=== PATIENT | female | born 1955 | race Two or more races ===

== ENCOUNTER 2021-12-28 14:00 | Outpatient (AMB) | payer MEDICARE, MEDICAID, SELFPAY ==
--- NOTE | 2021-12-29 14:13 | PR.CARETRNRP ---
OP Care Transition Does patient have PCP: Yes PCP Follow up: No (Has PCP appointment 01/01/22.) Visit Summary: CC conducted a discharge follow-up call for the PACT-Post Acute Care Transition Program. Pt's daughter, Angeli Faulkner, and medical decision maker/surrogate shared that Pt continues to feel weak. Mrs. Faulkner communicated that Pt's breathing has improved. Mrs. Faulkner indicated that a nurse from [facility] provided Pt with an initial intake assessment and will start physical therapy during the next home visit. CC inquired with Mrs. Faulkner if she was able to schedule a discharge follow-up appointment with PCP. Mrs. Faulkner stated that she has not scheduled a discharge follow-up appointment. CC assisted Pt with a discharge follow-up appointment scheduled for Saturday January 01, 2022 at 4:00PM. CC forwarded an appointment confirmation via text messaging. CC will continue to provide Pt with support and assistance as needed. [facility] Care Personnel Records Clerk Initial Visit Does patient have PCP: Yes Visit Summary: CC conducted a discharge follow-up call for the PACT-Post Acute Care Transition Program. Pt's daughter, Angeli Faulkner, and medical decision maker/surrogate shared that Pt continues to feel weak. Mrs. Faulkner communicated that Pt's breathing has improved. Mrs. Faulkner indicated that a nurse from [facility] provided Pt with an initial intake assessment and will start physical therapy during the next home visit. CC inquired with Mrs. Faulkner if she was able to schedule a discharge follow-up appointment with PCP. Mrs. Faulkner stated that she has not scheduled a discharge follow-up appointment. CC assisted Pt with a discharge follow-up appointment scheduled for Saturday January 01, 2022 at 4:00PM. CC forwarded an appointment confirmation via text messaging. CC will continue to provide Pt with support and assistance as needed. COPD Pulmonary Results: No Data to Display
== END 2021-12-28 14:30 | disposition home or self-care (01) ==
LOC: HODCWC 01-01 12:56
PROVIDERS: PCP Radiology Therapeutic Radiology; Referring Provider Radiology Therapeutic Radiology

== ENCOUNTER 2025-02-14 15:23 | Inpatient (IN) | payer MEDICARE, MEDICAID, SELFPAY ==
[2025-02-14] VITALS (14 sets, daily range): BP systolic 117–151; BP diastolic 62–79; PULSE 64–83; RESP 18–22; TEMP 36.6–37; O2SAT 90–100
--- NOTE | 2025-02-14 15:43 | EKG_ITS ---
[facility] Test Date: 2025-02-14 Pat Name: NARAYAN MAYS Department: Room: - Gender: Female Fairing Man: : 1955 Requested By: Kaykay Braxton Order Number: [id number] Reading MD: Kaykay Braxton Measurements Intervals [place] Rate: 81 P: 48 TX: 96 QRS: -47 QRSD: 118 T: -10 QT: 398 QTc: 462 Interpretive Statements SINUS RHYTHM WITH SHORT TX INTERVAL LEFT AXIS DEVIATION [QRS AXIS < -30] INCOMPLETE RIGHT BUNDLE BRANCH BLOCK [90+ ms QRS DURATION, TERMINAL R IN V1/V2, 40+ ms S IN I/aVL/V4/V5/V6] Compared to ECG 08/29/2024 19:00:10 Short TX interval now present Incomplete right bundle-branch block now present Sinus tachycardia no longer present Right bundle-branch block no longer present Myocardial infarct finding no longer present /[id number]/S0/[id number].pdf
--- NOTE | 2025-02-14 15:43 | XR_ITS ---
Examination: AP chest lateral 2 views Technique: Sitting AP lateral chest 2 views Exam date and time: February 14, 2025 at 1854 hrs. Comparison 08/21/2024 Indications: Onset chest pain today. Findings: Mild heart failure Mild enlargement cardiac contour Prominent vascular congestion with septal pulmonary edema and moderate bilateral pleural effusions Consider superimposed pneumonia left base Impression: Mild heart failure Consider superimposed pneumonia left base
--- NOTE | 2025-02-14 15:43 | XR_ITS ---
Examination: CT brain head without contrast. 2-D sagittal coronal reconstructions Date and time of exam:February 14, 2025, 1549 hrs. Indications: Onset dizziness episodes today CTDI: vol (mGy):45.9 DLP: (mGycm):923 Technique: Multiple CT axial sections of the brain have been obtained, 5 mm slice thickness. Contrast has not been administered. 2-D sagittal, coronal reconstructions have been obtained Low dose protocols were performed. One or more of the following dose reduction techniques were used; automated exposure control, adjustment of the mA and/or KV according to patient size, use of iterative reconstruction technique. Findings: No significant ventricular enlargement. Intra-axial or extra-axial hemorrhage density is not seen. No mass effect or midline shift Basal cisterns are not remarkable. Fourth ventricle is midline. Cranial vault intact. Chronic pansinusitis Impression: Negative for acute hemorrhage, mass effect or midline shift
--- NOTE | 2025-02-14 15:51 | PD.EDRME ---
Rapid Medical Screening Exam E Arrival date/time: 02/14/25 15:23 This is a 70-year-old female that comes in with complaints of anxiety, dizziness, left ear pain, headache, shortness of breath especially when laying down. Patient states symptoms started yesterday. Patient is having some mild chest pain. Patient states that she feels like her heart rate is going slow and sometimes it feels like it is going fast. Patient has a history of diabetes, high blood pressure, and has a left BKA. Patient denies fever, chills. I have greeted and performed a focused initial assessment of this patient. Initial appropriate labs ordered at this time. A comprehensive ED assessment and evaluation of the patient and analysis of all test and completion of medical decision making process will be conducted by additional ED provider. Chief Complaint: Headache Time Seen by Provider: 02/14/25 15:28 Vital signs: Vital Signs Temperature 98.6 F 02/14/25 15:40 Pulse Rate 83 02/14/25 15:40 Respiratory Rate 18 02/14/25 15:40 Blood Pressure 117/66 02/14/25 15:40 Pulse Oximetry (%) 94 L 02/14/25 15:40 Oxygen Delivery Method Room Air 02/14/25 15:40
--- NOTE | 2025-02-14 16:29 | PRELIM_ITS ---
CT scan of the head without intravenous contrast (axial sections with sagittal and coronal reformats) February 14, 2025 1549 hours Clinical history: Dizziness. Radiation Dose: Total exam DLP 926 mGy/cm Comparison: No prior study is available for comparison. Findings: There is no evidence of intracranial hemorrhage, mass effect or midline shift. There are periventricular white matter hypodensities, compatible with chronic small vessel ischemia. There is mild volume loss. There is atheromatous calcification of the intracranial arteries. The calvarium is unremarkable. There is moderate mucosal thickening with calcifications in bilateral maxillary sinuses. There is partial sclerosis of the bilateral mastoid air cells. The other visualized paranasal sinuses are clear. Impression: No evidence of intracranial hemorrhage, mass effect or midline shift. Periventricular chronic small vessel ischemia and volume loss. Other findings as described above. Report Electronically Signed By: Shay Salomon 02/14/2025 4:29:21 PM [EST]
--- NOTE | 2025-02-14 16:29 | PD.EDHA ---
ED Headache RME/HPI General Chief Complaint: Headache Stated Complaint: HEADACHE Time Seen by Provider: 02/14/25 15:28 Arrival date/time: 02/14/25 15:23 This is a 70-year-old female that comes in with complaints of anxiety, dizziness, left ear pain, headache, shortness of breath especially when laying down. Patient states symptoms started yesterday. Patient is having some mild chest pain. Patient states that she feels like her heart rate is going slow and sometimes it feels like it is going fast. Patient has a history of diabetes, high blood pressure, and has a left BKA. Patient denies fever, chills. RME / HPI RME / HPI Narrative: 02/14/25 15:23 This is a 70-year-old female that comes in with complaints of anxiety, dizziness, left ear pain, headache, shortness of breath especially when laying down. Patient states symptoms started yesterday. Patient is having some mild chest pain. Patient states that she feels like her heart rate is going slow and sometimes it feels like it is going fast. Patient has a history of diabetes, high blood pressure, and has a left BKA. Patient denies fever, chills. I have greeted and performed a focused initial assessment of this patient. Initial appropriate labs ordered at this time. A comprehensive ED assessment and evaluation of the patient and analysis of all test and completion of medical decision making process will be conducted by additional ED provider. Related Data Home Medications ?Medication ?Instructions ?Recorded ?Confirmed albuterol sulfate 90 mcg/actuation 1 - 2 puff inhalation Q4H PRN 07/18/23 02/14/25 aerosol inhaler (Ventolin HFA) Shortness Of Breath Or Wheezing blood sugar diagnostic (True 07/18/23 02/18/25 Metrix Glucose Test Strip) insulin human U-100 NPH-regulr 15 unit subcut QAM 07/18/23 02/14/25 70-30 mix 100 unit/mL subcutaneous susp (Novolin 70/30 U-100 Insulin) metformin 500 mg tablet 500 mg PO BIDWM 07/18/23 02/14/25 Previous Rx's ?Medication ?Instructions ?Recorded ascorbic acid (vitamin C) 250 mg 500 mg (2 x 250 mg) PO BID #60 tabs 07/25/23 tablet (Vitamin C) albuterol sulfate 2.5 mg/3 mL 2.5 mg (3 mL) inhalation Q4H PRN 03/20/24 (0.083 %) solution for nebulization shortness of breath or wheezing #90 mL atorvastatin 80 mg tablet 80 mg PO HS #90 tabs 02/19/25 ferrous sulfate 325 mg (65 mg 325 mg PO Q OTHER DAY #90 tabs 02/19/25 iron) tablet metoprolol succinate 100 mg 100 mg PO QDAY #90 tabs 02/19/25 tablet,extended release 24 hr pantoprazole 40 mg tablet,delayed 40 mg PO QDAY #90 tabs 02/19/25 release Allergies Allergy/AdvReac Type Severity Reaction Status Date / Time aspirin Allergy Severe Difficulty Verified 02/18/25 19:51 Breathing hydrocodone Allergy Severe DIFF Verified 02/18/25 19:51 BREATHING morphine Allergy Severe DIFF Verified 02/18/25 19:51 BREATHING shellfish derived Allergy Severe Hives Verified 02/18/25 19:51 tramadol Allergy Severe Anxiety Verified 02/18/25 19:51 codeine Allergy Difficulty Verified 02/18/25 19:51 Breathing Influenza Virus Vaccines AdvReac Severe Difficulty Verified 02/18/25 19:51 Breathing pneumococcal vaccine AdvReac Severe Difficulty Verified 02/18/25 19:51 Breathing Review of Systems Review of Systems Systems Reviewed: All systems reviewed, normal except as documented Past Medical History Past Medical History NEUROLOGIC: Positive Neurological Disorders and Migraine; Negative Cerebrovascular Accident, Transient Ischemic Attacks (TIA), Dementia, Alzheimer's Disease, Parkinson's Disease, Brain Tumor, Meningitis, Seizures, Epilepsy, Multiple Sclerosis, Cerebral Palsy, Amyotrophic Lateral Sclerosis (ALS/Richelle Gehrig's), Guillain-Chamois Syndrome, Spina Bifida, Paralysis, Peripheral Neuropathy, Plaza's Palsy, Subdural Hematoma, Head Trauma, Spinal Cord Injury or Traumatic Brain Injury CARDIAC: Positive Peripheral Vascular Disease, Cellulitis and Hypertension; Negative Cardiac Disorders, Myocardial Infarction, Cardiac Arrhythmia, Atrial Fibrillation, Angina, Heart Murmur, Coronary Artery Disease, Atherosclerotic Heart Disease, Hypercholesterolemia, Aneurysm, Congestive Heart Failure, Congenital Heart Disease, Valvular Heart Disease, Rheumatic Fever, Cardiomyopathy, Edema, Pericarditis, Deep Vein Thrombosis, Hypotension or Varicose Veins RESPIRATORY: Positive Chronic Obstructive Pulmonary Disease (COPD), Asthma, Bronchitis, Pneumonia, Cough, Sputum Production and Wheezing; Negative Emphysema, Pulmonary Fibrosis, Cystic Fibrosis, Tuberculosis, Pulmonary Embolism, Pulmonary Edema or Sleep Apnea GASTROINTESTINAL: Positive Gastrointestinal Disorders and Obesity; Negative Hepatitis, Cirrhosis, Pancreatitis, Celiac Disease, Gall Bladder Disease, Gastrointestinal Bleed, Esophageal Varices, Ac's Esophagus, Colitis, Ulcerative Colitis, Diverticulitis, Diverticulosis, Ulcer, Colorectal Cancer, Irritable Bowel, Crohn's Disease, Obstructive Bowel, Hiatal Hernia, Hemorrhoids or Gastroesophageal Reflux Disease GENITOURINARY: Negative Genitourinary Disorders, Renal Disease, Kidney Stones, Polycystic Kidney Disease, Neurogenic Bladder, Inguinal Hernia, Dialysis, Prostate Cancer or Benign Prostatic Hyperplasia REPRODUCTIVE: Positive Previous Pregnancies; Negative Breast Cancer, Endometriosis, Genital Herpes, Gonorrhea, Pelvic Inflammatory Disease, Syphilis, Testicular Cancer or Uterine Prolapse MUSCULOSKELETAL: Positive Musculoskeletal Disorders and Arthritis; Negative Muscular Dystrophy, Myasthenia Gravis, Marfan's Syndrome, Bone Cancer, Rheumatoid Arthritis, Osteoporosis, Degenerative Disk Disease, Gout, Scoliosis, Carpal Tunnel Syndrome, Fibromyalgia, Fractures, Degenerative Joint Disease, Osteomyelitis or Poliovirus ENT: Positive Glaucoma and Ear Infection; Negative Cataracts, Blind, Retinal Detachment, Macular Degeneration, Deafness, Head Trauma or Eye Prosthesis ENDOCRINE: Positive Endocrine Disorders, 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; Negative Diabetes Mellitus Type 1, Hypoglycemia, [place]'s Disease, Hyperthyroidism, Hypothyroidism, Parathyroid Disease, Pituitary Disease, Systemic Lupus Erythematosus, Syndrome of Inappropriate Antidiuretic Hormone (SIADH), Adrenal Disease or Graves' Disease HEMATOLOGIC: Negative Blood Disorders, Anemia, Leukemia, Hemophilia, Thalassemia, Sickle Cell Disease or Clotting Problems PSYCHO/SOCIAL: Positive Depression and Anxiety; Negative Psychiatric Problems, Schizophrenia, Recreational Drug Use, Bipolar Disorder, Behavior Problems, Self-Mutilation, Attention Deficit Disorder, Attention Deficit Hyperactivity Disorder, Depression, Post Traumatic Stress Disorder or Eating Disorder OTHER HISTORY: Positive Hospitalization, Falls, Chicken Pox, Measles, Mumps and Rubella (Greek Measles); Negative Autoimmune Disease, Down Syndrome, Autism, Developmental Delay, Shingles, Blood Transfusions, Blood Transfusion Reaction, Anesthesia Reactions, Organ Transplant, Chemotherapy, Radiation Therapy, Hyperbaric Therapy, MRSA, VRSA, Vancomycin-Resistant Enterococci, Human Immunodeficiency Virus (HIV), Pertussis, Clostridium Difficile, Cancer, Breast Cancer, Cervical Cancer, Colorectal Cancer, Lung Cancer, Ovarian Cancer, Prostate Cancer or Testicular Cancer Family History FAMILY HISTORY: Positive Family Respiratory Disorders, Family Cancer and Family Surgery; Negative Family Psychiatric Problems, Family Cardiac Disorders, Family Gastrointestinal Problems or Family Anesthesia Reaction Surgical History SURGICAL: Positive Vascular Surgery, Angiogram, Hysterectomy and Section; Negative Cardiac Surgery, Open Heart Surgery, Coronary Artery Bypass Graft, Valve Replacement, Coronary Stent, Cardiac Catheterization, Pacemaker, Auto Implanted Cardiovert Defib, Carotid Endarterectomy, Endocrine Surgery, Thyroidectomy, Ear Surgery, Tympanostomy Tube, Eye Surgery, Nose Surgery, Oral Surgery, Tonsillectomy, Adenoidectomy, Cochlear Implant, Corneal Transplant, Throat Surgery, Abdominal Surgery, Tracheostomy, Gastric Bypass Surgery, Gastrostomy, Bowel Surgery, Nephrectomy, Transurethral Resection, Joint Replacement, Amputation, Open Reduction Internal Fixation, Arthroscopy, Neurologic Surgery, Brain Shunt, Mastectomy, Lumpectomy, Tubal Ligation, Vasectomy or Organ Transplant Social History SMOKING STATUS: Never smoker SECOND HAND EXPOSURE: No SUBSTANCE USE: does not use ED Exam General General appearance: Present alert, in no apparent distress and other (Skin pale) Head Head exam: Present atraumatic Eye Eye exam: Present normal appearance, PERRL and EOMI ENT ENT exam: Present mucous membranes moist and other ( small hole to right TM. No erythema) Neck Neck exam: Present normal inspection, full ROM and trachea midline Chest Chest inspection: Present normal inspection and symmetric chest wall rise Respiratory Respiratory exam: Present other (Wheezing posteriorly) Cardiovascular Cardiovascular exam: Present regular rate, normal rhythm and normal heart sounds Abdominal Exam Abdominal exam: Present soft Extremities Exam Extremities exam: Present normal inspection and full ROM Back Exam Back exam: Present normal inspection and full ROM Neurological Exam Neurological exam: Present alert, oriented X3 and CN II-XII intact Psychiatric Psychiatric exam: Present normal affect and normal mood Skin Skin exam: Present warm and dry Course Quality Measures none Orders Category Date Time Status Bedside COVID-19 Antigen Test NOW Care 02/14/25 20:07 Completed EKG (ED ONLY) *Do not use* NOW Care 02/14/25 15:43 Completed Occult Blood,Stool (Nursing) ONCE Care 02/14/25 16:45 Completed Transfuse,blood/blood products NOW Care 02/14/25 19:[address] head/brain wo con Stat Exams 02/14/25 15:43 Completed EKG (ED Only) Stat Exams 02/14/25 15:43 Draft XR chest 2V Stat Exams 02/14/25 15:43 Completed BNP [B-Type Natriuretic Peptide] Stat Lab 02/14/25 16:15 Completed CBC Stat Lab 02/14/25 16:15 Completed Comprehensive Metabolic Panel Stat Lab 02/14/25 16:15 Completed PT [Prothrombin Time with INR] Stat Lab 02/14/25 16:15 Completed Path Review Blood Smear Stat Lab 02/14/25 16:15 Completed Troponin I Stat Lab 02/14/25 16:15 Completed Type and Screen Stat Lab 02/14/25 16:50 Completed Urinalysis, C/S if Indicated Stat Lab 02/14/25 16:50 Completed rbc [Red Blood Cells] Stat Lab 02/14/25 16:50 Completed Albuterol/Ipratr Rt Willow [Duoneb Rt Willow] Med 02/14/25 16:56 Discontinued 3 ml INH X1 ONE Furosemide [Lasix Inj] Med 02/14/25 19:31 Discontinued 20 mg IVP X1 ONE cefTRIAXone [Rocephin] 1,000 mg Med 02/14/25 18:37 Discontinued SODIUM CHLORIDE 0.9% (Popper) [Ns 0.9% (P)] 50 ml IV X1 Vital Signs Vital signs: Vital Signs Temperature 98.6 F 02/14/25 15:40 Pulse Rate 83 02/14/25 15:40 Respiratory Rate 18 02/14/25 15:40 Blood Pressure 117/66 02/14/25 15:40 Pulse Oximetry (%) 94 L 02/14/25 15:40 Oxygen Delivery Method Room Air 02/14/25 15:40 Procedures -ED EKG Interpretation #1: Date of EK02/14/25 Time of EK:10 Rate: 81 Interpretation: Interpreted by me (sinus rhythm with left axis deviation ) EKG Impression: No ectopy and Normal intervals Additional EKG comment: No change from previous EKG Headache MDM Narrative MDM Narrative:: Patient's daughter at bedside. She reports that patient uses oxygen at home when she sleeps. Patient on chronic anticoagulation she is on Eliquis and she thinks it was because she had blood clots or it might be because of irregular heart rhythm. She is not sure patient labs reviewed. Hemoglobin is 5.1 hematocrit 20.4, white count is 12.1 platelet 352. BMP unremarkable for the most part but does have a low calcium of 7.8 alk phos slightly elevated at 119 BNP is 105 troponin less than 0.002. Type and screen ordered patient agrees states get blood today. Patient had some posterior wheezing albuterol Atrovent ordered. Hospitalist team called and they agree to admit patient to hospital. Patient data External records reviewed:: [facility] previous records Clinical information provided by:: patient and family Social determinants that could affect healthcare access:: none Patient has the following chronic illnesses:: see note How is presenting disease/condition affected by chronic disease/condition?: exacerbated by Evaluation data The following diagnostics were reviewed and interpreted by me:: lab results, radiology exam(s) and EKG tracing(s) Lab and/or radiology exams considered but not ordered:: none Interpretation Summary: see note Medications / Prescriptions Medications or Prescriptions considered but not ordered:: none Medication administrations:: Medication Administration History Discontinued Medications Acetaminophen (Acetaminophen 325 Mg Tablet) 650 mg PO Q6H PRN PRN Reason: Fever >100 or pain 1-3 Stop: 03/16/25 21:22 Last Admin: 02/19/25 09:29 Dose: 650 mg Documented By: SHAZIA Albuterol/Ipratropium (Albuterol/Ipratropium (Duoneb) Rt Willow 3 Ml Nebu) 3 ml INH X1 ONE Stop: 02/14/25 16:57 Last Admin: 02/14/25 17:21 Dose: 3 ml Documented By: JUNITO Albuterol/Ipratropium (Albuterol/Ipratropium (Duoneb) Rt Willow 3 Ml Nebu) 3 ml INH Q8HRRT EMRE Stop: 03/16/25 07:59 Last Admin: 02/19/25 07:08 Dose: 3 ml Documented By: Admin: 02/18/25 22:20 Dose: 3 ml Documented By: SC Admin: 02/18/25 16:16 Dose: 3 ml Documented By: Admin: 02/18/25 06:58 Dose: 3 ml Documented By: Admin: 02/17/25 22:20 Dose: 3 ml Documented By: Admin: 02/17/25 15:56 Dose: 3 ml Documented By: Admin: 02/17/25 07:23 Dose: 3 ml Documented By: Admin: 02/16/25 22:57 Dose: 3 ml Documented By: Admin: 02/16/25 14:50 Dose: 3 ml Documented By: Admin: 02/16/25 09:14 Dose: Not Given Documented By: SG Non-Admin Reason: notdocumentedbyRT Admin: 02/16/25 09:13 Dose: Not Given Documented By: SG Non-Admin Reason: notdocumentedbyRT Admin: 02/16/25 07:09 Dose: 3 ml Documented By: Admin: 02/15/25 22:53 Dose: 3 ml Documented By: Admin: 02/15/25 14:38 Dose: 3 ml Documented By: Admin: 02/15/25 07:07 Dose: 3 ml Documented By: Admin: 02/14/25 23:05 Dose: 3 ml Documented By: ADA Albuterol/Ipratropium (Albuterol/Ipratropium (Duoneb) Rt Willow 3 Ml Nebu) 3 ml INH X1 ONE Stop: 02/17/25 04:47 Last Admin: 02/17/25 04:55 Dose: 3 ml Documented By: MARINO Albuterol/Ipratropium (Albuterol/Ipratropium (Duoneb) Rt Willow 3 Ml Nebu) 3 ml INH Q4HRRT PRN PRN Reason: sob wheezing Stop: 03/20/25 06:59 Last Admin: 02/19/25 13:38 Dose: 3 ml Documented By: Admin: 02/19/25 02:07 Dose: 3 ml Documented By: SC Admin: 02/18/25 13:30 Dose: 3 ml Documented By: Admin: 02/18/25 05:35 Dose: 3 ml Documented By: MARINO Albuterol/Ipratropium (Albuterol/Ipratropium (Duoneb) Rt Willow 3 Ml Nebu) Confirm Administered Dose 3 ml .ROUTE .STK-MED ONE Stop: 02/18/25 05:25 Last Admin: 02/18/25 05:35 Dose: Not Given Documented By: MARINO Non-Admin Reason: Override Medication Atorvastatin Calcium (Atorvastatin Calcium 20 Mg Tablet) 80 mg PO HS EMRE Stop: 03/16/25 21:24 Last Admin: 02/18/25 20:53 Dose: 80 mg Documented By: Admin: 02/17/25 20:20 Dose: 80 mg Documented By: Admin: 02/16/25 20:54 Dose: 80 mg Documented By: Admin: 02/15/25 23:19 Dose: 80 mg Documented By: [facility] Admin: 02/15/25 22:16 Dose: Not Given Documented By: [facility] Non-Admin Reason: NPO Admin: 02/14/25 22:03 Dose: 80 mg Documented By: Bisacodyl (Bisacodyl 10 Mg Supp) 10 mg OH X1 PRN PRN Reason: Gas pain Stop: 02/18/25 20:48 Dextrose (Dextrose 50%-Water Inj 50 Ml Syringe) 25 ml IV Q15MIN PRN PRN Reason: BG 50-70 responsive npo pt Stop: 03/16/25 21:32 Dextrose (Dextrose 50%-Water Inj 50 Ml Syringe) 50 ml IV Q15MIN PRN PRN Reason: BG <50 OR BG <70 & pt unresponsive Stop: 03/16/25 21:32 Dextrose (Dextrose 50%-Water Inj 50 Ml Syringe) 25 ml IV X1 ONE Stop: 02/15/25 14:05 Last Admin: 02/15/25 14:17 Dose: 25 ml Documented By: Diphenhydramine HCl (Diphenhydramine Inj 50 Mg/Ml Vial) 25 mg IV PRNMRX1 PRN PRN Reason: MODERATE SEDATION Stop: 02/18/25 20:47 Diphenhydramine HCl (Diphenhydramine Inj 50 Mg/Ml Vial) Confirm Administered Dose 50 mg .ROUTE .STK-MED ONE Stop: 02/18/25 18:51 Fentanyl Citrate (Fentanyl Cit Inj 50 Mcg/Ml Amp 2ml) Confirm Administered Dose 100 mcg .ROUTE .STK-MED ONE Stop: 02/16/25 16:09 Fentanyl Citrate (Fentanyl Cit Inj 50 Mcg/Ml Amp 2ml) 50 mcg IV Q2M PRN PRN Reason: MODERATE SEDATION Stop: 02/16/25 18:14 Fentanyl Citrate (Fentanyl Cit Inj 50 Mcg/Ml Amp 2ml) 50 mcg IV Q2M PRN PRN Reason: MODERATE SEDATION Stop: 02/18/25 20:47 Fentanyl Citrate (Fentanyl Cit Inj 50 Mcg/Ml Amp 2ml) Confirm Administered Dose 100 mcg .ROUTE .STK-MED ONE Stop: 02/18/25 18:51 Furosemide (Furosemide Inj 10 Mg/Ml Vial 2 Ml) 20 mg IVP X1 ONE Stop: 02/14/25 19:32 Glucagon (Glucagon Inj 1 Mg Vial) 1 mg IM Q15MIN PRN PRN Reason: BG <70, and no IV access Ceftriaxone Sodium 1,000 mg/ (Sodium Chloride) 50 mls @ 100 mls/hr IV X1 ONE Stop: 02/14/25 19:06 Last Infusion: 02/14/25 19:44 Dose: Infused Documented By: Admin: 02/14/25 19:12 Dose: 100 mls/hr Documented By: LANEY Dextrose/Lactated Ringer's (D5-Lr) 1,000 mls @ 100 mls/hr IV .Q10H EMRE Stop: 02/16/25 17:00 Last Infusion: 02/16/25 18:41 Dose: Infused Documented By: Admin: 02/16/25 13:49 Dose: Not Given Documented By: SHAMAR Non-Admin Reason: Wrong Time Admin: 02/16/25 05:49 Dose: 100 mls/hr Documented By: Infusion: 02/16/25 03:36 Dose: Infused Documented By: Admin: 02/15/25 17:36 Dose: 100 mls/hr Documented By: PATTY Insulin Human Lispro (Insulin Lispro (Admelog) 1 Unit/0.01 Ml Unit) 0 unit SC AC EMRE; Protocol Stop: 03/17/25 07:29 Last Admin: 02/15/25 11:45 Dose: Not Given Documented By: PATTY Non-Admin Reason: blood sugar 77 Admin: 02/15/25 07:40 Dose: Not Given Documented By: PATTY Non-Admin Reason: blood sugar 81 Insulin Human Lispro (Insulin Lispro (Admelog) 1 Unit/0.01 Ml Unit) 0 unit SC Q6HR EMRE; Protocol Stop: 03/17/25 17:59 Last Admin: 02/19/25 05:25 Dose: Not Given Documented By: FLORINDA Non-Admin Reason: Per Protocol Admin: 02/18/25 23:23 Dose: Not Given Documented By: FLORINDA Non-Admin Reason: Per Protocol Admin: 02/18/25 20:53 Dose: Not Given Documented By: FLORINDA Non-Admin Reason: Other, see note Admin: 02/18/25 12:43 Dose: Not Given Documented By: FLORENTIN Non-Admin Reason: Per Protocol Admin: 02/18/25 05:55 Dose: Not Given Documented By: FLORINDA Non-Admin Reason: Per Protocol Admin: 02/17/25 23:57 Dose: Not Given Documented By: FLORINDA Non-Admin Reason: Per Protocol Admin: 02/17/25 18:00 Dose: Not Given Documented By: GC Non-Admin Reason: Per Protocol Admin: 02/17/25 12:00 Dose: Not Given Documented By: GC Non-Admin Reason: Per Protocol Admin: 02/17/25 07:29 Dose: Not Given Documented By: GC Non-Admin Reason: Per Protocol Admin: 02/17/25 00:00 Dose: Not Given Documented By: MRG Non-Admin Reason: Per Protocol Admin: 02/16/25 17:34 Dose: Not Given Documented By: DM Non-Admin Reason: Per Protocol Admin: 02/16/25 12:00 Dose: Not Given Documented By: SG Non-Admin Reason: Per Protocol Admin: 02/16/25 07:16 Dose: Not Given Documented By: CTF Non-Admin Reason: Per Protocol Admin: 02/15/25 23:16 Dose: Not Given Documented By: CTF Non-Admin Reason: Per Protocol Admin: 02/15/25 17:12 Dose: Not Given Documented By: PATTY Non-Admin Reason: blood sugar 77 Insulin Human Lispro (Insulin Lispro (Admelog) 1 Unit/0.01 Ml Unit) 0 unit SC AC [facility]; Protocol Stop: 03/21/25 11:29 Last Admin: 02/19/25 11:32 Dose: Not Given Documented By: SHAZIA Non-Admin Reason: Per Protocol Metoprolol Succinate (Metoprolol Succinate Xl 25 Mg Tabcr) 100 mg PO QDAY [facility] Stop: 03/17/25 08:59 Last Admin: 02/19/25 08:04 Dose: 100 mg Documented By: Admin: 02/18/25 08:08 Dose: 100 mg Documented By: Admin: 02/17/25 10:35 Dose: 100 mg Documented By: Admin: 02/16/25 09:11 Dose: 100 mg Documented By: Admin: 02/15/25 08:19 Dose: 100 mg Documented By: PATTY Midazolam HCl (Midazolam Inj 1 Mg/Ml Vial 2 Ml) Confirm Administered Dose 2 mg .ROUTE .STK-MED ONE Stop: 02/16/25 16:09 Midazolam HCl (Midazolam Inj 1 Mg/Ml Vial 2 Ml) 2 mg IV Q2M PRN PRN Reason: Moderate Sedation Stop: 02/16/25 18:14 Midazolam HCl (Midazolam Inj 1 Mg/Ml Vial 2 Ml) 2 mg IV Q2M PRN PRN Reason: Moderate Sedation Stop: 02/18/25 20:47 Midazolam HCl (Midazolam Inj 1 Mg/Ml Vial 2 Ml) Confirm Administered Dose 4 mg .ROUTE .STK-MED ONE Stop: 02/18/25 18:51 Ondansetron HCl (Ondansetron Inj 2 Mg/Ml Inj 2 Ml) 4 mg IV Q6H PRN; Protocol PRN Reason: NAUSEA OR VOMITING Stop: 03/16/25 21:22 Pantoprazole Sodium (Pantoprazole Inj 40 Mg Vial) 40 mg IVP QDAY [facility] Stop: 03/17/25 08:59 Last Admin: 02/15/25 08:20 Dose: 40 mg Documented By: PATTY Pantoprazole Sodium (Pantoprazole Inj 40 Mg Vial) 40 mg IVP BID EMRE Stop: 03/17/25 08:59 Last Admin: 02/19/25 08:04 Dose: 40 mg Documented By: Admin: 02/18/25 20:53 Dose: 40 mg Documented By: Admin: 02/18/25 08:08 Dose: 40 mg Documented By: Admin: 02/17/25 20:20 Dose: 40 mg Documented By: Admin: 02/17/25 10:35 Dose: 40 mg Documented By: Admin: 02/16/25 20:55 Dose: 40 mg Documented By: Admin: 02/16/25 09:12 Dose: 40 mg Documented By: Admin: 02/15/25 22:33 Dose: 40 mg Documented By: Admin: 02/15/25 09:00 Dose: 40 mg Documented By: PATTY Polyethylene Glycol/Electrolytes (Na Mathews/Nahco3/Massimo/Peg (Golytely) 4,000 Ml Btl) 4,000 ml PO X1 ONE Stop: 02/16/25 16:37 Last Admin: 02/16/25 18:40 Dose: 4 l Documented By: SHAMAR Polyethylene Glycol/Electrolytes (Na Mathews/Nahco3/Massimo/Peg (Golytely) 4,000 Ml Btl) 4,000 ml PO X1 PRN PRN Reason: SEE COMMENTS Polyethylene Glycol/Electrolytes (Na Mathews/Nahco3/Massimo/Peg (Golytely) 4,000 Ml Btl) 4,000 ml PO X1 ONE Stop: 02/17/25 18:10 Last Admin: 02/17/25 19:49 Dose: 1 bottle Documented By: FLORINDA see mar Consultations Consultation(s) initiated? (list below): No Diagnosis Differential diagnosis headache: headache and other (pneumonia, gi bleed) Most likely diagnosis given after review of the tests above:: pneumonia, anemia Admission Indicated Admission indicated?: not indicated Admission Request Was there a request for admission?: Yes Admission Attestation Admission request attestation: Discussed case with Hospitalist service regarding admission. Discussed patients ED course, exam findings, labs, and radiology results. The Hospitalist agrees to accept the patient for admission. Disposition Plan Disposition Plan: Admit Discharge Plan Plan Patient Disposition: Admit Acute Care w/in Hospital Patient condition on transfer: Stable Problem List Clinical Impression: Anemia, Pneumonia PA/TRAINING PROGRAM MANAGER Supervising Physician CANDIDO/TRAINING PROGRAM MANAGER Supervising Physician: doug
[2025-02-14 16:32] LABS: Basophils # (Auto) 0.1 Thou/mm3 (0.0-0.2); Basophils % (Auto) 1 % (0-2.5); Eosinophils # (Auto) 0.2 Thou/mm3 (0.0-0.5); Eosinophils % (Auto) 1 % (0-10); Hematocrit 20.4 % (36.0-46.0); Immature Granulocytes % (Auto) 0 % (0-0); Immature Granulocytes Auto 0.04 Thou/mm3 (0.00-0.00); Lymphocytes # (Auto) 0.4 Thou/mm3 (1.0-4.8); Lymphocytes % (Auto) 3 % (10-50); Mean Corpuscular Hemoglobin 16.9 pg (25.0-35.0); Mean Corpuscular Volume 68 fL (80-100); Monocytes # (Auto) 0.3 Thou/mm3 (0.0-0.8); Monocytes % (Auto) 3 % (0-12); Neutrophils # (Auto) 11.1 Thou/mm3 (1.8-7.7); Neutrophils % (Auto) 92 % (37-80); Nucleated Red Blood Cell # 0.03 Thou/mm3 (0.00-0.00); Nucleated Red Blood Cell % 0 /100 WBC (0); Platelet Count 352 Thou/mm3 (140-440); RDW Standard Deviation 46.1 fL (36.4-46.3); Red Blood Count 3.01 Miln/mm3 (4.00-5.20); White Blood Count 12.1 Thou/mm3 (3.6-11.0)
[2025-02-14 16:37] LABS: Prothrombin Time 10.9 Seconds (9.0-12.2)
[2025-02-14 16:39] LABS: Hemoglobin 5.1 g/dL (12.0-16.0)
[2025-02-14 16:48] LABS: Alanine Aminotransferase 13 U/L (10-49); Albumin, Serum 3.9 gm/dL (3.4-4.8); Albumin/Globulin Ratio 1.8 (1.2-2.2); Alkaline Phosphatase 118 U/L (46-116); Anion Gap 6 (7-16); Aspartate Amino Transferase 24 U/L (0-34); B-Type Natriuretic Peptide 105 pg/mL (0-100); BUN/Creatinine Ratio 17 Ratio (12-20); Bilirubin,Total 0.3 mg/dL (0.3-1.2); Blood Urea Nitrogen 12 mg/dL (9-23); Calcium 7.7 mg/dL (8.3-10.6); Calcium (Corrected) 7.8 mg/dL (8.5-10.1); Carbon Dioxide 27.9 mMol/L (20.0-31.0); Chloride 107 mMol/L (98-107); Creatinine (Component) 0.7 mg/dL (0.6-1.3); Estimated Creatinine Clearance 57.1 mL/min (>60); Globulin 2.2 gm/dL (2.3-3.5); Glucose 176 mg/dL (74-106); Osmolality,Calculated 284 (275-295); Potassium 4.7 mMol/L (3.4-5.1); Sodium 141 mMol/L (136-145); Total Protein 6.1 gm/dL (5.7-8.2); Troponin I < 0.002 ng/mL (0.0-0.045); eGFR > 60 See Note
[2025-02-14 16:57] LABS: Path Review Blood Smear Sent to Pathologist
[2025-02-14 17:05] LABS: Collection Type, Urine Voided
[2025-02-14 17:16] LABS: Bilirubin,Urine Negative (Negative); Blood,Urine Negative (Negative); Clarity,Urine Clear (Clear/Hazy); Color,Urine Lt-Yellow (Lt Yel-Yel); Culture Indicated,Urine Not Indicated; Glucose, Urine Negative (Negative); Ketones,Urine Negative (Negative); Leukocyte Esterase,Urine Negative (Negative); Nitrite,Urine Negative (Negative); PH,Urine 6.5 (5.0-7.0); Protein,Urine Negative (Neg - Trace); RBC,Urine 6 /hpf (0-3); Specific Gravity,Urine 1.015 (1.001-1.035); Squamous Epithelial Cell,Urine 1 /hpf (0-5); Urobilinogen,Urine Negative mg/dL (0.0-1.0); WBC,Urine 1 /hpf (0-5)
[2025-02-14] MEDS: ALBUTEROL/IPRATROPIUM (Duoneb) RT SOL 3 ML NEBU INH ×2 (17:21→23:05)
[2025-02-14] MEDS: cefTRIAXone 1,000 MG in SODIUM CHLORIDE 0.9% (Popper) 50 ML 100 MG IV (19:12)
--- NOTE | 2025-02-14 20:04 | PC.NURSE ---
BLOOD TRANSFUSION CONSENT OBTAINED, PATIENT VERBALIZED UNDERSTANDING OF RISK AND BENEFITS OF RECEIVING BLOOD.
--- NOTE | 2025-02-14 20:14 | ESHP_ITS ---
<Statement entered by Vandana Strong MD - 02/16/25 23:06> 70-year-old female with multiple comorbidities including hypertension, hyperlipidemia, type 2 diabetes mellitus, asthma on intermittent home oxygen and severe peripheral arterial disease status post left BKA who presented with generalized weakness fatigue and headaches. Furthermore, patient denies any hematemesis, hemoptysis or hematochezia. Patient denies taking aspirin or steroids. In the ER, patient was noted to have acute symptomatic anemia with hemoglobin of 5.1 subsequently received 2 units of PRBC and plan to admit the patient to telemetry.I reviewed above note and agree with findings and plans. I have also personally examined the patient with medicine team and went over assessment and plan with medical team including record label intern and resident physician. Documentation for date of: 02/14/25 HPI History of Present Illness History of present illness: Jazmin is a 70 y/o female with PMHx of chronic asthma (on oxygen intermittently at home) severe peripheral artery disease (status post left BKA), hypertension, hyperlipidemia, ktd-gyzfgfw-qlaqiutbt type 2 diabetes who comes in for an evaluation of generalized weakness, fatigue and headache. Patient reports that she has a headache that occurs here and there can last up to 2 days and is relieved with Tylenol in which she takes 2 tabs for. She also says that she has been feeling generalized weakness and fatigue and some anxiety as well. She denies seeing any blood in her stool, coughing up blood or vomiting blood. She denies any recent travel. She denies any changes to her dietary habits. She denies any use of NSAIDs. She also says that she takes Eliquis and she was put on this last year after her BKA. She says she has gotten blood transfusions in the past however she has chronic anemia. She says she has not been bleeding anywhere to her knowledge. She denies any recent weight loss. No other complaint at this time. She says that her diabetes has been controlled well and does not take any medicine for it. She also says that she has taken prednisone for years and is aware that it can increase her blood sugar, however she recently ran out of it. She also says she ran out of cilostazol as well. Denies chest pain and also shortness of breath ED course: She came in with a temperature of 98.6, heart rate 83, respiratory rate 18, blood pressure 117/66, saturating 94% room air. She was found to have a sodium 144, potassium 4.7, BUN/creatinine 12 and 0.7 respectively, sugar of 176, white count 12, hemoglobin 5, platelets 352, BNP 105, calcium 7.8, urinalysis showed +6 RBC. Chest x-ray shows possible pneumonia and mild heart failure. EKG shows normal sinus rhythm, possible right bundle branch block and left axis deviation. Past medical history: As above Surgical history: One , hysterectomy, left BKA, Allergies: Aspirin, hydrocodone, morphine, shellfish, tramadol, codeine, influenza and pneumococcal vaccine Meds: Eliquis 2.5 mg twice daily, loratadine 10 mg, Lipitor 80 mg at bedtime, vitamin C, metoprolol 100 XL daily, recently ran out of prednisone 10 mg, cilostazol in which she ran out of as well. Family history: Family history positive for first-degree relatives having prostate cancer, liver cancer, lung cancer and colon cancer Social history: Born in [place] raised in [place]. She has 3 daughters. Likes to m[employer] at the [employer]. Has never been a smoker or used or chewed tobacco products. Has never been a heavy drinker. No history of oral or IV drug use. Review of Systems Review of Systems Narrative Review of Systems: Constitutional: No fever, chills, no weight loss positive fatigue, positive weakness HEENT: No eye pain, vision loss, ear pain, hearing loss, dysphagia, Cardiovascular: No chest pain, palpitations, edema, pain with walking Respiratory: No cough, shortness of breath, wheezing GI: No NVD, abdominal pain, constipation, blood in stool, loss of appetite, heartburn Extremities: No presence of pitting edema MSK: No back pain, joint pain, joint swelling Neuro: No dizziness, numbness, weakness, headaches, seizures, tremors, positive headache Psych: No anxiety, depression Exam Vital Signs Temp Pulse Resp BP Pulse Ox O2 Del Method O2 Flow Rate 98.2 F 77 18 150/72 H 100 Nasal Cannula 2 02/14/25 18:17 02/14/25 18:17 02/14/25 18:17 02/14/25 18:17 02/14/25 18:17 02/14/25 18:17 02/14/25 18:17 Narrative Exam General: AAOx3, NAD, pleasant elderly female HEENT: Dry mucous membranes, conjunctiva pale bilaterally, EOMI, PERRLA, poor dentition Cardiovascular: Pansystolic murmur heard over left lower sternal border radiates to left upper sternal border, radial pulses +2 bilat, RRR Pulmonary: Possible crackles heard, no wheezing GI: No tenderness to light or deep palpitation, no guarding, rigidity, rebound tenderness or distension Extremities: Left BKA, unable to appreciate dorsalis pedis pulse on right lower extremity Neuro: AAOx3, no focal motor or sensory deficits in the UE or LE bilat Psych: Good judgement, thought and behavior. Cooperative Results: Labs 02/14/25 16:15 02/14/25 16:15 Labs: Short CBC 02/14/25 Range/Units 16:15 WBC 12.1 H (3.6-11.0) Thou/mm3 Hgb 5.1 L* (12.0-16.0) g/dL Hct 20.4 L* (36.0-46.0) % Plt Count 352 (140-440) Thou/mm3 BMP 02/14/25 16:15 Sodium 141 Potassium 4.7 Chloride 107 Carbon Dioxide 27.9 BUN 12 Creatinine 0.7 Glucose 176 H Calcium 7.7 L Cardiac Enzymes 02/14/25 Range/Units 16:15 Troponin I < 0.002 (0.0-0.045) ng/mL Liver Function 02/14/25 Range/Units 16:15 Total Bilirubin 0.3 (0.3-1.2) mg/dL AST 24 (0-34) U/L ALT 13 (10-49) U/L Alkaline Phosphatase 118 H (46-116) U/L Albumin 3.9 (3.4-4.8) gm/dL Urine 02/14/25 Range/Units 16:50 Urine Color Lt-Yellow (Lt Yel-Yel) Urine Clarity Clear (Clear/Hazy) Urine pH 6.5 (5.0-7.0) Ur Specific [place] 1.015 (1.001-1.035) Urine Protein Negative (Neg - Trace) Urine Glucose (UA) Negative (Negative) Quality Measures Quality Measures VTE prophylaxis (SCDs) Advance care planning discussed with:: patient Medications Home Medications and Allergies Home Medications ?Medication ?Instructions ?Recorded ?Confirmed ?Type gabapentin 100 mg capsule 100 mg PO HS 07/13/23 History albuterol sulfate 90 mcg/actuation 1 - 2 puff inhalati on Q4H PRN 07/18/23 02/14/25 History aerosol inhaler (Ventolin HFA) Shortness Of Breath Or Wheezing blood sugar diagnostic (True 07/18/23 07/18/23 Histor y Metrix Glucose Test Strip) fluticasone propionate 50 1 spray intranasal QDAY 07/0207/18/23 History mcg/actuation nasal spray,suspension insulin human U-100 NPH-regulr 15 unit subcut QAM 07/0202/14/25 History 70-30 mix 100 unit/mL subcutaneous susp (Novolin 70/30 U-100 Insulin) metformin 500 mg tablet 500 mg PO BIDWM 07/18/23 History Allergies Allergy/AdvReac Type Severity Reaction Status Date / Time aspirin Allergy Severe Difficulty Verified 02/14/25 15:26 Breathing hydrocodone Allergy Severe DIFF Verified 02/14/25 15:26 BREATHING morphine Allergy Severe DIFF Verified 02/14/25 15:26 BREATHING shellfish derived Allergy Severe Hives Verified 02/14/25 15:26 tramadol Allergy Severe Anxiety Verified 02/14/25 15:26 codeine Allergy Difficulty Verified 02/14/25 15:26 Breathing Influenza Virus Vaccines AdvReac Severe Difficulty Verified 02/14/25 15:26 Breathing pneumococcal vaccine AdvReac Severe Difficulty Verified 02/14/25 15:26 Breathing Visit Medications Discontinued Medications Albuterol/Ipratropium (Albuterol/Ipratropium (Duoneb) Rt Willow 3 Ml Nebu) 3 ml INH X1 ONE Stop: 02/14/25 16:57 Last Admin: 02/14/25 17:21 Dose: 3 ml Furosemide (Furosemide Inj 10 Mg/Ml Vial 2 Ml) 20 mg IVP X1 ONE Stop: 02/14/25 19:32 Ceftriaxone Sodium 1,000 mg/ (Sodium Chloride) 50 mls @ 100 mls/hr IV X1 ONE Stop: 02/14/25 19:06 Last Infusion: 02/14/25 19:44 Dose: Infused Assessment & Plan Plan Assessment Jazmin is a 70 y/o female with PMHx of chronic asthma (on oxygen intermittently at home) severe peripheral artery disease (status post left BKA), hypertension, hyperlipidemia, xgw-zzjario-acxqybnjf type 2 diabetes who is currently evaluated for acute blood loss anemia. #Acute blood loss anemia #Symptomatic anemia #Chronic microcytic anemia DDx: GI Bleed, Cancer, chronic anemia, medication induced FOBT was positive, colonoscopy about 7 years ago per patient was normal, and EGD showed possible gastritis Patient does not take any NSAIDs Patient does have significant cancer history, however no weight loss recently Patient does have chronic anemia Patient is also on Eliquis could be contributing to patient's low hemoglobin Patient will require further workup and malignancy needs to be ruled out MCV ~60s Plan: ? Trend CBC ? Iron studies panel ? Peripheral blood smear ? Transfusion protocol hemoglobin below 7 ? Holding Eliquis ? Avoiding any NSAIDs ? SCDs ? Protonix 40 mg daily #History of severe peripheral artery disease, status post left BKA #History of hypertension #History of hyperlipidemia Used to use cilostazol Plan: ? Resumed home Lipitor 80 mg at bedtime ? Avoiding any blood thinners due to above ? Follow-up lipid panel #History of severe asthma Pt says she uses nebulizer 3 times a day (albuterol) Says she uses oxygen at home Does not use maintenance inhaler Not sure if she has gotten PFTs Plan: ? DuoNebs every 8 hours ? Oxygen as needed #Leukocytosis In setting of chronic prednisone use No fevers, or other SIRS criteria #Dmr-gjfqzwy-clzgoxytx type II diabetes mellitus A1c in 2022 was 6.2 Plan: ? Sliding scale insulin ? Hypoglycemic protocol in place ? Blood sugar checks with meals #Health Maintenance Disposition: Telemetry DVT prophylaxis: SCDs GI prophylaxis: Protonix Diet: Pending swallow eval, then carb low CODE STATUS: DNR Patient seen and care discussed with my attending physician, Dr. Tae Nguyen, PGY-1
[2025-02-14] MEDS: ATORVASTATIN CALCIUM 20 MG TABLET 80 MG PO (22:03)
[2025-02-15] VITALS (14 sets, daily range): BP systolic 135–179; BP diastolic 68–89; PULSE 64–84; RESP 16–20; TEMP 36–36.9; O2SAT 97–100; BMI 26.4
[2025-02-15 06:28] LABS: Basophils # (Auto) 0.1 Thou/mm3 (0.0-0.2); Basophils % (Auto) 1 % (0-2.5); Eosinophils # (Auto) 0.1 Thou/mm3 (0.0-0.5); Eosinophils % (Auto) 1 % (0-10); Hematocrit 29.4 % (36.0-46.0); Hemoglobin 8.3 g/dL (12.0-16.0); Immature Granulocytes % (Auto) 0 % (0-0); Immature Granulocytes Auto 0.04 Thou/mm3 (0.00-0.00); Immature Reticulocyte Fraction 3.7 % (3.0-15.9); Lymphocytes # (Auto) 1.1 Thou/mm3 (1.0-4.8); Lymphocytes % (Auto) 11 % (10-50); Mean Corpuscular HGB Conc 28.2 g/dl (31.0-37.0); Mean Corpuscular Hemoglobin 21.2 pg (25.0-35.0); Mean Corpuscular Volume 75 fL (80-100); Monocytes # (Auto) 0.9 Thou/mm3 (0.0-0.8); Monocytes % (Auto) 9 % (0-12); Neutrophils # (Auto) 7.5 Thou/mm3 (1.8-7.7); Neutrophils % (Auto) 78 % (37-80); Nucleated Red Blood Cell # 0.02 Thou/mm3 (0.00-0.00); Nucleated Red Blood Cell % 0 /100 WBC (0); Platelet Count 240 Thou/mm3 (140-440); RDW Standard Deviation 56.4 fL (36.4-46.3); Red Blood Count 3.91 Miln/mm3 (4.00-5.20); Reticulocyte % (Auto) 1.4 % (0.5-1.5); Reticulocyte Absolute Auto 55.1 Biln/L (25.0-75.0); Reticulocyte Hgb Content 16.8 pg (28.0-35.0); White Blood Count 9.7 Thou/mm3 (3.6-11.0)
[2025-02-15 06:39] LABS: Prothrombin Time 11.3 Seconds (9.0-12.2)
[2025-02-15 06:49] LABS: Iron 9 mcg/dL (50-170); Percent Iron Saturation 2 % (20-55); Total Iron Binding Capacity 406 mcg/dL (250-425); Unsaturated Iron Binding 397 (225-295)
[2025-02-15 07:03] LABS: Alanine Aminotransferase 10 U/L (10-49); Albumin, Serum 3.7 gm/dL (3.4-4.8); Albumin/Globulin Ratio 1.7 (1.2-2.2); Alkaline Phosphatase 99 U/L (46-116); Anion Gap 5 (7-16); Aspartate Amino Transferase 13 U/L (0-34); BUN/Creatinine Ratio 18 Ratio (12-20); Bilirubin,Total 0.5 mg/dL (0.3-1.2); Blood Urea Nitrogen 9 mg/dL (9-23); Calcium 7.7 mg/dL (8.3-10.6); Calcium (Corrected) 7.9 mg/dL (8.5-10.1); Cardiac Risk Estimate 1.4 RATIO (3.7-5.6); Chloride 107 mMol/L (98-107); Cholesterol 124 mg/dL (132-200); Creatinine (Component) 0.5 mg/dL (0.6-1.3); Estimated Creatinine Clearance 85.7 mL/min (>60); Globulin 2.2 gm/dL (2.3-3.5); Glucose 71 mg/dL (74-106); HDL Cholesterol 88 mg/dL (40-60); LDH (Lactate Dehydrogenase) 182 U/L (120-246); LDL Cholesterol,Calculated 21 mg/dL (0-130); Magnesium 2.5 mg/dL (1.6-2.6); Osmolality,Calculated 277 (275-295); Phosphorous 2.5 mg/dL (2.4-5.1); Potassium 4.3 mMol/L (3.4-5.1); Sodium 141 mMol/L (136-145); Thyroid Stimulating Hormone 0.42 uIU/mL (0.55-4.78); Total Protein 5.9 gm/dL (5.7-8.2); Triglycerides 74 mg/dL (30-150); eGFR > 60 See Note
[2025-02-15] MEDS: ALBUTEROL/IPRATROPIUM (Duoneb) RT SOL 3 ML NEBU INH ×3 (07:07→22:53)
[2025-02-15 08:11] LABS: Misc Send Out* See Sep Rpt
[2025-02-15] MEDS: METOPROLOL SUCCINATE XL 25 MG TABCR 100 MG PO (08:19)
[2025-02-15] MEDS: PANTOPRAZOLE INJ 40 MG VIAL IVP ×3 (08:20→22:33)
[2025-02-15 09:18] LABS: Free T4 (Free Thyroxine) 1.11 ng/dL (0.89-1.76)
[2025-02-15 09:19] LABS: Ferritin 4 ng/mL (7.3-270.7)
--- NOTE | 2025-02-15 11:49 | PC.SS ---
SS contacted daughter and obtained information from Angeli Colon, Daughter, who has been named the primary medical decision maker. Pt Jazmin Colon is a 70yr old female admitted for Symptomatic Anemia. Daughter was able to confirm PCP as Chandrakant Cardenas. Per daughter, pt is able to complete her ADL's w/the assistance of a wheel chair. Pt also receives O2 through [employer] at 2L as needed. Pt plans to D/C home w/Son who will be providing transportation. No other needs have been identified at this time. Discharge plan: Home Next of Kin: daughter, Angeli Faulkner [phone]
--- NOTE | 2025-02-15 13:43 | ESPR_ITS ---
<Statement entered by Opal Dolan MD - 02/15/25 19:21> Patient was seen and examined by me personally. I agree with most of the assessment and plan as discussed with the food and beverage intern physician, and my attending, Dr. Garay. 70-year-old female on chronic home O2 and chronic prednisone use was admitted for symptomatic microcytic anemia. Found to have a hemoglobin of 5.1, transfused 2 units of PRBCs with improvement to 8.3. Pending EGD with GI. Continue Protonix twice daily. Due to n.p.o. status and hypoglycemia, patient was started on D5 LR. Monitor Accu-Cheks. Opal Dolan MD, PGY-3 Documentation for date of: 02/15/25 Subjective Subjective Interval history: Jazmin Faulkner 70-y/o female with PMHx of chronic asthma (home O2 intermittently), severe PAD (s/p left BKA), HTN, HLD, T2DM who is admitted for symptomatic anemia. 02/15: No acute overnight events. Seen and examined at bedside. She does not have any complaints at this time, denying abdominal pain, hematochezia, melena, hemoptysis, hematemesis, or hematuria. States that last colonoscopy was within the last year and was not told about any sources of bleeding at that time. States that bowel movements are not dark that chronic steroids or for management of asthma. Exam Vital Signs Temp Pulse Resp BP Pulse Ox O2 Del Method O2 Flow Rate 98.5 F 64 17 164/79 H 98 Nasal Cannula 1 02/15/25 12:02/15/25 12:02/15/25 12:02/15/25 12:02/15/25 12:02/15/25 12:02/15/25 07:08 Narrative Exam General: AOx3, pleasant, laying comofrtably in bed, able to speak full sentences HEENT: NC/AT, mucous membranes moist, bilateral sclera anicteric Cardiovascular: regular rate and rhythm, S1/S2 present, no murmurs appreciated Pulmonary: clear to auscultation bilaterally, no rales/rhonchi/wheezes Abdominal: obese, soft, non-tender, no rebound/guarding Musculoskeletal: left BKA, no peripheral edema Skin: warm and dry, intact, no rashes Neuro: CN II-XII intact, no focal deficits Objective Labs 02/15/25 05:09 02/15/25 05:09 Labs: Laboratory Results - last 24 hr 02/14/25 02/14/25 02/15/25 16:15 16:50 05:09 WBC 12.1 H 9.7 RBC 3.01 L 3.91 L Hgb 5.1 L* 8.3 L D Hct 20.4 L* 29.4 L MCV 68 L 75 L MCH 16.9 L 21.2 L MCHC 25.0 L 28.2 L RDW Std Deviation 46.1 56.4 H Plt Count 352 240 D Neut % (Auto) 92 H 78 Lymph % (Auto) 3 L 11 [place] % (Auto) 3 9 Eos % (Auto) 1 1 Baso % (Auto) 1 1 Neut # (Auto) 11.1 H 7.5 Lymph # (Auto) 0.4 L 1.1 [place] # (Auto) 0.3 0.9 H Eos # (Auto) 0.2 0.1 Baso # (Auto) 0.1 0.1 Immature Gran # (Auto) 0.04 H 0.04 H Absolute Nucleated RBC 0.03 H 0.02 H Immature Gran % 0 0 Nucleated RBC % 0 0 Smear Path Review Sent to Pathologist Retic Count (auto) 1.4 Absolute Retic 55.1 Immature Retic Fraction 3.7 Retic Hgb Content CHr 16.8 L PT 10.9 11.3 INR 1.0 1.0 APTT 26.0 Sodium 141 141 Potassium 4.7 4.3 Chloride 107 107 Carbon Dioxide 27.9 29.0 Anion Gap 6 L 5 L BUN 12 9 Creatinine 0.7 0.5 L Estim Creat Clear Calc 57.1 L 85.7 eGFR > 60 > 60 BUN/Creatinine Ratio 17 18 Glucose [address] H [address] Glu mg/dL Cancelled Hemoglobin A1c Cancelled Calculated Osmolality 284 277 Calcium 7.7 L 7.7 L Corrected Calcium 7.8 L 7.9 L Phosphorus 2.5 Magnesium 2.5 Iron 9 L TIBC 406 Iron Saturation 2 L Unsat Iron Binding 397 H Ferritin 4 L Total Bilirubin 0.3 0.5 AST 24 13 ALT 13 10 Alkaline Phosphatase 118 H 99 Lactate Dehydrogenase 182 Troponin I < 0.002 B-Natriuretic Peptide 105 H Total Protein 6.1 5.9 Albumin 3.9 3.7 Globulin 2.2 L 2.2 L Albumin/Globulin Ratio 1.8 1.7 Triglycerides 74 Cholesterol 124 L LDL Cholesterol, Calc 21 HDL Cholesterol 88 H Cholesterol/HDL Ratio 1.4 L TSH 0.42 L Free T4 1.11 Ur Collection Type Voided Urine Color Lt-Yellow Urine Clarity Clear Urine pH 6.5 Ur Specific [place] 1.015 Urine Protein Negative Urine Glucose (UA) Negative Urine Ketones Negative Urine Blood Negative Urine Nitrite Negative Urine Bilirubin Negative Urine Urobilinogen (Auto) Negative Ur Leukocyte Esterase Negative Urine RBC 6 H Urine WBC 1 Ur Squamous Epith Cells 1 Urine Bacteria None Ur Culture Indicated? Not Indicated Blood Type O Positive Antibody Screen NEGATIVE Crossmatch See Detail Blood Bank Wristband ID Yes Quality Measures Quality Measures VTE prophylaxis (SCDs) Advance care planning discussed with:: patient Assessment & Plan Assessment Current Active Medications: Generic Name Dose Route Start Last Admin Trade Name Freq PRN Reason Stop Dose Admin Acetaminophen 650 mg 02/14/25 21:23 Acetaminophen 325 Mg Tablet PO 03/16/25 21:22 Q6H PRN Fever >100 or pain 1-3 Albuterol/Ipratropium 3 ml 02/14/25 08:00 02/15/25 07:07 Albuterol/Ipratropium (Duoneb) Rt [place]ow 3 Ml Nebu INH 03/16/25 07:59 3 ml Q8HRRT EMRE Administration Atorvastatin Calcium 80 mg 02/14/25 21:25 02/14/25 22:03 Atorvastatin Calcium 20 Mg Tablet PO 03/16/25 21:24 80 mg HS EMRE Administration Dextrose 25 ml 02/14/25 21:33 Dextrose 50%-Water Inj 50 Ml Syringe IV 03/16/25 21:32 Q15MIN PRN BG 50-70 responsive npo pt Dextrose 50 ml 02/14/25 21:33 Dextrose 50%-Water Inj 50 Ml Syringe IV 03/16/25 21:32 Q15MIN PRN BG <50 OR BG <70 & pt unresponsive Glucagon 1 mg 02/14/25 21:33 Glucagon Inj 1 Mg Vial IM Q15MIN PRN BG <70, and no IV access Insulin Human Lispro 0 unit 02/15/25 07:30 02/15/25 11:45 Insulin Lispro (Admelog) 1 Unit/0.01 Ml Unit SC 03/17/25 07:29 Not Given AC [facility] Protocol Metoprolol Succinate 100 mg 02/15/25 09:00 02/15/25 08:19 Metoprolol Succinate Xl 25 Mg Tabcr PO 03/17/25 08:59 100 mg QDAY EMRE Administration Ondansetron HCl 4 mg 02/14/25 21:23 Ondansetron Inj 2 Mg/Ml Inj 2 Ml IV 03/16/25 21:22 Q6H PRN NAUSEA OR VOMITING Protocol Pantoprazole Sodium 40 mg 02/15/25 09:00 02/15/25 09:00 Pantoprazole Inj 40 Mg Vial IVP 03/17/25 08:59 40 mg BID EMRE Administration Plan Jazmin Faulkner 70-y/o female with PMHx of chronic asthma (home O2 intermittently), severe PAD (s/p left BKA), HTN, HLD, T2DM who is admitted for symptomatic anemia. Generalized weakness and headaches. No melena/hematochezia, hematemesis, hemoptysis, use of NSAIDs. On eliquis after BKA. Has had transfusions in past. Taking prednisone for years but recently ran out and ran out of cilostazol. #Symptomatic anemia #Chronic microcytic anemia secondary to iron deficiency #? GI bleed FOBT positive, states colonoscopy was about one year ago without any significant findings. S/p transfusion 2 units pRBC. Reticulocyte count WNL, iron and ferritin low. ? GI consulted, appreciate recommendations ? Pending EGD vs colonoscopy, NPO ? Started on D5/LR maintenance IVF at 100 cc/hr ? Trend CBC ? Follow-up peripheral blood smear ? Restart home ferrous sulfate after EGD and GI recommendations ? Transfusion protocol hemoglobin below 7 ? Holding Eliquis, avoid NSAIDs, and SCDs for DVT prophylaxis ? Protonix 40 mg daily #History of severe peripheral artery disease, status post left BKA Used to use cilostazol ? Avoiding any blood thinners due to above #History of hypertension ? Metoprolol succinate 100 mg daily #History of hyperlipidemia Cholesterol 124, LDL 21, HDL 88. ? Resumed home Lipitor 80 mg at bedtime #History of severe asthma Uses nebulizer 3 times a day (albuterol) and on home O2. Does not use maintenance inhaler. ? DuoNebs every 8 hours ? Oxygen as needed #Ral-ijibmpr-totjmztwg type II diabetes mellitus A1c in 2022 6.2%. ? Sliding scale insulin ? Hypoglycemic protocol in place ? Blood sugar checks with meals ? Follow-up A1c #Subclinical hyperthyroidism TSH 0.42 and free T4. No indication for treatment. Hospital management: Disposition: pending EGD to evaluate for source of bleed Fluids: maintenance D5/LR Diet: NPO Lines: PIV DVT prophylaxis: held in setting of anemia and positive FOBT GI prophylaxis: pantoprazole 40 mg IV BID [place]annon: not indicated CODE STATUS: DNR ----- Plan discussed with attending physician Dr. Garay and senior resident physician Dr. Kelsi Quiroz MD PGY-1 Internal Medicine Attending Provider Attestation/Addendum I have discussed and was present for the essential components of the history, physical examination, diagnosis, and treatment plan with the resident. I agree with the patient's care as documented by the resident and amended herein by me. Ramakrishna Garay DO. Although this document has been carefully reviewed, there may still be some phonetic and other typographical errors. These errors are purely grammatical due to imperfections in the software program and should not be construed in any way to compromise the substance of the patient's medical care during this visit.
[2025-02-15] MEDS: DEXTROSE 50%-WATER INJ 50 ML SYRINGE 25 ML IV (14:17)
[2025-02-15] MEDS: DEXTROSE 5%-LACTATED RINGERS 1,000 ML 100 ML IV (17:36)
--- NOTE | 2025-02-15 22:48 | PD.IMCONS ---
HPI Data of Consult Requesting Physician: John Garay DO Primary Care Provider: Physician No Primary/Family Consult Narrative Reason for consult: H&H 5.1/20.4 FOBT positive History of present illness: 70 years of female presented to the emergency room with shortness of breath and dizziness was found to have a hemoglobin hematocrit of 5.1 and 20.4 with a BUN/creatinine of 12 and 0.7 WBC count of 12.1 Since this patient has been transfused and hemoglobin hematocrit is 8.3 and 29.4 with a platelet count of 240,000 Patient denies any history of nimesh hematemesis melena or hematochezia patient does have a history of Peripheral vascular disease leading to left BKA diabetes mellitus essential hypertension and hysterectomy She has a history of bronchial asthma using off and on oxygen at home cc:: cc: John Garay DO Review of Systems Review of Systems Systems Reviewed: All systems reviewed, normal except as documented Past Medical History Surgical History OTHER SURGICAL HX: As in the history of present illness Meds Home Medications and Allergies Home Medications ?Medication ?Instructions ?Recorded ?Confirmed ?Type albuterol sulfate 90 mcg/actuation 1 - 2 puff inhalation Q4H PRN 07/18/23 02/14/25 History aerosol inhaler (Ventolin HFA) Shortness Of Breath Or Wheezing blood sugar diagnostic (True 07/18/23 07/18/23 History Metrix Glucose Test Strip) insulin human U-100 NPH-regulr 15 unit subcut QAM 07/18/23 02/14/25 History 70-30 mix 100 unit/mL subcutaneous susp (Novolin 70/30 U-100 Insulin) metformin 500 mg tablet 500 mg PO BIDWM 07/18/23 02/14/25 History prednisone 20 mg tablet 10 mg PO BID 02/15/25 02/15/25 History Allergies Allergy/AdvReac Type Severity Reaction Status Date / Time aspirin Allergy Severe Difficulty Verified 02/14/25 15:26 Breathing hydrocodone Allergy Severe DIFF Verified 02/14/25 15:26 BREATHING morphine Allergy Severe DIFF Verified 02/14/25 15:26 BREATHING shellfish derived Allergy Severe Hives Verified 02/14/25 15:26 tramadol Allergy Severe Anxiety Verified 02/14/25 15:26 codeine Allergy Difficulty Verified 02/14/25 15:26 Breathing Influenza Virus Vaccines AdvReac Severe Difficulty Verified 02/14/25 15:26 Breathing pneumococcal vaccine AdvReac Severe Difficulty Verified 02/14/25 15:26 Breathing Exam Vital Signs Temp Pulse Resp BP Pulse Ox O2 Del Method O2 Flow Rate 98.4 F 64 19 158/68 H 100 Nasal Cannula 2 02/15/25 20:00 02/15/25 20:00 02/15/25 20:00 02/15/25 20:00 02/15/25 20:00 02/15/25 20:00 02/15/25 20:00 Constitutional Comments: Chronically ill-appearing Routine Respiratory Exam Comments: Normal to auscultation Routine Abdominal Exam Comments: Soft nontender Results Labs 02/15/25 05:09 02/15/25 05:09 Labs: Short CBC 02/15/25 Range/Units 05:09 WBC 9.7 (3.6-11.0) Thou/mm3 Hgb 8.3 L D (12.0-16.0) g/dL Hct 29.4 L (36.0-46.0) % Plt Count 240 D (140-440) Thou/mm3 BMP 02/15/25 05:09 Sodium 141 Potassium 4.3 Chloride 107 Carbon Dioxide 29.0 BUN 9 Creatinine 0.5 L Glucose 71 L D Calcium 7.7 L Liver Function 02/15/25 Range/Units 05:09 Total Bilirubin 0.5 (0.3-1.2) mg/dL AST 13 (0-34) U/L ALT 10 (10-49) U/L Alkaline Phosphatase 99 (46-116) U/L Albumin 3.7 (3.4-4.8) gm/dL Assessment and Plan Additional Assessment & Plan Additional Plan: # Occult GI bleeding # Acute posthemorrhagic anemia requiring blood transfusion # FOBT positive Plan clear liquid diet till 9 AM tomorrow then n.p.o. Consent obtained for fiberoptic esophagogastroduodenoscopy with possible biopsy possible therapeutic intervention If endoscopy is negative we will consider doing a fiberoptic endoscopy prior to discharge as there is a considerable drop in hemoglobin hematocrit. other medical problems include # Peripheral vascular disease leading to left BKA # Diabetes mellitus # Essential hypertension # Bronchial asthma Thank you very much for the opportunity to participate in the care of this patient
[2025-02-15] MEDS: ATORVASTATIN CALCIUM 20 MG TABLET 80 MG PO (23:19)
[2025-02-16] VITALS (16 sets, daily range): BP systolic 135–181; BP diastolic 63–89; PULSE 5–88; RESP 15–22; TEMP 36.7–37.4; O2SAT 95–100; BMI 27.0
[2025-02-16 05:23] LABS: Basophils # (Auto) 0.1 Thou/mm3 (0.0-0.2); Basophils % (Auto) 1 % (0-2.5); Eosinophils # (Auto) 0.6 Thou/mm3 (0.0-0.5); Eosinophils % (Auto) 6 % (0-10); Hemoglobin 9.1 g/dL (12.0-16.0); Immature Granulocytes % (Auto) 0 % (0-0); Immature Granulocytes Auto 0.02 Thou/mm3 (0.00-0.00); Lymphocytes # (Auto) 1.3 Thou/mm3 (1.0-4.8); Lymphocytes % (Auto) 14 % (10-50); Mean Corpuscular HGB Conc 28.4 g/dl (31.0-37.0); Mean Corpuscular Hemoglobin 21.1 pg (25.0-35.0); Mean Corpuscular Volume 74 fL (80-100); Monocytes # (Auto) 1.1 Thou/mm3 (0.0-0.8); Monocytes % (Auto) 12 % (0-12); Neutrophils # (Auto) 6.2 Thou/mm3 (1.8-7.7); Neutrophils % (Auto) 67 % (37-80); Nucleated Red Blood Cell # 0.02 Thou/mm3 (0.00-0.00); Nucleated Red Blood Cell % 0 /100 WBC (0); Platelet Count 243 Thou/mm3 (140-440); RDW Standard Deviation 55.8 fL (36.4-46.3); Red Blood Count 4.32 Miln/mm3 (4.00-5.20); White Blood Count 9.3 Thou/mm3 (3.6-11.0)
[2025-02-16] MEDS: DEXTROSE 5%-LACTATED RINGERS 1,000 ML 100 ML IV (05:49)
[2025-02-16 06:14] LABS: Alanine Aminotransferase 11 U/L (10-49); Albumin, Serum 3.8 gm/dL (3.4-4.8); Albumin/Globulin Ratio 1.7 (1.2-2.2); Alkaline Phosphatase 99 U/L (46-116); Anion Gap 7 (7-16); Aspartate Amino Transferase 15 U/L (0-34); BUN/Creatinine Ratio 13 Ratio (12-20); Bilirubin,Total 0.6 mg/dL (0.3-1.2); Blood Urea Nitrogen 8 mg/dL (9-23); Calcium 8.3 mg/dL (8.3-10.6); Calcium (Corrected) 8.5 mg/dL (8.5-10.1); Chloride 106 mMol/L (98-107); Creatinine (Component) 0.6 mg/dL (0.6-1.3); Estimated Creatinine Clearance 72.2 mL/min (>60); Globulin 2.3 gm/dL (2.3-3.5); Glucose 79 mg/dL (74-106); Magnesium 2.4 mg/dL (1.6-2.6); Osmolality,Calculated 284 (275-295); Phosphorous 2.8 mg/dL (2.4-5.1); Potassium 4.2 mMol/L (3.4-5.1); Sodium 144 mMol/L (136-145); Total Protein 6.1 gm/dL (5.7-8.2); eGFR > 60 See Note
[2025-02-16] MEDS: ALBUTEROL/IPRATROPIUM (Duoneb) RT SOL 3 ML NEBU INH ×3 (07:09→22:57)
[2025-02-16] MEDS: METOPROLOL SUCCINATE XL 25 MG TABCR 100 MG PO (09:11)
[2025-02-16] MEDS: PANTOPRAZOLE INJ 40 MG VIAL IVP ×2 (09:12→20:55)
--- NOTE | 2025-02-16 10:15 | ESPR_ITS ---
<Statement entered by Eduard Duncan MD - 02/16/25 20:50> Patient was seen and examined at the bedside. No acute overnight events were reported. Patient did not had a complaint at this time. She had a nonbloody bowel movement. She was taking prednisone orally daily prescribed for asthma control. Will follow-up with the EGD results. Currently holding Eliquis. Hemoglobin remained stable at 9.1. Following GI recommendations. All labs and orders were reviewed. I saw and examined the patient, and I agree with current management stated by Dr Richie MD,PGY1. Plan of care was discussed with the attending physician and resident physician. Disclaimer: Despite multiple revisions, due to the dictation software being used, the document bellow may not be free of grammatical errors including phonetic/typographic errors. However, this does not deter from our commitment to providing health care in the patient's best interest in mind. Dr. Dakota MD, PGY 2 Documentation for date of: 02/16/25 Subjective Subjective Interval history: Jazmin Faulkner 70-y/o female with PMHx of chronic asthma (home O2 intermittently), severe PAD (s/p left BKA), HTN, HLD, T2DM who is admitted for symptomatic anemia. 02/15: No acute overnight events. Seen and examined at bedside. She does not have any complaints at this time, denying abdominal pain, hematochezia, melena, hemoptysis, hematemesis, or hematuria. States that last colonoscopy was within the last year and was not told about any sources of bleeding at that time. States that bowel movements are not dark that chronic steroids or for management of asthma. 02/16: No acute overnight events. Seen and examined at bedside and she does not have any complaints at tis time. Had a nonbloody bowel movement and denies any abdominal pain, hematochezia, melena, N/V. States that she was taking prednisone orally daily as prescribed by her PCP for her asthma. Exam Vital Signs Temp Pulse Resp BP Pulse Ox O2 Del Method O2 Flow Rate 98.6 F 72 20 158/75 H 99 Nasal Cannula 2 02/16/25 04:00 02/16/25 09:11 02/16/25 07:11 02/16/25 09:11 02/16/25 07:11 02/16/25 04:00 02/16/25 07:11 Narrative Exam General: AOx3, pleasant, laying comofrtably in bed, able to speak full sentences HEENT: NC/AT, mucous membranes moist, bilateral sclera anicteric Cardiovascular: regular rate and rhythm, S1/S2 present, no murmurs appreciated Pulmonary: clear to auscultation bilaterally, no rales/rhonchi/wheezes Abdominal: obese, soft, non-tender, no rebound/guarding Musculoskeletal: left BKA, no peripheral edema Skin: warm and dry, intact, no rashes Neuro: CN II-XII intact, no focal deficits Objective Labs 02/16/25 04:10 02/16/25 04:10 Labs: Laboratory Results - last 24 hr 02/16/25 04:10 WBC 9.3 RBC 4.32 Hgb 9.1 L Hct 32.0 L MCV 74 L MCH 21.1 L MCHC 28.4 L RDW Std Deviation 55.8 H Plt Count 243 Neut % (Auto) 67 Lymph % (Auto) 14 [place] % (Auto) 12 Eos % (Auto) 6 Baso % (Auto) 1 Neut # (Auto) 6.2 Lymph # (Auto) 1.3 [place] # (Auto) 1.1 H Eos # (Auto) 0.6 H Baso # (Auto) 0.1 Immature Gran # (Auto) 0.02 H Absolute Nucleated RBC 0.02 H Immature Gran % 0 Nucleated RBC % 0 Sodium 144 Potassium 4.2 Chloride 106 Carbon Dioxide 31.0 Anion Gap 7 BUN 8 L Creatinine 0.6 Estim Creat Clear Calc 72.2 eGFR > 60 BUN/Creatinine Ratio 13 Glucose 79 Calculated Osmolality 284 Calcium 8.3 Corrected Calcium 8.5 Phosphorus 2.8 Magnesium 2.4 Total Bilirubin 0.6 AST 15 ALT 11 Alkaline Phosphatase 99 Total Protein 6.1 Albumin 3.8 Globulin 2.3 Albumin/Globulin Ratio 1.7 Quality Measures Quality Measures VTE prophylaxis (SCDs) Advance care planning discussed with:: patient Assessment & Plan Assessment Current Active Medications: Generic Name Dose Route Start Last Admin Trade Name Freq PRN Reason Stop Dose Admin Acetaminophen 650 mg 02/14/25 21:23 Acetaminophen 325 Mg Tablet PO 03/16/25 21:22 Q6H PRN Fever >100 or pain 1-3 Albuterol/Ipratropium 3 ml 02/14/25 08:00 02/16/25 09:14 Albuterol/Ipratropium (Duoneb) Rt [place]ow 3 Ml Nebu INH 03/16/25 07:59 Not Given Q8HRRT EMRE Atorvastatin Calcium 80 mg 02/14/25 21:25 02/15/25 23:19 Atorvastatin Calcium 20 Mg Tablet PO 03/16/25 21:24 80 mg HS EMRE Administration Dextrose 25 ml 02/14/25 21:33 Dextrose 50%-Water Inj 50 Ml Syringe IV 03/16/25 21:32 Q15MIN PRN BG 50-70 responsive npo pt Dextrose 50 ml 02/14/25 21:33 Dextrose 50%-Water Inj 50 Ml Syringe IV 03/16/25 21:32 Q15MIN PRN BG <50 OR BG <70 & pt unresponsive Glucagon 1 mg 02/14/25 21:33 Glucagon Inj 1 Mg Vial IM Q15MIN PRN BG <70, and no IV access Dextrose/Lactated Ringer's 1,000 mls @ 100 mls/hr 02/15/25 17:30 02/16/25 05:49 D5-Lr IV 02/16/25 17:00 100 mls/hr .Q10H EMRE Administration Insulin Human Lispro 0 unit 02/15/25 18:00 02/16/25 07:16 Insulin Lispro (Admelog) 1 Unit/0.01 Ml Unit SC 03/17/25 17:59 Not Given Q6HR EMRE Protocol Metoprolol Succinate 100 mg 02/15/25 09:00 02/16/25 09:11 Metoprolol Succinate Xl 25 Mg Tabcr PO 03/17/25 08:59 100 mg QDAY EMRE Administration Ondansetron HCl 4 mg 02/14/25 21:23 Ondansetron Inj 2 Mg/Ml Inj 2 Ml IV 03/16/25 21:22 Q6H PRN NAUSEA OR VOMITING Protocol Pantoprazole Sodium 40 mg 02/15/25 09:00 02/16/25 09:12 Pantoprazole Inj 40 Mg Vial IVP 03/17/25 08:59 40 mg BID EMRE Administration Plan Jazmin Faulkner 70-y/o female with PMHx of chronic asthma (home O2 intermittently), severe PAD (s/p left BKA), a-fib (on Eliquis?), HTN, HLD, T2DM who is admitted for symptomatic anemia. Generalized weakness and headaches. No melena/hematochezia, hematemesis, hemoptysis, use of NSAIDs. On eliquis after BKA. Has had transfusions in past. Taking prednisone for years but recently ran out and ran out of cilostazol. #Symptomatic anemia #Chronic microcytic anemia secondary to iron deficiency #? GI bleed FOBT positive, states colonoscopy was about one year ago without any significant findings. S/p transfusion 2 units pRBC. Reticulocyte count WNL, iron and ferritin low. ? GI consulted, appreciate recommendations ? Pending EGD vs colonoscopy, NPO ? Started on D5/LR maintenance IVF at 100 cc/hr ? Trend CBC ? Follow-up peripheral blood smear ? Restart home ferrous sulfate after EGD and GI recommendations ? Transfusion protocol hemoglobin below 7 ? Holding Eliquis, avoid NSAIDs, and SCDs for DVT prophylaxis ? Protonix 40 mg daily #History of severe peripheral artery disease, status post left BKA Used to use cilostazol ? Avoiding any blood thinners due to above #History of hypertension ? Metoprolol succinate 100 mg daily #History of hyperlipidemia Cholesterol 124, LDL 21, HDL 88. ? Resumed home Lipitor 80 mg at bedtime #History of severe asthma Uses nebulizer 3 times a day (albuterol) and on home O2. Does not use maintenance inhaler. ? DuoNebs every 8 hours ? Oxygen as needed #History of a-fib Home eliquis held in setting of anemia and possible GI bleed. #[id number] type II diabetes mellitus A1c 5.0% on 02/16. ? Sliding scale insulin ? Hypoglycemic protocol in place ? Blood sugar checks with meals #Subclinical hyperthyroidism TSH 0.42 and free T4. No indication for treatment. Hospital management: Disposition: pending EGD to evaluate for source of bleed Fluids: maintenance D5/LR Diet: NPO Lines: PIV DVT prophylaxis: held in setting of anemia and positive FOBT GI prophylaxis: pantoprazole 40 mg IV BID Brannon: not indicated CODE STATUS: DNR ----- Plan discussed with attending physician Dr. Garay and senior resident physician Dr. Kelsi Quiroz MD PGY-1 Internal Medicine Attending Provider Attestation/Addendum I have discussed and was present for the essential components of the history, physical examination, diagnosis, and treatment plan with the resident. I agree with the patient's care as documented by the resident and amended herein by me. Ramakrishna Garay DO. Patient seen and evaluated this AM. No acute events overnight, vital signs stable, patient afebrile. Hemoglobin stable at 9.1, BMP largely unremarkable. EGD pending later today, appreciate gastroenterology recommendations. Although this document has been carefully reviewed, there may still be some phonetic and other typographical errors. These errors are purely grammatical due to imperfections in the software program and should not be construed in any way to compromise the substance of the patient's medical care during this visit.
[2025-02-16 11:01] LABS: Glucose Estimated Average 97 mg/dL (80-131)
--- NOTE | 2025-02-16 15:51 | PC.SS ---
Rounding note: EGD pending, possible colonscopy today.
[2025-02-16] MEDS: NA SU/NAHCO3/KC/PEG (Golytely) 4,000 ML BTL 4000 ML PO (18:40)
[2025-02-16] MEDS: ATORVASTATIN CALCIUM 20 MG TABLET 80 MG PO (20:54)
[2025-02-17] VITALS (11 sets, daily range): BP systolic 138–158; BP diastolic 72–82; PULSE 74–98; RESP 17–24; TEMP 35.9–37.7; O2SAT 97–100; BMI 27.1
[2025-02-17] MEDS: ALBUTEROL/IPRATROPIUM (Duoneb) RT SOL 3 ML NEBU INH ×4 (04:55→22:20)
[2025-02-17 06:13] LABS: Basophils # (Auto) 0.1 Thou/mm3 (0.0-0.2); Basophils % (Auto) 1 % (0-2.5); Eosinophils # (Auto) 0.8 Thou/mm3 (0.0-0.5); Eosinophils % (Auto) 7 % (0-10); Hematocrit 34.9 % (36.0-46.0); Hemoglobin 9.9 g/dL (12.0-16.0); Immature Granulocytes % (Auto) 0 % (0-0); Immature Granulocytes Auto 0.03 Thou/mm3 (0.00-0.00); Lymphocytes # (Auto) 1.2 Thou/mm3 (1.0-4.8); Lymphocytes % (Auto) 11 % (10-50); Mean Corpuscular HGB Conc 28.4 g/dl (31.0-37.0); Mean Corpuscular Hemoglobin 21.2 pg (25.0-35.0); Mean Corpuscular Volume 75 fL (80-100); Monocytes # (Auto) 1.1 Thou/mm3 (0.0-0.8); Monocytes % (Auto) 10 % (0-12); Neutrophils # (Auto) 7.9 Thou/mm3 (1.8-7.7); Neutrophils % (Auto) 72 % (37-80); Nucleated Red Blood Cell % 0 /100 WBC (0); Platelet Count 245 Thou/mm3 (140-440); RDW Standard Deviation 58.1 fL (36.4-46.3); Red Blood Count 4.67 Miln/mm3 (4.00-5.20)
[2025-02-17 07:00] LABS: Alanine Aminotransferase 11 U/L (10-49); Albumin/Globulin Ratio 1.7 (1.2-2.2); Alkaline Phosphatase 117 U/L (46-116); Anion Gap 9 (7-16); Aspartate Amino Transferase 22 U/L (0-34); BUN/Creatinine Ratio 8 Ratio (12-20); Bilirubin,Total 0.7 mg/dL (0.3-1.2); Blood Urea Nitrogen 5 mg/dL (9-23); Calcium 8.5 mg/dL (8.3-10.6); Calcium (Corrected) 8.5 mg/dL (8.5-10.1); Carbon Dioxide 33.4 mMol/L (20.0-31.0); Chloride 103 mMol/L (98-107); Creatinine (Component) 0.6 mg/dL (0.6-1.3); Estimated Creatinine Clearance 72.3 mL/min (>60); Globulin 2.3 gm/dL (2.3-3.5); Glucose 76 mg/dL (74-106); Magnesium 2.3 mg/dL (1.6-2.6); Osmolality,Calculated 284 (275-295); Phosphorous 3.2 mg/dL (2.4-5.1); Potassium 4.2 mMol/L (3.4-5.1); Sodium 145 mMol/L (136-145); Total Protein 6.3 gm/dL (5.7-8.2); eGFR > 60 See Note
[2025-02-17] MEDS: METOPROLOL SUCCINATE XL 25 MG TABCR 100 MG PO (10:35)
[2025-02-17] MEDS: PANTOPRAZOLE INJ 40 MG VIAL IVP ×2 (10:35→20:20)
--- NOTE | 2025-02-17 11:41 | ESPR_ITS ---
<Statement entered by Eduard Duncan MD - 02/17/25 13:38> Patient was seen and examined at the bedside. No acute overnight events were reported. Blood pressure was stable. Hemoglobin is stable at 9.9. EGD showed Ac's esophagus around 22 cm segment. Patient is currently on GoLytely prep and will follow-up on colonoscopy results. Denied any nausea or vomiting or abdominal discomfort. All labs and orders were reviewed. I saw and examined the patient, and I agree with current management stated by Dr Richie MD,PGY1. Plan of care was discussed with the attending physician and resident physician. Disclaimer: Despite multiple revisions, due to the dictation software being used, the document bellow may not be free of grammatical errors including phonetic/typographic errors. However, this does not deter from our commitment to providing health care in the patient's best interest in mind. Dr. Dakota MD, PGY 2 Documentation for date of: 02/17/25 Subjective Subjective Interval history: Jazmin Faulkner 70-y/o female with PMHx of chronic asthma (home O2 intermittently), severe PAD (s/p left BKA), HTN, HLD, T2DM who is admitted for symptomatic anemia. 02/15: No acute overnight events. Seen and examined at bedside. She does not have any complaints at this time, denying abdominal pain, hematochezia, melena, hemoptysis, hematemesis, or hematuria. States that last colonoscopy was within the last year and was not told about any sources of bleeding at that time. States that bowel movements are not dark that chronic steroids or for management of asthma. 02/16: No acute overnight events. Seen and examined at bedside and she does not have any complaints at tis time. Had a nonbloody bowel movement and denies any abdominal pain, hematochezia, melena, N/V. States that she was taking prednisone orally daily as prescribed by her PCP for her asthma. 02/17: No acute overnight events. Though, endorsed SOB and was given x1 breathing treatment. Seen and examined at bedside and did not have any complaints at that time. Fults that her SOB had improved, denied abdominal pain, N/V, or bloody bowel movements. Currently prepping for colonoscopy and almost done with golytely. Exam Vital Signs Temp Pulse Resp BP Pulse Ox O2 Del Method O2 Flow Rate 99.8 F 88 21 H 138/79 H 99 Nasal Cannula 3 02/17/25 08:00 02/17/25 10:35 02/17/25 08:00 02/17/25 10:35 02/17/25 08:00 02/17/25 08:00 02/17/25 08:00 Narrative Exam General: AOx3, pleasant, laying comofrtably in bed, able to speak full sentences HEENT: NC/AT, mucous membranes moist, bilateral sclera anicteric Cardiovascular: regular rate and rhythm, S1/S2 present, no murmurs appreciated Pulmonary: clear to auscultation bilaterally, no rales/rhonchi/wheezes Abdominal: obese, soft, non-tender, no rebound/guarding Musculoskeletal: left BKA, no peripheral edema Skin: warm and dry, intact, no rashes Neuro: CN II-XII intact, no focal deficits Objective Labs 02/17/25 05:27 02/17/25 05:27 Labs: Laboratory Results - last 24 hr 02/17/25 05:27 WBC 11.0 RBC 4.67 Hgb 9.9 L Hct 34.9 L MCV 75 L MCH 21.2 L MCHC 28.4 L RDW Std Deviation 58.1 H Plt Count 245 Neut % (Auto) 72 Lymph % (Auto) 11 [place] % (Auto) 10 Eos % (Auto) 7 Baso % (Auto) 1 Neut # (Auto) 7.9 H Lymph # (Auto) 1.2 [place] # (Auto) 1.1 H Eos # (Auto) 0.8 H Baso # (Auto) 0.1 Immature Gran # (Auto) 0.03 H Absolute Nucleated RBC 0.00 Immature Gran % 0 Nucleated RBC % 0 Sodium 145 Potassium 4.2 Chloride 103 Carbon Dioxide 33.4 H Anion Gap 9 BUN 5 L Creatinine 0.6 Estim Creat Clear Calc 72.3 eGFR > 60 BUN/Creatinine Ratio 8 L Glucose 76 Calculated Osmolality 284 Calcium 8.5 Corrected Calcium 8.5 Phosphorus 3.2 Magnesium 2.3 Total Bilirubin 0.7 AST 22 ALT 11 Alkaline Phosphatase 117 H Total Protein 6.3 Albumin 4.0 Globulin 2.3 Albumin/Globulin Ratio 1.7 Quality Measures Quality Measures VTE prophylaxis (SCDs) Advance care planning discussed with:: other Assessment & Plan Assessment Current Active Medications: Generic Name Dose Route Start Last Admin Trade Name Freq PRN Reason Stop Dose Admin Acetaminophen 650 mg 02/14/25 21:23 Acetaminophen 325 Mg Tablet PO 03/16/25 21:22 Q6H PRN Fever >100 or pain 1-3 Albuterol/Ipratropium 3 ml 02/14/25 08:00 02/17/25 07:23 Albuterol/Ipratropium (Duoneb) Rt [place] 3 Ml Nebu INH 03/16/25 07:59 3 ml Q8HRRT EMRE Administration Atorvastatin Calcium 80 mg 02/14/25 21:25 02/16/25 20:54 Atorvastatin Calcium 20 Mg Tablet PO 03/16/25 21:24 80 mg HS EMRE Administration Dextrose 25 ml 02/14/25 21:33 Dextrose 50%-Water Inj 50 Ml Syringe IV 03/16/25 21:32 Q15MIN PRN BG 50-70 responsive npo pt Dextrose 50 ml 02/14/25 21:33 Dextrose 50%-Water Inj 50 Ml Syringe IV 03/16/25 21:32 Q15MIN PRN BG <50 OR BG <70 & pt unresponsive Glucagon 1 mg 02/14/25 21:33 Glucagon Inj 1 Mg Vial IM Q15MIN PRN BG <70, and no IV access Insulin Human Lispro 0 unit 02/15/25 18:00 02/17/25 07:29 Insulin Lispro (Admelog) 1 Unit/0.01 Ml Unit SC 03/17/25 17:59 Not Given Q6HR EMRE Protocol Metoprolol Succinate 100 mg 02/15/25 09:00 02/17/25 10:35 Metoprolol Succinate Xl 25 Mg Tabcr PO 03/17/25 08:59 100 mg QDAY EMRE Administration Ondansetron HCl 4 mg 02/14/25 21:23 Ondansetron Inj 2 Mg/Ml Inj 2 Ml IV 03/16/25 21:22 Q6H PRN NAUSEA OR VOMITING Protocol Pantoprazole Sodium 40 mg 02/15/25 09:00 02/17/25 10:35 Pantoprazole Inj 40 Mg Vial IVP 03/17/25 08:59 40 mg BID EMRE Administration Polyethylene Glycol/Electrolytes 4,000 ml 02/16/25 19:00 Na Mathews/Nahco3/Massimo/Peg (Golytely) 4,000 Ml Btl PO X1 PRN SEE COMMENTS Plan Jazmin Faulkner 70-y/o female with PMHx of chronic asthma (home O2 intermittently), severe PAD (s/p left BKA), a-fib (on Eliquis?), HTN, HLD, T2DM who is admitted for symptomatic anemia. Generalized weakness and headaches. No melena/hematochezia, hematemesis, hemoptysis, use of NSAIDs. On eliquis after BKA. Has had transfusions in past. Taking prednisone for years but recently ran out and ran out of cilostazol. #Chronic microcytic anemia secondary to iron deficiency #? GI bleed FOBT negative. Colonoscopy about one year ago w/o significant findings. S/p transfusion 2 units pRBC. Reticulocyte count WNL, iron and ferritin low. ? GI consulted, appreciate recommendations ? EGD 02/16: Ac's esophagus s/p biopsy, 4 cm hiatal hernia, gastritis ? Golytely prep, clear liquid diet, colonoscopy today ? Trend CBC ? Follow-up peripheral blood smear ? Restart home ferrous sulfate after colonoscopy and GI recommendations ? Holding Eliquis, avoid NSAIDs, and SCDs for DVT prophylaxis ? Protonix 40 mg BID #History of severe peripheral artery disease, status post left BKA Used to use cilostazol ? Avoiding any blood thinners due to above #History of hypertension ? Metoprolol succinate 100 mg daily #History of hyperlipidemia: Cholesterol 124, LDL 21, HDL 88. ? Resumed home Lipitor 80 mg at bedtime #History of severe asthma Uses nebulizer 3 times a day (albuterol) and on home O2. Does not use maintenance inhaler. ? DuoNebs every 8 hours, O2 PRN #History of a-fib ? Home eliquis held in setting of anemia and possible GI bleed #Jlh-[id number]-[id number] type II diabetes mellitus A1c 5.0% on 02/16. ? Sliding scale insulin ? Hypoglycemic protocol in place ? Blood sugar checks with meals #Subclinical hyperthyroidism TSH 0.42 and free T4. No indication for treatment. Hospital management: Disposition: pending colonoscopy to evaluate for source of bleed Fluids: none Diet: clear liquid Lines: PIV DVT prophylaxis: held in setting of anemia GI prophylaxis: pantoprazole 40 mg IV BID Brannon: not indicated CODE STATUS: DNR ----- Plan discussed with attending physician Dr. Garay and senior resident physician Dr. Dakota Quiroz MD PGY-1 Internal Medicine Attending Provider Attestation/Addendum I have discussed and was present for the essential components of the history, physical examination, diagnosis, and treatment plan with the resident. I agree with the patient's care as documented by the resident and amended herein by me. Ramakrishna Garay, DO. Patient seen and evaluated this AM. No acute events overnight, EGD performed yesterday demonstrating extensive Ac's esophagus and gastritis, patient is currently consuming GoLytely for colonoscopy prep. Gastroenterology consulted, appreciate recommendations. Likely DC tomorrow pending colonoscopy results and specialist recommendations. Although this document has been carefully reviewed, there may still be some phonetic and other typographical errors. These errors are purely grammatical due to imperfections in the software program and should not be construed in any way to compromise the substance of the patient's medical care during this visit.
--- NOTE | 2025-02-17 16:13 | PC.SS ---
Rounding note: pending colonoscopy.
[2025-02-17] MEDS: NA SU/NAHCO3/KC/PEG (Golytely) 4,000 ML BTL 4000 ML PO (19:49)
[2025-02-17] MEDS: ATORVASTATIN CALCIUM 20 MG TABLET 80 MG PO (20:20)
--- NOTE | 2025-02-17 20:53 | ESPR_ITS ---
Documentation for date of: 02/17/25 Subjective Subjective Interval history: Patient evaluated Patient was scheduled for colonoscopy patient is not clear postponed to tomorrow Upper endoscopy showed extensive Ac's esophagus Exam Vital Signs Temp Pulse Resp BP Pulse Ox O2 Del Method O2 Flow Rate 97.2 F 79 21 H 144/76 H 100 Nasal Cannula 3 02/17/25 16:00 02/17/25 16:00 02/17/25 16:00 02/17/25 16:00 02/17/25 16:00 02/17/25 16:00 02/17/25 16:00 Objective Labs 02/17/25 05:27 02/17/25 05:27 Labs: Laboratory Results - last 24 hr 02/17/25 05:27 WBC 11.0 RBC 4.67 Hgb 9.9 L Hct 34.9 L MCV 75 L MCH 21.2 L MCHC 28.4 L RDW Std Deviation 58.1 H Plt Count 245 Neut % (Auto) 72 Lymph % (Auto) 11 [place] % (Auto) 10 Eos % (Auto) 7 Baso % (Auto) 1 Neut # (Auto) 7.9 H Lymph # (Auto) 1.2 [place] # (Auto) 1.1 H Eos # (Auto) 0.8 H Baso # (Auto) 0.1 Immature Gran # (Auto) 0.03 H Absolute Nucleated RBC 0.00 Immature Gran % 0 Nucleated RBC % 0 Sodium 145 Potassium 4.2 Chloride 103 Carbon Dioxide 33.4 H Anion Gap 9 BUN 5 L Creatinine 0.6 Estim Creat Clear Calc 72.3 eGFR > 60 BUN/Creatinine Ratio 8 L Glucose 76 Calculated Osmolality 284 Calcium 8.5 Corrected Calcium 8.5 Phosphorus 3.2 Magnesium 2.3 Total Bilirubin 0.7 AST 22 ALT 11 Alkaline Phosphatase 117 H Total Protein 6.3 Albumin 4.0 Globulin 2.3 Albumin/Globulin Ratio 1.7 Impressions Impression: Ac's esophagus Anemia blood loss Additional GoLytely Colonoscopy tomorrow Assessment & Plan A&P Narrative # Occult GI bleeding # Acute posthemorrhagic anemia requiring blood transfusion # FOBT positive Plan clear liquid diet till 9 AM tomorrow then n.p.o. Consent obtained for fiberoptic esophagogastroduodenoscopy with possible biopsy possible therapeutic intervention If endoscopy is negative we will consider doing a fiberoptic endoscopy prior to discharge as there is a considerable drop in hemoglobin hematocrit. other medical problems include # Peripheral vascular disease leading to left BKA # Diabetes mellitus # Essential hypertension # Bronchial asthma Thank you very much for the opportunity to participate in the care of this patient Time Spent With Patient Time: Total time spent is greater than 50% in coordination of care (as documented) at patient's floor/unit and/or counseling patient:
[2025-02-18] VITALS (24 sets, daily range): BP systolic 110–172; BP diastolic 55–82; PULSE 66–98; RESP 16–24; TEMP 36.3–37.2; O2SAT 95–100; BMI 27.2
[2025-02-18] MEDS: ALBUTEROL/IPRATROPIUM (Duoneb) RT SOL 3 ML NEBU INH ×5 (05:35→22:20)
[2025-02-18 06:13] LABS: Basophils # (Auto) 0.1 Thou/mm3 (0.0-0.2); Basophils % (Auto) 1 % (0-2.5); Eosinophils # (Auto) 1.1 Thou/mm3 (0.0-0.5); Eosinophils % (Auto) 11 % (0-10); Hematocrit 32.2 % (36.0-46.0); Hemoglobin 8.9 g/dL (12.0-16.0); Immature Granulocytes % (Auto) 0 % (0-0); Immature Granulocytes Auto 0.02 Thou/mm3 (0.00-0.00); Lymphocytes # (Auto) 0.9 Thou/mm3 (1.0-4.8); Lymphocytes % (Auto) 10 % (10-50); Mean Corpuscular HGB Conc 27.6 g/dl (31.0-37.0); Mean Corpuscular Hemoglobin 20.9 pg (25.0-35.0); Mean Corpuscular Volume 76 fL (80-100); Monocytes # (Auto) 1.1 Thou/mm3 (0.0-0.8); Monocytes % (Auto) 11 % (0-12); Neutrophils # (Auto) 6.7 Thou/mm3 (1.8-7.7); Neutrophils % (Auto) 68 % (37-80); Nucleated Red Blood Cell % 0 /100 WBC (0); Platelet Count 216 Thou/mm3 (140-440); RDW Standard Deviation 58.8 fL (36.4-46.3); Red Blood Count 4.26 Miln/mm3 (4.00-5.20); White Blood Count 9.8 Thou/mm3 (3.6-11.0)
[2025-02-18 06:50] LABS: Alanine Aminotransferase < 7 U/L (10-49); Albumin, Serum 3.6 gm/dL (3.4-4.8); Albumin/Globulin Ratio 1.6 (1.2-2.2); Alkaline Phosphatase 111 U/L (46-116); Anion Gap 5 (7-16); Aspartate Amino Transferase 21 U/L (0-34); BUN/Creatinine Ratio 8 Ratio (12-20); Bilirubin,Total 0.9 mg/dL (0.3-1.2); Blood Urea Nitrogen < 5 mg/dL (9-23); Calcium 8.3 mg/dL (8.3-10.6); Calcium (Corrected) 8.6 mg/dL (8.5-10.1); Carbon Dioxide 34.7 mMol/L (20.0-31.0); Chloride 103 mMol/L (98-107); Creatinine (Component) 0.6 mg/dL (0.6-1.3); Estimated Creatinine Clearance 72.3 mL/min (>60); Globulin 2.2 gm/dL (2.3-3.5); Glucose 77 mg/dL (74-106); Magnesium 2.1 mg/dL (1.6-2.6); Osmolality,Calculated 281 (275-295); Potassium 4.2 mMol/L (3.4-5.1); Sodium 143 mMol/L (136-145); Total Protein 5.8 gm/dL (5.7-8.2); eGFR > 60 See Note
[2025-02-18] MEDS: METOPROLOL SUCCINATE XL 25 MG TABCR 100 MG PO (08:08)
[2025-02-18] MEDS: PANTOPRAZOLE INJ 40 MG VIAL IVP ×2 (08:08→20:53)
--- NOTE | 2025-02-18 12:31 | ESPR_ITS ---
<Statement entered by Eduard Duncan MD - 02/18/25 18:23> Patient was seen and examined at the bedside. No acute overnight events were reported. Patient still not clear for colonoscopy therefore anticipating colonoscopy performed today. Blood sugars were low therefore amp of D50 was given. Blood pressure remained stable. Hemoglobin stable at 8.9. Will follow- up with colonoscopy results and GI recommendations. All labs and orders were reviewed. I saw and examined the patient, and I agree with current management stated by Dr Richie MD,PGY1. Plan of care was discussed with the attending physician and resident physician. Disclaimer: Despite multiple revisions, due to the dictation software being used, the document bellow may not be free of grammatical errors including phonetic/typographic errors. However, this does not deter from our commitment to providing health care in the patient's best interest in mind. Dr. Dakota MD, PGY 2 Documentation for date of: 02/18/25 Subjective Subjective Interval history: Jazmin Faulkner 70-y/o female with PMHx of chronic asthma (home O2 intermittently), severe PAD (s/p left BKA), HTN, HLD, T2DM who is admitted for symptomatic anemia. 02/15: No acute overnight events. Seen and examined at bedside. She does not have any complaints at this time, denying abdominal pain, hematochezia, melena, hemoptysis, hematemesis, or hematuria. States that last colonoscopy was within the last year and was not told about any sources of bleeding at that time. States that bowel movements are not dark that chronic steroids or for management of asthma. 02/16: No acute overnight events. Seen and examined at bedside and she does not have any complaints at tis time. Had a nonbloody bowel movement and denies any abdominal pain, hematochezia, melena, N/V. States that she was taking prednisone orally daily as prescribed by her PCP for her asthma. 02/17: No acute overnight events. Though, endorsed SOB and was given x1 breathing treatment. Seen and examined at bedside and did not have any complaints at that time. [place] that her SOB had improved, denied abdominal pain, N/V, or bloody bowel movements. Currently prepping for colonoscopy and almost done with golytely. 02/18: No acute overnight events. She did require another breathing treatment overnight and upon evaluation she stated that she was no longer short of breath. She was not able to undergo colonoscopy and she is not clear and continues to prep. Encouraged her to drink as much as he can prior to evaluation by GI today so that she can proceed wt procedure. Exam Vital Signs Temp Pulse Resp BP Pulse Ox O2 Del Method O2 Flow Rate 97.4 F 81 16 144/66 H 95 Nasal Cannula 2 02/18/25 08:00 02/18/25 12:00 02/18/25 08:00 02/18/25 08:08 02/18/25 08:00 02/18/25 08:00 02/18/25 08:00 Narrative Exam General: AOx3, pleasant, laying comofrtably in bed, able to speak full sentences HEENT: NC/AT, mucous membranes moist, bilateral sclera anicteric Cardiovascular: regular rate and rhythm, S1/S2 present, no murmurs appreciated Pulmonary: bibasilar crackles appreciated on auscultation, no wheezing or bronchial breath sounds Abdominal: obese, soft, non-tender, no rebound/guarding Musculoskeletal: left BKA, no peripheral edema Skin: warm and dry, intact, no rashes Neuro: CN II-XII intact, no focal deficits Objective Labs 02/19/25 04:48 02/19/25 04:48 Labs: Laboratory Results - last 24 hr 02/18/25 04:55 WBC 9.8 RBC 4.26 Hgb 8.9 L Hct 32.2 L MCV 76 L MCH 20.9 L MCHC 27.6 L RDW Std Deviation 58.8 H Plt Count 216 Neut % (Auto) 68 Lymph % (Auto) 10 [place] % (Auto) 11 Eos % (Auto) 11 H Baso % (Auto) 1 Neut # (Auto) 6.7 Lymph # (Auto) 0.9 L [place] # (Auto) 1.1 H Eos # (Auto) 1.1 H Baso # (Auto) 0.1 Immature Gran # (Auto) 0.02 H Absolute Nucleated RBC 0.00 Immature Gran % 0 Nucleated RBC % 0 Sodium 143 Potassium 4.2 Chloride 103 Carbon Dioxide 34.7 H Anion Gap 5 L BUN < 5 L Creatinine 0.6 Estim Creat Clear Calc 72.3 eGFR > 60 BUN/Creatinine Ratio 8 L Glucose 77 Calculated Osmolality 281 Calcium 8.3 Corrected Calcium 8.6 Phosphorus 3.0 Magnesium 2.1 Total Bilirubin 0.9 AST 21 ALT < 7 L Alkaline Phosphatase 111 Total Protein 5.8 Albumin 3.6 Globulin 2.2 L Albumin/Globulin Ratio 1.6 Quality Measures Quality Measures VTE prophylaxis (SCDs) Advance care planning discussed with:: other Assessment & Plan Assessment Current Active Medications: Generic Name Dose Route Start Last Admin Trade Name Freq PRN Reason Stop Dose Admin Acetaminophen 650 mg 02/14/25 21:23 Acetaminophen 325 Mg Tablet PO 03/16/25 21:22 Q6H PRN Fever >100 or pain 1-3 Albuterol/Ipratropium 3 ml 02/14/25 08:00 02/18/25 06:58 Albuterol/Ipratropium (Duoneb) Rt [place] 3 Ml Nebu INH 03/16/25 07:59 3 ml Q8HRRT EMRE Administration Albuterol/Ipratropium 3 ml 02/18/25 05:27 02/18/25 05:35 Albuterol/Ipratropium (Duoneb) Rt [place] 3 Ml Nebu INH 03/20/25 06:59 3 ml Q4HRRT PRN Administration sob wheezing Atorvastatin Calcium 80 mg 02/14/25 21:25 02/17/25 20:20 Atorvastatin Calcium 20 Mg Tablet PO 03/16/25 21:24 80 mg HS EMRE Administration Dextrose 25 ml 02/14/25 21:33 Dextrose 50%-Water Inj 50 Ml Syringe IV 03/16/25 21:32 Q15MIN PRN BG 50-70 responsive npo pt Dextrose 50 ml 02/14/25 21:33 Dextrose 50%-Water Inj 50 Ml Syringe IV 03/16/25 21:32 Q15MIN PRN BG <50 OR BG <70 & pt unresponsive Glucagon 1 mg 02/14/25 21:33 Glucagon Inj 1 Mg Vial IM Q15MIN PRN BG <70, and no IV access Insulin Human Lispro 0 unit 02/15/25 18:00 02/18/25 05:55 Insulin Lispro (Admelog) 1 Unit/0.01 Ml Unit SC 03/17/25 17:59 Not Given Q6HR EMRE Protocol Metoprolol Succinate 100 mg 02/15/25 09:00 02/18/25 08:08 Metoprolol Succinate Xl 25 Mg Tabcr PO 04/16/25 08:59 100 mg QDAY EMRE Administration Ondansetron HCl 4 mg 02/14/25 21:23 Ondansetron Inj 2 Mg/Ml Inj 2 Ml IV 03/16/25 21:22 Q6H PRN NAUSEA OR VOMITING Protocol Pantoprazole Sodium 40 mg 02/15/25 09:00 02/18/25 08:08 Pantoprazole Inj 40 Mg Vial IVP 03/17/25 08:59 40 mg BID EMRE Administration Polyethylene Glycol/Electrolytes 4,000 ml 02/16/25 19:00 Na Mathews/Nahco3/Massimo/Peg (Golytely) 4,000 Ml Btl PO X1 PRN SEE COMMENTS Plan Jazmin Faulkner 70-y/o female with PMHx of chronic asthma (home O2 intermittently), severe PAD (s/p left BKA), a-fib (on Eliquis?), HTN, HLD, T2DM who is admitted for symptomatic anemia. Generalized weakness and headaches. No melena/hematochezia, hematemesis, hemoptysis, use of NSAIDs. On eliquis after BKA. Has had transfusions in past. Taking prednisone for years but recently ran out and ran out of cilostazol. #Chronic microcytic anemia secondary to iron deficiency #? GI bleed FOBT negative. Colonoscopy about one year ago w/o significant findings. S/p transfusion 2 units pRBC. Reticulocyte count WNL, iron and ferritin low. ? GI consulted, appreciate recommendations ? EGD 02/16: Ac's esophagus s/p biopsy, 4 cm hiatal hernia, gastritis ? Golytely prep, clear liquid diet, colonoscopy today ? Follow-up peripheral blood smear ? Restart home ferrous sulfate after colonoscopy and GI recommendations ? Holding Eliquis, avoid NSAIDs, and SCDs for DVT prophylaxis ? Protonix 40 mg BID #History of severe peripheral artery disease, status post left BKA Used to use cilostazol ? Avoiding any blood thinners due to above #History of hypertension ? Metoprolol succinate 100 mg daily #History of hyperlipidemia: Cholesterol 124, LDL 21, HDL 88. ? Resumed home Lipitor 80 mg at bedtime #History of severe asthma Uses nebulizer 3 times a day (albuterol) and on home O2. Does not use maintenance inhaler. ? DuoNebs every 8 hours, O2 PRN #History of a-fib ? Home eliquis held in setting of anemia and possible GI bleed #Nqh-jzevkzj-cfoyecjqb type II diabetes mellitus A1c 5.0% on 02/16. ? Sliding scale insulin ? Hypoglycemic protocol in place ? Blood sugar checks with meals #Subclinical hyperthyroidism TSH 0.42 and free T4. No indication for treatment. Hospital management: Disposition: pending colonoscopy to evaluate for source of bleed Fluids: none Diet: clear liquid Lines: PIV DVT prophylaxis: held in setting of anemia GI prophylaxis: pantoprazole 40 mg IV BID Brannon: not indicated CODE STATUS: DNR ----- Plan discussed with attending physician Dr. Garay and senior resident physician Dr. Dakota Quiroz MD PGY-1 Internal Medicine Attending Provider Attestation/Addendum I have discussed and was present for the essential components of the history, physical examination, diagnosis, and treatment plan with the resident. I agree with the patient's care as documented by the resident and amended herein by me. Ramakrishna Garay DO. Although this document has been carefully reviewed, there may still be some phonetic and other typographical errors. These errors are purely grammatical due to imperfections in the software program and should not be construed in any way to compromise the substance of the patient's medical care during this visit.
--- NOTE | 2025-02-18 19:50 | SUR.PHASEI ---
Pt. arrived to recovery via gurney, eyes open, AAOx3, no c/o pain or nausea at this time, pt. receiving 4 liters 02 via NC, wheezing noted upon auscultation of lung sounds, pt. has history of asthma and uses supplemental 02 at home. Report received from Marta ELMORE.
--- NOTE | 2025-02-18 20:05 | SUR.PHASEI ---
Called and gave report on pt. s/p procedure to Kinga ELMORE on M/S unit. Pt. is AAOx3, no c/o pain or nausea at this time.
--- NOTE | 2025-02-18 20:14 | SUR.PHASEI ---
Pt. transferred to room 350 via [facility] [place] by staff, VSS, IV flushed and patent, pt. receiving 2 liters 02 via RI, at [facility], Kinga ELMORE assumed care of pt.
[2025-02-18] MEDS: ATORVASTATIN CALCIUM 20 MG TABLET 80 MG PO (20:53)
[2025-02-19] VITALS (9 sets, daily range): BP systolic 124–149; BP diastolic 66–82; PULSE 68–98; RESP 18–24; TEMP 36.1–36.4; O2SAT 95–100; BMI 27.1
[2025-02-19] MEDS: ALBUTEROL/IPRATROPIUM (Duoneb) RT SOL 3 ML NEBU INH ×3 (02:07→13:38)
--- NOTE | 2025-02-19 05:23 | PC.NURSE ---
Blood sugar check 69, pt alert/oriented provided pt with apple juice and orange juice.
--- NOTE | 2025-02-19 05:30 | PC.NURSE ---
Recheck glucose reading at 80, pt request crackers provided with .
[2025-02-19 06:06] LABS: Basophils # (Auto) 0.1 Thou/mm3 (0.0-0.2); Basophils % (Auto) 1 % (0-2.5); Eosinophils % (Auto) 11 % (0-10); Immature Granulocytes % (Auto) 0 % (0-0); Immature Granulocytes Auto 0.03 Thou/mm3 (0.00-0.00); Lymphocytes # (Auto) 0.9 Thou/mm3 (1.0-4.8); Lymphocytes % (Auto) 10 % (10-50); Mean Corpuscular HGB Conc 28.3 g/dl (31.0-37.0); Mean Corpuscular Hemoglobin 21.2 pg (25.0-35.0); Mean Corpuscular Volume 75 fL (80-100); Monocytes # (Auto) 1.1 Thou/mm3 (0.0-0.8); Monocytes % (Auto) 12 % (0-12); Neutrophils % (Auto) 66 % (37-80); Nucleated Red Blood Cell % 0 /100 WBC (0); Platelet Count 154 Thou/mm3 (140-440); RDW Standard Deviation 57.7 fL (36.4-46.3); Red Blood Count 4.01 Miln/mm3 (4.00-5.20); White Blood Count 9.1 Thou/mm3 (3.6-11.0)
[2025-02-19 06:08] LABS: Hemoglobin 8.5 g/dL (12.0-16.0)
[2025-02-19 06:37] LABS: Alanine Aminotransferase 16 U/L (10-49); Albumin, Serum 3.5 gm/dL (3.4-4.8); Albumin/Globulin Ratio 1.7 (1.2-2.2); Alkaline Phosphatase 130 U/L (46-116); Anion Gap 6 (7-16); Aspartate Amino Transferase 32 U/L (0-34); BUN/Creatinine Ratio 10 Ratio (12-20); Blood Urea Nitrogen 6 mg/dL (9-23); Calcium 8.1 mg/dL (8.3-10.6); Calcium (Corrected) 8.5 mg/dL (8.5-10.1); Carbon Dioxide 32.2 mMol/L (20.0-31.0); Chloride 103 mMol/L (98-107); Creatinine (Component) 0.6 mg/dL (0.6-1.3); Estimated Creatinine Clearance 72.3 mL/min (>60); Globulin 2.1 gm/dL (2.3-3.5); Glucose 71 mg/dL (74-106); Magnesium 2.1 mg/dL (1.6-2.6); Osmolality,Calculated 276 (275-295); Phosphorous 2.7 mg/dL (2.4-5.1); Potassium 3.9 mMol/L (3.4-5.1); Sodium 141 mMol/L (136-145); Total Protein 5.6 gm/dL (5.7-8.2); eGFR > 60 See Note
[2025-02-19] MEDS: PANTOPRAZOLE INJ 40 MG VIAL IVP (08:04)
[2025-02-19] MEDS: METOPROLOL SUCCINATE XL 25 MG TABCR 100 MG PO (08:04)
[2025-02-19] MEDS: ACETAMINOPHEN 325 MG TABLET 650 MG PO (09:29)
--- NOTE | 2025-02-19 11:56 | PD.RESDS ---
Planned Discharge Date 02/19/25 DS: Providers Provider Date of admission: 02/14/25 20:13 Primary care physician: Physician No Primary/Family Admitting Provider: Paulino Nguyen MD Attending Provider on Admission: John Garay DO Consults: 02/15/25 12:00 Consult to Gastroenterology Routine Comment: Initial hemoglobin 5.1, FOBT + Consulting Provider: Alisson Moore Attending Provider on DC: John Garay DO Discharging Provider: John Garay DO DS: Diagnosis Problem List Completed Was Problem List Reviewed/Reconciled?: Yes Hospital Course Hospital Course Hospital course: DC summary: This patient is a 70-year-old female with past medical history of chronic asthma on home oxygen, severe PAD s/p left BKA, hypertension, hyperlipidemia, T2DM was admitted for symptomatic anemia. Patient presented with generalized weakness, fatigue and headaches. She denied any use of NSAIDs. She was taking Eliquis last year after her BKA. She has received blood transfusion in the past for chronic anemia. Denied any weight loss. Did not report any melena/hematochezia, hematemesis, hemoptysis. FOBT was negative. EGD showed Ac's esophagus s/p biopsy, 4 cm hiatal hernia and gastritis. Reticulocyte count within normal limits. Iron and ferritin were low. Patient was managed with ferrous sulfate, Protonix twice daily and home medications were reconciled. Colonoscopy was significant for hemorrhoids, moderate diverticulosis in the sigmoid colon and descending colon. No diverticular bleeding. Partially obstructing tumor was seen at ileocecal valve causing stenosis appears to be villotubular adenoma underlying liver disease cannot be ruled out. No attempts were made for biopsy as GI specialist wanted the patient to follow-up with him as outpatient within a week. He wanted to refer the patient to Dr. Cunningham Director of endoscopy at [facility] for EMR resection or may be surgical intervention. Patient was explained and she was agreeable to the plan. Patient is medically stable at the discharge. Hemoglobin was 8.5. Patient will discharge to home. #Discharge diagnosis: #Chronic microcytic anemia secondary to iron deficiency #GI bleed, likely related to Ac's esophagus versus hemorrhoids and partially obstructing tumor at ileocecal valve possible? Villous tubular adenoma #History of severe peripheral artery disease, status post left BKA #History of hypertension #History of hyperlipidemia #History of severe asthma #History of A-fib #Fla-pbcdfnf-vpbtcnojp type 2 diabetes #Subclinical hyperthyroidism DC instructions: Continue taking atorvastatin 80 mg at night, ferrous sulfate 325 mg every other day, metoprolol succinate 100 mg once daily, Protonix 40 mg once daily Take all home medication as prescribed Check your blood sugars at least before breakfast, before meals 3 times a day goal of blood sugar is 180-200 mg 2 hours postprandial and fasting below 125 mg/dL You need to follow-up with [employer], Dr. Moore as outpatient for referral for Dr. Cunningham at [facility] for EMR resection of partially obstructing tumor at ileocecal valve seen on the colonoscopy within a week Follow-up with PCP as outpatient within a week to get referral for [employer] In case of emergency, call 911 or come back to the ED Patient was seen and discussed with attending physician, Dr. Tanisha Duncan MD, PGY 2 Time Spent with Patient Time attestation: Total time spent providing and/or coordinating discharge services: Exam Vital Signs Temp Pulse Resp BP Pulse Ox O2 Del Method O2 Flow Rate 97 F 78 18 124/66 99 Nasal Cannula 3 02/19/25 08:00 02/19/25 08:04 02/19/25 08:00 02/19/25 08:04 02/19/25 08:00 02/19/25 08:00 02/19/25 08:00 Narrative Exam General: AOx3, pleasant, laying comofrtably in bed, able to speak full sentences HEENT: NC/AT, mucous membranes moist, bilateral sclera anicteric Cardiovascular: regular rate and rhythm, S1/S2 present, no murmurs appreciated Pulmonary: bibasilar crackles appreciated on auscultation, no wheezing or bronchial breath sounds Abdominal: obese, soft, non-tender, no rebound/guarding Musculoskeletal: left BKA, no peripheral edema Skin: warm and dry, intact, no rashes Neuro: CN II-XII intact, no focal deficits Discharge Plan Plan Patient Disposition: HOME (Self Care) Patient condition on transfer: Stable Care Plan Goals: Continue taking atorvastatin 80 mg at night, ferrous sulfate 325 mg every other day, metoprolol succinate 100 mg once daily, Protonix 40 mg once daily Take all home medication as prescribed Check your blood sugars at least before breakfast, before meals 3 times a day goal of blood sugar is 180-200 mg 2 hours postprandial and fasting below 125 mg/dL You need to follow-up with [employer] [facility] [employer], Dr. Moore as outpatient for referral for Dr. Cunningham at [facility] for EMR resection of partially obstructing tumor at ileocecal valve seen on the colonoscopy within a week Follow-up with PCP as outpatient within a week to get referral for [employer] In case of emergency, call 911 or come back to the ED Prescriptions/Referrals Prescriptions/Med Rec: New metoprolol succinate 100 mg tablet extended release 24 hr 100 mg PO QDAY Qty: 90 0RF atorvastatin 80 mg tablet 80 mg PO HS Qty: 90 0RF pantoprazole 40 mg tablet,delayed release (DR/EC) 40 mg PO QDAY Qty: 90 0RF ferrous sulfate 325 mg (65 mg iron) tablet 325 mg PO Q OTHER DAY Qty: 90 0RF Continued albuterol sulfate 2.5 mg /3 mL (0.083 %) solution for nebulization 2.5 mg inhalation Q4H PRN (Reason: shortness of breath or wheezing) Qty: 90 0RF metformin 500 mg tablet 500 mg PO BIDWM Patient Comments: TAKE ONE TABLET BY MOUTH TWICE DAILY WITH FOOD daib Novolin 70/30 U-100 Insulin 100 unit/mL (70-30) suspension 15 unit SUBCUT QAM Patient Comments: INJECT 15 UNITS SUBCUTANEOUSLY EVERY MORNING FOR DIABETES (DME) True Metrix Glucose Test Strip Strip Patient Comments: CHECK BLOOD SUGAR THREE TIMES DAILY FOR DIABETES albuterol sulfate [Ventolin HFA] 90 mcg/actuation HFA aerosol inhaler 1 - 2 puff INHALATION Q4H PRN (Reason: Shortness Of Breath Or Wheezing) Patient Comments: INHALE 1-2 PUFFS BY MOUTH EVERY 4 HOURS NEEDED ascorbic acid (vitamin C) [Vitamin C] 250 mg Tablet 500 mg PO BID Qty: 60 0RF Discontinued ferrous sulfate 325 mg (65 mg iron) tablet,delayed release (DR/EC) 325 mg PO BID Qty: 60 0RF prednisone 20 mg tablet 10 mg PO BID Taper: Prednisone Taper 20 mg DAILY for 2 Days and 0 Hour 10 mg DAILY for 2 Days and 0 Hour 5 mg DAILY for 7 Days and 0 Hour Referrals: No Primary/Family,Physician [Primary Care Provider] - Patient/Caregiver Discharge Instructions Print Language: American Stand Alone Forms: [employer] Award Info., Patient Portal Info Letter Discharge Order Discharge Orders: Discharge (Routine); Ordered 02/19/25 Ordered By: Sp Peace Quality Discharge Quality Measures VTE prophylaxis (SCDs) Attestestation MD Attestation I have discussed and was present for the essential components of the discharge history, physical examination, diagnosis, and discharge treatment plan with the resident. I agree with the patient's discharge care as documented by the resident and amended herein by me. Ramakrishna Garay, . The patient understood all discharge instructions, all questions were answered satisfactorily. The patient was instructed to return to the Emergency Department is symptoms worsened or persisted. Patient was stable, afebrile, tolerating p.o. intake and ambulatory at time of discharge. See resident note above for additional details, patient will need further evaluation for possible colonic mass found, will follow-up with Dr. Moore within 1 week of discharge for further evaluation workup. Although this document has been carefully reviewed, there may still be some phonetic and other typographical errors. These errors are purely grammatical due to imperfections in the software program and should not be construed in any way to compromise the substance of the patient's medical care during this visit.
--- NOTE | 2025-02-19 12:07 | CHAP ---
Patient was visited by the Spiritual Care Volunteer from whom he received communion. (Volunteer was in the hospital from 11:00-12:07).
--- NOTE | 2025-02-19 15:05 | ESPR_ITS ---
Documentation for date of: 02/19/25 Exam Vital Signs Temp Pulse Resp BP Pulse Ox O2 Del Method O2 Flow Rate 97.4 F 87 20 140/82 H 100 Nasal Cannula 3 02/19/25 11:35 02/19/25 13:39 02/19/25 13:39 02/19/25 11:35 02/19/25 13:39 02/19/25 11:35 02/19/25 13:39 Objective Labs 02/19/25 04:48 02/19/25 04:48 Labs: Laboratory Results - last 24 hr 02/19/25 04:48 WBC 9.1 RBC 4.01 Hgb 8.5 L Hct 30.0 L MCV 75 L MCH 21.2 L MCHC 28.3 L RDW Std Deviation 57.7 H Plt Count 154 D Neut % (Auto) 66 Lymph % (Auto) 10 [place] % (Auto) 12 Eos % (Auto) 11 H Baso % (Auto) 1 Neut # (Auto) 6.0 Lymph # (Auto) 0.9 L [place] # (Auto) 1.1 H Eos # (Auto) 1.0 H Baso # (Auto) 0.1 Immature Gran # (Auto) 0.03 H Absolute Nucleated RBC 0.00 Immature Gran % 0 Nucleated RBC % 0 Sodium 141 Potassium 3.9 Chloride 103 Carbon Dioxide 32.2 H Anion Gap 6 L BUN 6 L Creatinine 0.6 Estim Creat Clear Calc 72.3 eGFR > 60 BUN/Creatinine Ratio 10 L Glucose 71 L Calculated Osmolality 276 Calcium 8.1 L Corrected Calcium 8.5 Phosphorus 2.7 Magnesium 2.1 Total Bilirubin 1.0 AST 32 ALT 16 Alkaline Phosphatase 130 H Total Protein 5.6 L Albumin 3.5 Globulin 2.1 L Albumin/Globulin Ratio 1.7 Assessment & Plan A&P Narrative # Occult GI bleeding # Acute posthemorrhagic anemia requiring blood transfusion # FOBT positive Plan clear liquid diet till 9 AM tomorrow then n.p.o. Consent obtained for fiberoptic esophagogastroduodenoscopy with possible biopsy possible therapeutic intervention If endoscopy is negative we will consider doing a fiberoptic endoscopy prior to discharge as there is a considerable drop in hemoglobin hematocrit. other medical problems include # Peripheral vascular disease leading to left BKA # Diabetes mellitus # Essential hypertension # Bronchial asthma Thank you very much for the opportunity to participate in the care of this patient Time Spent With Patient Time: Total time spent is greater than 50% in coordination of care (as documented) at patient's floor/unit and/or counseling patient:
[2025-02-23 07:44] LABS: Haptoglobin* 173 mg/dL (43-212)
== END 2025-02-19 15:11 | disposition home or self-care (01) | DRG 381 ==
LOC: SERX 19:49 → SERHOLD 20:32 → S3NX 23:41
PROVIDERS: Nurse Practitioner Family; Specialist; Student in an Organized Health Care Education/Training Program; Emergency Provider Emergency Medicine; Visit Provider Student in an Organized Health Care Education/Training Program
PROC: 0DB58ZX Excision of Esophagus, Via Natural or Artificial Opening Endoscopic, Diagnostic (ICD-10-PCS; CPT 43239; principal; 2025-02-16 14:30)
PROC: 0DJD8ZZ Inspection of Lower Intestinal Tract, Via Natural or Artificial Opening Endoscopic (ICD-10-PCS; CPT 45378; principal; 2025-02-18 20:45)
DX: K22.70 Barrett's esophagus without dysplasia (principal); D62 Acute posthemorrhagic anemia; K29.71 Gastritis, unspecified, with bleeding; R51.9 Headache, unspecified; K44.9 Diaphragmatic hernia without obstruction or gangrene; J45.909 Unspecified asthma, uncomplicated; I48.91 Unspecified atrial fibrillation; E78.5 Hyperlipidemia, unspecified; K57.31 Diverticulosis of large intestine without perforation or abscess with bleeding; K64.8 Other hemorrhoids; I11.0 Hypertensive heart disease with heart failure; E05.90 Thyrotoxicosis, unspecified without thyrotoxic crisis or storm; E11.51 Type 2 diabetes mellitus with diabetic peripheral angiopathy without gangrene; I50.9 Heart failure, unspecified; D50.9 Iron deficiency anemia, unspecified; D72.829 Elevated white blood cell count, unspecified; Z79.52 Long term (current) use of systemic steroids; Z79.01 Long term (current) use of anticoagulants; Z89.512 Acquired absence of left leg below knee; Z99.81 Dependence on supplemental oxygen; Z79.84 Long term (current) use of oral hypoglycemic drugs; Z88.5 Allergy status to narcotic agent; Z88.6 Allergy status to analgesic agent; Z79.899 Other long term (current) drug therapy; Z66 Do not resuscitate
CPT/HCPCS: 36415; 36430; 70450; 71046; 80053; 80061; 81001; 82728; 83010; 83036; 83540; 83550; 83615; 83735; 83880; 84100; 84439; 84443; 84484; 85025; 85046; 85610; 85730; 86850; 86900; 86901; 86923; 87811; 93005; 93225; 94640; 94664; 96365; 99285; A4217; A9270; J0696; J1200; J2250; J2470; J3010; J7050; J7121; P9016

== ENCOUNTER 2025-03-12 18:17 | Emergency (ER) | payer MEDICARE, MEDICAID, SELFPAY ==
--- NOTE | 2025-03-12 18:27 | EKG_ITS ---
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: : 1955 Requested By: Jake Mathews Order Number: [id number] Reading MD: Jake Mathews Measurements Intervals [place] Rate: 90 P: -34 MN: 135 QRS: -61 QRSD: 116 T: -11 QT: 352 QTc: 432 Interpretive Statements SINUS RHYTHM LEFT AXIS DEVIATION [QRS AXIS < -30] PATTERN CONSISTENT WITH PULMONARY DISEASE RIGHT BUNDLE BRANCH BLOCK [120+ ms QRS DURATION, UPRIGHT V1, 40+ ms S IN I/aVL/V4/V5/V6] Compared to ECG 02/14/2025 16:10:59 Right bundle-branch block now present Short MN interval no longer present Incomplete right bundle-branch block no longer present /store/S0/[id number]
[2025-03-12 18:48] VITALS: BP 120/73; PULSE 90; RESP 23; TEMP 36.7; O2SAT 94
--- NOTE | 2025-03-12 18:56 | XR_ITS ---
Examination: AP chest single view Technique one AP portable upright chest single view Exam date and time: March 12, 2025 1912 hrs. Comparison February 14, 2025 Indications: Coughing shortness of breath today. Findings: Mild heart failure Mild enlargement cardiac contour Prominent vascular congestion with septal edema in the perihilar basilar regions Prominent osteopenia Impression: Mild heart failure
--- NOTE | 2025-03-12 18:57 | EDRME_ITS ---
Rapid Medical Screening Exam [facility] Arrival date/time: 03/12/25 18:17 70F with history of asthma (on home O2), PAD s/p left BKA, HTN, LD, and DM presents ot ED with 1 week of cough and worsening SOB. Chief Complaint: Shortness of Breath/Dyspnea Vital signs: Vital Signs Temperature 98.1 F 03/12/25 18:48 Pulse Rate 90 03/12/25 18:48 Respiratory Rate 23 H 03/12/25 18:48 Blood Pressure 120/73 03/12/25 18:48 Pulse Oximetry (%) 94 L 03/12/25 18:48 Oxygen Delivery Method Nasal Cannula 03/12/25 18:48 Oxygen Flow Rate 4 03/12/25 18:48
[2025-03-12] MEDS: predniSONE 20 MG TABLET 40 MG PO (19:28)
[2025-03-12 19:37] VITALS: PULSE 87; RESP 20; O2SAT 99
[2025-03-12] MEDS: ALBUTEROL/IPRATROPIUM (Duoneb) RT SOL 3 ML NEBU INH (19:37)
[2025-03-12 19:43] LABS: Lactate (Lactic Acid) 1.6 mMol/L (0.4-2.0)
--- NOTE | 2025-03-12 19:46 | PD.EDSOB ---
ED SOB =RME/HPI General Chief Complaint: Shortness of Breath/Dyspnea Stated Complaint: Short of breath (asthma attack) Time Seen by Provider: 03/12/25 19:41 Arrival date/time: 03/12/25 18:17 Limitations: no limitations RME / HPI RME / HPI Narrative: 03/12/25 18:17 70F with history of asthma (on home O2), PAD s/p left BKA, HTN, LD, and DM presents ot ED with 1 week of cough and worsening SOB. ------- Dr. Contreras's Main ED Evaluation: 70yo female with a history of DM, HTN, asthma presents to the ED for complaints of cough and worsening shortness of breath. Patient states she normally uses her inhaler 3x/day, reporting she continued to have a worsening cough and shortness of breath, so she came in for evaluation. She denies any fever, chills, N/V, BLE swelling, abdominal pain, dysuria, diarrhea, constipation, back pain, headache or any other associated symptoms. Denies any tobacco use. Denies any recent sick contacts or recent traveling. Related Data Home Medications ?Medication ?Instructions ?Recorded ?Confirmed albuterol sulfate 90 mcg/actuation 1 - 2 puff inhalation Q4H PRN 07/18/23 02/14/25 aerosol inhaler (Ventolin HFA) Shortness Of Breath Or Wheezing blood sugar diagnostic (True 07/18/23 02/18/25 Metrix Glucose Test Strip) insulin human U-100 NPH-regulr 15 unit subcut QAM 07/18/23 02/14/25 70-30 mix 100 unit/mL subcutaneous susp (Novolin 70/30 U-100 Insulin) metformin 500 mg tablet 500 mg PO BIDWM 07/18/23 02/14/25 Previous Rx's ?Medication ?Instructions ?Recorded ascorbic acid (vitamin C) 250 mg 500 mg (2 x 250 mg) PO BID #60 tabs 07/25/23 tablet (Vitamin C) albuterol sulfate 2.5 mg/3 mL 2.5 mg (3 mL) inhalation Q4H PRN 03/20/24 (0.083 %) solution for nebulization shortness of breath or wheezing #90 mL atorvastatin 80 mg tablet 80 mg PO HS #90 tabs 02/19/25 ferrous sulfate 325 mg (65 mg 325 mg PO Q OTHER DAY #90 tabs 02/19/25 iron) tablet metoprolol succinate 100 mg 100 mg PO QDAY #90 tabs 02/19/25 tablet,extended release 24 hr pantoprazole 40 mg tablet,delayed 40 mg PO QDAY #90 tabs 02/19/25 release azithromycin 250 mg tablet 250 mg PO QDAY 4 days #4 tabs 03/12/25 prednisone 50 mg tablet 50 mg PO QDAY #7 tabs 03/12/25 Allergies Allergy/AdvReac Type Severity Reaction Status Date / Time aspirin Allergy Severe Difficulty Verified 03/12/25 18:20 Breathing hydrocodone Allergy Severe DIFF Verified 03/12/25 18:20 BREATHING morphine Allergy Severe DIFF Verified 03/12/25 18:20 BREATHING shellfish derived Allergy Severe Hives Verified 03/12/25 18:20 tramadol Allergy Severe Anxiety Verified 03/12/25 18:20 codeine Allergy Difficulty Verified 03/12/25 18:20 Breathing Influenza Virus Vaccines AdvReac Severe Difficulty Verified 03/12/25 18:20 Breathing pneumococcal vaccine AdvReac Severe Difficulty Verified 03/12/25 18:20 Breathing Review of Systems Review of Systems Systems Reviewed: All systems reviewed, normal except as documented Past Medical History Past Medical History NEUROLOGIC: Positive Neurological Disorders and Migraine; Negative Cerebrovascular Accident, Transient Ischemic Attacks (TIA), Dementia, Alzheimer's Disease, Parkinson's Disease, Brain Tumor, Meningitis, Seizures, Epilepsy, Multiple Sclerosis, Cerebral Palsy, Amyotrophic Lateral Sclerosis (ALS/Richelle Gehrig's), Guillain-Gunnison Syndrome, Spina Bifida, Paralysis, Peripheral Neuropathy, Plzaa's Palsy, Subdural Hematoma, Head Trauma, Spinal Cord Injury or Traumatic Brain Injury CARDIAC: Positive Peripheral Vascular Disease (severe PAD), Cellulitis and Hypertension; Negative Cardiac Disorders, Myocardial Infarction, Cardiac Arrhythmia, Atrial Fibrillation, Angina, Heart Murmur, Coronary Artery Disease, Atherosclerotic Heart Disease, Hypercholesterolemia, Aneurysm, Congestive Heart Failure, Congenital Heart Disease, Valvular Heart Disease, Rheumatic Fever, Cardiomyopathy, Edema, Pericarditis, Deep Vein Thrombosis, Hypotension or Varicose Veins RESPIRATORY: Positive Chronic Obstructive Pulmonary Disease (COPD), Asthma, Bronchitis, Pneumonia, Cough, Sputum Production and Wheezing; Negative Emphysema, Pulmonary Fibrosis, Cystic Fibrosis, Tuberculosis, Pulmonary Embolism, Pulmonary Edema or Sleep Apnea GASTROINTESTINAL: Positive Gastrointestinal Disorders and Obesity; Negative Hepatitis, Cirrhosis, Pancreatitis, Celiac Disease, Gall Bladder Disease, Gastrointestinal Bleed, Esophageal Varices, Ac's Esophagus, Colitis, Ulcerative Colitis, Diverticulitis, Diverticulosis, Ulcer, Colorectal Cancer, Irritable Bowel, Crohn's Disease, Obstructive Bowel, Hiatal Hernia, Hemorrhoids or Gastroesophageal Reflux Disease GENITOURINARY: Negative Genitourinary Disorders, Renal Disease, Kidney Stones, Polycystic Kidney Disease, Neurogenic Bladder, Inguinal Hernia, Dialysis, Prostate Cancer or Benign Prostatic Hyperplasia REPRODUCTIVE: Positive Previous Pregnancies; Negative Breast Cancer, Endometriosis, Genital Herpes, Gonorrhea, Pelvic Inflammatory Disease, Syphilis, Testicular Cancer or Uterine Prolapse MUSCULOSKELETAL: Positive Musculoskeletal Disorders and Arthritis; Negative Muscular Dystrophy, Myasthenia Gravis, Marfan's Syndrome, Bone Cancer, Rheumatoid Arthritis, Osteoporosis, Degenerative Disk Disease, Gout, Scoliosis, Carpal Tunnel Syndrome, Fibromyalgia, Fractures, Degenerative Joint Disease, Osteomyelitis or Poliovirus ENT: Positive Glaucoma and Ear Infection; Negative Cataracts, Blind, Retinal Detachment, Macular Degeneration, Deafness, Head Trauma or Eye Prosthesis ENDOCRINE: Positive Endocrine Disorders, 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; Negative Diabetes Mellitus Type 1, Hypoglycemia, Burgin's Disease, Hyperthyroidism, Hypothyroidism, Parathyroid Disease, Pituitary Disease, Systemic Lupus Erythematosus, Syndrome of Inappropriate Antidiuretic Hormone (SIADH), Adrenal Disease or Graves' Disease HEMATOLOGIC: Positive Anemia (chronic anemia); Negative Blood Disorders, Leukemia, Hemophilia, Thalassemia, Sickle Cell Disease or Clotting Problems PSYCHO/SOCIAL: Positive Depression and Anxiety; Negative Psychiatric Problems, Schizophrenia, Recreational Drug Use, Bipolar Disorder, Behavior Problems, Self-Mutilation, Attention Deficit Disorder, Attention Deficit Hyperactivity Disorder, Depression, Post Traumatic Stress Disorder or Eating Disorder OTHER HISTORY: Positive Hospitalization, Falls, Blood Transfusions (02/14/2025), Chicken Pox, Measles, Mumps and Rubella ([place] Measles); Negative Autoimmune Disease, Down Syndrome, Autism, Developmental Delay, Shingles, Blood Transfusion Reaction, Anesthesia Reactions, Organ Transplant, Chemotherapy, Radiation Therapy, Hyperbaric Therapy, MRSA, VRSA, Vancomycin-Resistant Enterococci, Human Immunodeficiency Virus (HIV), Pertussis, Clostridium Difficile, Cancer, Breast Cancer, Cervical Cancer, Colorectal Cancer, Lung Cancer, Ovarian Cancer, Prostate Cancer or Testicular Cancer Family History FAMILY HISTORY: Positive Family Respiratory Disorders, Family Cancer and Family Surgery; Negative Family Psychiatric Problems, Family Cardiac Disorders, Family Gastrointestinal Problems or Family Anesthesia Reaction Surgical History SURGICAL: Positive Vascular Surgery, Angiogram, Amputation (left bka), Hysterectomy and Section; Negative Cardiac Surgery, Open Heart Surgery, Coronary Artery Bypass Graft, Valve Replacement, Coronary Stent, Cardiac Catheterization, Pacemaker, Auto Implanted Cardiovert Defib, Carotid Endarterectomy, Endocrine Surgery, Thyroidectomy, Ear Surgery, Tympanostomy Tube, Eye Surgery, Nose Surgery, Oral Surgery, Tonsillectomy, Adenoidectomy, Cochlear Implant, Corneal Transplant, Throat Surgery, Abdominal Surgery, Tracheostomy, Gastric Bypass Surgery, Gastrostomy, Bowel Surgery, Nephrectomy, Transurethral Resection, Joint Replacement, Open Reduction Internal Fixation, Arthroscopy, Neurologic Surgery, Brain Shunt, Mastectomy, Lumpectomy, Tubal Ligation, Vasectomy or Organ Transplant Social History SMOKING STATUS: Never smoker SECOND HAND EXPOSURE: No SUBSTANCE USE: does not use ED Exam General Limitations: Present no limitations General appearance: Present alert and in no apparent distress Head Head exam: Present atraumatic Eye Eye exam: Present normal appearance, PERRL and EOMI ENT ENT exam: Present normal exam, normal oropharynx and mucous membranes moist Neck Neck exam: Present normal inspection, full ROM and trachea midline Chest Chest inspection: Present normal inspection and symmetric chest wall rise Respiratory Respiratory exam: Present wheezes (diffuse) and other (rhonchi R>L) Cardiovascular Cardiovascular exam: Present regular rate, normal rhythm and normal heart sounds; Absent systolic murmur or diastolic murmur Abdominal Exam Abdominal exam: Present soft and normal bowel sounds Extremities Exam Extremities exam: Present normal inspection and full ROM Back Exam Back exam: Present normal inspection and full ROM Neurological Exam Neurological exam: Present alert, oriented X3 and CN II-XII intact Psychiatric Psychiatric exam: Present normal affect and normal mood Skin Skin exam: Present warm, dry, intact and normal color Course Course Course Narrative: CXR is ordered for determining the etiology of shortness of breath. Quality Measures none Orders Category Date Time Status Bedside COVID-19 Antigen Test NOW Care 03/12/25 18:57 Active Bedside Influenza A&B Antigen Test NOW Care 03/12/25 18:57 Completed EKG (ED ONLY) *Do not use* NOW Care 03/12/25 18:27 Completed EKG (ED Only) Stat Exams 03/12/25 18:27 Draft XR chest 1V portable Stat Exams 03/12/25 18:56 Completed B-Type Natriuretic Peptide Stat Lab 03/12/25 19:33 Completed CBC Stat Lab 03/12/25 19:33 Completed Comprehensive Metabolic Panel Stat Lab 03/12/25 19:33 Completed Lactate (Lactic Acid) Stat Lab 03/12/25 19:33 Completed Procalcitonin Stat Lab 03/12/25 19:33 Completed Troponin I Stat Lab 03/12/25 19:33 Completed Albuterol/Ipratr Rt Willow [Duoneb Rt Willow] Med 03/12/25 18:56 Discontinued 3 ml INH X1 ONE Azithromycin Po [Zithromax PO] Med 03/12/25 22:12 Discontinued 500 mg PO X1 ONE predniSONE Med 03/12/25 18:58 Discontinued 40 mg PO X1 ONE Reevaluation(s) Reevaluation #1: On re-evaluation, patient states she feels better after receiving duoneb and prednisone. Patient is stable to be discharged home and is requesting a prescription for antibiotics. Time: 22:00 Vital Signs Vital signs: Vital Signs Temperature 98.1 F 03/12/25 18:48 Pulse Rate 90 03/12/25 18:48 Respiratory Rate 23 H 03/12/25 18:48 Blood Pressure 120/73 03/12/25 18:48 Pulse Oximetry (%) 94 L 03/12/25 18:48 Oxygen Delivery Method Nasal Cannula 03/12/25 18:48 Oxygen Flow Rate 4 03/12/25 18:48 Shortness of Breath / Dyspnea MDM Narrative MDM Narrative:: Scribe Attestation: 03/12/25 - Helen Hilliard, tanvi scribing for and in the presence of Dr. Contreras. EDC: Vitals notable for tachypnea-no significant hypoxia patient on baseline oxygen at home at 3 L. -Overall sick but non-toxic with coarse breath sounds and wheezes bilaterally. Mild respiratory distress. No complaints of chest pain other than ?tightness? with respirations. Clinical picture is consistent with asthma, especially with known history. Other diagnoses such as PE, PNA, ACS, CHF, allergic reaction seem less likely. -Starting on nebs and steroids with basic workup and will re-assess. Re-exam, DC: After nebs and steroids, patient is feeling much better. Breathing is non-labored and wheezes are almost completely absent. CXR and labs unremarkable. Given the patient?s improvement in symptoms, I still think this was likely all due to asthma exacerbation and while more severe malignant processes such as PE, occult PNA, allergic reacion, or ACS are still possibilities it seems highly unlikely. This was discussed with the patient. The patient states they feel much better and would like to go home. Vitals are stable and satting well on RA. The plan is for outpatient therapy with a short course of steroids and scheduled breathing treatments for the next two days. Return precautions were extensively discussed and the patient understands to return for any worsening symptoms or failure to improve. COPA: This patient has high complexity 1+ chronic illnesses with severe exacerbation, progression, or side effects DATA: This patient required minimal data complexity-chest x-ray, labs, swabs. RISK: This patient has high risk due to decision regarding hospitalization: Patient has Influenza, Asthma Exacerbation and discussed with patient benefits and drawbacks of admission and made a shared decision not to admit. CURB-65 Score for Pneumonia Severity from [employer] on 03/12/2025 All calculations should be rechecked by clinician prior to use RESULT SUMMARY: 1 points Low risk group: 2.7% 30-day mortality. Consider outpatient treatment. INPUTS: Confusion ?> 0 = No BUN >19 mg/dL (>7 mmol/L urea) ?> 0 = No Respiratory Rate >=0 ?> 0 = No Systolic BP <90 mmHg or Diastolic BP <=0 mmHg ?> 0 = No Age >=65 ?> 1 = Yes Patient data External records reviewed:: [facility] previous records (Per chart review, patient was admitted here on 02/14/25 for anemia.) Clinical information provided by:: patient Social determinants that could affect healthcare access:: none Patient has the following chronic illnesses:: DM, HTN, asthma How is presenting disease/condition affected by chronic disease/condition?: exacerbated by Evaluation data The following diagnostics were reviewed and interpreted by me:: lab results, radiology exam(s) and EKG tracing(s) Lab and/or radiology exams considered but not ordered:: none Interpretation Summary: Bedside Influenza A is positive, Bedside COVID is negative, WBC count is elevated at 15.1, CMP is normal, Lactic Acid is normal, Troponin is normal, BNP is normal, Procalcitonin is normal, according to my interpretation. EKG done at 1841, NSR, rate of 90, RBBB, no STEMI, same as previous EKG done in 01/2025, according to my interpretation. [facility] Report Signed Patient: NARAYAN MAYS Record#: [id number] Birthdate: 1955 Age/Sex: 70 / F Location: [facility] Attending Dr: Ordering Physician: Jake Mathews PA-C Date of Service: 03/12/25 Procedure(s): XR chest 1V portable Accession Number(s): [id number] cc: Adalid Sapp MD; Jake Mathews PA-C~ Examination: AP chest single view Technique one AP portable upright chest single view Exam date and time: March 12, 2025 1912 hrs. Comparison February 14, 2025 Indications: Coughing shortness of breath today. Findings: Mild heart failure Mild enlargement cardiac contour Prominent vascular congestion with septal edema in the perihilar basilar regions Prominent osteopenia Impression: Mild heart failure Dictated By: Adalid Sapp MD Signed By: <Electronically signed by Adalid Sapp MD in [place]> 03/12/25 1923 Medications / Prescriptions Medications or Prescriptions considered but not ordered:: none Medication administrations:: Medication Administration History Discontinued Medications Albuterol/Ipratropium (Albuterol/Ipratropium (Duoneb) Rt Willow 3 Ml Nebu) 3 ml INH X1 ONE Stop: 03/12/25 18:57 Last Admin: 03/12/25 19:37 Dose: 3 ml Documented By: MARINO Azithromycin (Azithromycin 250 Mg Tablet) 500 mg PO X1 ONE Stop: 03/12/25 22:13 Prednisone (Prednisone 20 Mg Tablet) 40 mg PO X1 ONE Stop: 03/12/25 18:59 Last Admin: 03/12/25 19:28 Dose: 40 mg Documented By: MS see above Consultations Consultation(s) initiated? (list below): No Diagnosis Shortness of Breath Differential Diagnosis: community acquired pneumonia, asthma with exacerbation and other (COVID, Influenza, viral syndrome) Most likely diagnosis given after review of the tests above:: see clinical impression below Admission Indicated Admission indicated?: not indicated Explain why admission is indicated or not indicated:: No criteria for admission. Admission Request Was there a request for admission?: No Disposition Plan Disposition Plan: Discharge Discharge Attestation Discharge Attestation: The patient and all family members were given an opportunity to ask questions and understood the discharge instructions. Discharge instructions specifically effects, indications for sooner follow up or return to the emergency department, and the expected course of current diagnosis. Patient condition: Stable Discharge Plan Plan Patient Disposition: HOME (Self Care) Patient condition on transfer: Stable Prescriptions/Referrals Prescriptions/Med Rec: No Action albuterol sulfate 2.5 mg /3 mL (0.083 %) solution for nebulization 2.5 mg inhalation Q4H PRN (Reason: shortness of breath or wheezing) Qty: 90 0RF metoprolol succinate 100 mg tablet extended release 24 hr 100 mg PO QDAY Qty: 90 0RF atorvastatin 80 mg tablet 80 mg PO HS Qty: 90 0RF pantoprazole 40 mg tablet,delayed release (DR/EC) 40 mg PO QDAY Qty: 90 0RF ferrous sulfate 325 mg (65 mg iron) tablet 325 mg PO Q OTHER DAY Qty: 90 0RF metformin 500 mg tablet 500 mg PO BIDWM Patient Comments: TAKE ONE TABLET BY MOUTH TWICE DAILY WITH FOOD daib Novolin 70/30 U-100 Insulin 100 unit/mL (70-30) suspension 15 unit SUBCUT QAM Patient Comments: INJECT 15 UNITS SUBCUTANEOUSLY EVERY MORNING FOR DIABETES (DME) True Metrix Glucose Test Strip Strip Patient Comments: CHECK BLOOD SUGAR THREE TIMES DAILY FOR DIABETES albuterol sulfate [Ventolin HFA] 90 mcg/actuation HFA aerosol inhaler 1 - 2 puff INHALATION Q4H PRN (Reason: Shortness Of Breath Or Wheezing) Patient Comments: INHALE 1-2 PUFFS BY MOUTH EVERY 4 HOURS NEEDED ascorbic acid (vitamin C) [Vitamin C] 250 mg Tablet 500 mg PO BID Qty: 60 0RF Referrals: Chandrakant Cardenas MD [Primary Care Provider] - In 1 week Problem List Clinical Impression: Asthma exacerbation Patient/Caregiver Discharge Instructions Print Language: Welsh Stand Alone Forms: [employer] Info., Patient Portal Info Letter
[2025-03-12 19:49] LABS: Basophils # (Auto) 0.1 Thou/mm3 (0.0-0.2); Basophils % (Auto) 1 % (0-2.5); Eosinophils # (Auto) 1.2 Thou/mm3 (0.0-0.5); Eosinophils % (Auto) 8 % (0-10); Hematocrit 36.1 % (36.0-46.0); Hemoglobin 10.5 g/dL (12.0-16.0); Immature Granulocytes % (Auto) 0 % (0-0); Immature Granulocytes Auto 0.05 Thou/mm3 (0.00-0.00); Lymphocytes % (Auto) 7 % (10-50); Mean Corpuscular HGB Conc 29.1 g/dl (31.0-37.0); Mean Corpuscular Hemoglobin 22.7 pg (25.0-35.0); Mean Corpuscular Volume 78 fL (80-100); Monocytes # (Auto) 0.8 Thou/mm3 (0.0-0.8); Monocytes % (Auto) 6 % (0-12); Neutrophils # (Auto) 11.8 Thou/mm3 (1.8-7.7); Neutrophils % (Auto) 78 % (37-80); Nucleated Red Blood Cell % 0 /100 WBC (0); Platelet Count 318 Thou/mm3 (140-440); Red Blood Count 4.63 Miln/mm3 (4.00-5.20); White Blood Count 15.1 Thou/mm3 (3.6-11.0)
[2025-03-12 20:06] LABS: B-Type Natriuretic Peptide 53 pg/mL (0-100)
[2025-03-12 20:15] LABS: Alanine Aminotransferase 16 U/L (10-49); Albumin, Serum 4.2 gm/dL (3.4-4.8); Albumin/Globulin Ratio 1.5 (1.2-2.2); Alkaline Phosphatase 141 U/L (46-116); Anion Gap 6 (7-16); Aspartate Amino Transferase 22 U/L (0-34); BUN/Creatinine Ratio 20 Ratio (12-20); Bilirubin,Total 0.5 mg/dL (0.3-1.2); Blood Urea Nitrogen 14 mg/dL (9-23); Carbon Dioxide 32.8 mMol/L (20.0-31.0); Chloride 103 mMol/L (98-107); Creatinine (Component) 0.7 mg/dL (0.6-1.3); Globulin 2.8 gm/dL (2.3-3.5); Glucose 86 mg/dL (74-106); Osmolality,Calculated 282 (275-295); Potassium 4.7 mMol/L (3.4-5.1); Procalcitonin 0.09 ng/ml (0.0-0.49); Sodium 142 mMol/L (136-145); Troponin I < 0.020 ng/mL (0.0-0.045); eGFR > 60 See Note
[2025-03-12] MEDS: AZITHROMYCIN 250 MG TABLET 500 MG PO (22:18)
== END 2025-03-12 22:23 | disposition home or self-care (01) ==
PROVIDERS: Physician Assistant; Emergency Provider Emergency Medicine; PCP Family Medicine
DX: J45.901 Unspecified asthma with (acute) exacerbation (principal); E11.9 Type 2 diabetes mellitus without complications; I10 Essential (primary) hypertension
CPT/HCPCS: 36415; 71045; 80053; 83605; 83880; 84145; 84484; 85025; 87400; 87811; 93005; 94640; 99283; A9270; J7512

== ENCOUNTER 2025-03-16 01:36 | Emergency (ER) | payer MEDICARE, MEDICAID, SELFPAY ==
[2025-03-16 01:37] VITALS: BMI 28.0
[2025-03-16 01:53] VITALS: BP 165/74; PULSE 64; RESP 20; TEMP 36.7; O2SAT 95
--- NOTE | 2025-03-16 01:57 | PD.EDRME ---
Rapid Medical Screening Exam RME Arrival date/time: 03/16/25 01:36 70 yo f present to ED for c/o of abd pain, n.v I have greeted and performed a focused initial assessment of this patient. A comprehensive ED assessment and evaluation of the patient, analysis of all test results, and completion of the medical decision making process will be conducted by additional ED providers. Chief Complaint: Abdominal Pain Time Seen by Provider: 03/16/25 01:46 Vital signs: Vital Signs Temperature 98.1 F 03/16/25 01:53 Pulse Rate 64 03/16/25 01:53 Respiratory Rate 20 03/16/25 01:53 Blood Pressure 165/74 H 03/16/25 01:53 Pulse Oximetry (%) 95 03/16/25 01:53 Oxygen Delivery Method Room Air 03/16/25 01:53
[2025-03-16] MEDS: ONDANSETRON ODT 4 MG TABRAP PO (02:07)
[2025-03-16 02:47] LABS: Lactate (Lactic Acid) 1.5 mMol/L (0.4-2.0)
[2025-03-16 02:50] LABS: Basophils % (Auto) 0 % (0-2.5); Eosinophils % (Auto) 0 % (0-10); Hematocrit 35.3 % (36.0-46.0); Hemoglobin 10.6 g/dL (12.0-16.0); Immature Granulocytes % (Auto) 1 % (0-0); Immature Granulocytes Auto 0.11 Thou/mm3 (0.00-0.00); Lymphocytes % (Auto) 5 % (10-50); Mean Corpuscular Hemoglobin 23.1 pg (25.0-35.0); Mean Corpuscular Volume 77 fL (80-100); Monocytes # (Auto) 1.1 Thou/mm3 (0.0-0.8); Monocytes % (Auto) 5 % (0-12); Neutrophils # (Auto) 19.5 Thou/mm3 (1.8-7.7); Neutrophils % (Auto) 90 % (37-80); Nucleated Red Blood Cell % 0 /100 WBC (0); Platelet Count 300 Thou/mm3 (140-440); RDW Standard Deviation 73.9 fL (36.4-46.3); Red Blood Count 4.58 Miln/mm3 (4.00-5.20); White Blood Count 21.7 Thou/mm3 (3.6-11.0)
[2025-03-16 03:10] LABS: Beta Hydroxybutyrate 0.1 mmol/L (<0.6)
[2025-03-16 03:14] LABS: B-Type Natriuretic Peptide 166 pg/mL (0-100)
[2025-03-16 03:15] LABS: Alanine Aminotransferase 28 U/L (10-49); Albumin, Serum 4.2 gm/dL (3.4-4.8); Albumin/Globulin Ratio 1.8 (1.2-2.2); Alkaline Phosphatase 138 U/L (46-116); Anion Gap 7 (7-16); Aspartate Amino Transferase 24 U/L (0-34); BUN/Creatinine Ratio 33 Ratio (12-20); Bilirubin,Total 0.5 mg/dL (0.3-1.2); Blood Urea Nitrogen 20 mg/dL (9-23); Calcium 8.8 mg/dL (8.3-10.6); Calcium (Corrected) 8.8 mg/dL (8.5-10.1); Carbon Dioxide 32.1 mMol/L (20.0-31.0); Chloride 104 mMol/L (98-107); Creatinine (Component) 0.6 mg/dL (0.6-1.3); Estimated Creatinine Clearance 63.1 mL/min (>60); Globulin 2.3 gm/dL (2.3-3.5); Glucose 122 mg/dL (74-106); Osmolality,Calculated 288 (275-295); Sodium 143 mMol/L (136-145); Total Protein 6.5 gm/dL (5.7-8.2); eGFR > 60 See Note
[2025-03-16 03:24] LABS: Collection Type, Urine Voided
[2025-03-16 03:31] LABS: Bilirubin,Urine Negative (Negative); Blood,Urine 1+ (Negative); Clarity,Urine Clear (Clear/Hazy); Color,Urine Lt-Yellow (Lt Yel-Yel); Glucose, Urine Negative (Negative); Ketones,Urine Negative (Negative); Leukocyte Esterase,Urine Positive (Negative); Nitrite,Urine Negative (Negative); Protein,Urine Negative (Neg - Trace); RBC,Urine 18 /hpf (0-3); Specific Gravity,Urine 1.018 (1.001-1.035); Squamous Epithelial Cell,Urine 3 /hpf (0-5); Urobilinogen,Urine Negative mg/dL (0.0-1.0); WBC,Urine 2 /hpf (0-5)
== END 2025-03-16 03:20 | disposition left against medical advice (07) ==
PROVIDERS: Physician Assistant; Emergency Provider Emergency Medicine; PCP Family Medicine
DX: R10.9 Unspecified abdominal pain (principal); Z53.29 Procedure and treatment not carried out because of patient's decision for other reasons
CPT/HCPCS: 36415; 80053; 81001; 82010; 83605; 83880; 85025; 87040; 87086; 99281; Q0162

== ENCOUNTER 2025-03-16 05:50 | Inpatient (IN) | payer MEDICARE, MEDICAID, SELFPAY ==
[2025-03-16] VITALS (17 sets, daily range): BP systolic 122–198; BP diastolic 58–105; PULSE 60–108; RESP 17–28; TEMP 36.6–37.3; O2SAT 88–100; BMI 27.6; BMI 27.7
--- NOTE | 2025-03-16 06:53 | PD.EDABDPN ---
ED Abdominal Pain RME/HPI General Chief Complaint: Abdominal Pain Stated complaint: ABD PAIN Time seen by provider: 03/16/25 06:48 Arrival date/time: 03/16/25 05:50 RME / HPI RME / HPI narrative: DR. BOONE MAIN ED EVALUATION: 70 year female presents to the Emergency Department [facility] with complaint of abdominal pain since yesterday morning. No similar symptoms in the past. No fevers or chills. No blood in the stools. Denies any bloating or constipation; she reports having bowel movement although small. Associated nausea and vomiting green emesis. PMHx: Hypertension, COPD, diabetes mellitus type 2, left BKA, and a section. PSHx: section 30 years ago. Left BKA. Social Hx: No tobacco, alcohol, or substance use. Related Data Home Medications ?Medication ?Instructions ?Recorded ?Confirmed albuterol sulfate 90 mcg/actuation 1 - 2 puff inhalation Q4H PRN 07/18/23 02/14/25 aerosol inhaler (Ventolin HFA) Shortness Of Breath Or Wheezing blood sugar diagnostic (True 07/18/23 02/18/25 Metrix Glucose Test Strip) insulin human U-100 NPH-regulr 15 unit subcut QAM 07/18/23 02/14/25 70-30 mix 100 unit/mL subcutaneous susp (Novolin 70/30 U-100 Insulin) metformin 500 mg tablet 500 mg PO BIDWM 07/18/23 02/14/25 Previous Rx's ?Medication ?Instructions ?Recorded ascorbic acid (vitamin C) 250 mg 500 mg (2 x 250 mg) PO BID #60 tabs 07/25/23 tablet (Vitamin C) albuterol sulfate 2.5 mg/3 mL 2.5 mg (3 mL) inhalation Q4H PRN 03/20/24 (0.083 %) solution for nebulization shortness of breath or wheezing #90 mL atorvastatin 80 mg tablet 80 mg PO HS #90 tabs 02/19/25 ferrous sulfate 325 mg (65 mg 325 mg PO Q OTHER DAY #90 tabs 02/19/25 iron) tablet metoprolol succinate 100 mg 100 mg PO QDAY #90 tabs 02/19/25 tablet,extended release 24 hr pantoprazole 40 mg tablet,delayed 40 mg PO QDAY #90 tabs 02/19/25 release prednisone 50 mg tablet 50 mg PO QDAY #7 tabs 03/12/25 Allergies Allergy/AdvReac Type Severity Reaction Status Date / Time aspirin Allergy Severe Difficulty Verified 03/12/25 18:20 Breathing hydrocodone Allergy Severe DIFF Verified 03/12/25 18:20 BREATHING morphine Allergy Severe DIFF Verified 03/12/25 18:20 BREATHING shellfish derived Allergy Severe Hives Verified 03/12/25 18:20 tramadol Allergy Severe Anxiety Verified 03/12/25 18:20 codeine Allergy Difficulty Verified 03/12/25 18:20 Breathing Influenza Virus Vaccines AdvReac Severe Difficulty Verified 03/12/25 18:20 Breathing pneumococcal vaccine AdvReac Severe Difficulty Verified 03/12/25 18:20 Breathing Review of Systems Review of Systems Systems Reviewed: All systems reviewed, normal except as documented Narrative Review of Systems: Constitutional: DENIES: fevers; Eyes: DENIES: loss of vision; Head/Ear/Nose: DENIES: loss of hearing. Throat: DENIES: dysphagia. Cardiovascular: DENIES: chest pain, dyspnea, or syncope. Respiratory: DENIES: shortness of breath; Gastrointestinal: POSITIVES: abdominal pain, nausea, vomiting green emesis; DENIES: rectal bleeding or melena. Genitourinary: DENIES: dysuria (painful or difficult urination); Musculoskeletal: DENIES: arthralgia (pain in a joint); Skin: DENIES: rash; Neurological: DENIES: loss of function or movement; Psychiatric: DENIES: recent major life stressor, emotional problem, illicit drug use or abuse; Endocrinology: DENIES: weight change,; Hematologic/Lymphatic: DENIES: abnormal bruising. Allergic/Immunologic: DENIES: urticaria (hives). 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 HEMATOLOGIC: Positive Anemia PSYCHO/SOCIAL: Positive Depression and Anxiety OTHER HISTORY: Positive Hospitalization, Falls, Blood Transfusions, Chicken Pox, Measles, Mumps and Rubella (Syriac Measles) Family History FAMILY HISTORY: Positive Family Respiratory Disorders, Family Cancer and Family Surgery Surgical History SURGICAL: Positive Vascular Surgery, Angiogram, Amputation (LEFT BKA), Hysterectomy and Section Social History SMOKING STATUS: Never smoker SECOND HAND EXPOSURE: No SUBSTANCE USE: does not use ALCOHOL: Never ED Exam Narrative Physical exam: Physical Exam: General: The vital signs were reviewed. The patient is non-toxic, in no apparent distress and appears healthy with a patent airway, no respiratory distress and has no apparent circulatory problems. Head & Scalp: Normocephalic, atraumatic. Face: Appears normal and is without lesions, deformity. Ears: Left external pinna appears normal. Right external pinna appears normal. Eyes: The sclera is anicteric. No obvious photophobia. The Left and Right Orbit/Lid/Conjunctiva appears normal without swelling, discoloration or injection. Nose: The nose is without deformity, discharge or tenderness; Throat: Appears normal. The mucous membranes are pink and moist without exudates, redness or mass seen. The tongue appears normal. Neck: The neck is supple and no apparent mass or adenopathy. Chest: The chest wall is normal in size and symmetry and has no chest wall tenderness or crepitus. The patient displays normal ventilator effort without retractions, accessory muscle use and has adequate air movement bilaterally with no wheezes and no rales. Cardiovascular: Regular rate and rhythm; No murmurs, rubs, or gallops; Gastrointestinal: The abdomen appears normal. No obvious hernias or mass. The abdomen is protuberant midline scar well-healed diffuse tenderness more upper than lower. Minimally-distended, positive guarding and no rebound tenderness. Bowel sounds are present and normal sounding. No CVA tenderness. Genitourinary: Back/Spine: Normal inspection Extremities/Musculoskeletal/lymphatic: Left BKA. Otherwise: The bilateral upper and right lower extremities are warm. There is no evidence of arterial insufficiency. There is no evidence of venous insufficiency/edema. The patient spontaneously moves bilateral upper and right lower extremities with no pain and no limitation of movement. There is no apparent, injury or trauma. Skin: The skin is warm, dry and intact. No rashes. No petechia. No purpura. No abnormal bruising. The color is appropriate with no cyanosis. Mental status/Psychiatric: Mental status is appropriate for age. The patient has no apparent delusions, visual hallucinations, no apparent audible hallucinations. The patient has no apparent suicidal thoughts/ideation and no apparent homicidal thoughts/ideation. Neurological: The patient is awake, alert, interactive, cordial, cooperative and is oriented to name and situation. The patient follows commands and answers historical question with no impairment. There is no visual disturbance apparent. The pupils are equal and reactive bilaterally with normal eye movements and no diplopia The bilateral upper and lower extremities have normal strength, normal range of motion and normal functioning. The gait, station and balance were not tested due to acuity Course Quality Measures none Orders Category Date Time Status Admit to Inpatient Status Routine Admission 03/16/25 17:28 Active Patient Condition Routine Admission 03/16/25 17:28 Ordered Activity as Tolerated Routine Care 03/16/25 17:29 Ordered Bedside COVID-19 Antigen Test NOW Care 03/16/25 15:57 Active Bedside COVID-19 Antigen Test NOW Care 03/16/25 15:58 Completed COVID-19 Screening Questionnaire NOW Care 03/16/25 15:[address] Screening NOW Care 03/16/25 12:[address] Screening NOW Care 03/16/25 14:14 Active Continuous Pulse Oximetry NOW Care 03/16/25 17:28 Active EKG (ED ONLY) *Do not use* NOW Care 03/16/25 06:54 Completed Miscellaneous Nursing Order NOW Care 03/16/25 13:56 Active NG / OG Tube to LIS NOW Care 03/16/25 15:57 Completed NPO NEEDED Care 03/16/25 06:54 Active NPO NOW Care 03/16/25 06:54 Active Notify provider NEEDED Care 03/16/25 17:28 Active Sequential Compression Device QSHIFT Care 03/16/25 17:28 Active Diet NPO (NOW) Diet 03/16/25 06:[address] chest abdomen pelvis w Stat Exams 03/16/25 14:14 Completed EKG (ED Only) Stat Exams 03/16/25 06:54 Draft XR chest 1V portable Stat Exams 03/16/25 12:32 Completed B-Type Natriuretic Peptide Stat Lab 03/16/25 07:30 Completed Blood Culture (Lab) Stat Lab 03/16/25 07:25 Received CBC AM DRAW Lab 03/17/25 05:00 Ordered CBC AM DRAW Lab 03/18/25 05:00 Ordered CBC AM DRAW Lab 03/19/25 05:00 Ordered CBC Stat Lab 03/16/25 07:30 Completed Comprehensive Metabolic Panel AM DRAW Lab 03/17/25 05:00 Ordered Comprehensive Metabolic Panel AM DRAW Lab 03/18/25 05:00 Ordered Comprehensive Metabolic Panel AM DRAW Lab 03/19/25 05:00 Ordered Comprehensive Metabolic Panel Stat Lab 03/16/25 07:30 Completed Lactate (Lactic Acid) Stat Lab 03/16/25 07:30 Completed Lipase Stat Lab 03/16/25 07:30 Completed Magnesium AM DRAW Lab 03/17/25 05:00 Ordered Magnesium AM DRAW Lab 03/18/25 05:00 Ordered Magnesium AM DRAW Lab 03/19/25 05:00 Ordered Phosphorous AM DRAW Lab 03/17/25 05:00 Ordered Phosphorous AM DRAW Lab 03/18/25 05:00 Ordered Phosphorous AM DRAW Lab 03/19/25 05:00 Ordered Troponin I Stat Lab 03/16/25 07:30 Completed Type and Screen Stat Lab 03/16/25 07:30 Completed Urinalysis Stat Lab 03/16/25 11:20 Completed Urinalysis, C/S if Indicated Stat Lab 03/16/25 11:20 Completed Venous Blood Gas Stat Lab 03/16/25 07:30 Completed ALBUTEROL RT 0.5ml [Proventil Rt 0.5ml] Med 03/16/25 13:49 Discontinued 5 mg INH X1 ONE Acetaminophen Ivpb [Ofirmev Inj] Med 03/16/25 07:02 Discontinued 1,000 mg in 100 ml IV X1 MethylPREDNISolone.* [SoluMEDROL Inj] Med 03/16/25 13:49 Discontinued 125 mg IVP X1 ONE Morphine Inj Med 03/16/25 17:28 Discontinued 2 mg IVP Q2H PRN Morphine Inj Med 03/16/25 06:54 Discontinued 5 mg IVP X1 ONE Ondansetron Inj [Zofran Inj] Med 03/16/25 06:54 Discontinued 4 mg IV X1 ONE Pantoprazole Inj [Protonix Inj] Med 03/16/25 06:54 Discontinued 40 mg IVP X1 ONE Ringers Lactated 1000 ml [Lactated Ringers] 1,000 ml Med 03/16/25 17:30 Active IV 75 mls/hr Sodium Chloride 0.9% 1000 ml [Ns] 1,000 ml Med 03/16/25 13:56 Discontinued IV 100 mls/hr Sodium Chloride 0.9% 1000 ml [Ns] 1,000 ml Med 03/16/25 07:00 Discontinued IV 200 mls/hr Sodium Chloride 0.9% 500 ml [Ns] 500 ml Med 03/16/25 12:34 Discontinued IV 999 mls/hr Sodium Chloride Rt Willow 0.9% [NS Rt Willow 0.9%] Med 03/16/25 13:49 Active 3 ml INH PRN PRN cefTRIAXone [Rocephin] 1 gm Med 03/16/25 17:35 Discontinued SODIUM CHLORIDE 0.9% (Popper) [Ns 0.9% (P)] 50 ml IV QDAY cefTRIAXone/D5w 1gm IV premix [Rocephin/D5w 1gm IV Med 03/17/25 14:00 Discontinued premix] 1 gm in 50 ml IV QDAY@1400 hydrALAZINE INJ [Apresoline Inj] Med 03/16/25 13:48 Discontinued 20 mg IV X1 ONE metroNIDAZOLE/NS 500 MG IVPB [Flagyl 500 mg IV] Med 03/16/25 17:38 Discontinued 500 mg in 100 ml IV Q8HR Code Status Routine Oth 03/16/25 17:28 Ordered Reevaluation(s) Reevaluation #1: Reassessment at this time: patient still has abdominal pain and states that she is passing some gas but not like normal. Will order a CT. Time: 12:35 Reevaluation #2: Reassessment at this time: patient now complains of shortness of breath. Earlier she did not mention she was short of breath just complaining of abdominal pain. She states she started geting short of breath just in the last hour. Time: 13:40 Vital Signs Vital signs: Vital Signs Temperature 98.4 F 03/16/25 06:13 Pulse Rate 63 03/16/25 06:13 Respiratory Rate 28 H 03/16/25 06:13 Blood Pressure 173/72 H 03/16/25 06:13 Pulse Oximetry (%) 96 03/16/25 06:13 Oxygen Delivery Method Nasal Cannula 03/16/25 06:13 Oxygen Flow Rate 3 03/16/25 06:13 Abdominal Pain MDM MDM Narrative MDM Narrative:: Patient presents with 1 day history of increasing abdominal pain more upper than lower and both upper quadrants in the midline. She has had a previous surgery with a many years ago. No other surgery. She is diabetic. She is quite tender clinically. Medical workup is ordered and pending at 0630 hrs. Medical workup came back with a white count 22.4 thousand obviously elevated. Hemoglobin 9.1 MCV is 77 platelet count is 274,000 with pH of 7.52 pCO2 of 40 and a blood gas. Sodium 141 potassium 4.1 chloride 103 CO2 32.5 BUN 17 creatinine 0.6 lactic acid 1.0 calcium is 9 AST ALT are normal total bilirubin is normal bilirubin is normal AST ALT within normal is. Troponin is negative BNP slightly elevated. Lipase slightly elevated 72 urinalysis came back with 10 red cells and 1 white cell of uncertain significance. Reevaluation the patient continues to work gas being passed at this time and feels she needs something for clinical constipation. Because of the white count continued abdominal pain and previous surgery bowel obstruction needs to be considered along with other the possible diagnoses. CT of the abdomen is now ordered and pending as of 1240 hrs. Will give her some fluids to further her hydration. At 1340 hrs. patient is now reporting she feels short of breath. Evidently she has a history of COPD or asthma. On reevaluation she is got wheezing mildly in all lung zepeda. Will give her some steroids and breathing treatments while awaiting for the CT of the abdomen to be done. Also her blood pressure is somewhat high. She did get hydrated with a liter of fluid. Okay to cancel any further fluid Review the chest x-ray reveals very subtle increased markings in the right lung versus left uncertain if truly acute or not though the radiologist thinks it could be early pneumonia. Patient has pretty normal O2 sats on room air making me doubt any significant pneumonia. Will get some breathing treatments give some steroids and get the CT to evaluate the abdominal pain and reevaluate after that>>> CT came back with a small bowel obstruction with an incarcerated hernia in the left lateral pelvis. I called Dr Kapadia surgeon on-call and he agreed with the NG tube which was placed by nursing staff. Called the hospitalist and they will be admitting. Patient remain n.p.o. in case Dr. Mcdonald plans to take him to the operating room also reevaluation of the patient's wheezing revealed his lungs to be clear O2 sats were 98% on room air Elsi Hilliard am scribing for and in the presence of Dr. Boone. Patient data External records reviewed:: EMS form Clinical information provided by:: patient and EMS Social determinants that could affect healthcare access:: none Patient has the following chronic illnesses:: Hypertension, COPD, diabetes mellitus type 2, left BKA, and a section How is presenting disease/condition affected by chronic disease/condition?: exacerbated by Evaluation data The following diagnostics were reviewed and interpreted by me:: lab results and EKG tracing(s) (EKG#1: EKG at 63 hours. Interpreted by me: sinus rhythm, rate 63, no STEMI) Lab and/or radiology exams considered but not ordered:: none Interpretation Summary: Procedure(s): CT chest abdomen pelvis w Accession Number(s): [id number] cc: Petey Boone MD; Adalid Sapp MD; Chandrakant Cardenas MD~ Examination: CT chest with intravenous contrast CT abdomen with intravenous contrast CT pelvis with intravenous contrast 2-D coronal and sagittal reconstructions Time of exam: March 16, 2025 1445 hours INDICATIONS: Chest pain abdominal pain and hypoxemia today CTDI: vol (mGy) : 8.07 DLP: (mGycm): 480 Technique: Multiple axial images of the chest, abdomen and pelvis with intravenous contrast, 3.0 mm slice thickness. Images obtained post intravenous injection Isovue 370 60 cc. 2-D sagittal and coronal reconstructions. Low dose protocols were performed. One or more of the following dose reduction techniques were used; automated exposure control, adjustment of the mA and/or KV according to patient size, use of iterative reconstruction technique. Findings: No thoracic aorta aneurysm dilatation No pulmonary artery filling defects on this non-CTA study No paratracheal tracheobronchial or bronchopulmonary adenopathy Pneumonia in the lingular segment Miliary nodular pattern throughout both lungs consistent with pneumonia No pulmonary edema Small pericardial effusion Retrocardiac gastric hernia Stable low-density cyst in the right lobe of the liver compared with 2022 exam Liver irregular in contour Spleen not enlarged Fluid subcapsular to the spleen 4.5 cm cyst posterior margin left kidney No gallstones No bowel obstruction No pancreatic mass Aorta normal size Distended small bowel loops in the lower abdomen and pelvis. Central pelvic hernia defect containing bowel, measuring 10 cm Smaller left lateral pelvic wall hernia defect, axial image 245, measuring 4 cm containing incarcerated appearing small bowel Prominent osteopenia IMPRESSION: Miliary nodular pattern throughout the lungs, consider infectious etiologies including active tuberculosis Small bowel obstruction pattern, which appears to be secondary to incarcerated small bowel in the left lateral pelvic wall hernia defect, recommend Gastrografin small bowel series follow-up Dictated By: Adalid Sapp MD Procedure(s): XR chest 1V portable Accession Number(s): [id number] cc: Petey Boone MD; Adalid Sapp MD; Chandrakant Cardenas MD~ Examination: AP chest single view Technique one AP portable upright chest single view Exam date and time: March 16, 2025 1334 hours Comparison March 12, 2025 INDICATIONS: Coughing shortness of breath 4 days with leukocytosis FINDINGS: Subtle opacity diffusely in the right lung and at the left base Normal heart size Moderate osteopenia IMPRESSION: Suspicious for early diffuse pneumonia right lung and pneumonia left base Dictated By: Adalid Sapp MD Medications / Prescriptions Medications or Prescriptions considered but not ordered:: none Medication administrations:: Medication Administration History Lactated Ringer's (Lactated Ringers) 1,000 mls @ 75 mls/hr IV .[id number] EMRE Stop: 04/15/25 17:29 Piperacillin/Tazobactam/Dextrose (Zosyn) 3.375 gm in 50 mls @ 12.5 mls/hr IV Q8HR EMRE Stop: 03/23/25 21:59 Piperacillin/Tazobactam/Dextrose (Zosyn) 3.375 gm in 50 mls @ 100 mls/hr IV X1 ONE Stop: 03/16/25 18:29 Morphine Sulfate (Morphine Sulf Inj 10 Mg/Ml Vial) 2 mg IVP Q4HR PRN PRN Reason: PAIN SCALE 7-10 (Severe Stop: 03/21/25 17:27 Sodium Chloride (Sodium Chloride Rt Willow 0.9% 3 Ml Nebu) 3 ml INH PRN PRN PRN Reason: SOLN Stop: 04/15/25 13:48 Last Admin: 03/16/25 14:04 Dose: 3 ml Documented By: CURLY Discontinued Medications Albuterol (Albuterol Rt 2.5 Mg/0.5 Ml Nebu) 5 mg INH X1 ONE Stop: 03/16/25 13:50 Last Admin: 03/16/25 14:03 Dose: 5 mg Documented By: CURLY Hydralazine HCl (Hydralazine Inj 20 Mg/Ml Vial) 20 mg IV X1 ONE Stop: 03/16/25 13:49 Last Admin: 03/16/25 14:05 Dose: 20 mg Documented By: DARIN Comments: GIVEN TO IVL RIGHT HAND OVER 2 MINUTES Sodium Chloride (Ns) 1,000 mls @ 200 mls/hr IV .Q5H EMRE Stop: 04/15/25 06:59 Last Infusion: 03/16/25 14:01 Dose: 0 mls/hr Documented By: Infusion: 03/16/25 13:57 Dose: 100 mls/hr Documented By: Admin: 03/16/25 13:41 Dose: 200 mls/hr Documented By: Infusion: 03/16/25 13:33 Dose: Infused Documented By: Admin: 03/16/25 08:33 Dose: 200 mls/hr Documented By: DARIN Acetaminophen (Ofirmev Inj) 1,000 mg in 100 mls @ 250 mls/hr IV X1 ONE Stop: 03/16/25 07:25 Last Infusion: 03/16/25 08:34 Dose: Infused Documented By: Admin: 03/16/25 08:07 Dose: 250 mls/hr Documented By: RIRI Sodium Chloride (Ns) 500 mls @ 999 mls/hr IV .Q31M ONE Stop: 03/16/25 13:04 Last Admin: 03/16/25 13:40 Dose: Not Given Documented By: Non-Admin Reason: Cancelled by Provider Sodium Chloride (Ns) 1,000 mls @ 100 mls/hr IV .Q10H EMRE Stop: 04/15/25 13:55 Last Admin: 03/16/25 14:02 Dose: 100 mls/hr Documented By: DARIN Ceftriaxone Sodium 1 gm/ (Sodium Chloride) 50 mls @ 100 mls/hr IV QDAY EMRE Stop: 03/23/25 17:34 Ceftriaxone Sodium/Dextrose (Rocephin/D5w 1gm Iv Premix) 1 gm in 50 mls @ 100 mls/hr IV QDAY@1400 EMRE Stop: 03/24/25 13:59 Metronidazole (Flagyl 500 Mg Iv) 500 mg in 100 mls @ 200 mls/hr IV Q8HR [facility] Stop: 03/23/25 17:37 Methylprednisolone Sodium Succinate (Methylprednisolone Sod Succ 62.5 Mg/Ml 2ml Vial) 125 mg IVP X1 ONE Stop: 03/16/25 13:50 Last Admin: 03/16/25 14:03 Dose: 125 mg Documented By: DARIN Morphine Sulfate (Morphine Sulf Inj 10 Mg/Ml Vial) 5 mg IVP X1 ONE Stop: 03/16/25 06:55 Last Admin: 03/16/25 08:15 Dose: Not Given Documented By: GERRI Non-Admin Reason: Cancelled by Provider Morphine Sulfate (Morphine Sulf Inj 10 Mg/Ml Vial) 2 mg IVP Q2H PRN PRN Reason: PAIN SCALE 7-10 (Severe Stop: 03/21/25 17:27 Ondansetron HCl (Ondansetron Inj 2 Mg/Ml Inj 2 Ml) 4 mg IV X1 ONE Stop: 03/16/25 06:55 Last Admin: 03/16/25 07:58 Dose: 4 mg Documented By: RIRI Pantoprazole Sodium (Pantoprazole Inj 40 Mg Vial) 40 mg IVP X1 ONE Stop: 03/16/25 06:55 Last Admin: 03/16/25 08:03 Dose: 40 mg Documented By: RIRI see above Consultations Consultation(s) initiated? (list below): Yes Consultation #1 (Physician, Specialty, Details): Discussed test HPI, PMHx, lab, radiology results and/or management with hospitalist. Will admit for further evaluation and management. Accepts patient for admission. Time: 16:28 Diagnosis Differential diagnosis abdominal pain: abdominal pain, constipation, gastroenteritis, pancreatitis and small bowel obstruction Most likely diagnosis given after review of the tests above:: see below Admission Indicated Admission indicated?: indicated Admission Request Was there a request for admission?: Yes Admission Attestation Admission request attestation: Discussed case with [] from Hospitalist service regarding admission. Discussed patients ED course, exam findings, labs, and radiology results. The Hospitalist [agrees,declines] to accept the patient for admission. Disposition Plan Disposition Plan: Admit Critical Care Time Critical Care Time Critical Care Time: Yes Total Critical Care Time (min.): 45 Attestation: The high probability of sudden, clinically significant deterioration in the patient?s condition required the highest level of my preparedness to intervene urgently. The services I provided to this patient were to treat and/or prevent clinically significant deterioration. Services included the following: chart data review, reviewing nursing notes and/or old charts, documentation time, human capital consultant collaboration regarding findings and treatment options, medication orders and management, direct patient care, vital sign assessments and ordering, interpreting and reviewing diagnostic studies and lab tests. Aggregate critical care time includes only time during which I was engaged in work directly related to the patient?s care, as described above, whether at bedside or elsewhere in the Emergency Department. It did not include time spent performing other reported procedures or the services of residents, students, nurses or physician assistants. Discharge Plan Plan Patient Disposition: Admit Acute Care w/in Hospital Disposition Comment: Hospitalist admit Dr Kapadia to consult Problem List Clinical Impression: Abdominal pain, Leukocytosis, SBO (small bowel obstruction), Incarcerated hernia, Vomiting, COPD exacerbation, Lung interstitial disease
--- NOTE | 2025-03-16 06:54 | EKG_ITS ---
[facility] Test Date: 2025-03-16 Pat Name: NARAYAN MAYS Department: Room: - Gender: Female Network Support Manager: : 1955 Requested By: Petey Boone Order Number: [id number] Reading MD: Petey Boone Measurements Intervals [place] Rate: 63 P: 5 VA: 136 QRS: -58 QRSD: 134 T: -8 QT: 427 QTc: 438 Interpretive Statements SINUS RHYTHM POSSIBLE LEFT ATRIAL ENLARGEMENT [-0.1mV P-WAVE IN V1/V2] LEFT AXIS DEVIATION [QRS AXIS < -30] RIGHT BUNDLE BRANCH BLOCK [120+ ms QRS DURATION, UPRIGHT V1, 40+ ms S IN I/aVL/V4/V5/V6] Compared to ECG 03/12/2025 18:41:38 No significant changes /store/S0/[id number].pdf
[2025-03-16 07:40] LABS: Base Excess, Venous 9 (-3-3); O2 Saturation, Venous 81 % (96-97); PCO2, Venous 40 mmHg (36-56); PO2, Venous 39 mmHg (15-58); pH, Venous 7.52 (7.33-7.66)
[2025-03-16 07:41] LABS: Basophils % (Auto) 0 % (0-2.5); Eosinophils % (Auto) 0 % (0-10); Hematocrit 37.4 % (36.0-46.0); Hemoglobin 11.1 g/dL (12.0-16.0); Immature Granulocytes % (Auto) 1 % (0-0); Immature Granulocytes Auto 0.11 Thou/mm3 (0.00-0.00); Lymphocytes # (Auto) 1.1 Thou/mm3 (1.0-4.8); Lymphocytes % (Auto) 5 % (10-50); Mean Corpuscular HGB Conc 29.7 g/dl (31.0-37.0); Mean Corpuscular Volume 77 fL (80-100); Monocytes # (Auto) 1.4 Thou/mm3 (0.0-0.8); Monocytes % (Auto) 6 % (0-12); Neutrophils # (Auto) 19.8 Thou/mm3 (1.8-7.7); Neutrophils % (Auto) 88 % (37-80); Nucleated Red Blood Cell % 0 /100 WBC (0); Platelet Count 274 Thou/mm3 (140-440); RDW Standard Deviation 74.5 fL (36.4-46.3); Red Blood Count 4.83 Miln/mm3 (4.00-5.20); White Blood Count 22.4 Thou/mm3 (3.6-11.0)
[2025-03-16] MEDS: ONDANSETRON INJ 2 MG/ML INJ 2 ML 4 MG IV (07:58)
[2025-03-16] MEDS: PANTOPRAZOLE INJ 40 MG VIAL IVP (08:03)
[2025-03-16 08:04] LABS: Alanine Aminotransferase 26 U/L (10-49); Albumin, Serum 4.1 gm/dL (3.4-4.8); Albumin/Globulin Ratio 1.7 (1.2-2.2); Alkaline Phosphatase 130 U/L (46-116); Anion Gap 6 (7-16); Aspartate Amino Transferase 23 U/L (0-34); B-Type Natriuretic Peptide 157 pg/mL (0-100); BUN/Creatinine Ratio 28 Ratio (12-20); Bilirubin,Total 0.5 mg/dL (0.3-1.2); Blood Urea Nitrogen 17 mg/dL (9-23); Carbon Dioxide 32.5 mMol/L (20.0-31.0); Chloride 103 mMol/L (98-107); Creatinine (Component) 0.6 mg/dL (0.6-1.3); Globulin 2.4 gm/dL (2.3-3.5); Glucose 102 mg/dL (74-106); Lipase 72 U/L (12-53); Osmolality,Calculated 282 (275-295); Potassium 4.1 mMol/L (3.4-5.1); Sodium 141 mMol/L (136-145); Total Protein 6.5 gm/dL (5.7-8.2); Troponin I < 0.020 ng/mL (0.0-0.045); eGFR > 60 See Note
[2025-03-16] MEDS: ACETAMINOPHEN IVPB 1,000 MG/100 ML VIAL 250 MG IV (08:07)
[2025-03-16] MEDS: SODIUM CHLORIDE 0.9% 1000 ML 1,000 ML 200 ML IV ×2 (08:33→13:41)
--- NOTE | 2025-03-16 08:38 | PC.NURSE ---
PT HERE WITH C/O ABD PAIN/ STATES HERE YESTERDAY BUT LEFT BECAUSE IT WAS TOO BUSY
--- NOTE | 2025-03-16 10:20 | PC.NURSE ---
PT AWARE OF NEED FOR URINE AND HAS NOT BEEN ABLE TO VOID
--- NOTE | 2025-03-16 11:14 | PC.NURSE ---
ASSISTED UP TO BEDSIDE COMMODE TO VOID. PT WITH BKA LEFT LEG
[2025-03-16 11:39] LABS: Collection Type, Urine Catheter
[2025-03-16 11:49] LABS: Bilirubin,Urine Negative (Negative); Blood,Urine Trace (Negative); Clarity,Urine Clear (Clear/Hazy); Color,Urine Lt-Yellow (Lt Yel-Yel); Culture Indicated,Urine Not Indicated; Glucose, Urine Negative (Negative); Hyaline Casts,Urine < 1 /hpf (0-1); Ketones,Urine Negative (Negative); Leukocyte Esterase,Urine Negative (Negative); Nitrite,Urine Negative (Negative); PH,Urine 6.5 (5.0-7.0); Protein,Urine Negative (Neg - Trace); RBC,Urine 10 /hpf (0-3); Squamous Epithelial Cell,Urine 1 /hpf (0-5); Urobilinogen,Urine Negative mg/dL (0.0-1.0); WBC,Urine 1 /hpf (0-5)
--- NOTE | 2025-03-16 12:32 | XR_ITS ---
Examination: AP chest single view Technique one AP portable upright chest single view Exam date and time: March 16, 2025 1334 hours Comparison March 12, 2025 INDICATIONS: Coughing shortness of breath 4 days with leukocytosis FINDINGS: Subtle opacity diffusely in the right lung and at the left base Normal heart size Moderate osteopenia IMPRESSION: Suspicious for early diffuse pneumonia right lung and pneumonia left base
[2025-03-16] MEDS: SODIUM CHLORIDE 0.9% 1000 ML 1,000 ML 100 ML IV (14:02)
[2025-03-16] MEDS: ALBUTEROL RT 2.5 MG/0.5 ML NEBU 5 MG INH (14:03)
[2025-03-16] MEDS: MethylPREDNISolone SOD SUCC 62.5 MG/ML 2ML VIAL 125 MG IVP (14:03)
[2025-03-16] MEDS: SODIUM CHLORIDE RT SOL 0.9% 3 ML NEBU INH (14:04)
[2025-03-16] MEDS: hydrALAZINE INJ 20 MG/ML VIAL IV (14:05)
--- NOTE | 2025-03-16 14:14 | XR_ITS ---
Examination: CT chest with intravenous contrast CT abdomen with intravenous contrast CT pelvis with intravenous contrast 2-D coronal and sagittal reconstructions Time of exam: March 16, 2025 1445 hours INDICATIONS: Chest pain abdominal pain and hypoxemia today CTDI: vol (mGy) : 8.07 DLP: (mGycm): 480 Technique: Multiple axial images of the chest, abdomen and pelvis with intravenous contrast, 3.0 mm slice thickness. Images obtained post intravenous injection Isovue 370 60 cc. 2-D sagittal and coronal reconstructions. Low dose protocols were performed. One or more of the following dose reduction techniques were used; automated exposure control, adjustment of the mA and/or KV according to patient size, use of iterative reconstruction technique. Findings: No thoracic aorta aneurysm dilatation No pulmonary artery filling defects on this non-CTA study No paratracheal tracheobronchial or bronchopulmonary adenopathy Pneumonia in the lingular segment Miliary nodular pattern throughout both lungs consistent with pneumonia No pulmonary edema Small pericardial effusion Retrocardiac gastric hernia Stable low-density cyst in the right lobe of the liver compared with 2022 exam Liver irregular in contour Spleen not enlarged Fluid subcapsular to the spleen 4.5 cm cyst posterior margin left kidney No gallstones No bowel obstruction No pancreatic mass Aorta normal size Distended small bowel loops in the lower abdomen and pelvis. Central pelvic hernia defect containing bowel, measuring 10 cm Smaller left lateral pelvic wall hernia defect, axial image 245, measuring 4 cm containing incarcerated appearing small bowel Prominent osteopenia IMPRESSION: Miliary nodular pattern throughout the lungs, consider infectious etiologies including active tuberculosis Small bowel obstruction pattern, which appears to be secondary to incarcerated small bowel in the left lateral pelvic wall hernia defect, recommend Gastrografin small bowel series follow-up
--- NOTE | 2025-03-16 15:02 | PC.NURSE ---
DR. PRESCOTT INFORMED OF ROOM AIR SAT 98% AT THIS TIME
--- NOTE | 2025-03-16 16:41 | PD.SURCONS ---
HPI Consult details Consult date: 03/16/25 Reason for consultation narrative: Small bowel obstruction History of present illness: 70-year-old female with history of diabetes, hypertension, hyperlipidemia, asthma currently on prednisone, history of A-fib was on Eliquis until a month ago presented to the emergency department with abdominal pain with nausea and vomiting. Her symptoms started yesterday with abdominal pain that has been getting progressively worse. She has had multiple episodes of nausea and vomiting. Her last bowel movement was 2 days ago. She denies having similar symptoms in the past with no recent history of trauma or any travel. CT scan of abdomen pelvis was done that revealed small bowel obstruction secondary to an incarcerated incisional hernia. NG tube was placed and patient was admitted for further management. Review of Systems Constitutional Constitutional: Denies chills and Denies fever(s) Cardiovascular Cardiovascular: Denies chest pain Respiratory Respiratory: Denies cough Gastrointestinal Gastrointestinal: Reports abdominal pain, Reports nausea and Reports vomiting Genitourinary Genitourinary: Denies difficulty voiding Hematologic/Lymphatic Hematologic/Lymphatic: Denies easy bleeding and Reports easy bruising Past Medical History Surgical History OTHER SURGICAL HX: , NIKA, Left BKA Social History SMOKING STATUS: Never smoker SUBSTANCE USE: does not use ALCOHOL: Never Meds Home Medications and Allergies Home Medications ?Medication ?Instructions ?Recorded ?Confirmed ?Type albuterol sulfate 90 mcg/actuation 1 - 2 puff inhalation Q4H PRN 07/18/23 02/14/25 History aerosol inhaler (Ventolin HFA) Shortness Of Breath Or Wheezing blood sugar diagnostic (True 07/18/23 02/18/25 History Metrix Glucose Test Strip) insulin human U-100 NPH-regulr 15 unit subcut QAM 07/18/23 02/14/25 History 70-30 mix 100 unit/mL subcutaneous susp (Novolin 70/30 U-100 Insulin) metformin 500 mg tablet 500 mg PO BIDWM 07/18/23 02/14/25 History Allergies Allergy/AdvReac Type Severity Reaction Status Date / Time aspirin Allergy Severe Difficulty Verified 03/12/25 18:20 Breathing hydrocodone Allergy Severe DIFF Verified 03/12/25 18:20 BREATHING morphine Allergy Severe DIFF Verified 03/12/25 18:20 BREATHING shellfish derived Allergy Severe Hives Verified 03/12/25 18:20 tramadol Allergy Severe Anxiety Verified 03/12/25 18:20 codeine Allergy Difficulty Verified 03/12/25 18:20 Breathing Influenza Virus Vaccines AdvReac Severe Difficulty Verified 03/12/25 18:20 Breathing pneumococcal vaccine AdvReac Severe Difficulty Verified 03/12/25 18:20 Breathing Exam Vital Signs Temp Pulse Resp BP Pulse Ox O2 Del Method O2 Flow Rate 97.9 F 108 H 22 H 132/60 H 95 Nasal Cannula 3 03/16/25 16:16 03/16/25 16:16 03/16/25 16:16 03/16/25 16:16 03/16/25 16:16 03/16/25 16:16 03/16/25 16:16 Constitutional Constitutional: no acute distress Routine Abdominal Exam Comments: Abdomen is soft and mildly distended. She has lower abdominal scars from previous operations with incisional hernia that is reducible at this time Results Results: Laboratory Laboratory results: results reviewed Results: Imaging CT scan - abdomen: report reviewed and image reviewed CT scan - pelvis: report reviewed and image reviewed Assessment & Plan Problem List (1) SBO (small bowel obstruction): Status: Acute (2) Incarcerated hernia: Status: Acute Plan Keep NPO with NGT decompression. Obtain small bowel series. Will follow.
--- NOTE | 2025-03-16 17:39 | PD.RESHP ---
Documentation for date of: 03/16/25 HPI History of Present Illness History of present illness: 70-year-old female with past medical history of chronic asthma on home oxygen, severe PAD s/p left BKA, hypertension, hyperlipidemia, T2DM BIBA to ED with chief complaint of abdominal pain that started since yesterday. Patient denied having similar symptoms in the past. Patient also was endorsing nausea and vomiting with green emesis. Patient denied fever, chest pain/chest pressure chills, bloody stools, bloating, constipation or other associated symptoms. Labs were significant for WBC 21.7, glucose 122, ALP 138, BNP 166. Chest x-ray indicated early diffuse pneumonia. Abdomen/pelvis CT indicated miliary nodular pattern throughout the lungs, SBO secondary to incarcerated small bowel. General surgeon Dr. Kapadia was consulted, NG tube for decompression and small bowel series were ordered. Patient was admitted for further management of SBO with incarcerated hernia. Medical Hx: COPD, PAD SP left BKA, HTN, HLD, DM2 Medication (need reconciliation): Eliquis 2.5 mg, loratadine 10 mg, Lipitor 80 mg, metoprolol 100 XL, cilostazol Surgical Hx: , hysterectomy, left BKA, Allergies: Aspirin, hydrocodone, morphine, shellfish, tramadol, codeine, influenza and pneumococcal vaccine Social Hx: Lives in [place], denies smoking cigarettes, drinking alcohol or using other illicit drugs CODE STATUS: DNR Review of Systems Review of Systems Systems Reviewed: All systems reviewed, normal except as documented Exam Vital Signs Temp Pulse Resp BP Pulse Ox O2 Del Method O2 Flow Rate 97.9 F 108 H 22 H 132/60 H 95 Nasal Cannula 3 03/16/25 16:16 03/16/25 16:16 03/16/25 16:16 03/16/25 16:16 03/16/25 16:16 03/16/25 16:16 03/16/25 16:16 Narrative Exam Constitutional: well-developed, well-nourished, in mild distress, HEENT: NCAT, EOMI, reactive round pupils b/l, patent nares b/l, NG tube noted Lung: CTAB, no wheezing, no rhonchi Heart: Regular S1S2, no murmurs, gallops, or rubs Abdomen: Soft, obese, tender on palpation of lower abdomen, distant bowel sound Extremities: No cyanosis, clubbing, or edema, LE pulses present b/l Neurologic: No focal sensory or motor deficits noted, AOx3, appropriate affect Results: Labs 03/17/25 05:30 03/17/25 05:30 Labs: Short CBC 03/16/25 Range/Units 07:30 WBC 22.4 H (3.6-11.0) Thou/mm3 Hgb 11.1 L (12.0-16.0) g/dL Hct 37.4 (36.0-46.0) % Plt Count 274 (140-440) Thou/mm3 BMP 03/16/25 07:30 Sodium 141 Potassium 4.1 Chloride 103 Carbon Dioxide 32.5 H BUN 17 Creatinine 0.6 Glucose 102 Calcium 9.0 Cardiac Enzymes 03/16/25 Range/Units 07:30 Troponin I < 0.020 (0.0-0.045) ng/mL Liver Function 03/16/25 Range/Units 07:30 Total Bilirubin 0.5 (0.3-1.2) mg/dL AST 23 (0-34) U/L ALT 26 (10-49) U/L Alkaline Phosphatase 130 H (46-116) U/L Albumin 4.1 (3.4-4.8) gm/dL Urine 03/16/25 Range/Units 11:20 Urine Color Lt-Yellow (Lt Yel-Yel) Urine Clarity Clear (Clear/Hazy) Urine pH 6.5 (5.0-7.0) Ur Specific Holliday 1.020 (1.001-1.035) Urine Protein Negative (Neg - Trace) Urine Glucose (UA) Negative (Negative) ABG Interpretation ABG results: 03/16/25 07:30 VBG pH 7.52 VBG pCO2 40 VBG pO2 39 VBG Base Excess 9 H Quality Measures Quality Measures none Advance care planning discussed with:: patient Medications Home Medications and Allergies Home Medications ?Medication ?Instructions ?Recorded ?Confirmed ?Type albuterol sulfate 90 mcg/actuation 1 - 2 puff inhalation Q4H PRN 07/18/23 02/14/25 History aerosol inhaler (Ventolin HFA) Shortness Of Breath Or Wheezing blood sugar diagnostic (True 07/18/23 02/18/25 History Metrix Glucose Test Strip) insulin human U-100 NPH-regulr 15 unit subcut QAM 07/18/23 02/14/25 History 70-30 mix 100 unit/mL subcutaneous susp (Novolin 70/30 U-100 Insulin) metformin 500 mg tablet 500 mg PO BIDWM 07/18/23 02/14/25 History Allergies Allergy/AdvReac Type Severity Reaction Status Date / Time aspirin Allergy Severe Difficulty Verified 03/12/25 18:20 Breathing hydrocodone Allergy Severe DIFF Verified 03/12/25 18:20 BREATHING morphine Allergy Severe DIFF Verified 03/12/25 18:20 BREATHING shellfish derived Allergy Severe Hives Verified 03/12/25 18:20 tramadol Allergy Severe Anxiety Verified 03/12/25 18:20 codeine Allergy Difficulty Verified 03/12/25 18:20 Breathing Influenza Virus Vaccines AdvReac Severe Difficulty Verified 03/12/25 18:20 Breathing pneumococcal vaccine AdvReac Severe Difficulty Verified 03/12/25 18:20 Breathing Visit Medications Lactated Ringer's (Lactated Ringers) 1,000 mls @ 75 mls/hr IV .[id number] [facility] Stop: 04/15/25 17:29 Morphine Sulfate (Morphine Sulf Inj 10 Mg/Ml Vial) 2 mg IVP Q2H PRN PRN Reason: PAIN SCALE 7-10 (Severe Stop: 03/21/25 17:27 Sodium Chloride (Sodium Chloride Rt [place]ow 0.9% 3 Ml Nebu) 3 ml INH PRN PRN PRN Reason: SOLN Stop: 04/15/25 13:48 Last Admin: 03/16/25 14:04 Dose: 3 ml Discontinued Medications Albuterol (Albuterol Rt 2.5 Mg/0.5 Ml Nebu) 5 mg INH X1 ONE Stop: 03/16/25 13:50 Last Admin: 03/16/25 14:03 Dose: 5 mg Hydralazine HCl (Hydralazine Inj 20 Mg/Ml Vial) 20 mg IV X1 ONE Stop: 03/16/25 13:49 Last Admin: 03/16/25 14:05 Dose: 20 mg Sodium Chloride (Ns) 1,000 mls @ 200 mls/hr IV .Q5H EMRE Stop: 04/15/25 06:59 Last Infusion: 03/16/25 14:01 Dose: 0 mls/hr Acetaminophen (Ofirmev Inj) 1,000 mg in 100 mls @ 250 mls/hr IV X1 ONE Stop: 03/16/25 07:25 Last Infusion: 03/16/25 08:34 Dose: Infused Sodium Chloride (Ns) 500 mls @ 999 mls/hr IV .Q31M ONE Stop: 03/16/25 13:04 Last Admin: 03/16/25 13:40 Dose: Not Given Sodium Chloride (Ns) 1,000 mls @ 100 mls/hr IV .Q10H EMRE Stop: 04/15/25 13:55 Last Admin: 03/16/25 14:02 Dose: 100 mls/hr Ceftriaxone Sodium 1 gm/ (Sodium Chloride) 50 mls @ 100 mls/hr IV QDAY EMRE Stop: 03/23/25 17:34 Methylprednisolone Sodium Succinate (Methylprednisolone Sod Succ 62.5 Mg/Ml 2ml Vial) 125 mg IVP X1 ONE Stop: 03/16/25 13:50 Last Admin: 03/16/25 14:03 Dose: 125 mg Morphine Sulfate (Morphine Sulf Inj 10 Mg/Ml Vial) 5 mg IVP X1 ONE Stop: 03/16/25 06:55 Last Admin: 03/16/25 08:15 Dose: Not Given Ondansetron HCl (Ondansetron Inj 2 Mg/Ml Inj 2 Ml) 4 mg IV X1 ONE Stop: 03/16/25 06:55 Last Admin: 03/16/25 07:58 Dose: 4 mg Pantoprazole Sodium (Pantoprazole Inj 40 Mg Vial) 40 mg IVP X1 ONE Stop: 03/16/25 06:55 Last Admin: 03/16/25 08:03 Dose: 40 mg Assessment & Plan Plan 70-year-old female with past medical history of chronic asthma on home oxygen, severe PAD s/p left BKA, hypertension, hyperlipidemia, T2DM BIBA to ED with chief complaint of abdominal pain. Imaging indicative of SBO with incarcerated hernia. #Small Bowel Obstruction 2/2 #Incarcerated hernia Patient with x 1 day of abdominal pain associated with nausea and vomiting History of and hysterectomy Abdomen and pelvis CT indicative of SBO with incarcerated hernia Labs significant for leukocytosis Plan: - NPO - Insert NG tube and low intermittent suction for gastric decompression - Serial abdominal exams - Follow-up Gastrografin small bowel series - Surgery Dr. Kapadia onboard, recommendations are greatly appreciated - IV Zosyn started #History of hypertension - Restart home med Metoprolol succinate 100mg after reconciliation - Currently BP stable #History of hyperlipidemia - Restar rossy med lipitor 80mg after reconciliation #History of severe asthma - DuoNebs every 8 hours - Oxygen as needed #History of a-fib - Withhold home med Eliquis in setting of possible surgery re SBO #Xaw-ahvrgme-pkefspnst type II diabetes mellitus Last A1c 5.0% on January 2025 - Consisder SSI - Currently patient NPO #History of severe peripheral artery disease, status post left BKA - Follow up outpatient Health Maintenance Dispo: Patient admitted for SBO with incarcerated hernia, surgery consulted Diet: NPO DVT/PPx: SCD GI ppx: Protonix Lines: NG, PIV Code Status: DNR This patient care was discussed with attending Dr. Tanisha Atkins MD PGY-2 Disclaimer: Minor errors in telegraph service rater may be present since this note was dictated by speech recognition software. Attending Provider Attestation/Addendum I have discussed and was present for the essential components of the history, physical examination, diagnosis, and treatment plan with the resident. I agree with the patient's care as documented by the resident and amended herein by me. Ramakrishna Garay DO. Although this document has been carefully reviewed, there may still be some phonetic and other typographical errors. These errors are purely grammatical due to imperfections in the software program and should not be construed in any way to compromise the substance of the patient's medical care during this visit.
--- NOTE | 2025-03-16 18:08 | PC.NURSE ---
attempted to call levi allison for report, but no answer.
--- NOTE | 2025-03-16 18:13 | PC.NURSE ---
gave report to levi allison
--- NOTE | 2025-03-16 18:17 | PC.NURSE ---
Report given at 1810 from [place]. Patent still not on floor.
--- NOTE | 2025-03-16 18:23 | XR_ITS ---
Examination: Small bowel series Abdomen x4 Exam date and time: March 16 2025 10:11 PM Indications: Abdominal pain and distention this week Technique And Findings: Card Fixer AP portable supine abdomen shows orogastric tube in satisfactory position with air distended small bowel loops Patient received 120 cc Gastrografin through the gastrostomy tube, and immediate 30 minute and 1 hours films obtained Distended small bowel loops Impression: Small bowel obstruction pattern, recommend follow-up abdomen films 1:00 AM, 4:00 a.m., 7:00 AM
--- NOTE | 2025-03-16 18:35 | PC.NURSE ---
Patient arrived on floor at 18:28
--- NOTE | 2025-03-16 18:49 | XR_ITS ---
Examination: AP chest single view Technique one AP portable sitting chest single view Exam date and time: March 16, 2025 1853 hrs. Comparison March 16, 2025 1348 hrs. Indications: Post orogastric tube placement. Findings: Mild pneumonia at the lung bases Orogastric tube is in the stomach, the tip is below the level of the film Endotracheal tube is poorly visualized, the tip is approximately 22 mm above toro Impression: Orogastric tube is in the stomach, the tip is below the level of the film
[2025-03-16] MEDS: RINGERS LACTATED 1000 ML 1,000 ML 75 ML IV (19:27)
[2025-03-16] MEDS: PIPER/TAZO 3.375 GM PREMIX 3.375 GM/50 ML BAG IV (19:31)
[2025-03-17] VITALS (10 sets, daily range): BP systolic 130–158; BP diastolic 62–78; PULSE 67–102; RESP 16–24; TEMP 36–36.7; O2SAT 94–100
[2025-03-17] MEDS: ALBUTEROL/IPRATROPIUM (Duoneb) RT SOL 3 ML NEBU INH (00:27)
[2025-03-17] MEDS: ACETAMINOPHEN IVPB 1,000 MG/100 ML VIAL 250 MG IV ×4 (00:45→18:48)
--- NOTE | 2025-03-17 01:15 | XR_ITS ---
Examination: Abdomen AP single view Technique: AP portable supine abdomen, single view Exam date and time: March 17, 2025 0114 hrs. Indications: Abdominal pain and distention this week, history loculated, post small bowel series Findings: Contrast in distended small bowel loops Impression: Small bowel obstruction pattern, additional delayed films will be obtained
--- NOTE | 2025-03-17 04:15 | XR_ITS ---
Examination: Abdomen AP single view Technique: AP portable supine abdomen, single view Exam date and time: March 17, 2025 0358 hrs. Indications: 6 hour delayed film post small bowel series today, abdominal pain and distention this week. Findings: Contrast in distended small bowel loops but contrast also present in the right colon Impression: Negative for complete small bowel obstruction
[2025-03-17] MEDS: PIPER/TAZO 3.375 GM PREMIX 3.375 GM/50 ML BAG IV ×3 (05:05→21:24)
[2025-03-17 06:30] LABS: Basophils % (Auto) 0 % (0-2.5); Eosinophils % (Auto) 0 % (0-10); Hematocrit 32.8 % (36.0-46.0); Hemoglobin 9.8 g/dL (12.0-16.0); Immature Granulocytes % (Auto) 1 % (0-0); Immature Granulocytes Auto 0.07 Thou/mm3 (0.00-0.00); Lymphocytes # (Auto) 0.4 Thou/mm3 (1.0-4.8); Lymphocytes % (Auto) 3 % (10-50); Mean Corpuscular HGB Conc 29.9 g/dl (31.0-37.0); Mean Corpuscular Hemoglobin 23.1 pg (25.0-35.0); Mean Corpuscular Volume 77 fL (80-100); Monocytes # (Auto) 0.9 Thou/mm3 (0.0-0.8); Monocytes % (Auto) 6 % (0-12); Neutrophils # (Auto) 13.6 Thou/mm3 (1.8-7.7); Neutrophils % (Auto) 91 % (37-80); Nucleated Red Blood Cell % 0 /100 WBC (0); Platelet Count 235 Thou/mm3 (140-440); RDW Standard Deviation 75.9 fL (36.4-46.3); Red Blood Count 4.25 Miln/mm3 (4.00-5.20)
[2025-03-17 06:44] LABS: Alanine Aminotransferase 16 U/L (10-49); Albumin, Serum 3.6 gm/dL (3.4-4.8); Albumin/Globulin Ratio 1.7 (1.2-2.2); Alkaline Phosphatase 108 U/L (46-116); Anion Gap 8 (7-16); Aspartate Amino Transferase 14 U/L (0-34); BUN/Creatinine Ratio 24 Ratio (12-20); Bilirubin,Total 0.4 mg/dL (0.3-1.2); Blood Urea Nitrogen 17 mg/dL (9-23); Calcium 8.4 mg/dL (8.3-10.6); Calcium (Corrected) 8.7 mg/dL (8.5-10.1); Carbon Dioxide 31.5 mMol/L (20.0-31.0); Chloride 103 mMol/L (98-107); Creatinine (Component) 0.7 mg/dL (0.6-1.3); Estimated Creatinine Clearance 54.8 mL/min (>60); Globulin 2.1 gm/dL (2.3-3.5); Glucose 158 mg/dL (74-106); Magnesium 2.2 mg/dL (1.6-2.6); Osmolality,Calculated 287 (275-295); Phosphorous 4.2 mg/dL (2.4-5.1); Sodium 142 mMol/L (136-145); Total Protein 5.7 gm/dL (5.7-8.2); eGFR > 60 See Note
--- NOTE | 2025-03-17 07:15 | XR_ITS ---
Examination: Abdomen AP single view Technique: AP portable supine abdomen, single view Exam date and time: March 17, 2025 0707 hrs. Indications: Abdominal distention this week, nine-hour delayed film post small bowel series yesterday Findings: Contrast present in distended small bowel loops in the pelvis, however contrast present in the colon Impression: Incomplete small bowel obstruction
--- NOTE | 2025-03-17 08:22 | PD.SURPROG ---
Documentation for date of: 03/17/25 Subjective Subjective Narrative: Patient is seen and examined. Her pain is improving. She has not had any episodes of nausea or vomiting Exam Vital Signs Temp Pulse Resp BP Pulse Ox O2 Del Method O2 Flow Rate 97.8 F 90 16 158/67 H 99 Nasal Cannula 3 03/17/25 04:00 03/17/25 04:00 03/17/25 04:00 03/17/25 04:00 03/17/25 04:00 03/17/25 04:00 03/17/25 04:00 Constitutional Constitutional: no acute distress Routine Abdominal Exam Comments: Abdomen is soft and nondistended. She has incisional hernia that is reducible Assessment & Plan Assessment Additional comments: Small bowel series did not show evidence of bowel obstruction Plan Milk of magnesia through the NG tube and keep it clamped for 30 minutes and will remove NG tube and start patient on clear liquids
[2025-03-17] MEDS: PANTOPRAZOLE INJ 40 MG VIAL IV (09:24)
[2025-03-17] MEDS: RINGERS LACTATED 1000 ML 1,000 ML 75 ML IV ×2 (09:24→21:24)
--- NOTE | 2025-03-17 10:42 | PC.SS ---
Jazmin Faulkner is 43-year-old female admitted to Med-Surg for Pain ABD. SS conducted bedside contact with the patient to complete initial assessment and to discuss discharge planning.? Patients dtr Angeli Faulkner [phone] confirmed demographic information. She identifies herself as the pts surrogate decision maker. Patient resides at home with her son Ant Faulkner. Pt is typically able to complete most ADL?s independently, but requires supervision which, son provides. Pts PCP is Dr. Cardenas (last visit was 2 weeks ago) and her pharmacy of choice is [facility] on [address]. DC options discussed, pt wishes to return home. Pts family will provide transportation upon DC. No further intervention required at this time, social services counselor would be available to address any further concerns. DC Plan: Home Contact: dtAngeli rangel Faulkner PCP: Ronald
[2025-03-17] MEDS: Milk Of Magnesia Susp 30 ML UDC NG (12:14)
--- NOTE | 2025-03-17 14:46 | ESPR_ITS ---
<Statement entered by Rajan Atkins MD - 03/17/25 21:56> Small bowel series showed incomplete sbo. Patient improving, NG tube in place until patient has bowel movement. Anticipating to d/c within 24-48 hours. I discussed with and supervised the inclusion intern physician involved in the care of this patient. Patient assessment and plan was discussed with entire medicine team, including my attending. I agree with the assessment and plan as documented by inclusion intern doctor. Patient care was discussed with my attending physician Dr. Tanisha Atkins, PGY-2 Documentation for date of: 03/17/25 Subjective Subjective Interval history: Patient seen and examined at bedside. Patient's morphine was discontinued, was given Zofran as needed and was started on IV Tylenol overnight. Patient has incomplete small bowel obstruction, will be given milk of magnesia and suppository per surgery recommendations today. If patient has bowel movement later today, will discontinue NG tube and start patient on clear liquid diet. Patient is otherwise stable, has lower abdomen and left upper quadrant tenderness, labs and vitals reviewed. Patient has underlying microcytic hypochromic anemia, possible iron deficiency. Exam Vital Signs Temp Pulse Resp BP Pulse Ox O2 Del Method O2 Flow Rate 97.6 F 78 20 157/78 H 100 Nasal Cannula 2 03/17/25 12:00 03/17/25 12:00 03/17/25 12:00 03/17/25 12:00 03/17/25 12:00 03/17/25 12:00 03/17/25 12:00 Narrative Exam Constitutional: well-developed, well-nourished, in mild distress, HEENT: NCAT, EOMI, reactive round pupils b/l, patent nares b/l, NG tube noted Lung: CTAB, no wheezing, no rhonchi Heart: Regular S1S2, no murmurs, gallops, or rubs Abdomen: Soft, obese, tender on palpation of lower abdomen, distant bowel sound Extremities: No cyanosis, clubbing, or edema, LE pulses present b/l Neurologic: No focal sensory or motor deficits noted, AOx3, appropriate affect Objective Labs 03/17/25 05:30 03/17/25 05:30 Labs: Laboratory Results - last 24 hr 03/17/25 05:30 WBC 15.0 H D RBC 4.25 Hgb 9.8 L Hct 32.8 L MCV 77 L MCH 23.1 L MCHC 29.9 L RDW Std Deviation 75.9 H Plt Count 235 D Neut % (Auto) 91 H Lymph % (Auto) 3 L [place] % (Auto) 6 Eos % (Auto) 0 Baso % (Auto) 0 Neut # (Auto) 13.6 H Lymph # (Auto) 0.4 L [place] # (Auto) 0.9 H Eos # (Auto) 0.0 Baso # (Auto) 0.0 Immature Gran # (Auto) 0.07 H Absolute Nucleated RBC 0.00 Immature Gran % 1 H Nucleated RBC % 0 Sodium 142 Potassium 4.0 Chloride 103 Carbon Dioxide 31.5 H Anion Gap 8 BUN 17 Creatinine 0.7 Estim Creat Clear Calc 54.8 L eGFR > 60 BUN/Creatinine Ratio 24 H Glucose 158 H D Calculated Osmolality 287 Calcium 8.4 Corrected Calcium 8.7 Phosphorus 4.2 Magnesium 2.2 Total Bilirubin 0.4 AST 14 ALT 16 Alkaline Phosphatase 108 D Total Protein 5.7 Albumin 3.6 D Globulin 2.1 L Albumin/Globulin Ratio 1.7 ABG Interpretation ABG results: 03/16/25 07:30 VBG pH 7.52 VBG pCO2 40 VBG pO2 39 VBG Base Excess 9 H Quality Measures Quality Measures none Advance care planning discussed with:: patient Assessment & Plan Assessment Current Active Medications: Generic Name Dose Route Start Last Admin Trade Name Freq PRN Reason Stop Dose Admin Albuterol/Ipratropium 3 ml 03/16/25 23:00 03/17/25 00:27 Albuterol/Ipratropium (Duoneb) Rt [place] 3 Ml Nebu INH 04/16/25 00:59 3 ml Q6HRRT PRN Administration wheezing Lactated Ringer's 1,000 mls @ 75 mls/hr 03/16/25 17:30 03/17/25 09:24 Lactated Ringers IV 04/15/25 17:29 75 mls/hr .[id number] EMRE Administration Piperacillin/Tazobactam/Dextrose 3.375 gm in 50 mls @ 12.5 mls/hr 03/16/25 22:00 03/17/25 13:52 Zosyn IV 03/23/25 21:59 12.5 mls/hr Q8HR EMRE Administration Acetaminophen 1,000 mg in 100 mls @ 250 mls/hr 03/17/25 00:40 03/17/25 12:14 Ofirmev Inj IV 03/17/25 18:23 250 mls/hr Q6HR EMRE Administration Pantoprazole Sodium 40 mg 03/17/25 09:00 03/17/25 09:24 Pantoprazole Inj 40 Mg Vial IV 04/16/25 08:59 40 mg QDAY EMRE Administration Sodium Chloride 3 ml 03/16/25 13:49 03/16/25 14:04 Sodium Chloride Rt [place] 0.9% 3 Ml Nebu INH 04/15/25 13:48 3 ml PRN PRN Administration SOLN Plan Assessment and plan: Summary: 70-year-old female with past medical history of chronic asthma on home oxygen, severe PAD s/p left BKA, hypertension, hyperlipidemia, T2DM BIBA to ED with chief complaint of abdominal pain. Imaging indicative of SBO with incarcerated hernia. #Incomplete Small Bowel Obstruction Patient with x 1 day of abdominal pain associated with nausea and vomiting History of and hysterectomy Abdomen and pelvis CT indicative of SBO with incarcerated hernia Labs significant for leukocytosis Small bowel series conclusive for incomplete SBO Plan: - NPO - Keep NG tube on low intermittent suction - Patient will be given milk of magnesia via NG tube, will clamp NG tube after - Patient will be given suppository Dulcolax x 1 - Monitor bowel movements, will discontinue NG tube if patient has a bowel movement - Will start on clear liquid diet after D/C NG tube - Surgery Dr. Kapadia onboard, recommendations are greatly appreciated - IV Zosyn started #History of hypertension - Restart home med Metoprolol succinate 100mg after reconciliation - Currently n.p.o., blood pressure stable, continue to monitor currently patient n.p.o., will consider resuming Lipitor 80 mg #History of hyperlipidemia -Currently n.p.o., will consider resuming atorvastatin 80 at bedtime. #History of severe asthma - DuoNebs every 6 hours as needed - Oxygen as needed #History of a-fib -Hold Eliquis considering patient has incomplete SBO, and is currently n.p.o. #Vlg-nimxtqk-vqjycaqld type II diabetes mellitus Last A1c 5.0% on January 2025 -Monitor blood glucose in daily labs - Currently patient NPO #History of severe peripheral artery disease, status post left BKA - Follow up outpatient #Microcytic hypochromic anemia Iron panel from January shows significant iron deficiency Will consider discharging patient on p.o. iron #Leukocytosis Monitor CBC in a.m. Health Maintenance Dispo: Patient admitted for SBO with incarcerated hernia, surgery consulted Diet: NPO DVT/PPx: SCD GI ppx: Protonix Lines: NG, PIV Code Status: DNR Case discussed with Attending Dr. Garay and Dr. Atkins PGY2. Anamaria Fish PGY1 Disclaimer: This note was dictated by speech recognition. Minor errors in orchestrator may be present due to voice recognition software. Attending Provider Attestation/Addendum I have discussed and was present for the essential components of the history, physical examination, diagnosis, and treatment plan with the resident. I agree with the patient's care as documented by the resident and amended herein by me. Ramakrishna Garay, DO. Patient seen and evaluated this AM. No acute events overnight, vital signs stable, patient afebrile, patient reported to have small BMs overnight, significant labs included WBC stable at 15, hemoglobin 9.8. BMP largely unremarkable, small bowel series demonstrated incomplete SBO, per surgery recommendations, will attempt MiraLAX, clamp the tube and possibly pull out at some point today as well as advance the diet to clear liquids. Appreciate surgery recommendations, will continue monitor closely, likely discharge home tomorrow/17 if continue improvement. Although this document has been carefully reviewed, there may still be some phonetic and other typographical errors. These errors are purely grammatical due to imperfections in the software program and should not be construed in any way to compromise the substance of the patient's medical care during this visit.
--- NOTE | 2025-03-17 15:45 | PC.SS ---
Rounding: Pending SX reccs, DC plan home
[2025-03-18] VITALS (8 sets, daily range): BP systolic 135–156; BP diastolic 63–79; PULSE 65–115; RESP 1–20; TEMP 36.2–36.9; O2SAT 99–100
[2025-03-18] MEDS: ALBUTEROL/IPRATROPIUM (Duoneb) RT SOL 3 ML NEBU INH (00:47)
[2025-03-18] MEDS: PIPER/TAZO 3.375 GM PREMIX 3.375 GM/50 ML BAG IV ×2 (05:47→13:59)
[2025-03-18 06:07] LABS: Basophils % (Auto) 0 % (0-2.5); Eosinophils % (Auto) 0 % (0-10); Hematocrit 30.7 % (36.0-46.0); Immature Granulocytes % (Auto) 0 % (0-0); Immature Granulocytes Auto 0.03 Thou/mm3 (0.00-0.00); Lymphocytes % (Auto) 9 % (10-50); Mean Corpuscular HGB Conc 29.3 g/dl (31.0-37.0); Mean Corpuscular Hemoglobin 23.4 pg (25.0-35.0); Mean Corpuscular Volume 80 fL (80-100); Monocytes # (Auto) 0.9 Thou/mm3 (0.0-0.8); Monocytes % (Auto) 8 % (0-12); Neutrophils # (Auto) 9.4 Thou/mm3 (1.8-7.7); Neutrophils % (Auto) 83 % (37-80); Nucleated Red Blood Cell % 0 /100 WBC (0); Platelet Count 195 Thou/mm3 (140-440); RDW Standard Deviation 76.2 fL (36.4-46.3); Red Blood Count 3.85 Miln/mm3 (4.00-5.20); White Blood Count 11.3 Thou/mm3 (3.6-11.0)
[2025-03-18 06:37] LABS: Alanine Aminotransferase 8 U/L (10-49); Albumin, Serum 3.3 gm/dL (3.4-4.8); Albumin/Globulin Ratio 1.7 (1.2-2.2); Alkaline Phosphatase 84 U/L (46-116); Anion Gap 6 (7-16); Aspartate Amino Transferase 14 U/L (0-34); BUN/Creatinine Ratio 18 Ratio (12-20); Bilirubin,Total 0.5 mg/dL (0.3-1.2); Blood Urea Nitrogen 11 mg/dL (9-23); Calcium 8.1 mg/dL (8.3-10.6); Calcium (Corrected) 8.7 mg/dL (8.5-10.1); Carbon Dioxide 32.2 mMol/L (20.0-31.0); Chloride 106 mMol/L (98-107); Creatinine (Component) 0.6 mg/dL (0.6-1.3); Estimated Creatinine Clearance 63.9 mL/min (>60); Glucose 67 mg/dL (74-106); Magnesium 2.2 mg/dL (1.6-2.6); Osmolality,Calculated 284 (275-295); Phosphorous 3.4 mg/dL (2.4-5.1); Potassium 3.8 mMol/L (3.4-5.1); Sodium 144 mMol/L (136-145); Total Protein 5.3 gm/dL (5.7-8.2); eGFR > 60 See Note
[2025-03-18] MEDS: PANTOPRAZOLE INJ 40 MG VIAL IV (09:30)
[2025-03-18] MEDS: APIXABAN 2.5 MG TABLET PO (09:31)
[2025-03-18] MEDS: METOPROLOL SUCCINATE XL 25 MG TABCR 100 MG PO (09:31)
--- NOTE | 2025-03-18 10:40 | PD.SURPROG ---
Documentation for date of: 03/18/25 Subjective Subjective Narrative: Pt is seen and examined. She is feeling much better. Her pain resolved and she denies nausea or vomiting. She has been tolerating clear liquids and having bowel movements. Exam Vital Signs Temp Pulse Resp BP Pulse Ox O2 Del Method O2 Flow Rate 97.9 F 76 17 136/72 H 100 Nasal Cannula 3 03/18/25 08:00 03/18/25 09:40 03/18/25 09:40 03/18/25 09:31 03/18/25 09:40 03/18/25 08:00 03/18/25 09:40 Constitutional Constitutional: no acute distress Routine Abdominal Exam Abdominal: Present soft, normoactive bowel sounds, tenderness and distended Assessment & Plan Assessment Additional comments: SBO resolving Plan May discharge home after lunch if tolerating regular diet.
--- NOTE | 2025-03-18 10:41 | PC.SS ---
Rounding: NGT removed, plan to increase diet poss late DC home if tolerates diet
--- NOTE | 2025-03-18 15:23 | ESDS_ITS ---
<Statement entered by Rajan Atkins MD - 03/19/25 07:45> I discussed with and supervised the compliance intern physician involved in the care of this patient. Patient assessment and plan was discussed with entire medicine team, including my attending. I agree with the assessment and plan as documented by compliance intern doctor. Patient care was discussed with my attending physician Dr. Tanisha Atkins, PGY-2 Planned Discharge Date 03/18/25 DS: Providers Provider Date of admission: 03/16/25 17:40 Primary care physician: Chandrakant Cardenas MD Admitting Provider: John Garay DO Attending Provider on Admission: John Garay DO Consults: 03/16/25 18:21 Consult to General Surgery Routine Comment: Consulting Provider: Richar Kapadia Attending Provider on DC: John Garay DO Discharging Provider: John Garay DO Anticipated date of discharge: 03/18/25 DS: Diagnosis Problem List Completed Was Problem List Reviewed/Reconciled?: Yes Hospital Course Hospital Course Hospital course: Hospital Course: Ms. Faulkner is a 70-year-old female with past medical history of chronic asthma on home oxygen, severe PAD s/p left BKA, hypertension, hyperlipidemia, T2DM BIBA to ED with chief complaint of abdominal pain. Imaging on presentation, CT abdomen pelvis indicative of SBO with incarcerated hernia, patient's labs were significant of leukocytosis, general surgery was consulted, NG tube placed and patient was kept n.p.o. patient was scheduled for small bowel series which resulted as incomplete small bowel obstruction. General surgery evaluated the patient, gave milk of magnesia via NG tube followed by Dulcolax suppository, patient had several bowel movements, was started on clear liquid diet which was advanced to regular as tolerated. Patient's having regular bowel movements, no concerns of obstruction. Further plan is to discharge patient home and follow-up with primary care physician in 1 week. Patient does have history of atrial fibrillation, was on Eliquis in the past which was never resumed considering she does have significant history of GI bleed. Patient does not follow-up with cardiology outpatient, patient counseled on importance of cardiology follow-up, referral added for chief of safety and protection. Patient to follow-up with primary care physician and chief of safety and protection outpatient. Patient is stable for discharge and patient responded well to hospital treatment. Patient to continue all home medications. Discharge diagnosis: #Incomplete small bowel obstruction, resolved #Hypertension #Hyperlipidemia #Asthma #Atrial fibrillation, not on anticoagulation #Clc-cuypuku-runlxmkig type 2 diabetes mellitus #History of severe peripheral arterial disease, status post left BKA, #Microcytic hypochromic anemia #Leukocytosis Case discussed with Attending Dr. Garay and Dr. Atkins PGY2. Anamaria Fish PGY1 Disclaimer: This note was dictated by speech recognition. Minor errors in account strategist may be present due to voice recognition software. Time Spent with Patient Time attestation: Total time spent providing and/or coordinating discharge services: Greater than 30 minutes Time spent: Greater than 30 minutes Exam Vital Signs Temp Pulse Resp BP Pulse Ox O2 Del Method O2 Flow Rate 97.5 F 65 18 154/63 H 100 Nasal Cannula 3 03/18/25 12:00 03/18/25 12:00 03/18/25 12:03/18/25 12:00 03/18/25 12:03/18/25 12:03/18/25 12:00 Narrative Exam Physical Exam General: Awake and in no acute distress. Conversational and non-toxic appearing. HEENT: Normocephalic, atraumatic, mucous membranes moist. Heart: Regular rate and rhythm, no murmurs. Lungs: Clear to auscultation with no wheezing or crackles. Abdomen: Soft, nondistended, nontender, positive bowel sounds. ?No guarding or rebound tenderness. Neurologic: Alert and oriented x3, no gross neurological deficit, and patient able to move all 4 extremities. Extremities: No edema. Left BKA noted. Skin: No rash or ecchymoses. Discharge Plan Plan Patient Disposition: HOME (Self Care) Patient condition on transfer: Stable Prescriptions/Referrals Prescriptions/Med Rec: Continued albuterol sulfate 2.5 mg /3 mL (0.083 %) solution for nebulization 2.5 mg inhalation Q4H PRN (Reason: shortness of breath or wheezing) Qty: 90 0RF metoprolol succinate 100 mg tablet extended release 24 hr 100 mg PO QDAY Qty: 90 0RF atorvastatin 80 mg tablet 80 mg PO HS Qty: 90 0RF pantoprazole 40 mg tablet,delayed release (DR/EC) 40 mg PO QDAY Qty: 90 0RF ferrous sulfate 325 mg (65 mg iron) tablet 325 mg PO Q OTHER DAY Qty: 90 0RF loratadine 10 mg tablet 10 mg PO QDAY Patient Comments: TAKE ONE TABLET BY MOUTH EVERY DAY FOR ALLERGY metformin 500 mg tablet 500 mg PO BIDWM Patient Comments: TAKE ONE TABLET BY MOUTH TWICE DAILY WITH FOOD daib Novolin 70/30 U-100 Insulin 100 unit/mL (70-30) suspension 15 unit SUBCUT QAM Patient Comments: INJECT 15 UNITS SUBCUTANEOUSLY EVERY MORNING FOR DIABETES albuterol sulfate [Ventolin HFA] 90 mcg/actuation HFA aerosol inhaler 1 - 2 puff INHALATION Q4H PRN (Reason: Shortness Of Breath Or Wheezing) Patient Comments: INHALE 1-2 PUFFS BY MOUTH EVERY 4 HOURS NEEDED ascorbic acid (vitamin C) [Vitamin C] 250 mg Tablet 500 mg PO BID Qty: 60 0RF Discontinued (DME) True Metrix Glucose Test Strip Strip Patient Comments: CHECK BLOOD SUGAR THREE TIMES DAILY FOR DIABETES prednisone 50 mg tablet 50 mg PO QDAY Qty: 7 0RF Referrals: Campos Pavon MD [Physician] - Chandrakant Cardenas MD [Primary Care Provider] - Patient/Caregiver Discharge Instructions Discharge Activity: activity as tolerated Other Discharge Activity Instructions:: Continue regular diet. Recommend high- fiber diet, maintain adequate hydration. Continue all home medications. Follow-up with primary care physician in 1 week. Need to follow-up with cardiology outpatient, considering you have atrial fibrillation, discussed with the chief of safety and protection regarding risks and benefits of being on anticoagulation. Return to emergency department if symptoms reoccur. You can follow-up in [facility] in 1 to 2 weeks. Call [phone] to make an appointment Address: [facility], [address], [address], [place], [address] Return to ED if symptoms return or worsen. Education Materials: Abdominal Pain, Small Bowel Obstruction Print Language: Lithuanian Stand Alone Forms: [employer] Award Info., Patient Portal Info Letter Discharge Order Discharge Orders: Discharge (Routine); Ordered 03/18/25 Ordered By: Anamaria Fish Quality Discharge Quality Measures VTE prophylaxis Attestestation Attestation I have discussed and was present for the essential components of the discharge history, physical examination, diagnosis, and discharge treatment plan with the resident. I agree with the patient's discharge care as documented by the resident and amended herein by me. Ramakrishna Garay, . The patient understood all discharge instructions, all questions were answered satisfactorily. The patient was instructed to return to the Emergency Department is symptoms worsened or persisted. Patient was stable, afebrile, tolerating p.o. intake at time of discharge home. She reported having bowel movements, able to pass gas, tolerating full diet and generally felt significantly improved and stated she was ready to go home. I did state that I could not guarantee this would happen again however recommended staying hydrated and high-fiber diet, the patient and her family understood all discharge instructions. Although this document has been carefully reviewed, there may still be some phonetic and other typographical errors. These errors are purely grammatical due to imperfections in the software program and should not be construed in any way to compromise the substance of the patient's medical care during this visit.
== END 2025-03-18 18:30 | disposition home or self-care (01) | DRG 393 ==
LOC: SERX 15:55 → SERHOLD 17:47 → S3SX 18:29
PROVIDERS: Internal Medicine; Admitting Provider Student in an Organized Health Care Education/Training Program; Emergency Provider Emergency Medicine; PCP Family Medicine; Visit Provider Student in an Organized Health Care Education/Training Program
DX: K43.0 Incisional hernia with obstruction, without gangrene (principal); J18.9 Pneumonia, unspecified organism; J44.0 Chronic obstructive pulmonary disease with (acute) lower respiratory infection; J44.1 Chronic obstructive pulmonary disease with (acute) exacerbation; E11.51 Type 2 diabetes mellitus with diabetic peripheral angiopathy without gangrene; I10 Essential (primary) hypertension; E78.5 Hyperlipidemia, unspecified; I48.91 Unspecified atrial fibrillation; J44.9 Chronic obstructive pulmonary disease, unspecified; D50.9 Iron deficiency anemia, unspecified; Z99.81 Dependence on supplemental oxygen; Z79.01 Long term (current) use of anticoagulants; Z66 Do not resuscitate; Z89.512 Acquired absence of left leg below knee; Z79.84 Long term (current) use of oral hypoglycemic drugs; Z90.710 Acquired absence of both cervix and uterus
CPT/HCPCS: 36415; 71045; 71260; 74018; 74177; 74250; 80053; 81001; 82803; 83605; 83690; 83735; 83880; 84100; 84484; 85025; 86850; 86900; 86901; 87040; 87811; 93005; 93225; 94640; 94762; 96361; 96365; 96375; 99291; A4649; A9270; J0131; J0360; J2405; J2470; J2543; J2919; J7030; J7120; Q9963; Q9967

== ENCOUNTER 2025-06-06 09:16 | Emergency (ER) | payer MEDICARE, MEDICAID, SELFPAY ==
[2025-06-06 09:21] VITALS: BP 122/69; PULSE 95; RESP 19; TEMP 37; O2SAT 94; BMI 28.3
--- NOTE | 2025-06-06 09:45 | XR_ITS ---
Examination: AP lateral chest 2 views. Technique: Sitting AP lateral chest 2 views. Date and time: June 06, 2025, 10 0 8:00 AM. Comparison March 16, 2025. Indications: Shortness of breath today. Findings: Increased AP dimension chest There is mild enlargement of the cardiac contour. There is significant vascular congestion. Suspicious for early septal edema at the lung bases. No lobar pneumonia Impression: Suspicious for early heart failure
--- NOTE | 2025-06-06 09:48 | EDRME_ITS ---
Rapid Medical Screening Exam [facility] Arrival date/time: 06/06/25 09:16 This is a 70-year-old female that comes into the emergency room with complaints of shortness of breath and fever for the past week. Patient has history of COPD, hyperlipidemia, anemia, diabetes, high blood pressure. Patient states she has been taking Tylenol for the fever. Patient uses oxygen at home usually 2 L but has had to go up to 3 or 4. I have greeted and performed a focused initial assessment of this patient. Initial appropriate labs ordered at this time. A comprehensive ED assessment and evaluation of the patient and analysis of all test and completion of medical decision making process will be conducted by additional ED provider. Chief Complaint: Shortness of Breath/Dyspnea Time Seen by Provider: 06/06/25 09:32 Vital signs: Vital Signs Temperature 98.6 F 06/06/25 09:21 Pulse Rate 95 06/06/25 09:21 Respiratory Rate 19 06/06/25 09:21 Blood Pressure 122/69 06/06/25 09:21 Pulse Oximetry (%) 94 L 06/06/25 09:21 Oxygen Delivery Method Nasal Cannula 06/06/25 09:21 Oxygen Flow Rate 3 06/06/25 09:21
--- NOTE | 2025-06-06 09:49 | EKG_ITS ---
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: : [id number] Requested By: Kaykay Braxton Order Number: [id number] Reading MD: Kaykay Braxton Measurements Intervals [place] Rate: 98 P: -44 WV: 124 QRS: -62 QRSD: 124 T: 10 QT: 350 QTc: 448 Interpretive Statements SINUS RHYTHM RIGHT BUNDLE BRANCH BLOCK [120+ ms QRS DURATION, UPRIGHT V1, 40+ ms S IN I/aVL/V4/V5/V6] LEFT ANTERIOR FASCICULAR BLOCK [QRS AXIS <= -45, QR IN I, RS IN II] POSSIBLE SEPTAL MYOCARDIAL INFARCTION , OF INDETERMINATE AGE [30 ms Q WAVE IN V1/V2] Compared to ECG 03/16/2025 09:55:47 Left anterior fascicular block now present Myocardial infarct finding now present Left-axis deviation no longer present /store/S0/[id number]
[2025-06-06 10:15] VITALS: PULSE 92; RESP 18; O2SAT 100
[2025-06-06] MEDS: ALBUTEROL/IPRATROPIUM (Duoneb) RT SOL 3 ML NEBU INH ×2 (10:15→11:12)
[2025-06-06 10:21] LABS: Lactate (Lactic Acid) 1.1 mMol/L (0.4-2.0)
[2025-06-06 10:30] LABS: Basophils # (Auto) 0.1 Thou/mm3 (0.0-0.2); Basophils % (Auto) 1 % (0-2.5); Eosinophils # (Auto) 0.1 Thou/mm3 (0.0-0.5); Eosinophils % (Auto) 1 % (0-10); Hematocrit 32.9 % (36.0-46.0); Hemoglobin 10.2 g/dL (12.0-16.0); Immature Granulocytes Auto 0.07 Thou/mm3 (0.00-0.00); Lymphocytes # (Auto) 0.5 Thou/mm3 (1.0-4.8); Lymphocytes % (Auto) 4 % (10-50); Mean Corpuscular HGB Conc 31.0 g/dl (31.0-37.0); Mean Corpuscular Hemoglobin 27.6 pg (25.0-35.0); Mean Corpuscular Volume 89 fL (80-100); Monocytes # (Auto) 1.4 Thou/mm3 (0.0-0.8); Monocytes % (Auto) 10 % (0-12); Neutrophils # (Auto) 11.7 Thou/mm3 (1.8-7.7); Neutrophils % (Auto) 84 % (37-80); Nucleated Red Blood Cell # 0.00 Thou/mm3 (0.00-0.00); Nucleated Red Blood Cell % 0 /100 WBC (0); Platelet Count 225 Thou/mm3 (140-440); RDW Standard Deviation 48.1 fL (36.4-46.3); Red Blood Count 3.69 Miln/mm3 (4.00-5.20); White Blood Count 13.9 Thou/mm3 (3.6-11.0)
[2025-06-06 10:44] LABS: Albumin, Serum 4.1 gm/dL (3.4-4.8); Albumin/Globulin Ratio 1.6 (1.2-2.2); Alkaline Phosphatase 111 U/L (46-116); Anion Gap 8 (7-16); Aspartate Amino Transferase 17 U/L (0-34); BUN/Creatinine Ratio 13 Ratio (12-20); Bilirubin,Total 0.6 mg/dL (0.3-1.2); Blood Urea Nitrogen 9 mg/dL (9-23); Calcium 9.1 mg/dL (8.3-10.6); Calcium (Corrected) 9.1 mg/dL (8.5-10.1); Carbon Dioxide 36.2 mMol/L (20.0-31.0); Chloride 101 mMol/L (98-107); Creatinine (Component) 0.7 mg/dL (0.6-1.3); Estimated Creatinine Clearance 63.3 mL/min (>60); Globulin 2.6 gm/dL (2.3-3.5); Glucose 94 mg/dL (74-106); Osmolality,Calculated 287 (275-295); Potassium 4.4 mMol/L (3.4-5.1); Sodium 145 mMol/L (136-145); Total Protein 6.7 gm/dL (5.7-8.2); Troponin I < 0.020 ng/mL (0.0-0.045); eGFR > 60 See Note
[2025-06-06 10:54] LABS: Alanine Aminotransferase 10 U/L (10-49); Procalcitonin 0.11 ng/ml (0.0-0.49)
[2025-06-06 10:58] LABS: B-Type Natriuretic Peptide 21 pg/mL (0-100)
[2025-06-06 11:12] VITALS: PULSE 104; RESP 18; O2SAT 97
[2025-06-06 11:16] VITALS: BP 150/88; PULSE 107; RESP 16; TEMP 37.2; O2SAT 100
--- NOTE | 2025-06-06 11:16 | PC.NURSE ---
Patient receiving nebulizer tx by RT.
--- NOTE | 2025-06-06 11:18 | EDNOTE_ITS ---
ED SOB =RME/HPI General Chief Complaint: Shortness of Breath/Dyspnea Stated Complaint: SOB Time Seen by Provider: 06/06/25 09:32 Arrival date/time: 06/06/25 09:16 Limitations: no limitations RME / HPI RME / HPI Narrative: 06/06/25 09:16 This is a 70-year-old female that comes into the emergency room with complaints of shortness of breath and fever for the past week. Patient has history of COPD, hyperlipidemia, anemia, diabetes, high blood pressure. Patient states she has been taking Tylenol for the fever. Patient uses oxygen at home usually 2 L but has had to go up to 3 or 4. I have greeted and performed a focused initial assessment of this patient. Initial appropriate labs ordered at this time. A comprehensive ED assessment and evaluation of the patient and analysis of all test and completion of medical decision making process will be conducted by additional ED provider. DR. TORRES MAIN ED EVALUATION: 70 year old female with history of asthma on 3L home oxygen, COPD, hypertension, diabetes, hyperlipidemia, severe PAD s/p left BKA presents to the ED for evaluation of shortness of breath gradually worsening over the course of 1 month. Described feeling she is not getting enough air that is not relieved with use of inhaler at home. States she has a sales agent protective service which she sees and has been referred to a diabetes nurse. No other associated symptoms. Related Data Home Medications ?Medication ?Instructions ?Recorded ?Confirmed albuterol sulfate 90 mcg/actuation 1 - 2 puff inhalati on Q4H PRN 07/18/23 03/18/25 aerosol inhaler (Ventolin HFA) Shortness Of Breath Or Wheezing insulin human U-100 NPH-regulr 15 unit subcut QAM 07/0203/18/25 70-30 mix 100 unit/mL subcutaneous susp (Novolin 70/30 U-100 Insulin) metformin 500 mg tablet 500 mg PO BIDWM 07/18/23 loratadine 10 mg tablet 10 mg PO QDAY 03/18/2503/18 Previous Rx's ?Medication ?Instructions ?Recorded ascorbic acid (vitamin C) 250 mg 500 mg (2 x 250 mg) P O BID #60 tabs 07/25/23 tablet (Vitamin C) albuterol sulfate 2.5 mg/3 mL 2.5 mg (3 mL) inhalation Q4H PRN 03/20/24 (0.083 %) solution for nebulization shortness of breat h or wheezing #90 mL atorvastatin 80 mg tablet 80 mg PO HS #90 tabs 5 ferrous sulfate 325 mg (65 mg 325 mg PO Q OTHER DAY #9 0 tabs 02/19/25 iron) tablet metoprolol succinate 100 mg 100 mg PO QDAY #90 tabs tablet,extended release 24 hr pantoprazole 40 mg tablet,delayed 40 mg PO QDAY #90 ta bs 02/19/25 release lisinopril 2.5 mg tablet 2.5 mg PO QDAY #30 tabs 05/26 Allergies Allergy/AdvReac Type Severity Reaction Status Date / Time aspirin Allergy Severe Difficulty Verified 06/06/25 09:18 Breathing hydrocodone Allergy Severe DIFF Verified 06/06/25 09:18 BREATHING morphine Allergy Severe DIFF Verified 06/06/25 09:18 BREATHING shellfish derived Allergy Severe Hives Verified 06/06/25 09:18 tramadol Allergy Severe Anxiety Verified 06/06/25 09:18 codeine Allergy Difficulty Verified 06/06/25 09:18 Breathing Influenza Virus Vaccines AdvReac Severe Difficulty Verified 06/06/25 09:18 Breathing pneumococcal vaccine AdvReac Severe Difficulty Verified 06/06/25 09:18 Breathing Review of Systems Review of Systems Systems Reviewed: All systems reviewed, normal except as documented Past Medical History Past Medical History NEUROLOGIC: Positive Neurological Disorders and Migraine CARDIAC: Positive Cardiac Disorders, Peripheral Vascular Disease, Cellulitis and Hypertension RESPIRATORY: Positive Chronic Obstructive Pulmonary Disease (COPD), Asthma, Bronchitis, Pneumonia, Cough, Sputum Production and Wheezing GASTROINTESTINAL: Positive Gastrointestinal Disorders and Obesity REPRODUCTIVE: Positive Previous Pregnancies MUSCULOSKELETAL: Positive Musculoskeletal Disorders and Arthritis ENT: Positive Glaucoma and Ear Infection ENDOCRINE: Positive Endocrine Disorders, 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 HEMATOLOGIC: Positive Anemia PSYCHO/SOCIAL: Positive Depression and Anxiety OTHER HISTORY: Positive Hospitalization, Falls, Blood Transfusions, Chicken Pox, Measles, Mumps and Rubella (Greek Measles) Family History FAMILY HISTORY: Positive Family Respiratory Disorders, Family Cancer and Family Surgery Surgical History SURGICAL: Positive Vascular Surgery, Angiogram, Amputation, Hysterectomy and Section Social History SMOKING STATUS: Never smoker SECOND HAND EXPOSURE: No SUBSTANCE USE: does not use ED Exam General Limitations: Present no limitations General appearance: Present alert and in no apparent distress Head Head exam: Present atraumatic, normocephalic and normal inspection Eye Eye exam: Present normal appearance, PERRL and EOMI ENT ENT exam: Present normal exam, normal oropharynx and mucous membranes moist Neck Neck exam: Present normal inspection, full ROM and trachea midline Chest Chest inspection: Present normal inspection and symmetric chest wall rise Respiratory Respiratory exam: Present other (fine crackles bibasilar lung) Cardiovascular Cardiovascular exam: Present regular rate, normal rhythm and normal heart sounds Abdominal Exam Abdominal exam: Present soft and normal bowel sounds Extremities Exam Extremities exam: Present full ROM and other (Left BKA ) Back Exam Back exam: Present full ROM and other (Kyphoscoliosis) Neurological Exam Neurological exam: Present alert, oriented X3 and CN II-XII intact Psychiatric Psychiatric exam: Present normal affect and normal mood Skin Skin exam: Present warm, dry, intact and normal color Course Course Course Narrative: chest xray ordered to help determine etiology of shortness of breath. Quality Measures none Orders Category Date Time Status EKG (ED ONLY) *Do not use* NOW Care 06/06/25 09:49 Completed EKG (ED Only) Stat Exams 06/06/25 09:49 Draft XR chest 2V Stat Exams 06/06/25 09:45 Completed BNP [B-Type Natriuretic Peptide] Stat Lab 06/06/25 10:04 Completed Blood Culture (Lab) Stat Lab 06/06/25 10:07 Received CBC Stat Lab 06/06/25 10:04 Completed Comprehensive Metabolic Panel Stat Lab 06/06/25 10:04 Completed Lactate (Lactic Acid) Stat Lab 06/06/25 10:04 Completed Procalcitonin Stat Lab 06/06/25 10:04 Completed Troponin I Stat Lab 06/06/25 10:04 Completed Albuterol/Ipratr Rt Willow [Duoneb Rt Willow] Med 06/06/25 09:45 Discontinued 3 ml INH X1 ONE Albuterol/Ipratr Rt Willow [Duoneb Rt Willow] Med 06/06/25 10:20 Discontinued 3 ml INH X1 ONE MethylPREDNISolone.* [SoluMEDROL Inj] Med 06/06/25 10:20 Discontinued 125 mg IVP X1 ONE Vital Signs Vital signs: Vital Signs Temperature 98.6 F 06/06/25 09:21 Pulse Rate 95 06/06/25 09:21 Respiratory Rate 19 06/06/25 09:21 Blood Pressure 122/69 06/06/25 09:21 Pulse Oximetry (%) 94 L 06/06/25 09:21 Oxygen Delivery Method Nasal Cannula 06/06/25 09:21 Oxygen Flow Rate 3 06/06/25 09:21 Pulse ox is 94% on 3L which is adequate for patient. Shortness of Breath / Dyspnea MDM Narrative MDM Narrative:: Deneen Hilliard am scribing for and in the presence of Dr. Torres. Patient data External records reviewed:: [facility] previous records (I reviewed admission from 03/16/2025 through 03/18/2025) Clinical information provided by:: patient Social determinants that could affect healthcare access:: none Patient has the following chronic illnesses:: asthma on 3L home oxygen, COPD, hypertension, diabetes, hyperlipidemia, severe PAD s/p left BKA How is presenting disease/condition affected by chronic disease/condition?: exacerbated by Evaluation data The following diagnostics were reviewed and interpreted by me:: EKG tracing(s) (NSR, rate 98, right bundle branch block, left anterior fascicular block, no STEMI ) Lab and/or radiology exams considered but not ordered:: None Interpretation Summary: Ordering Physician: Kaykay Braxton NP Date of Service: 06/06/25 Procedure(s): XR chest 2V Accession Number(s): [id number] cc: Adalid Sapp MD; Kaykay Braxton NP; Chandrakant Cardenas MD~ Examination: AP lateral chest 2 views. Technique: Sitting AP lateral chest 2 views. Date and time: June 06, 2025, 10 0 8:00 AM. Comparison March 16, 2025. Indications: Shortness of breath today. Findings: Increased AP dimension chest There is mild enlargement of the cardiac contour. There is significant vascular congestion. Suspicious for early septal edema at the lung bases. No lobar pneumonia Impression: Suspicious for early heart failure Dictated By: Adalid Sapp MD Signed By: <Electronically signed by Adalid Sapp MD in [place]> 06/06/25 1050 Medications / Prescriptions Medications or Prescriptions considered but not ordered:: None Medication administrations:: Medication Administration History Discontinued Medications Albuterol/Ipratropium (Albuterol/Ipratropium (Duoneb) Rt Willow 3 Ml Nebu) 3 ml INH X1 ONE Stop: 06/06/25 09:46 Last Admin: 06/06/25 10:15 Dose: 3 ml Documented By: GLENNY Albuterol/Ipratropium (Albuterol/Ipratropium (Duoneb) Rt Willow 3 Ml Nebu) 3 ml INH X1 ONE Stop: 06/06/25 10:21 Last Admin: 06/06/25 11:12 Dose: 3 ml Documented By: GLENNY Methylprednisolone Sodium Succinate (Methylprednisolone Sod Succ 62.5 Mg/Ml 2ml Vial) 125 mg IVP X1 ONE Stop: 06/06/25 10:21 Last Admin: 06/06/25 11:17 Dose: Not Given Documented By: MONIQUE Non-Admin Reason: Cancelled by Provider See above Consultations Consultation(s) initiated? (list below): No Diagnosis Shortness of Breath Differential Diagnosis: acute exacerbation of chronic obstructive airways disease, congestive heart failure, community acquired pneumonia and asthma with exacerbation Most likely diagnosis given after review of the tests above:: Heart failure Admission Indicated Admission indicated?: not indicated Admission Request Was there a request for admission?: No Disposition Plan Disposition Plan: Discharge Discharge Attestation Discharge Attestation: The patient and all family members were given an opportunity to ask questions and understood the discharge instructions. Discharge instructions specifically effects, indications for sooner follow up or return to the emergency department, and the expected course of current diagnosis. Patient condition: Stable Discharge Plan Plan Patient Disposition: HOME (Self Care) Discharge Disposition comment: Need cardiology follow up and out patient consultation Patient condition on transfer: Stable Prescriptions/Referrals Prescriptions/Med Rec: New lisinopril 2.5 mg tablet 2.5 mg PO QDAY Qty: 30 0RF No Action albuterol sulfate 2.5 mg /3 mL (0.083 %) solution for nebulization 2.5 mg inhalation Q4H PRN (Reason: shortness of breath or wheezing) Qty: 90 0RF metoprolol succinate 100 mg tablet extended release 24 hr 100 mg PO QDAY Qty: 90 0RF atorvastatin 80 mg tablet 80 mg PO HS Qty: 90 0RF pantoprazole 40 mg tablet,delayed release (DR/EC) 40 mg PO QDAY Qty: 90 0RF ferrous sulfate 325 mg (65 mg iron) tablet 325 mg PO Q OTHER DAY Qty: 90 0RF loratadine 10 mg tablet 10 mg PO QDAY Patient Comments: TAKE ONE TABLET BY MOUTH EVERY DAY FOR ALLERGY metformin 500 mg tablet 500 mg PO BIDWM Patient Comments: TAKE ONE TABLET BY MOUTH TWICE DAILY WITH FOOD daib Novolin 70/30 U-100 Insulin 100 unit/mL (70-30) suspension 15 unit SUBCUT QAM Patient Comments: INJECT 15 UNITS SUBCUTANEOUSLY EVERY MORNING FOR DIABETES albuterol sulfate [Ventolin HFA] 90 mcg/actuation HFA aerosol inhaler 1 - 2 puff INHALATION Q4H PRN (Reason: Shortness Of Breath Or Wheezing) Patient Comments: INHALE 1-2 PUFFS BY MOUTH EVERY 4 HOURS NEEDED ascorbic acid (vitamin C) [Vitamin C] 250 mg Tablet 500 mg PO BID Qty: 60 0RF Referrals: Chandrakant Cardenas MD [Primary Care Provider] - In 1 week Problem List Clinical Impression: Heart failure Patient/Caregiver Discharge Instructions Discharge Activity: activity as tolerated Education Materials: Coping with Heart Failure, ED Heart Disease Education Additional Instructions: Follow-up with your primary care doctor and sales agent protective service in 3 to 5 days for recheck. You can return to the emergency department sooner if symptoms worsen or if you notice any new, concerning issues. Print Language: Mauritian Stand Alone Forms: [employer] Award Info., Patient Portal Info Letter
== END 2025-06-06 11:51 | disposition home or self-care (01) ==
PROVIDERS: Nurse Practitioner Family; Emergency Provider Emergency Medicine; PCP Family Medicine; Referring Provider Emergency Medicine
DX: I11.0 Hypertensive heart disease with heart failure (principal); I50.9 Heart failure, unspecified; E11.9 Type 2 diabetes mellitus without complications; E78.5 Hyperlipidemia, unspecified; J44.89 Other specified chronic obstructive pulmonary disease; Z99.81 Dependence on supplemental oxygen; Z89.512 Acquired absence of left leg below knee; I44.4 Left anterior fascicular block; I25.2 Old myocardial infarction
CPT/HCPCS: 36415; 71046; 80053; 83605; 83880; 84145; 84484; 85025; 87040; 93005; 94640; 99284; A9270

== ENCOUNTER 2025-06-07 04:57 | Inpatient (IN) | payer MEDICARE, MEDICAID, SELFPAY ==
[2025-06-07] VITALS (15 sets, daily range): BP systolic 127–160; BP diastolic 76–94; PULSE 71–123; RESP 12–23; TEMP 36.2–37.7; O2SAT 93–100; BMI 27.9
--- NOTE | 2025-06-07 04:57 | PD.EDSOB ---
ED SOB =RME/HPI General Stated Complaint: SOB Arrival date/time: 06/07/25 04:57 RME / HPI RME / HPI Narrative: This section includes all my notes and documentations, including HPI, PE, and ED course. Omero Saucedo MD HPI: 70yo female with a history of chronic asthma on 3L home oxygen, severe PAD s/p left BKA, HTN, HLD, T2DM BIBA with several days of worsening cough, productive cough, purulent sputum, and dyspnea. Was seen here yesterday about 24 hours ago. Was diagnosed with CHF. Getting worse. No other complaints. ROS: All negative except as documented in HPI. Physical Exam: General: Alert and oriented. In severe respiratory distress. Eyes: Conjunctivae and lids clear. ENT: No nasal congestion. Neck: Supple. Heart: Tachycardia noted. Lungs: In respiratory distress. Decreased air movement with rales and wheezing. Abdomen: Soft and nontender. Skin: Warm and dry. Neuro: Alert and oriented X 3. I reviewed EMS and snf notes. I ordered Solu-Medrol 125 mg IV, Xopenex neb treatments, MgSO4 2 gram IV, Benadryl 50 mg IV, and diagnostic tests. At 6 AM on 06/07/2025, the care of the patient was transferred to Dr. Gómez. Omero Saucedo MD Related Data Home Medications ?Medication ?Instructions ?Recorded ?Confirmed albuterol sulfate 90 mcg/actuation 1 - 2 puff inhalation Q4H PRN 07/18/23 03/18/25 aerosol inhaler (Ventolin HFA) Shortness Of Breath Or Wheezing insulin human U-100 NPH-regulr 15 unit subcut QAM 07/18/23 03/18/25 70-30 mix 100 unit/mL subcutaneous susp (Novolin 70/30 U-100 Insulin) metformin 500 mg tablet 500 mg PO BIDWM 07/18/23 03/18/25 loratadine 10 mg tablet 10 mg PO QDAY 03/18/25 03/18/25 Previous Rx's ?Medication ?Instructions ?Recorded ascorbic acid (vitamin C) 250 mg 500 mg (2 x 250 mg) PO BID #60 tabs 07/25/23 tablet (Vitamin C) albuterol sulfate 2.5 mg/3 mL 2.5 mg (3 mL) inhalation Q4H PRN 04/19/24 (0.083 %) solution for nebulization shortness of breath or wheezing #90 mL atorvastatin 80 mg tablet 80 mg PO HS #90 tabs 02/19/25 ferrous sulfate 325 mg (65 mg 325 mg PO Q OTHER DAY #90 tabs 02/19/25 iron) tablet metoprolol succinate 100 mg 100 mg PO QDAY #90 tabs 02/19/25 tablet,extended release 24 hr pantoprazole 40 mg tablet,delayed 40 mg PO QDAY #90 tabs 02/19/25 release lisinopril 2.5 mg tablet 2.5 mg PO QDAY #30 tabs 06/06/25 Allergies Allergy/AdvReac Type Severity Reaction Status Date / Time aspirin Allergy Severe Difficulty Verified 06/06/25 09:18 Breathing hydrocodone Allergy Severe DIFF Verified 06/06/25 09:18 BREATHING morphine Allergy Severe DIFF Verified 06/06/25 09:18 BREATHING shellfish derived Allergy Severe Hives Verified 06/06/25 09:18 tramadol Allergy Severe Anxiety Verified 06/06/25 09:18 codeine Allergy Difficulty Verified 06/06/25 09:18 Breathing Influenza Virus Vaccines AdvReac Severe Difficulty Verified 06/06/25 09:18 Breathing pneumococcal vaccine AdvReac Severe Difficulty Verified 06/06/25 09:18 Breathing Review of Systems Review of Systems Systems Reviewed: All systems reviewed, normal except as documented Past Medical History Past Medical History NEUROLOGIC: Positive Neurological Disorders and Migraine; Negative Cerebrovascular Accident, Transient Ischemic Attacks (TIA), Dementia, Alzheimer's Disease, Parkinson's Disease, Brain Tumor, Meningitis, Seizures, Epilepsy, Multiple Sclerosis, Cerebral Palsy, Amyotrophic Lateral Sclerosis (ALS/Richelle Gehrig's), Guillain-Rosalia Syndrome, Spina Bifida, Paralysis, Peripheral Neuropathy, Plaza's Palsy, Subdural Hematoma, Head Trauma, Spinal Cord Injury or Traumatic Brain Injury CARDIAC: Positive Cardiac Disorders, Peripheral Vascular Disease, Cellulitis and Hypertension; Negative Myocardial Infarction, Cardiac Arrhythmia, Atrial Fibrillation, Angina, Heart Murmur, Coronary Artery Disease, Atherosclerotic Heart Disease, Hypercholesterolemia, Aneurysm, Congestive Heart Failure, Congenital Heart Disease, Valvular Heart Disease, Rheumatic Fever, Cardiomyopathy, Edema, Pericarditis, Deep Vein Thrombosis, Hypotension or Varicose Veins RESPIRATORY: Positive Chronic Obstructive Pulmonary Disease (COPD), Asthma, Bronchitis, Pneumonia, Cough, Sputum Production and Wheezing; Negative Emphysema, Pulmonary Fibrosis, Cystic Fibrosis, Tuberculosis, Pulmonary Embolism, Pulmonary Edema or Sleep Apnea GASTROINTESTINAL: Positive Gastrointestinal Disorders and Obesity; Negative Hepatitis, Cirrhosis, Pancreatitis, Celiac Disease, Gall Bladder Disease, Gastrointestinal Bleed, Esophageal Varices, Ac's Esophagus, Colitis, Ulcerative Colitis, Diverticulitis, Diverticulosis, Ulcer, Colorectal Cancer, Irritable Bowel, Crohn's Disease, Obstructive Bowel, Hiatal Hernia, Hemorrhoids or Gastroesophageal Reflux Disease GENITOURINARY: Negative Genitourinary Disorders, Renal Disease, Kidney Stones, Polycystic Kidney Disease, Neurogenic Bladder, Inguinal Hernia, Dialysis, Prostate Cancer or Benign Prostatic Hyperplasia REPRODUCTIVE: Positive Previous Pregnancies; Negative Breast Cancer, Endometriosis, Genital Herpes, Gonorrhea, Pelvic Inflammatory Disease, Syphilis, Testicular Cancer or Uterine Prolapse MUSCULOSKELETAL: Positive Musculoskeletal Disorders and Arthritis; Negative Muscular Dystrophy, Myasthenia Gravis, Marfan's Syndrome, Bone Cancer, Rheumatoid Arthritis, Osteoporosis, Degenerative Disk Disease, Gout, Scoliosis, Carpal Tunnel Syndrome, Fibromyalgia, Fractures, Degenerative Joint Disease, Osteomyelitis or Poliovirus ENT: Positive Glaucoma and Ear Infection; Negative Cataracts, Blind, Retinal Detachment, Macular Degeneration, Deafness, Head Trauma or Eye Prosthesis ENDOCRINE: Positive Endocrine Disorders, 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; Negative Diabetes Mellitus Type 1, Hypoglycemia, Nazareth's Disease, Hyperthyroidism, Hypothyroidism, Parathyroid Disease, Pituitary Disease, Systemic Lupus Erythematosus, Syndrome of Inappropriate Antidiuretic Hormone (SIADH), Adrenal Disease or Graves' Disease HEMATOLOGIC: Positive Anemia; Negative Blood Disorders, Leukemia, Hemophilia, Thalassemia, Sickle Cell Disease or Clotting Problems PSYCHO/SOCIAL: Positive Depression and Anxiety; Negative Psychiatric Problems, Schizophrenia, Recreational Drug Use, Bipolar Disorder, Behavior Problems, Self-Mutilation, Attention Deficit Disorder, Attention Deficit Hyperactivity Disorder, Depression, Post Traumatic Stress Disorder or Eating Disorder OTHER HISTORY: Positive Hospitalization, Falls, Blood Transfusions, Chicken Pox, Measles, Mumps and Rubella (Norwegian Measles); Negative Autoimmune Disease, Down Syndrome, Autism, Developmental Delay, Shingles, Blood Transfusion Reaction, Anesthesia Reactions, Organ Transplant, Chemotherapy, Radiation Therapy, Hyperbaric Therapy, MRSA, VRSA, Vancomycin-Resistant Enterococci, Human Immunodeficiency Virus (HIV), Pertussis, Clostridium Difficile, Cancer, Breast Cancer, Cervical Cancer, Colorectal Cancer, Lung Cancer, Ovarian Cancer, Prostate Cancer or Testicular Cancer Family History FAMILY HISTORY: Positive Family Respiratory Disorders, Family Cancer and Family Surgery; Negative Family Psychiatric Problems, Family Cardiac Disorders, Family Gastrointestinal Problems or Family Anesthesia Reaction Surgical History SURGICAL: Positive Vascular Surgery, Angiogram, Amputation, Hysterectomy and Section; Negative Cardiac Surgery, Open Heart Surgery, Coronary Artery Bypass Graft, Valve Replacement, Coronary Stent, Cardiac Catheterization, Pacemaker, Auto Implanted Cardiovert Defib, Carotid Endarterectomy, Endocrine Surgery, Thyroidectomy, Ear Surgery, Tympanostomy Tube, Eye Surgery, Nose Surgery, Oral Surgery, Tonsillectomy, Adenoidectomy, Cochlear Implant, Corneal Transplant, Throat Surgery, Abdominal Surgery, Tracheostomy, Gastric Bypass Surgery, Gastrostomy, Bowel Surgery, Nephrectomy, Transurethral Resection, Joint Replacement, Open Reduction Internal Fixation, Arthroscopy, Neurologic Surgery, Brain Shunt, Mastectomy, Lumpectomy, Tubal Ligation, Vasectomy or Organ Transplant Social History SMOKING STATUS: Never smoker SECOND HAND EXPOSURE: No SUBSTANCE USE: does not use ED Exam Narrative Physical exam: As noted in HPI. Course Course Course Narrative: CXR is ordered for determining the etiology of shortness of breath. Quality Measures none Orders Category Date Time Status Bedside COVID-19 Antigen Test NOW Care 06/07/25 05:00 Active Bedside Influenza A&B Antigen Test NOW Care 06/07/25 05:01 Active EKG (ED ONLY) *Do not use* NOW Care 06/07/25 05:02 Active Saline [Insert IV] NOW Care 06/07/25 05:01 Active Straight [In and Out Catheter] X1 Care 06/07/25 05:01 Active EKG (ED Only) Stat Exams 06/07/25 05:02 Ordered XR chest 1V portable Stat Exams 06/07/25 05:02 Ordered ABG [Arterial Blood Gas] Stat Lab 06/07/25 05:03 Ordered BNP [B-Type Natriuretic Peptide] Stat Lab 06/07/25 05:03 Ordered Bilirubin,Direct Stat Lab 06/07/25 05:03 Ordered Blood Culture (Lab) Stat Lab 06/07/25 05:03 Ordered CBC Stat Lab 06/07/25 05:03 Ordered CMP [Comprehensive Metabolic Panel] Stat Lab 06/07/25 05:03 Ordered CRP [C-Reactive Protein] Stat Lab 06/07/25 05:03 Ordered D-Dimer Stat Lab 06/07/25 05:03 Ordered ESR [Sed Rate (ESR)] Stat Lab 06/07/25 05:03 Ordered Free T4 (Free Thyroxine) Stat Lab 06/07/25 05:03 Ordered Lactate (Lactic Acid) Stat Lab 06/07/25 05:03 Ordered Magnesium Stat Lab 06/07/25 05:03 Ordered PT [Prothrombin Time with INR] Stat Lab 06/07/25 05:03 Ordered PTT [Partial Thromboplastin Time] Stat Lab 06/07/25 05:03 Ordered Procalcitonin Stat Lab 06/07/25 05:03 Ordered RSV [Respiratory Syncytial Virus Ag] Stat Lab 06/07/25 05:01 Ordered TSH [Thyroid Stimulating Hormone] Stat Lab 06/07/25 05:03 Ordered Troponin I Stat Lab 06/07/25 05:03 Ordered UA, C/S IF [Urinalysis, C/S if Indicated] Stat Lab 06/07/25 05:03 Ordered DiphenhydrAMINE INJ [Benadryl Inj] Med 06/07/25 05:01 Stat 50 mg IVP X1 STA Levalbuterol Rt [Xopenex Rt [place]] Med 06/07/25 05:01 Once 2.5 mg INH X1 ONE Magnesium Sulfate 2 GM Ivpb [Magnesium Sulfate Ivpb] Med 06/07/25 05:01 Ordered 2 gm in 50 ml IV X1 MethylPREDNISolone.* [SoluMEDROL Inj] Med 06/07/25 05:01 Once 125 mg IVP X1 ONE Sodium Chloride Rt [place]ow 0.9% [NS Rt [place] 0.9%] Med 06/07/25 05:01 Ordered 6 ml INH PRN PRN Shortness of Breath / Dyspnea Patient data External records reviewed:: [facility] previous records (Per chart review, patient was seen here yesterday for heart failure.) and EMS form Clinical information provided by:: patient and EMS Social determinants that could affect healthcare access:: none Patient has the following chronic illnesses:: chronic asthma on home oxygen, severe PAD s/p left BKA, HTN, HLD, T2DM How is presenting disease/condition affected by chronic disease/condition?: exacerbated by Evaluation data The following diagnostics were reviewed and interpreted by me:: lab results, radiology exam(s) and EKG tracing(s) Lab and/or radiology exams considered but not ordered:: none Interpretation Summary: Diagnostic test results are pending. Medications / Prescriptions Medications or Prescriptions considered but not ordered:: none Medication administrations:: Medication Administration History Magnesium Sulfate (Magnesium Sulfate Ivpb) 2 gm in 50 mls @ 25 mls/hr IV X1 ONE Stop: 06/07/25 07:00 Sodium Chloride (Sodium Chloride Rt [place] 0.9% 3 Ml Nebu) 6 ml INH PRN PRN PRN Reason: SOLN Stop: 07/07/25 05:00 Discontinued Medications Diphenhydramine HCl (Diphenhydramine Inj 50 Mg/Ml Vial) 50 mg IVP X1 STA Stop: 06/07/25 05:02 Levalbuterol HCl (Levalbuterol Rt 1.25 Mg/0.5 Ml Nebu) 2.5 mg INH X1 ONE Stop: 06/07/25 05:02 Methylprednisolone Sodium Succinate (Methylprednisolone Sod Succ 62.5 Mg/Ml 2ml Vial) 125 mg IVP X1 ONE Stop: 06/07/25 05:02 I ordered Benadryl, Magnesium, Xopenex, Solumedrol. Consultations Consultation(s) initiated? (list below): No Diagnosis Shortness of Breath Differential Diagnosis: acute exacerbation of chronic obstructive airways disease, congestive heart failure, community acquired pneumonia, asthma with exacerbation and pulmonary embolism Most likely diagnosis given after review of the tests above:: Diagnostic test results are pending. Admission Indicated Admission indicated?: not indicated Explain why admission is indicated or not indicated:: Diagnostic test results are pending. Admission Request Was there a request for admission?: No Disposition Plan Disposition Plan: other (specify) (At 6 AM on 06/07/2025, the care of the patient was transferred to Dr. Gómez.) Discharge Plan Prescriptions/Referrals Prescriptions/Med Rec: No Action albuterol sulfate 2.5 mg /3 mL (0.083 %) solution for nebulization 2.5 mg inhalation Q4H PRN (Reason: shortness of breath or wheezing) Qty: 90 0RF metoprolol succinate 100 mg tablet extended release 24 hr 100 mg PO QDAY Qty: 90 0RF atorvastatin 80 mg tablet 80 mg PO HS Qty: 90 0RF pantoprazole 40 mg tablet,delayed release (DR/EC) 40 mg PO QDAY Qty: 90 0RF ferrous sulfate 325 mg (65 mg iron) tablet 325 mg PO Q OTHER DAY Qty: 90 0RF loratadine 10 mg tablet 10 mg PO QDAY Patient Comments: TAKE ONE TABLET BY MOUTH EVERY DAY FOR ALLERGY metformin 500 mg tablet 500 mg PO BIDWM Patient Comments: TAKE ONE TABLET BY MOUTH TWICE DAILY WITH FOOD daib Novolin 70/30 U-100 Insulin 100 unit/mL (70-30) suspension 15 unit SUBCUT QAM Patient Comments: INJECT 15 UNITS SUBCUTANEOUSLY EVERY MORNING FOR DIABETES albuterol sulfate [Ventolin HFA] 90 mcg/actuation HFA aerosol inhaler 1 - 2 puff INHALATION Q4H PRN (Reason: Shortness Of Breath Or Wheezing) Patient Comments: INHALE 1-2 PUFFS BY MOUTH EVERY 4 HOURS NEEDED ascorbic acid (vitamin C) [Vitamin C] 250 mg Tablet 500 mg PO BID Qty: 60 0RF lisinopril 2.5 mg tablet 2.5 mg PO QDAY Qty: 30 0RF Problem List Clinical Impression: Shortness of breath Patient/Caregiver Discharge Instructions Print Language: Ukrainian
--- NOTE | 2025-06-07 05:02 | EKG_ITS ---
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: : 1955 Requested By: Omero Nuno Order Number: [id number] Reading MD: Omero Nuno Measurements Intervals [place] Rate: 129 P: -5 FL: 135 QRS: -81 QRSD: 117 T: -7 QT: 298 QTc: 437 Interpretive Statements SINUS TACHYCARDIA LEFT AXIS DEVIATION [QRS AXIS < -30] PATTERN CONSISTENT WITH PULMONARY DISEASE RIGHT BUNDLE BRANCH BLOCK [120+ ms QRS DURATION, UPRIGHT V1, 40+ ms S IN I/aVL/V4/V5/V6] Compared to ECG 06/06/2025 09:56:53 Left-axis deviation now present Sinus rhythm no longer present Left anterior fascicular block no longer present Myocardial infarct finding no longer present /store/S0/[id number]/ecg/[id number].pdf
--- NOTE | 2025-06-07 05:02 | XR_ITS ---
Examination: AP chest single view TECHNIQUE: AP portable upright chest single view Date and time: June 07, 2025, 0538 hours INDICATIONS: Shortness of breath today FINDINGS: Soft opacities in both lungs suspicious for early pneumonia Normal heart size Moderate osteopenia IMPRESSION: Suspicious for early bilateral pneumonia
[2025-06-07] MEDS: LEVALBUTEROL RT 1.25 MG/0.5 ML NEBU 2.5 MG INH (05:23)
[2025-06-07] MEDS: SODIUM CHLORIDE RT SOL 0.9% 3 ML NEBU 6 ML INH (05:24)
[2025-06-07 05:46] LABS: Base Excess 14 (-3-3); HCO3 41 mEq/L (20-26); Inspired Oxygen, FIO2 21 %; O2 Saturation 71 % (91-98); PCO2 61 mmHg (32.0-48.0); pH, Arterial 7.44 (7.35-7.45)
[2025-06-07 05:49] LABS: Allen Test Performed/OK; PO2 48 mmHg (83-108); Puncture Site Right Radial
[2025-06-07] MEDS: Magnesium Sulfate 2 GM Ivpb 2 GM/50 ML BAG IV (06:22)
[2025-06-07] MEDS: MethylPREDNISolone SOD SUCC 62.5 MG/ML 2ML VIAL 125 MG IVP (06:22)
[2025-06-07 06:27] LABS: Lactate (Lactic Acid) 1.1 mMol/L (0.4-2.0)
[2025-06-07 06:34] LABS: Basophils # (Auto) 0.1 Thou/mm3 (0.0-0.2); Basophils % (Auto) 1 % (0-2.5); Eosinophils # (Auto) 0.6 Thou/mm3 (0.0-0.5); Eosinophils % (Auto) 4 % (0-10); Hematocrit 35.7 % (36.0-46.0); Hemoglobin 11.1 g/dL (12.0-16.0); Immature Granulocytes Auto 0.05 Thou/mm3 (0.00-0.00); Lymphocytes # (Auto) 1.1 Thou/mm3 (1.0-4.8); Lymphocytes % (Auto) 8 % (10-50); Mean Corpuscular HGB Conc 31.1 g/dl (31.0-37.0); Mean Corpuscular Hemoglobin 27.9 pg (25.0-35.0); Mean Corpuscular Volume 90 fL (80-100); Monocytes # (Auto) 1.5 Thou/mm3 (0.0-0.8); Monocytes % (Auto) 11 % (0-12); Neutrophils # (Auto) 10.9 Thou/mm3 (1.8-7.7); Neutrophils % (Auto) 77 % (37-80); Nucleated Red Blood Cell # 0.00 Thou/mm3 (0.00-0.00); Nucleated Red Blood Cell % 0 /100 WBC (0); Platelet Count 226 Thou/mm3 (140-440); RDW Standard Deviation 49.4 fL (36.4-46.3); Red Blood Count 3.98 Miln/mm3 (4.00-5.20); White Blood Count 14.2 Thou/mm3 (3.6-11.0)
[2025-06-07 06:48] LABS: INR 1.0 (0.9-1.3); Partial Thromboplastin Time 26.5 Seconds (22.0-36.0); Prothrombin Time 10.8 Seconds (9.0-12.2)
[2025-06-07 06:52] LABS: B-Type Natriuretic Peptide 27 pg/mL (0-100)
[2025-06-07 07:04] LABS: Respiratory Syncytial Virus Ag Negative (Negative)
[2025-06-07 07:07] LABS: Alanine Aminotransferase 9 U/L (10-49); Albumin, Serum 4.1 gm/dL (3.4-4.8); Albumin/Globulin Ratio 1.6 (1.2-2.2); Alkaline Phosphatase 111 U/L (46-116); Anion Gap 7 (7-16); Aspartate Amino Transferase 20 U/L (0-34); BUN/Creatinine Ratio 13 Ratio (12-20); Bilirubin,Direct 0.2 mg/dL (0.0-0.3); Bilirubin,Total 0.6 mg/dL (0.3-1.2); Blood Urea Nitrogen 9 mg/dL (9-23); C-Reactive Protein 4.2 mg/dL (0.0-0.9); Calcium 8.8 mg/dL (8.3-10.6); Calcium (Corrected) 8.8 mg/dL (8.5-10.1); Carbon Dioxide 36.4 mMol/L (20.0-31.0); Chloride 100 mMol/L (98-107); Creatinine (Component) 0.7 mg/dL (0.6-1.3); Estimated Creatinine Clearance 55.0 mL/min (>60); Free T4 (Free Thyroxine) 1.24 ng/dL (0.89-1.76); Globulin 2.6 gm/dL (2.3-3.5); Glucose 83 mg/dL (74-106); Magnesium 2.1 mg/dL (1.6-2.6); Osmolality,Calculated 282 (275-295); Potassium 3.8 mMol/L (3.4-5.1); Procalcitonin 0.15 ng/ml (0.0-0.49); Sodium 143 mMol/L (136-145); Thyroid Stimulating Hormone 1.14 uIU/mL (0.55-4.78); Total Protein 6.7 gm/dL (5.7-8.2); Troponin I < 0.020 ng/mL (0.0-0.045); eGFR > 60 See Note
[2025-06-07 07:13] LABS: Sed Rate (ESR) 60 mm/hr (0-30)
[2025-06-07 07:20] LABS: D-Dimer 301 ng/mL (<600)
--- NOTE | 2025-06-07 07:49 | PC.NURSE ---
Received report from Coby ELMORE and assumed care of patient. Patient resting at side of bed after using bedside commode. Daughter st bedside.
[2025-06-07 08:10] LABS: Collection Type, Urine Clean Catch
[2025-06-07 08:16] LABS: Bilirubin,Urine Negative (Negative); Blood,Urine 2+ (Negative); Clarity,Urine Clear (Clear/Hazy); Color,Urine Lt-Yellow (Lt Yel-Yel); Culture Indicated,Urine Not Indicated; Glucose, Urine Negative (Negative); Ketones,Urine Negative (Negative); Leukocyte Esterase,Urine Negative (Negative); Nitrite,Urine Negative (Negative); PH,Urine 6.0 (5.0-7.0); Protein,Urine Negative (Neg - Trace); RBC,Urine 19 /hpf (0-3); Specific Gravity,Urine 1.014 (1.001-1.035); Squamous Epithelial Cell,Urine 1 /hpf (0-5); Urobilinogen,Urine Negative mg/dL (0.0-1.0); WBC,Urine 1 /hpf (0-5)
--- NOTE | 2025-06-07 08:38 | PD.EDADDENDU ---
Emergency Room Addendum Addendum Narrative: 0600: Care assumed from Dr. Saucedo, the previous shift emergency physician. Past medical, surgical, social and family history reviewed. Vitals and home medications reviewed. I will assume the care of the patient at this time, pending reassessment and final disposition. Please refer to the emergency department record for history and examination from initial visit.?The following addendum documentation note is intended to reflect any pending information, findings, or radiology results not included in the patient?s initial chart. 0916: On reassessment the patient is still wheezing. Currently on 3L nasal cannula and saturating 92-95%. Patient has exacerbation of her COPD and on chest xray shows bilateral pneumonia. Plan to admit for further evaluation and management. 0920: I spoke with residents working with hospitalist Dr. Jamison. Discussed patients PMHx, HPI, ED course, exam findings, labs, and radiology results. The hospitalist agree to accept the patient for admission.
[2025-06-07] MEDS: LEVALBUTEROL RT 1.25 MG/0.5 ML NEBU INH ×2 (09:32→19:48)
[2025-06-07] MEDS: cefTRIAXone 2 GM in SODIUM CHLORIDE 0.9% (Popper) 50 ML IV (11:47)
[2025-06-07] MEDS: AZITHROMYCIN INJ 500 MG in SODIUM CHLORIDE 0.9% 250 ML 250 ML 250 MG IV (12:44)
[2025-06-07] MEDS: METOPROLOL SUCCINATE XL 25 MG TABCR 100 MG PO (12:45)
[2025-06-07] MEDS: BENZONATATE 100 MG CAPSULE PO (12:49)
--- NOTE | 2025-06-07 13:07 | PC.LAC ---
Report given to Cecelia ELMORE
[2025-06-07] MEDS: ACETAMINOPHEN 325 MG TABLET 650 MG PO (14:12)
--- NOTE | 2025-06-07 17:09 | PD.RESHP ---
Documentation for date of: 06/07/25 HPI History of Present Illness History of present illness: Jazmin is a 70 y/o female with PMHx of chronic asthma (on oxygen intermittently at home) severe peripheral artery disease (status post left BKA), hypertension, hyperlipidemia, [id number]-[id number] type 2 diabetes who comes in for an evaluation of shortness of breath at rest, lethargy, cough, onset prior to arrival. Of note patient was recently seen in the ED 24 hours prior to admission for an evaluation of similar symptoms. Patient was then discharged after given steroid, 2 breathing treatments and was discharged with lisinopril. Patient says that this started recently, denies any recent sick contacts or travel history. She says she did not do anything for for the June. She says she has been taking her medicines as prescribed. She denies any swelling her legs, however says that she has shortness of breath at rest, unsure if it is worse lying down. She denies any chest pain, nausea, vomiting, diarrhea, numbness, tingling. She believes her associate software engineer is Dr. Pavon. She denies having severe night sweats, however does say that she gets hot at times at night. She denies any incarceration history, travel to [place], and exposure to asbestos or tuberculosis. She said that she was at [facility] a couple of months ago for her hernia getting swollen. She does not think she is on a blood thinner. She does remember being tested for tuberculosis a couple of years ago which was negative. She also says that she has been tested for valley fever before. She endorses a weight loss of over 100 lbs over several years, however 10 lbs recently. She is unsure if she has a chronic cough. ED Course: Patient arrived to the ED with a temperature of 98.9, heart rate 115, blood pressure 146/86, saturating 100% on 6 L nasal cannula, respiratory rate 18. Patient was worked up once found to have a sodium of 143, potassium 3.8, chloride 100, bicarb 36, BUN/creatinine of 9 and 0.7 respectively, glucose 83, white count 14, hemoglobin 11, ESR 60, pH of ABG was 7.44, pCO2 61, HCO3 41, magnesium 2.1. Urinalysis showed +2 blood, 19 RBCs. Patient was given Xopenex x 1, Benadryl x 1, magnesium 2 g, and Solu-Medrol 125 mg. Medicine was consulted and patient was admitted to the floors. Past medical history: As above Surgical history: One , hysterectomy, left BKA, Allergies: Aspirin, hydrocodone, morphine, shellfish, tramadol, codeine, influenza and pneumococcal vaccine Meds:Pending med rec however, loratadine 10 mg, Lipitor 80 mg at bedtime, vitamin C, Cardizem 360 once a day, Family history: Family history positive for first-degree relatives having prostate cancer, liver cancer, lung cancer and colon cancer Social history: Born in [place], raised in [place]. She has 3 daughters. Likes to mack[employer] at the [employer]. Has never been a smoker or used or chewed tobacco products. Has never been a heavy drinker. No history of oral or IV drug use. Has worked in the [employer] when she was younger. Review of Systems Review of Systems Narrative Review of Systems: Constitutional: + fever, + chills, fatigue, weakness, weight loss HEENT: No eye pain, vision loss, ear pain, hearing loss, dysphagia, Cardiovascular: No chest pain, palpitations, edema, pain with walking Respiratory: + cough, + shortness of breath, no wheezing GI: No NVD, abdominal pain, constipation, blood in stool, loss of appetite, heartburn Extremities: No presence of pitting edema MSK: No back pain, joint pain, joint swelling Neuro: No dizziness, numbness, weakness, headaches, seizures, tremors Psych: No anxiety, depression Exam Vital Signs Temp Pulse Resp BP Pulse Ox O2 Del Method O2 Flow Rate 97.3 F 92 18 127/93 H 97 Nasal Cannula 3 06/07/25 13:31 06/07/25 16:00 06/07/25 13:31 06/07/25 13:31 06/07/25 13:31 06/07/25 13:06/07/25 13:31 Narrative Exam General: AAOx3, NAD, elderly, weak, pleasant female HEENT: Moist mucous membranes, conjunctiva clear, EOMI, PERRLA, poor dentition Cardiovascular: Pansystolic murmur heard over left lower sternal border radiates to left upper sternal border, radial pulses +2 bilat, tachycardia, no hepatojuglar reflex or JVD appreciated Pulmonary: Crackles heard in lung zepeda bilat, no cough, no wheezing GI: No tenderness to light or deep palpitation, no guarding, rigidity, rebound tenderness or distension, possible abdominal hernia Extremities: L BKA, no anasarca appreciated Neuro: AAOx3, no focal motor or sensory deficits in the UE or LE bilat Psych: Cooperative Results: Labs 06/13/25 05:10 06/13/25 05:10 Labs: Short CBC 06/07/25 Range/Units 06:11 WBC 14.2 H (3.6-11.0) Thou/mm3 Hgb 11.1 L (12.0-16.0) g/dL Hct 35.7 L (36.0-46.0) % Plt Count 226 (140-440) Thou/mm3 BMP 06/07/25 06:11 Sodium 143 Potassium 3.8 D Chloride 100 Carbon Dioxide 36.4 H BUN 9 Creatinine 0.7 Glucose 83 Calcium 8.8 Cardiac Enzymes 06/07/25 Range/Units 06:11 Troponin I < 0.020 (0.0-0.045) ng/mL Liver Function 06/07/25 Range/Units 06:11 Total Bilirubin 0.6 (0.3-1.2) mg/dL Direct Bilirubin 0.2 (0.0-0.3) mg/dL AST 20 (0-34) U/L ALT 9 L (10-49) U/L Alkaline Phosphatase 111 (46-116) U/L Albumin 4.1 (3.4-4.8) gm/dL Urine 06/07/25 Range/Units 07:54 Urine Color Lt-Yellow (Lt Yel-Yel) Urine Clarity Clear (Clear/Hazy) Urine pH 6.0 (5.0-7.0) Ur Specific [place] 1.014 (1.001-1.035) Urine Protein Negative (Neg - Trace) Urine Glucose (UA) Negative (Negative) ABG Interpretation ABG results: 06/07/25 05:41 ABG pH 7.44 ABG pCO2 61 H ABG pO2 48 L* ABG HCO3 41 H ABG O2 Saturation 71 L ABG Base Excess 14 H Quality Measures Quality Measures none Advance care planning discussed with:: patient Medications Home Medications and Allergies Home Medications ?Medication ?Instructions ?Recorded ?Confirmed ?Type albuterol sulfate 90 mcg/actuation 1 - 2 puff inhalation Q4H PRN 07/18/23 06/07/25 History aerosol inhaler (Ventolin HFA) Shortness Of Breath Or Wheezing insulin human U-100 NPH-regulr 15 unit subcut QAM 07/18/23 06/07/25 History 70-30 mix 100 unit/mL subcutaneous susp (Novolin 70/30 U-100 Insulin) metformin 500 mg tablet 500 mg PO BIDWM 07/18/23 06/07/25 History loratadine 10 mg tablet 10 mg PO QDAY 03/18/25 06/07/25 History Allergies Allergy/AdvReac Type Severity Reaction Status Date / Time aspirin Allergy Severe Difficulty Verified 06/07/25 05:17 Breathing hydrocodone Allergy Severe DIFF Verified 06/07/25 05:17 BREATHING morphine Allergy Severe DIFF Verified 06/07/25 05:17 BREATHING shellfish derived Allergy Severe Hives Verified 06/07/25 05:17 tramadol Allergy Severe Anxiety Verified 06/07/25 05:17 codeine Allergy Difficulty Verified 06/07/25 05:17 Breathing Influenza Virus Vaccines AdvReac Severe Difficulty Verified 06/07/25 05:17 Breathing pneumococcal vaccine AdvReac Severe Difficulty Verified 06/07/25 05:17 Breathing Visit Medications Acetaminophen (Acetaminophen 325 Mg Tablet) 650 mg PO Q6H PRN PRN Reason: PAIN SCALE 1-3 (mild Stop: 07/07/25 09:53 Last Admin: 06/07/25 14:12 Dose: 650 mg Acetaminophen (Acetaminophen 325 Mg Tablet) 650 mg PO Q6H PRN PRN Reason: Fever >100.4 Stop: 07/07/25 09:53 Benzonatate (Benzonatate 100 Mg Capsule) 100 mg PO QDAY EMRE; Protocol Stop: 07/07/25 10:14 Last Admin: 06/07/25 12:49 Dose: 100 mg Dextrose (Dextrose 50%-Water Inj 50 Ml Syringe) 25 ml IV Q15MIN PRN PRN Reason: BG 50-70 responsive npo pt Stop: 07/07/25 12:03 Dextrose (Dextrose 50%-Water Inj 50 Ml Syringe) 50 ml IV Q15MIN PRN PRN Reason: BG <50 OR BG <70 & pt unresponsive Stop: 07/07/25 12:03 Glucagon (Glucagon Inj 1 Mg Vial) 1 mg IM Q15MIN PRN PRN Reason: BG <70, and no IV access Heparin Sodium (Porcine) (Heparin Sod Inj 5000 Unit/Ml Vial) 5,000 unit SC Q12H [facility] Stop: 06/21/25 20:59 Azithromycin 500 mg/ Sodium (Chloride) 250 mls @ 250 mls/hr IV QDAY [facility] Stop: 06/15/25 08:59 Ceftriaxone Sodium/Dextrose (Rocephin/D5w 1gm Iv Premix) 1 gm in 50 mls @ 100 mls/hr IV QDAY [facility] Stop: 06/15/25 08:59 Insulin Human Lispro (Insulin Lispro (Admelog) 1 Unit/0.01 Ml Unit) 0 unit SC AC [facility]; Protocol Stop: 07/07/25 16:59 Levalbuterol HCl (Levalbuterol Rt 1.25 Mg/0.5 Ml Nebu) 1.25 mg INH Q6HRRT [facility] Stop: 07/07/25 14:59 Lisinopril (Lisinopril 2.5 Mg Tablet) 2.5 mg PO QDAY [facility] Stop: 07/07/25 12:14 Last Admin: 06/07/25 12:49 Dose: 2.5 mg Loratadine (Loratadine 10 Mg Tablet) 10 mg PO QDAY [facility] Stop: 07/07/25 12:14 Last Admin: 06/07/25 12:45 Dose: 10 mg Methylprednisolone Sodium Succinate (Methylprednisolone Sod Succ 40 Mg Vial) 40 mg IVP QDAY [facility] Stop: 06/15/25 08:59 Metoprolol Succinate (Metoprolol Succinate Xl 25 Mg Tabcr) 100 mg PO QDAY [facility] Stop: 07/07/25 12:14 Last Admin: 06/07/25 12:45 Dose: 100 mg Ondansetron HCl (Ondansetron Inj 2 Mg/Ml Inj 2 Ml) 4 mg IVP Q6H PRN; Protocol PRN Reason: NAUSEA OR VOMITING Stop: 07/07/25 09:53 Oxycodone/Acetaminophen (Oxycodone/Apap 5/325 Tablet) 1 tab PO Q6H PRN PRN Reason: PAIN SCALE 4-6 (Moderate Stop: 06/12/25 09:53 Pantoprazole Sodium (Pantoprazole Inj 40 Mg Vial) 40 mg IVP QDAY [facility] Stop: 07/08/25 08:59 Sodium Chloride (Sodium Chloride Rt [place] 0.9% 3 Ml Nebu) 3 ml INH Q6HRRT EMRE Stop: 07/07/25 12:59 Sodium Chloride (Sodium Chloride Rt [place] 0.9% 3 Ml Nebu) 3 ml INH PRN PRN PRN Reason: SOLN Stop: 07/07/25 12:09 Discontinued Medications Diphenhydramine HCl (Diphenhydramine Inj 50 Mg/Ml Vial) 50 mg IVP X1 STA Stop: 06/07/25 05:02 Last Admin: 06/07/25 06:22 Dose: 50 mg Heparin Sodium (Porcine) (Heparin Sod Inj 5000 Unit/Ml Vial) 5,000 unit SC Q8HR [facility]RE Stop: 06/21/25 13:59 Magnesium Sulfate (Magnesium Sulfate Ivpb) 2 gm in 50 mls @ 25 mls/hr IV X1 ONE Stop: 06/07/25 07:00 Last Infusion: 06/07/25 08:40 Dose: Infused Ceftriaxone Sodium 2 gm/ (Sodium Chloride) 50 mls @ 100 mls/hr IV X1 ONE Stop: 06/07/25 08:57 Last Infusion: 06/07/25 12:20 Dose: Infused Azithromycin 500 mg/ Sodium (Chloride) 250 mls @ 250 mls/hr IV X1 ONE Stop: 06/07/25 09:44 Last Admin: 06/07/25 12:44 Dose: 250 mls/hr Levalbuterol HCl (Levalbuterol Rt 1.25 Mg/0.5 Ml Nebu) 2.5 mg INH X1 ONE Stop: 06/07/25 05:02 Last Admin: 06/07/25 05:23 Dose: 2.5 mg Levalbuterol HCl (Levalbuterol Rt 1.25 Mg/0.5 Ml Nebu) 1.25 mg INH X1 ONE Stop: 06/07/25 09:21 Last Admin: 06/07/25 09:32 Dose: 1.25 mg Levalbuterol HCl (Levalbuterol Rt 1.25 Mg/0.5 Ml Nebu) 1.25 mg INH X1 ONE Stop: 06/07/25 10:09 Last Admin: 06/07/25 12:54 Dose: Not Given Methylprednisolone Sodium Succinate (Methylprednisolone Sod Succ 62.5 Mg/Ml 2ml Vial) 125 mg IVP X1 ONE Stop: 06/07/25 05:02 Last Admin: 06/07/25 06:22 Dose: 125 mg Sodium Chloride (Sodium Chloride Rt [place] 0.9% 3 Ml Nebu) 6 ml INH PRN PRN PRN Reason: SOLN Stop: 07/07/25 05:00 Last Admin: 06/07/25 05:24 Dose: 6 ml Sodium Chloride (Sodium Chloride Rt 10% 15 Ml Nebu) 5 ml INH X1 ONE Stop: 06/07/25 10:11 Last Admin: 06/07/25 12:54 Dose: Not Given Assessment & Plan Plan Assessment Jazmin is a 70 y/o female with PMHx of chronic asthma (on oxygen intermittently at home) severe peripheral artery disease (status post left BKA), hypertension, hyperlipidemia, beq-lqfgchr-jpsgmwehg type 2 diabetes who is admitted for Acute on Chronic respiratory failure and community acquired pneumonia. #Acute on chronic respiratory failure #Community-acquired pneumonia #Moderate pulmonary hypertension #Hx of Chronic asthma #? Interstitial lung disease #? COPD exacerbation Patient was recently discharged from the ER for similar symptoms including fever, shortness of breath Patient has never seen a assessment analyst or gotten PFTs On previous chest abdomen pelvis done in March 2025 shows possible miliary disease She has no risk factors for tuberculosis including no history of incarceration, exposure to TB, travel to TB endemic areas She is not a smoker, however [place] in the [place] years which can contribute to her lung disease Has worked in the [employer] before as well Patient appears to be a chronic CO2 retainer as her baseline CO2 is in the upper 60s lower 70s ABG shows a PO2 of 48 and PCO2 of 61, this pO2 may be an air or a VBG Patient's baseline home oxygen requirement is 3 L Patient does confirm some fevers at times and weight loss recently, however it does not appear to be significant at this time Previous workup for cocci and tuberculosis in 2021 was negative Her respiratory failure is likely related to longstanding interstitial lung disease Echo previously shows RVSP 55 mmHg Patient does not appear to have heart failure Pulmonary hypertension could be group 3 related to lung including systolic or diastolic dysfunction including ILD or COPD, unlikely group 4 she does not have history of thrombus, also could be group 5. Unlikely group 2 as patient does not have significant heart disease COVID and influenza negative Plan: ? Rocephin 1 g IV (06/07? ? Azithromycin 500 mg IV (06/07? ? Solu-Medrol 40 mg IV daily ? Chest physiotherapy ? Xopenex 1.25 mg every 6 hours RT ? Cocci serologies ? Quantiferon Gold ? ANGELITA ? Lasix 40 mg IV x 1 ? Chest CT without contrast ? Repeat ABG as patient is on home oxygen currently ? ESR and CRP ? Tessalon Perles as needed ? Sputum culture ? Follow-up MRSA ? Follow-up RSV #Metabolic alkalosis with respiratory acidosis ABG showed a pH of 7.44, bicarb of 41, pCO2 of 61 Patient is a chronic CO2 retainer We would typically expect a patient to have chronic respiratory acidosis with renal compensation with alkalosis, however this appears to be a mixed base disorder as pCO2 should be expected to be around 50 Mixed acid-base disorder Plan: ? Trend CMP ? Treat above #Chronic Paroxysmal A-fib [id number] HAS-BLED: 2 Rate: Controlled Rhythm: Regular AC: Used to be on Eliquis, however was stopped because of recent GI bleed Takes Cardizem 360 CD at home No history of heart failure Has not taken Eliquis, however has been taking iron and vitamin C at home Patient's associate software engineer is Dr. Pavon, records show that patient had a Holter and with the Holter records patient appears to be in A-fib about 1% of the time Plan: ? Telemetry ? Keep magnesium and potassium above 2 and 4 respectively ? Resume home Cardizem 360 mg daily ? Will resume Eliquis upon discharge ? Cardiac stratification #Hypertension #Hyperlipidemia #Severe peripheral artery disease s/p L BKA Chronic Plan: ? Resumed home Lipitor 80 mg at bedtime ? Resume home lisinopril 2.5 mg daily ? Cardiac stratification #Insulin Dependent Type II Diabetes mellitus Takes Novolin 70/30 15 units at home Recent A1c 5.0 Plan: ? Sliding scale insulin ? Hypoglycemic protocol in place ? Blood sugar checks with meals ? Follow-up A1c #Chronic hematuria DDx: IgA Nephropathy, FSGS, GPA, Rhabomyolysis, bladder malignancy No stones seen on imaging, or hx of stones Patient has had blood and RBCs in the urine before Patient shows +2 blood and 19 RBCs today Previous has had ANGELITA, c-ANCA and p-ANCA negative Pt likely has IgA nephropathy No signs of Nephritic or nephrotic syndrome (no protein in urine) at this time Could be GPA but considering ANCA numbers are negative, unlikely, also pt has not commented on hemoptysis No recent fall; Unlikely bladder related due to no smoking hx Plan: ? CK ? 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 Moore, GI Was supposed be referred to [facility] for surgical intervention, unsure if this happened Plan: ? Trend CBC ? Iron studies panel with ferritin ? Reticulocyte count ? Peripheral blood smear ? Transfusion protocol hemoglobin below 7 ? Avoiding any NSAIDs ? Protonix 40 mg daily ? FOBT ? Consider GI consult #Health Maintenance Disposition: Telemetry DVT prophylaxis: Heparin Q12H GI prophylaxis: Protonix Diet: Cardiac CODE STATUS: DNR Patient seen and care discussed with my attending physician, Dr. Yaquelin Nguyen, PGY-2 Attending Provider Attestation/Addendum Face to face evaluaton done, pt admitted for acute on chronic respiratory failure, SHe had DM< HTN and DL sp BKA. Patient will continue antibiotic for pneumonia, continue inhaled bronchodilators for COPD. Discussed with housestaff
--- NOTE | 2025-06-07 18:27 | XR_ITS ---
Examination: CT chest, without intravenous contrast. Sagittal and coronal 2-D reconstructions. Exam date and time: June 07, 2025 1908 hours Comparison October 16, 2025 INDICATIONS: Shortness of breath today CTDI:vol (mGy) 10.3 DLP: (mGycm) 355. Technique: Multiple 3.0 mm axial sections of the chest to been obtained. Bone and lung density settings are obtained. Sagittal and coronal 2-D reconstructions have been obtained. Low dose protocols were performed. One or more of the following dose reduction techniques were used; automated exposure control, adjustment of the mA and/or KV according to patient size, use of iterative reconstruction technique. Findings: No thoracic aortic aneurysm dilatation Pulmonary artery segments are not enlarged Bilateral fairly diffuse pneumonia, more severe in the lingular segment of left upper lobe Trace pericardial effusion Stable 19 mm lesion posterior right lobe of the liver Retrocardiac gastric hernia. Spleen is not enlarged Posterior 4.5 cm left renal cyst IMPRESSION: Bilateral pneumonia, most prominent left upper lobe and lingular segment
[2025-06-07] MEDS: SODIUM CHLORIDE RT SOL 0.9% 3 ML NEBU INH (19:48)
--- NOTE | 2025-06-07 20:03 | PD.IMCONS ---
Documented by User: Campos Pavon MD 06/08/25 22:10 HPI Data of Consult Requesting Physician: Aryan Jamison MD Primary Care Provider: Chandrakant Cardenas MD Consult Narrative History of present illness: A 68-year-old female with a past medical history of essential hypertension, insulin-dependent diabetes mellitus, diabetic neuropathy, asthma/COPD on home oxygen, PAD s/p left BKA presented to the the ED for c/o SOB and cough. The patient was recently discharged 1 day ago, where she had presented for similar symptoms. See reported that her symptoms started recently, and steroid given during discharge helped for a while, but did not improve her symptoms. Her previous CT scan done, was suggestive of reticular pattern with possible ILD and has history of COPD. In 2022, the patient was previously transferred to [facility] for further evaluation of femoral arteries, due to significant peripheral vascular disease after being admitted to the hospital for worsening gangrene of the second and left toe and was started on IV antibiotics patient was deemed to be in sepsis. Patient did have an episode of atrial fibrillation with RVR at that point of time but converted back to normal sinus rhythm. General surgery was consulted patient underwent left amputation. CT of the bilateral lower extremities was ordered which showed significant peripheral vascular disease with severe 80% stenosis of right [employer] 50% stenosis of left [employer] and severe calcification bilaterally of superficial femoral arteries with multiple areas of 80 to 90% stenosis bilateral heavily calcified trifurcation arteries below the knees. Patient was then sent to [facility] for the severe PAD as well as a dry gangrene, and later was transferred back to [facility] and required left BKA. She denies any dizziness, chest pain, orthopnea or PND, nausea or vomiting, fever or chills, chest pressure. During my evaluation, her vitals were stable, saturating 99% on 3 L NC. White count 14.2, hemoglobin 11.1, ABG revealed pCO2 70, PO298, bicarb 33, and pH of 7.29. Chemistry panel revealed sodium 143, potassium 3.8, bicarb 36.4, BUN 9, creatinine 0.7, magnesium 2.1, CRP 4.2, chest CT was significant for bilateral pneumonia, most prominent left upper lobe and lingular segment. Past medical history: As mentioned above Past surgical history: C-sections, left rotator amputation, hysterectomy, left BKA Family history: Positive for cancer and hypertension Social history: Lives with her son and denies any alcohol or drugs or smoking. Medications: Atorvastatin 40 Mg, ferrous sulfate 325 Mg, lisinopril 2.5 Mg daily, loratadine 10 Mg daily, metformin 500 Mg twice daily, metoprolol succinate 100 Mg daily, pantoprazole 40 Mg daily, Novolin insulin 15 units daily in the AM. Allergies: Multiple as noted on the chart Travel history: None recently Cardiology consultation was done for further management of acute hypoxic respiratory failure likely secondary to CHF exacerbation. cc:: cc: Aryan Jamison MD Meds Home Medications and Allergies Home Medications ?Medication ?Instructions ?Recorded ?Confirmed ?Type albuterol sulfate 90 mcg/actuation 1 - 2 puff inhalation Q4H PRN 07/18/23 06/07/25 History aerosol inhaler (Ventolin HFA) Shortness Of Breath Or Wheezing insulin human U-100 NPH-regulr 15 unit subcut QAM 07/18/23 06/07/25 History 70-30 mix 100 unit/mL subcutaneous susp (Novolin 70/30 U-100 Insulin) metformin 500 mg tablet 500 mg PO BIDWM 07/18/23 06/07/25 History loratadine 10 mg tablet 10 mg PO QDAY 03/18/25 06/07/25 History Allergies Allergy/AdvReac Type Severity Reaction Status Date / Time aspirin Allergy Severe Difficulty Verified 06/07/25 05:17 Breathing hydrocodone Allergy Severe DIFF Verified 06/07/25 05:17 BREATHING morphine Allergy Severe DIFF Verified 06/07/25 05:17 BREATHING shellfish derived Allergy Severe Hives Verified 06/07/25 05:17 tramadol Allergy Severe Anxiety Verified 06/07/25 05:17 codeine Allergy Difficulty Verified 06/07/25 05:17 Breathing Influenza Virus Vaccines AdvReac Severe Difficulty Verified 06/07/25 05:17 Breathing pneumococcal vaccine AdvReac Severe Difficulty Verified 06/07/25 05:17 Breathing Exam Vital Signs Temp Pulse Resp BP Pulse Ox O2 Del Method O2 Flow Rate 97.2 F 87 23 H 146/92 H 99 Nasal Cannula 2 06/07/25 16:00 06/07/25 19:48 06/07/25 19:48 06/07/25 16:00 06/07/25 19:48 06/07/25 16:00 06/07/25 19:48 Narrative Exam General: No acute distress, Alert and Oriented x 3 HEENT: Moist mucous membranes, oropharynx clear Neck: Supple, No masses, No JVD CVS: S1S2 Regular rate and rhythm, pansystolic murmur over left lower sternal border, rubs or gallops Lungs: End expiratory wheezing, very fine crackles over bibasilar lung lobes. No rhonchi Abd: Soft, NT/ND, +BS, no organomegaly Ext: Left BKA, feeble pulse on right lower extremity Skin: No rash Psych: Appropriate mood and affect Results Labs 06/08/25 05:20 06/08/25 05:20 Labs: Short CBC 06/07/25 Range/Units 06:11 WBC 14.2 H (3.6-11.0) Thou/mm3 Hgb 11.1 L (12.0-16.0) g/dL Hct 35.7 L (36.0-46.0) % Plt Count 226 (140-440) Thou/mm3 BMP 06/07/25 06:11 Sodium 143 Potassium 3.8 D Chloride 100 Carbon Dioxide 36.4 H BUN 9 Creatinine 0.7 Glucose 83 Calcium 8.8 Cardiac Enzymes 06/07/25 Range/Units 06:11 Troponin I < 0.020 (0.0-0.045) ng/mL Liver Function 06/07/25 Range/Units 06:11 Total Bilirubin 0.6 (0.3-1.2) mg/dL Direct Bilirubin 0.2 (0.0-0.3) mg/dL AST 20 (0-34) U/L ALT 9 L (10-49) U/L Alkaline Phosphatase 111 (46-116) U/L Albumin 4.1 (3.4-4.8) gm/dL Urine 06/07/25 Range/Units 07:54 Urine Color Lt-Yellow (Lt Yel-Yel) Urine Clarity Clear (Clear/Hazy) Urine pH 6.0 (5.0-7.0) Ur Specific Cunningham 1.014 (1.001-1.035) Urine Protein Negative (Neg - Trace) Urine Glucose (UA) Negative (Negative) ABG Interpretation ABG results: 06/07/25 05:41 ABG pH 7.44 ABG pCO2 61 H ABG pO2 48 L* ABG HCO3 41 H ABG O2 Saturation 71 L ABG Base Excess 14 H Assessment and Plan Additional Assessment & Plan Additional Plan: Jazmin is a 70 y/o female with PMHx of chronic asthma (on oxygen intermittently at home) severe peripheral artery disease (status post left BKA), hypertension, hyperlipidemia, [id number] type 2 diabetes who is admitted for Acute on Chronic respiratory failure and community acquired pneumonia. #R/O CHF exacerbation Less likely to have CHF exacerbation, as BNP is 27, and the fine crackles heard on chest exam is likely secondary to interstitial lung disease. Chest x-ray and CT chest negative for vascular congestion or volume overload, but significant for reticular pattern indicating possible ILD. - Rule out interstitial lung disease - Pulmonary consultation - May consider high-dose pulse steroid therapy, if agreed by engineering faculty member - Recent echo on April 2025 was significant for RVSP 55 mmHg, but stable LVEF. - May consider trial of Lasix 20 Mg IV x 1 or Bumex 0.5 Mg IV x 1 - Strict input output, daily weights and 2 g sodium diet. #Acute on chronic respiratory failure #Community-acquired pneumonia and rule out flu #COPD exacerbation #Moderate pulmonary hypertension #Hx of Chronic asthma #Possible Interstitial lung disease Patient was recently discharged from the ER for similar symptoms including fever, shortness of breath Patient has never seen a engineering faculty member or gotten PFTs On previous chest abdomen pelvis done in March 2025 shows possible miliary disease, but further reading of the films was suspicious for reticular pattern suggestive of ILD and has COPD. She reported no expected or exposure to TB, and no recent visit to [place]. Previously she was tested negative for tuberculosis. 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 Despite SOB, she is saturating well on home 3 L NC. Echo previously shows RVSP 55 mmHg -Continue with antibiotics and steroids -DuoNeb as needed -Mandatory BiPAP at night, or as needed at daytime #Chronic Paroxysmal A-fib [id number], HAS-BLED: 2, currently regular rate and rhythm Eliquis held due to concern for GI bleed in the past. 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 We appreciate the opportunity to participate in this patient care. Cardiology will continue to follow-up on this patient. The patient's management plan was discussed with my attending physician MD Angel Bal MD I have personally seen and examined the patient separately on the above date of service and discussed the plan of care with the resident. I reviewed the resident Dr. Angel Tanner consultation progress note and agree with the resident findings and plan in the note above and have also edited the documentation to reflect my findings and plan. Campos Pavon M.D. Interventional Cardiology Documented by User: Angel Tanner MD 06/07/25 23:34 HPI Consult Narrative Reason for consult: Atrial fibrillation with RVR History of present illness: A 68-year-old female with a past medical history of essential hypertension, insulin-dependent diabetes mellitus, diabetic neuropathy, asthma/COPD on home oxygen, PAD s/p left BKA presented to the the ED for c/o SOB and cough. The patient was recently discharged 1 day ago, where she had presented for similar symptoms. See reported that her symptoms started recently, and steroid given during discharge helped for a while, but did not improve her symptoms. Her previous CT scan done, was suggestive of radicular pattern, consistent with COPD. In 2022, the patient was previously transferred to [facility] for further evaluation of femoral arteries, due to significant peripheral vascular disease after being admitted to the hospital for worsening gangrene of the second and left toe and was started on IV antibiotics patient was deemed to be in sepsis. Patient did have an episode of atrial fibrillation with RVR at that point of time but converted back to normal sinus rhythm. General surgery was consulted patient underwent left amputation. CT of the bilateral lower extremities was ordered which showed significant peripheral vascular disease with severe 80% stenosis of right [employer] 50% stenosis of left [employer] and severe calcification bilaterally of superficial femoral arteries with multiple areas of 80 to 90% stenosis bilateral heavily calcified trifurcation arteries below the knees. Patient was then sent to [facility] for the severe PAD as well as a dry gangrene, and later was transferred back to [facility] and required left BKA. She denies any dizziness, chest pain, orthopnea or PND, nausea or vomiting, fever or chills, chest pressure. During my evaluation, her vitals were stable, saturating 99% on 3 L NC. White count 14.2, hemoglobin 11.1, ABG revealed pCO2 70, PO298, bicarb 33, and pH of 7.29. Chemistry panel revealed sodium 143, potassium 3.8, bicarb 36.4, BUN 9, creatinine 0.7, magnesium 2.1, CRP 4.2, chest CT was significant for bilateral pneumonia, most prominent left upper lobe and lingular segment. Past medical history: As mentioned above Past surgical history: C-sections, left rotator amputation, hysterectomy, left BKA Family history: Positive for cancer and hypertension Social history: Lives with her son and denies any alcohol or drugs or smoking. Medications: Atorvastatin 40 Mg, ferrous sulfate 325 Mg, lisinopril 2.5 Mg daily, loratadine 10 Mg daily, metformin 500 Mg twice daily, metoprolol succinate 100 Mg daily, pantoprazole 40 Mg daily, Novolin insulin 15 units daily in the AM. Allergies: Multiple as noted on the chart Travel history: None recently Cardiology consultation was done for further management of acute hypoxic respiratory failure likely secondary to CHF exacerbation. Review of Systems Review of Systems Systems Reviewed: All systems reviewed, normal except as documented Meds Home Medications and Allergies Home Medications ?Medication ?Instructions ?Recorded ?Confirmed ?Type albuterol sulfate 90 mcg/actuation 1 - 2 puff inhalation Q4H PRN 07/18/23 06/07/25 History aerosol inhaler (Ventolin HFA) Shortness Of Breath Or Wheezing insulin human U-100 NPH-regulr 15 unit subcut QAM 08/17/23 07/07/25 History 70-30 mix 100 unit/mL subcutaneous susp (Novolin 70/30 U-100 Insulin) metformin 500 mg tablet 500 mg PO BIDWM 07/18/23 06/07/25 History loratadine 10 mg tablet 10 mg PO QDAY 03/18/25 06/07/25 History Allergies Allergy/AdvReac Type Severity Reaction Status Date / Time aspirin Allergy Severe Difficulty Verified 06/07/25 05:17 Breathing hydrocodone Allergy Severe DIFF Verified 06/07/25 05:17 BREATHING morphine Allergy Severe DIFF Verified 06/07/25 05:17 BREATHING shellfish derived Allergy Severe Hives Verified 06/07/25 05:17 tramadol Allergy Severe Anxiety Verified 06/07/25 05:17 codeine Allergy Difficulty Verified 06/07/25 05:17 Breathing Influenza Virus Vaccines AdvReac Severe Difficulty Verified 06/07/25 05:17 Breathing pneumococcal vaccine AdvReac Severe Difficulty Verified 06/07/25 05:17 Breathing Exam Vital Signs Temp Pulse Resp BP Pulse Ox O2 Del Method O2 Flow Rate 97.2 F 87 23 H 146/92 H 99 Nasal Cannula 2 06/07/25 16:00 06/07/25 19:48 06/07/25 19:48 06/07/25 16:00 06/07/25 19:48 06/07/25 16:00 06/07/25 19:48 Temp Pulse Resp BP Pulse Ox O2 Del Method O2 Flow Rate 97.3 F 92 18 127/93 H 97 Nasal Cannula 3 06/07/25 13:31 06/07/25 16:00 06/07/25 13:31 06/07/25 13:31 06/07/25 13:31 06/07/25 13:31 06/07/25 13:31 Narrative Exam General: No acute distress, Alert and Oriented x 3 HEENT: Moist mucous membranes, oropharynx clear Neck: Supple, No masses, No JVD CVS: S1S2 Regular rate and rhythm, pansystolic murmur over left lower sternal border, rubs or gallops Lungs: no wheeze no rhonchi, , fine crackles over bibasilar lung lobes Abd: Soft, NT/ND, +BS, no organomegaly Ext: Left BKA, feeble pulse on right lower extremity Skin: No rash Psych: Appropriate mood and affect Results Labs 06/08/25 05:20 06/08/25 05:20 Labs: Short CBC 06/07/25 Range/Units 06:11 WBC 14.2 H (3.6-11.0) Thou/mm3 Hgb 11.1 L (12.0-16.0) g/dL Hct 35.7 L (36.0-46.0) % Plt Count 226 (140-440) Thou/mm3 BMP 06/07/25 06:11 Sodium 143 Potassium 3.8 D Chloride 100 Carbon Dioxide 36.4 H BUN 9 Creatinine 0.7 Glucose 83 Calcium 8.8 Cardiac Enzymes 06/07/25 Range/Units 06:11 Troponin I < 0.020 (0.0-0.045) ng/mL Liver Function 06/07/25 Range/Units 06:11 Total Bilirubin 0.6 (0.3-1.2) mg/dL Direct Bilirubin 0.2 (0.0-0.3) mg/dL AST 20 (0-34) U/L ALT 9 L (10-49) U/L Alkaline Phosphatase 111 (46-116) U/L Albumin 4.1 (3.4-4.8) gm/dL Urine 06/07/25 Range/Units 07:54 Urine Color Lt-Yellow (Lt Yel-Yel) Urine Clarity Clear (Clear/Hazy) Urine pH 6.0 (5.0-7.0) Ur Specific Cunningham 1.014 (1.001-1.035) Urine Protein Negative (Neg - Trace) Urine Glucose (UA) Negative (Negative) ABG Interpretation ABG results: 06/07/25 05:41 ABG pH 7.44 ABG pCO2 61 H ABG pO2 48 L* ABG HCO3 41 H ABG O2 Saturation 71 L ABG Base Excess 14 H Assessment and Plan Additional Assessment & Plan Additional Plan: Jazmin is a 70 y/o female with PMHx of chronic asthma (on oxygen intermittently at home) severe peripheral artery disease (status post left BKA), hypertension, hyperlipidemia, [id number] type 2 diabetes who is admitted for Acute on Chronic respiratory failure and community acquired pneumonia. #R/O CHF exacerbation Less likely to have CHF exacerbation, as BNP is 27, and crackles heard on chest exam is likely secondary to interstitial lung disease. Chest x-ray and CT chest negative for vascular congestion or volume overload, but significant for reticular pattern consistent with ILD. - Rule out interstitial lung disease - Pulmonary consultation - May consider high-dose pulse steroid therapy, if agreed by engineering faculty member - Recent echo on April 2025 was significant for RVSP 55 mmHg, but stable LVEF. - May consider trial of Lasix 20 Mg IV x 1 or Bumex 0.5 Mg IV x 1 #Acute on chronic respiratory failure #Community-acquired pneumonia #Moderate pulmonary hypertension #Hx of Chronic asthma #Possible Interstitial lung disease #COPD exacerbation Patient was recently discharged from the ER for similar symptoms including fever, shortness of breath Patient has never seen a engineering faculty member or gotten PFTs On previous chest abdomen pelvis done in March 2025 shows possible miliary disease, but further reading of the films was suspicious for reticular pattern suggestive of COPD. She reported no expected or exposure to TB, and no recent visit to [place]. Previously she was tested negative for tuberculosis. 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 Despite SOB, she is saturating well on home 3 L NC. Echo previously shows RVSP 55 mmHg -Continue with antibiotics and steroids -DuoNeb as needed -Mandatory BiPAP at night, or as needed at daytime #Chronic Paroxysmal A-fib [id number], HAS-BLED: 2, currently regular rate and rhythm Eliquis held due to concern for GI bleed in the past. 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 We appreciate the opportunity to participate in this patient care. Cardiology will continue to follow-up on this patient. The patient's management plan was discussed with my attending physician MD Angel Bal MD, PGY3
[2025-06-07 20:04] LABS: Base Excess 5 (-3-3); HCO3 33 mEq/L (20-26); Inspired O2, VO2 Liters 3 L/min; O2 Saturation 97 % (91-98); PCO2 70 mmHg (32.0-48.0); PO2 98 mmHg (83-108); pH, Arterial 7.29 (7.35-7.45)
[2025-06-07 20:09] LABS: Allen Test Performed/OK; Puncture Site Right Radial
[2025-06-07] MEDS: FUROSEMIDE INJ 10 MG/ML 4ML VIAL 40 MG IVP (21:00)
[2025-06-07] MEDS: HEPARIN SOD INJ 5000 UNIT/ML VIAL SC (21:01)
[2025-06-08] VITALS (12 sets, daily range): BP systolic 119–139; BP diastolic 60–84; PULSE 74–97; RESP 13–24; TEMP 36.1–36.7; O2SAT 90–100; BMI 25.7
[2025-06-08] MEDS: SODIUM CHLORIDE RT SOL 0.9% 3 ML NEBU INH ×3 (01:39→19:26)
[2025-06-08] MEDS: LEVALBUTEROL RT 1.25 MG/0.5 ML NEBU INH ×4 (01:39→19:26)
[2025-06-08 06:25] LABS: Quantiferon-TB* See Sep Rpt
[2025-06-08 06:35] LABS: Basophils # (Auto) 0.0 Thou/mm3 (0.0-0.2); Basophils % (Auto) 0 % (0-2.5); Eosinophils # (Auto) 0.0 Thou/mm3 (0.0-0.5); Eosinophils % (Auto) 0 % (0-10); Hematocrit 31.5 % (36.0-46.0); Hemoglobin 9.8 g/dL (12.0-16.0); Immature Granulocytes Auto 0.09 Thou/mm3 (0.00-0.00); Immature Reticulocyte Fraction 14.3 % (3.0-15.9); Lymphocytes # (Auto) 0.5 Thou/mm3 (1.0-4.8); Lymphocytes % (Auto) 4 % (10-50); Mean Corpuscular HGB Conc 31.1 g/dl (31.0-37.0); Mean Corpuscular Hemoglobin 27.6 pg (25.0-35.0); Mean Corpuscular Volume 89 fL (80-100); Monocytes # (Auto) 1.2 Thou/mm3 (0.0-0.8); Monocytes % (Auto) 11 % (0-12); Neutrophils # (Auto) 9.5 Thou/mm3 (1.8-7.7); Neutrophils % (Auto) 84 % (37-80); Nucleated Red Blood Cell # 0.00 Thou/mm3 (0.00-0.00); Nucleated Red Blood Cell % 0 /100 WBC (0); Platelet Count 240 Thou/mm3 (140-440); RDW Standard Deviation 47.6 fL (36.4-46.3); Red Blood Count 3.55 Miln/mm3 (4.00-5.20); Reticulocyte % (Auto) 1.9 % (0.5-1.5); Reticulocyte Absolute Auto 66.7 Biln/L (25.0-75.0); Reticulocyte Hgb Content 34.5 pg (28.0-35.0); White Blood Count 11.3 Thou/mm3 (3.6-11.0)
[2025-06-08 07:03] LABS: Ferritin 32 ng/mL (7.3-270.7); Iron 28 mcg/dL (50-170); Percent Iron Saturation 8 % (20-55); Total Iron Binding Capacity 322 mcg/dL (250-425); Unsaturated Iron Binding 294 (225-295)
[2025-06-08 07:05] LABS: Glucose Estimated Average 111 mg/dL (80-131); Hemoglobin A1C 5.5 % Hgb (4.8-6.0)
[2025-06-08 07:21] LABS: Alanine Aminotransferase 9 U/L (10-49); Albumin, Serum 3.8 gm/dL (3.4-4.8); Albumin/Globulin Ratio 1.6 (1.2-2.2); Alkaline Phosphatase 98 U/L (46-116); Anion Gap 9 (7-16); Aspartate Amino Transferase 18 U/L (0-34); BUN/Creatinine Ratio 29 Ratio (12-20); Bilirubin,Total 0.4 mg/dL (0.3-1.2); Blood Urea Nitrogen 20 mg/dL (9-23); C-Reactive Protein 4.7 mg/dL (0.0-0.9); Calcium 8.5 mg/dL (8.3-10.6); Calcium (Corrected) 8.7 mg/dL (8.5-10.1); Carbon Dioxide 34.1 mMol/L (20.0-31.0); Chloride 101 mMol/L (98-107); Creatine Kinase 38 U/L (34-171); Creatinine (Component) 0.7 mg/dL (0.6-1.3); Estimated Creatinine Clearance 52.8 mL/min (>60); Globulin 2.4 gm/dL (2.3-3.5); Glucose 89 mg/dL (74-106); Magnesium 2.3 mg/dL (1.6-2.6); Osmolality,Calculated 288 (275-295); Phosphorous 5.0 mg/dL (2.4-5.1); Potassium 4.7 mMol/L (3.4-5.1); Sodium 144 mMol/L (136-145); Total Protein 6.2 gm/dL (5.7-8.2); eGFR > 60 See Note
[2025-06-08 07:36] LABS: Path Review Blood Smear Sent to Pathologist; Sed Rate (ESR) 60 mm/hr (0-30)
--- NOTE | 2025-06-08 07:54 | ESPR_ITS ---
<Statement entered by Paulino Nguyen MD - 06/08/25 16:19> I have reviewed the note and agree with the resident's assessment & plan with exceptions as below. I have personally reviewed labs, imaging, home meds/prior records, examined the patient, formulated and discussed management plan with the IM team. Pt continues to improve. Spoke with Cardiology, Dr. Pavon, who does not believe pt has HF and is not on diuretics at home. I also curbsided Dr. Mcqueen, Pulmonology, who reviewed CT chest who recommended to rule out atypical Mycobacterium. Will initiate Airborne isolation, and get AFB x3. Based of images, pt seems to have chronic airway inflammation that appear to be tree in bud nodules, likely related to aspiration or infection. Adding Flagyl, d/c Zithromax. This patient, based off interpretation of images, does not have COPD or ILD, however will need to have formal PFTs and Pulmonology outpatient. Continuing with Xopenex 1.25 mg Q6HRRT. Will have Speech therapy as well. Pt also has hx of colonic tumor, however was not able to go to [facility]. Will speak with family in regards to this as patient expresses that she would like treatment for this at some point. Pending Cocci serologies, Quantiferon as well. Repeat hematology and chemistry in AM. Paulino Nguyen, PGY-2 Internal Medicine Documentation for date of: 06/08/25 Subjective Subjective Interval history: CC: shortness of breath Impression: A 70 yo female with a pmh of chronic asthma (on 3L home oxygen), severe PAD (status post left BKA), HTN, HLD< non insuline dependent T2DM is admitted for acute on chronic respiratory failure, community acquired pneumonia. Today, she is feeling much better, denies sob at rest, and confirms having slept well. She does confirm continued production of green phlegm. Additionally, she has been able to have a bowel movement yesterday, and denies dysuria and hematuria. ROS negative except for as listed above Overnight events: N acute overnight events Exam Vital Signs Temp Pulse Resp BP Pulse Ox O2 Del Method O2 Flow Rate 97.0 F 85 24 H 119/76 100 Nasal Cannula 3 06/08/25 04:00 06/08/25 06:41 06/08/25 06:41 06/08/25 04:00 06/08/25 06:41 06/08/25 04:00 06/08/25 06:41 FiO2 45 06/08/25 04:00 Narrative Exam General:Patient is A&O x3, not in any acute distress, pleasant, conversant HEENT: Normocephalic, atraumatic, PERRL, EOM intact, left pupil has mild leukocoria (patient confirms this is because of known cataract hx which is being followed outpatient) Cardio: Normal S1 S2, 2+ peripheral pulses with no peripheral edema Pulm: Bilateral diffuse wheezing and crackles worse in the bases Abdominal: Bowel sounds present, abdomen is soft, nontender with no rigidity or guarding MSK: Strength 5/5 in bilateral upper extremity and left lower extremity Objective Labs 06/13/25 05:10 06/13/25 05:10 Labs: Laboratory Results - last 24 hr 06/07/25 06/07/25 06/08/25 07:54 19:54 05:20 WBC 11.3 H RBC 3.55 L Hgb 9.8 L Hct 31.5 L MCV 89 MCH 27.6 MCHC 31.1 RDW Std Deviation 47.6 H Plt Count 240 Neut % (Auto) 84 H Lymph % (Auto) 4 L Bent % (Auto) 11 Eos % (Auto) 0 Baso % (Auto) 0 Neut # (Auto) 9.5 H Lymph # (Auto) 0.5 L Bent # (Auto) 1.2 H Eos # (Auto) 0.0 Baso # (Auto) 0.0 Immature Gran # (Auto) 0.09 H Absolute Nucleated RBC 0.00 Immature Gran % 1 H Nucleated RBC % 0 Smear Path Review Sent to Pathologist ESR 60 H Retic Count (auto) 1.9 H Absolute Retic 66.7 Immature Retic Fraction 14.3 Retic Hgb Content CHr 34.5 Puncture Site Right Radial ABG pH 7.29 L D ABG pCO2 70 H ABG pO2 98 D ABG HCO3 33 H ABG O2 Saturation 97 ABG Base Excess 5 H Oxygen Liter Flow 3 Sodium 144 Potassium 4.7 D Chloride 101 Carbon Dioxide 34.1 H Anion Gap 9 BUN 20 Creatinine 0.7 Estim Creat Clear Calc 52.8 L eGFR > 60 BUN/Creatinine Ratio [address]ucose [address] Glu mg/dL 111 Hemoglobin A1c 5.5 Calculated Osmolality 288 Calcium 8.5 Corrected Calcium 8.7 Phosphorus 5.0 Magnesium 2.3 Iron 28 L TIBC 322 Iron Saturation 8 L Unsat Iron Binding 294 Ferritin 32 Total Bilirubin 0.4 AST 18 ALT 9 L Alkaline Phosphatase 98 Total Creatine Kinase 38 C-Reactive Prot, Quant 4.7 H Total Protein 6.2 Albumin 3.8 Globulin 2.4 Albumin/Globulin Ratio 1.6 Ur Collection Type Clean Catch Urine Color Lt-Yellow Urine Clarity Clear Urine pH 6.0 Ur Specific [place] 1.014 Urine Protein Negative Urine Glucose (UA) Negative Urine Ketones Negative Urine Blood 2+ A Urine Nitrite Negative Urine Bilirubin Negative Urine Urobilinogen (Auto) Negative Ur Leukocyte Esterase Negative Urine RBC 19 H Urine WBC 1 Ur Squamous Epith Cells 1 Urine Bacteria None Ur Culture Indicated? Not Indicated ABG Interpretation ABG results: 06/07/25 06/07/25 05:41 19:54 ABG pH 7.44 7.29 L D ABG pCO2 61 H 70 H ABG pO2 48 L* 98 D ABG HCO3 41 H 33 H ABG O2 Saturation 71 L 97 ABG Base Excess 14 H 5 H Quality Measures Quality Measures none Advance care planning discussed with:: patient Assessment & Plan Assessment Current Active Medications: Generic Name Dose Route Start Last Admin Trade Name Freq PRN Reason Stop Dose Admin Acetaminophen 650 mg 06/07/25 09:54 06/07/25 14:12 Acetaminophen 325 Mg Tablet PO 07/07/25 09:53 650 mg Q6H PRN Administration PAIN SCALE 1-3 (mild Acetaminophen 650 mg 06/07/25 09:54 Acetaminophen 325 Mg Tablet PO 07/07/25 09:53 Q6H PRN Fever >100.4 Benzonatate 100 mg 06/07/25 10:15 06/07/25 12:49 Benzonatate 100 Mg Capsule PO 07/07/25 10:14 100 mg QDAY EMRE Administration Protocol Dextrose 25 ml 06/07/25 12:04 Dextrose 50%-Water Inj 50 Ml Syringe IV 07/07/25 12:03 Q15MIN PRN BG 50-70 responsive npo pt Dextrose 50 ml 06/07/25 12:04 Dextrose 50%-Water Inj 50 Ml Syringe IV 07/07/25 12:03 Q15MIN PRN BG <50 OR BG <70 & pt unresponsive Diltiazem HCl 360 mg 06/08/25 09:00 Diltiazem Cd 120 Mg Capcr PO 07/08/25 08:59 QDAY EMRE Glucagon 1 mg 06/07/25 12:04 Glucagon Inj 1 Mg Vial IM Q15MIN PRN BG <70, and no IV access Heparin Sodium (Porcine) 5,000 unit 06/07/25 21:00 06/07/25 21:01 Heparin Sod Inj 5000 Unit/Ml Vial SC 06/21/25 20:59 5,000 unit Q12H EMRE Administration Azithromycin 500 mg/ Sodium 250 mls @ 250 mls/hr 06/08/25 09:00 Chloride IV 06/15/25 08:59 QDAY EMRE Ceftriaxone Sodium/Dextrose 1 gm in 50 mls @ 100 mls/hr 06/08/25 09:00 Rocephin/D5w 1gm Iv Premix IV 06/15/25 08:59 QDAY EMRE Insulin Human Lispro 0 unit 06/07/25 17:00 06/07/25 17:31 Insulin Lispro (Admelog) 1 Unit/0.01 Ml Unit SC 07/07/25 16:59 Not Given AC [facility] Protocol Levalbuterol HCl 1.25 mg 06/07/25 15:00 06/08/25 06:41 Levalbuterol Rt 1.25 Mg/0.5 Ml Nebu INH 07/07/25 14:59 1.25 mg Q6HRRT EMRE Administration Lisinopril 2.5 mg 06/07/25 12:15 06/07/25 12:49 Lisinopril 2.5 Mg Tablet PO 07/07/25 12:14 2.5 mg QDAY EMRE Administration Loratadine 10 mg 06/07/25 12:15 06/07/25 12:45 Loratadine 10 Mg Tablet PO 07/07/25 12:14 10 mg QDAY EMRE Administration Methylprednisolone Sodium Succinate 40 mg 06/08/25 09:00 Methylprednisolone Sod Succ 40 Mg Vial IVP 06/15/25 08:59 QDAY EMRE Ondansetron HCl 4 mg 06/07/25 09:54 Ondansetron Inj 2 Mg/Ml Inj 2 Ml IVP 07/07/25 09:53 Q6H PRN NAUSEA OR VOMITING Protocol Oxycodone/Acetaminophen 1 tab 06/07/25 09:54 Oxycodone/Apap 5/325 Tablet PO 06/12/25 09:53 Q6H PRN PAIN SCALE 4-6 (Moderate Pantoprazole Sodium 40 mg 06/08/25 09:00 Pantoprazole Inj 40 Mg Vial IVP 07/08/25 08:59 QDAY EMRE Sodium Chloride 3 ml 06/07/25 13:00 06/08/25 06:41 Sodium Chloride Rt [place] 0.9% 3 Ml Nebu INH 07/07/25 12:59 3 ml Q6HRRT EMRE Administration Sodium Chloride 3 ml 06/07/25 12:10 Sodium Chloride Rt [place] 0.9% 3 Ml Nebu INH 07/07/25 12:09 PRN PRN SOLN Plan Assessment Jazmin is a 70 y/o female with PMHx of chronic asthma (on 3L O2 at home) severe peripheral artery disease (status post left BKA), hypertension, hyperlipidemia, [id number] type 2 diabetes who is admitted for Acute on Chronic respiratory failure and community acquired pneumonia. #Acute on chronic respiratory failure #Community-acquired pneumonia #Moderate pulmonary hypertension #Hx of Chronic asthma #? Interstitial lung disease #? COPD exacerbation Patient was recently discharged from the ER for similar symptoms including fever, shortness of breath Patient has never seen a marketing representative or gotten PFTs On previous chest abdomen pelvis done in March 2025 shows possible miliary disease She has no risk factors for tuberculosis including no history of incarceration, exposure to TB, travel to TB endemic areas She is not a smoker, however [place] lived [place] the [place] years which can contribute to her lung disease Has worked in the [employer] before as well Patient appears to be a chronic CO2 retainer as her baseline CO2 is in the upper 60s lower 70s ABG shows a PO2 of 48 and PCO2 of 61, this pO2 may be an air or a VBG Repeat ABG shows PCO2 70, PO2 98, HCO3 33 Patient's baseline home oxygen requirement is 3 L Patient does confirm some fevers at times and weight loss recently, however it does not appear to be significant at this time Previous workup for cocci and tuberculosis in 2021 was negative Today Coccidiodes IgM Ab is negative, IgG Ab is pending -WBC is downtrending from 13.9 on admission to 11.3 today Her respiratory failure is likely related to longstanding interstitial lung disease Echo previously shows RVSP 55 mmHg Patient does not appear to have heart failure Pulmonary hypertension could be group 3 related to lung including systolic or diastolic dysfunction including ILD or COPD, unlikely group 4 she does not have history of thrombus, also could be group 5. Unlikely group 2 as patient does not have significant heart disease COVID and influenza negative Chest Xray 06/06: increased AP dimension chest, significant vascular congestion, no lobar pneumonia, suspicious for early heart failure Chest xray 06/07: suspicious for early pneumonia Chest CT 06/07: Bilateral pneumonia, most prominent left upper lobe and lingular segment Incidental findings on Chest CT: trace pericardial effusion, stable 19mm lesion posterior right lobe of the liver, posterior left renal cyst -RSV negative -sputum culture shows 2+ wbcs, mixed tania -03/05 blood cultures negative Plan: ? Rocephin 1 g IV (06/07? ? Azithromycin 500 mg IV (06/07?06/08) - discontinued Azithromycin and began Metronidazole 500mg IV Q8HR ? Solu-Medrol 40 mg IV daily ? Chest physiotherapy ? Xopenex 1.25 mg every 6 hours RT ? Cocci serologies ? Quantiferon Gold ? ANGELITA ? Tessalon Perles as needed ? Follow-up MRSA - rule out atypical Mycobacterium. Will initiate Airborne isolation, and get AFB x3 -Consider outpatient pulmonology follow up #Metabolic alkalosis with respiratory acidosis ABG showed a pH of 7.44, bicarb of 41, pCO2 of 61 Patient is a chronic CO2 retainer -Repeat ABG on hospital day 3 shows PH 7.29, bicarb 33, and PCO2 of 70 We would typically expect a patient to have chronic respiratory acidosis with renal compensation with alkalosis, however this appears to be a mixed base disorder as pCO2 should be expected to be around 50 Mixed acid-base disorder Plan: ? Trend CMP ? 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 Pavon, records show that patient had a Holter and with the Holter records patient appears to be in A-fib about 1% of the time -TSH, FT4 wnl, A1C 5.5 Plan: - Appreciate cardiology recs ? Telemetry ? Keep magnesium and potassium above 2 and 4 respectively ? Resume home Cardizem 360 mg daily ? Will resume Eliquis upon discharge ? Cardiac stratification - Cardiac Diet #Hypertension #Hyperlipidemia #Severe peripheral artery disease s/p L BKA Chronic Plan: ? Resumed home Lipitor 80 mg at bedtime ? Resume home lisinopril 2.5 mg daily ? Cardiac stratification #Insulin Dependent Type II Diabetes mellitus Takes Novolin 70/30 15 units at home Recent A1c 5.0, ? Follow-up A1c is 5.5 Plan: ? Sliding scale insulin ? Hypoglycemic protocol in place ? Blood sugar checks with meals #Chronic hematuria DDx: IgA Nephropathy, FSGS, GPA, Rhabomyolysis, bladder malignancy No stones seen on imaging, or hx of stones Patient has had blood and RBCs in the urine before Patient shows +2 blood and 19 RBCs today Previous has had ANGELITA, c-ANCA and p-ANCA negative Pt likely has IgA nephropathy No signs of Nephritic or nephrotic syndrome (no protein in urine) at this time Could be GPA but considering ANCA numbers are negative, unlikely, also pt has not commented on hemoptysis No recent fall; Unlikely bladder related due to no smoking hx Plan: ? 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 Moore, GI Was supposed be referred to [facility] for surgical intervention, patients daughter confirms this did not happen Chest CT 06/07: retrocardiac gastric hernia; patient is asymptomatic Iron is low (28) and TIBC and ferritin are normal. Retic count % 1.9, absolute retic count is normal Plan: ? Trend CBC ? Peripheral blood smear ? Transfusion protocol hemoglobin below 7 ? Avoiding any NSAIDs ? Protonix 40 mg daily ? FOBT ? Consider GI consult #Health Maintenance Disposition: Telemetry DVT prophylaxis: Heparin Q12H GI prophylaxis: Protonix Diet: Cardiac CODE STATUS: DNR Health Maintenance: Disposition: DVT Prophylaxis: GI Prophylaxis: Diet: CODE STATUS: DNR Plan discussed with my attending physician, Dr. Malik , and my senior resident, Dr. Patrick Winter, [facility] [place] Attending Provider Attestation/Addendum Patient was seen on June 07, 2025 Re-assigned to correct attending hospitalist.
[2025-06-08] MEDS: cefTRIAXone/D5w 1gm IV premix 1 GM/50 ML BAG IV (08:21)
[2025-06-08] MEDS: HEPARIN SOD INJ 5000 UNIT/ML VIAL SC ×2 (08:21→21:07)
[2025-06-08] MEDS: DILTIAZEM CD 120 MG CAPCR 360 MG PO (08:21)
[2025-06-08] MEDS: AZITHROMYCIN INJ 500 MG in SODIUM CHLORIDE 0.9% 250 ML 250 ML 250 MG IV (08:59)
[2025-06-08] MEDS: BENZONATATE 100 MG CAPSULE PO (08:59)
--- NOTE | 2025-06-08 10:43 | PC.SS ---
Jazmin Faulkner is a 70-year-old female admitted to [facility] for AHRF. SS conducted bedside contact with the patient to complete initial assessment and to discuss discharge planning. Role and reason explained. Patient confirmed demographic information. Patient identifies dtr Angeli Faulkner [phone] as her surrogate decision maker. Pt states she lives with her son, she is able to complete all ADL?s, sometimes with minimal assistance which she has a SS caregiver. Pt possesses a wheelchair and O2 from [facility]. Pts PCP is Dr. Cardenas. Pharmacy of choice is [email or web address]. Discharge options discussed and the pt wishes to return home.? Family will provide transportation upon DC. No further intervention required at this time, perinatal social worker would be available to address any further concerns. DC Plan: Home Contact: Angeli Covington Address: Confirmed on face sheet PCP: Ronald
[2025-06-08 12:49] LABS: Cocci Serology, IgM Negative (Negative)
--- NOTE | 2025-06-08 13:49 | ESPR_ITS ---
Documentation for date of: 06/08/25 Subjective Subjective Interval history: The patient was seen and examined at the bedside this morning. She reported improvement in her shortness of breath, and feels like she is back at her baseline. The patient is currently saturating 97% on 3 L of NC, and she is at [address] chest revealed bilateral pneumonia, most prominent in left upper lobe and lingular segment, but as interpreted by me, it was also significant for reticular pattern. Primary team ruling out flu along with possible miliary TB given the CT findings The patient was given trial of Lasix IV, but need negative was only 63 cc despite of low input. This suggest that the patient does not have CHF exacerbation, backed by low BNP level and CT chest not revealing any signs of CHF or volume overload. Recommended pulmonary consultation, as there could be some component of ILD leading to COPD exacerbation. Recommended to stop Lasix. Continue with antibiotics - Continue with diltiazem 360 Mg daily, and avoid beta-mihir in the setting of acute on chronic respiratory failure Exam Vital Signs Temp Pulse Resp BP Pulse Ox O2 Del Method O2 Flow Rate 97.0 F 79 20 121/73 100 Nasal Cannula 2 06/08/25 12:00 06/08/25 12:37 06/08/25 12:37 06/08/25 12:00 06/08/25 12:37 06/08/25 12:00 06/08/25 12:37 FiO2 45 06/08/25 04:00 Narrative Exam General: No acute distress, Alert and Oriented x 3 HEENT: Moist mucous membranes, oropharynx clear Neck: Supple, No masses, No JVD CVS: S1S2 Regular rate and rhythm, pansystolic murmur over left lower sternal border, rubs or gallops Lungs: no wheeze no rhonchi, , fine crackles over bibasilar lung lobes Abd: Soft, NT/ND, +BS, no organomegaly Ext: Left BKA, feeble pulse on right lower extremity Skin: No rash Psych: Appropriate mood and affect Objective Labs 06/08/25 05:20 06/08/25 05:20 Labs: Laboratory Results - last 24 hr 06/07/25 06/08/25 19:54 05:20 WBC 11.3 H RBC 3.55 L Hgb 9.8 L Hct 31.5 L MCV 89 MCH 27.6 MCHC 31.1 RDW Std Deviation 47.6 H Plt Count 240 Neut % (Auto) 84 H Lymph % (Auto) 4 L [place] % (Auto) 11 Eos % (Auto) 0 Baso % (Auto) 0 Neut # (Auto) 9.5 H Lymph # (Auto) 0.5 L [place] # (Auto) 1.2 H Eos # (Auto) 0.0 Baso # (Auto) 0.0 Immature Gran # (Auto) 0.09 H Absolute Nucleated RBC 0.00 Immature Gran % 1 H Nucleated RBC % 0 Smear Path Review Sent to Pathologist ESR 60 H Retic Count (auto) 1.9 H Absolute Retic 66.7 Immature Retic Fraction 14.3 Retic Hgb Content CHr 34.5 Puncture Site Right Radial ABG pH 7.29 L D ABG pCO2 70 H ABG pO2 98 D ABG HCO3 33 H ABG O2 Saturation 97 ABG Base Excess 5 H Oxygen Liter Flow 3 Sodium 144 Potassium 4.7 D Chloride 101 Carbon Dioxide 34.1 H Anion Gap 9 BUN 20 Creatinine 0.7 Estim Creat Clear Calc 52.8 L eGFR > 60 BUN/Creatinine Ratio [address]ucose [address] Glu mg/dL 111 Hemoglobin A1c 5.5 Calculated Osmolality 288 Calcium 8.5 Corrected Calcium 8.7 Phosphorus 5.0 Magnesium 2.3 Iron 28 L TIBC 322 Iron Saturation 8 L Unsat Iron Binding 294 Ferritin 32 Total Bilirubin 0.4 AST 18 ALT 9 L Alkaline Phosphatase 98 Total Creatine Kinase 38 C-Reactive Prot, Quant 4.7 H Total Protein 6.2 Albumin 3.8 Globulin 2.4 Albumin/Globulin Ratio 1.6 Coccidioides IgM Ab Negative ABG Interpretation ABG results: 06/07/25 06/07/25 05:41 19:54 ABG pH 7.44 7.29 L D ABG pCO2 61 H 70 H ABG pO2 48 L* 98 D ABG HCO3 41 H 33 H ABG O2 Saturation 71 L 97 ABG Base Excess 14 H 5 H Quality Measures Quality Measures none Advance care planning discussed with:: patient Assessment & Plan Assessment Current Active Medications: Generic Name Dose Route Start Last Admin Trade Name Freq PRN Reason Stop Dose Admin Acetaminophen 650 mg 06/07/25 09:54 06/07/25 14:12 Acetaminophen 325 Mg Tablet PO 07/07/25 09:53 650 mg Q6H PRN Administration PAIN SCALE 1-3 (mild Acetaminophen 650 mg 06/07/25 09:54 Acetaminophen 325 Mg Tablet PO 07/07/25 09:53 Q6H PRN Fever >100.4 Benzonatate 100 mg 06/07/25 10:15 06/08/25 08:59 Benzonatate 100 Mg Capsule PO 07/07/25 10:14 100 mg QDAY EMRE Administration Protocol Dextrose 25 ml 06/07/25 12:04 Dextrose 50%-Water Inj 50 Ml Syringe IV 07/07/25 12:03 Q15MIN PRN BG 50-70 responsive npo pt Dextrose 50 ml 06/07/25 12:04 Dextrose 50%-Water Inj 50 Ml Syringe IV 07/07/25 12:03 Q15MIN PRN BG <50 OR BG <70 & pt unresponsive Diltiazem HCl 360 mg 06/08/25 09:00 06/08/25 08:21 Diltiazem Cd 120 Mg Capcr PO 07/08/25 08:59 360 mg QDAY EMRE Administration Glucagon 1 mg 06/07/25 12:04 Glucagon Inj 1 Mg Vial IM Q15MIN PRN BG <70, and no IV access Heparin Sodium (Porcine) 5,000 unit 06/07/25 21:00 06/08/25 08:21 Heparin Sod Inj 5000 Unit/Ml Vial SC 06/21/25 20:59 5,000 unit Q12H EMRE Administration Ceftriaxone Sodium/Dextrose 1 gm in 50 mls @ 100 mls/hr 06/08/25 09:00 06/08/25 08:21 Rocephin/D5w 1gm Iv Premix IV 06/15/25 08:59 100 mls/hr QDAY EMRE Administration Metronidazole 500 mg in 100 mls @ 200 mls/hr 06/08/25 13:26 Flagyl 500 Mg Iv IV 06/15/25 13:25 Q8HR EMRE Insulin Human Lispro 0 unit 06/07/25 17:00 06/08/25 11:57 Insulin Lispro (Admelog) 1 Unit/0.01 Ml Unit SC 07/07/25 16:59 Not Given AC [facility] Protocol Levalbuterol HCl 1.25 mg 06/07/25 15:00 06/08/25 12:37 Levalbuterol Rt 1.25 Mg/0.5 Ml Nebu INH 07/07/25 14:59 1.25 mg Q6HRRT EMRE Administration Lisinopril 2.5 mg 06/07/25 12:15 06/08/25 08:22 Lisinopril 2.5 Mg Tablet PO 07/07/25 12:14 2.5 mg QDAY EMRE Administration Loratadine 10 mg 06/07/25 12:15 06/08/25 08:22 Loratadine 10 Mg Tablet PO 07/07/25 12:14 10 mg QDAY EMRE Administration Methylprednisolone Sodium Succinate 40 mg 06/08/25 09:00 06/08/25 08:22 Methylprednisolone Sod Succ 40 Mg Vial IVP 06/15/25 08:59 40 mg QDAY EMRE Administration Ondansetron HCl 4 mg 06/07/25 09:54 Ondansetron Inj 2 Mg/Ml Inj 2 Ml IVP 07/07/25 09:53 Q6H PRN NAUSEA OR VOMITING Protocol Oxycodone/Acetaminophen 1 tab 06/07/25 09:54 Oxycodone/Apap 5/325 Tablet PO 06/12/25 09:53 Q6H PRN PAIN SCALE 4-6 (Moderate Pantoprazole Sodium 40 mg 06/08/25 09:00 06/08/25 08:22 Pantoprazole Inj 40 Mg Vial IVP 07/08/25 08:59 40 mg QDAY EMRE Administration Sodium Chloride 3 ml 06/07/25 13:00 06/08/25 06:41 Sodium Chloride Rt [place] 0.9% 3 Ml Nebu INH 07/07/25 12:59 3 ml Q6HRRT EMRE Administration Sodium Chloride 3 ml 06/07/25 12:10 Sodium Chloride Rt [place] 0.9% 3 Ml Nebu INH 07/07/25 12:09 PRN PRN SOLN Plan Jazmin is a 70 y/o female with PMHx of chronic asthma (on oxygen intermittently at home) severe peripheral artery disease (status post left BKA), hypertension, hyperlipidemia, [id number] type 2 diabetes who is admitted for Acute on Chronic respiratory failure and community acquired pneumonia. #CHF exacerbation, ruled out- has chronic diastolic heart failure - euvolemic now Less likely to have CHF exacerbation, as BNP is 27, and the fine crackles heard on chest exam is likely secondary to interstitial lung disease. Chest x-ray and CT chest negative for vascular congestion or volume overload, but significant for reticular pattern indicating possible ILD. - Rule out interstitial lung disease - Pulmonary consultation - May consider high-dose pulse steroid therapy, if agreed by buffing machine operator semiautomatic - Recent echo on April 2025 was significant for RVSP 55 mmHg, but stable LVEF. - Stop diuretics - Strict input output, daily weights and 2 g sodium diet. #Acute on chronic respiratory failure #Community-acquired pneumonia and rule out flu #COPD exacerbation #Moderate pulmonary hypertension #Hx of Chronic asthma #Possible Interstitial lung disease Patient was recently discharged from the ER for similar symptoms including fever, shortness of breath Patient has never seen a buffing machine operator semiautomatic or gotten PFTs On previous chest abdomen pelvis done in March 2025 shows possible miliary disease, but further reading of the films was suspicious for reticular pattern suggestive of COPD. She reported no expected or exposure to TB, and no recent visit to [place]. Previously she was tested negative for tuberculosis. 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 Despite SOB, she is saturating well on home 3 L NC. Echo previously shows RVSP 55 mmHg -Continue with antibiotics and steroids -DuoNeb as needed -Continue with BiPAP as needed #Chronic Paroxysmal A-fib [id number], HAS-BLED: 2, currently regular rate and rhythm Eliquis held due to concern for GI bleed in the past. 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 We appreciate the opportunity to participate in this patient care. Cardiology will continue to follow-up on this patient. The patient's management plan was discussed with my attending physician MD Angel Bal MD, PGY3 Attending Provider Attestation/Addendum I have personally seen and examined the patient separately on the above date of service and discussed the plan of care with the resident. I reviewed the resident Dr. Angel Tanner consultation progress note and agree with the resident findings and plan in the note above and have also edited the documentation to reflect my findings and plan. Campos Pavon M.D. Interventional Cardiology
[2025-06-08] MEDS: metroNIDAZOLE/NS 500 MG IVPB 500 MG/100 ML BAG 200 MG IV ×2 (14:25→21:07)
[2025-06-08 16:02] LABS: Cult AFB Sendout- Sputum* See Sep Rpt
[2025-06-08] MEDS: INSULIN LISPRO (AdmeLOG) 1 UNIT/0.01 ML UNIT SC (17:52)
[2025-06-09] VITALS (13 sets, daily range): BP systolic 119–139; BP diastolic 56–78; PULSE 62–89; RESP 17–24; TEMP 36–36.5; O2SAT 92–100
[2025-06-09] MEDS: LEVALBUTEROL RT 1.25 MG/0.5 ML NEBU INH ×4 (00:31→18:47)
[2025-06-09] MEDS: SODIUM CHLORIDE RT SOL 0.9% 3 ML NEBU INH ×3 (00:31→18:47)
[2025-06-09 04:38] LABS: Cult AFB Sendout- Sputum* See Sep Rpt
--- NOTE | 2025-06-09 04:43 | PC.RT ---
AFB obtained at 04:23 pt expectorated sent to lab at this time.
[2025-06-09] MEDS: metroNIDAZOLE/NS 500 MG IVPB 500 MG/100 ML BAG 200 MG IV ×3 (06:20→21:22)
[2025-06-09 06:32] LABS: Basophils # (Auto) 0.0 Thou/mm3 (0.0-0.2); Basophils % (Auto) 0 % (0-2.5); Eosinophils # (Auto) 0.0 Thou/mm3 (0.0-0.5); Eosinophils % (Auto) 0 % (0-10); Hematocrit 33.1 % (36.0-46.0); Hemoglobin 10.0 g/dL (12.0-16.0); Immature Granulocytes Auto 0.06 Thou/mm3 (0.00-0.00); Lymphocytes # (Auto) 0.6 Thou/mm3 (1.0-4.8); Lymphocytes % (Auto) 4 % (10-50); Mean Corpuscular HGB Conc 30.2 g/dl (31.0-37.0); Mean Corpuscular Hemoglobin 27.7 pg (25.0-35.0); Mean Corpuscular Volume 92 fL (80-100); Monocytes # (Auto) 0.9 Thou/mm3 (0.0-0.8); Monocytes % (Auto) 7 % (0-12); Neutrophils # (Auto) 12.5 Thou/mm3 (1.8-7.7); Neutrophils % (Auto) 89 % (37-80); Nucleated Red Blood Cell # 0.00 Thou/mm3 (0.00-0.00); Nucleated Red Blood Cell % 0 /100 WBC (0); Platelet Count 264 Thou/mm3 (140-440); RDW Standard Deviation 49.5 fL (36.4-46.3); Red Blood Count 3.61 Miln/mm3 (4.00-5.20); White Blood Count 14.0 Thou/mm3 (3.6-11.0)
[2025-06-09 06:59] LABS: Alanine Aminotransferase 13 U/L (10-49); Albumin, Serum 3.9 gm/dL (3.4-4.8); Albumin/Globulin Ratio 1.6 (1.2-2.2); Alkaline Phosphatase 96 U/L (46-116); Anion Gap 7 (7-16); Aspartate Amino Transferase 20 U/L (0-34); BUN/Creatinine Ratio 36 Ratio (12-20); Bilirubin,Total 0.3 mg/dL (0.3-1.2); Blood Urea Nitrogen 25 mg/dL (9-23); Calcium 8.4 mg/dL (8.3-10.6); Calcium (Corrected) 8.5 mg/dL (8.5-10.1); Carbon Dioxide 36.5 mMol/L (20.0-31.0); Chloride 103 mMol/L (98-107); Creatinine (Component) 0.7 mg/dL (0.6-1.3); Estimated Creatinine Clearance 52.8 mL/min (>60); Globulin 2.4 gm/dL (2.3-3.5); Glucose 111 mg/dL (74-106); Magnesium 2.4 mg/dL (1.6-2.6); Osmolality,Calculated 295 (275-295); Phosphorous 3.3 mg/dL (2.4-5.1); Potassium 4.8 mMol/L (3.4-5.1); Sodium 146 mMol/L (136-145); Total Protein 6.3 gm/dL (5.7-8.2); eGFR > 60 See Note
--- NOTE | 2025-06-09 07:16 | CHAP ---
Patient was visited by a Spiritual Care Volunteer on 06/08/2025 between 1350 and 1654 and received comfort, encouragement and/or prayer.
[2025-06-09] MEDS: DILTIAZEM CD 120 MG CAPCR 360 MG PO (09:13)
[2025-06-09] MEDS: cefTRIAXone/D5w 1gm IV premix 1 GM/50 ML BAG IV (09:14)
[2025-06-09] MEDS: BENZONATATE 100 MG CAPSULE PO (09:14)
[2025-06-09] MEDS: PANTOPRAZOLE 40 MG TABLET PO (09:14)
[2025-06-09] MEDS: HEPARIN SOD INJ 5000 UNIT/ML VIAL SC ×2 (09:15→20:03)
[2025-06-09 10:57] LABS: Cocci Serology, IgG Negative (Negative)
--- NOTE | 2025-06-09 12:26 | ESPR_ITS ---
Documentation for date of: 06/09/25 Subjective Subjective Interval history: The patient was seen and examined at the bedside this morning. She reported improvement in her shortness of breath, and feels like she is back at her baseline. The patient is currently saturating 97% on 3 L of NC, and she is at [address] chest revealed bilateral pneumonia, most prominent in left upper lobe and lingular segment, but as interpreted by me, it was also significant for reticular pattern. Primary team ruling out flu along with possible miliary TB given the CT findings The patient was given trial of Lasix IV, but need negative was only 63 cc despite of low input. This suggest that the patient does not have CHF exacerbation, backed by low BNP level and CT chest not revealing any signs of CHF or volume overload. Recommended sleep study. Recommended to stop Lasix. Continue with antibiotics - Continue with diltiazem 360 Mg daily, and avoid beta-mihir in the setting of chronic respiratory failure. - Pt is currently stable but being ruled out for TB and pending coccy results. Exam Vital Signs Temp Pulse Resp BP Pulse Ox O2 Del Method O2 Flow Rate 97.7 F 76 24 H 124/56 L 95 Nasal Cannula 2 06/09/25 12:00 06/09/25 12:00 06/09/25 12:00 06/09/25 12:00 06/09/25 12:00 06/09/25 12:00 06/09/25 12:00 FiO2 45 06/09/25 08:00 Narrative Exam General: No acute distress, Alert and Oriented x 3 HEENT: Moist mucous membranes, oropharynx clear Neck: Supple, No masses, No JVD CVS: S1S2 Regular rate and rhythm, pansystolic murmur over left lower sternal border, rubs or gallops Lungs: no wheeze no rhonchi, no cracles Abd: Soft, NT/ND, +BS, no organomegaly Ext: Left BKA, feeble pulse on right lower extremity Skin: No rash Psych: Appropriate mood and affect Objective Labs 06/09/25 05:42 06/09/25 05:42 Labs: Laboratory Results - last 24 hr 06/08/25 06/09/25 05:20 05:42 WBC 14.0 H RBC 3.61 L Hgb 10.0 L Hct 33.1 L MCV 92 MCH 27.7 MCHC 30.2 L RDW Std Deviation 49.5 H Plt Count 264 Neut % (Auto) 89 H Lymph % (Auto) 4 L [place] % (Auto) 7 Eos % (Auto) 0 Baso % (Auto) 0 Neut # (Auto) 12.5 H Lymph # (Auto) 0.6 L [place] # (Auto) 0.9 H Eos # (Auto) 0.0 Baso # (Auto) 0.0 Immature Gran # (Auto) 0.06 H Absolute Nucleated RBC 0.00 Immature Gran % 0 Nucleated RBC % 0 Sodium 146 H Potassium 4.8 Chloride 103 Carbon Dioxide 36.5 H Anion Gap 7 BUN 25 H Creatinine 0.7 Estim Creat Clear Calc 52.8 L eGFR > 60 BUN/Creatinine Ratio 36 H Glucose 111 H Calculated Osmolality 295 Calcium 8.4 Corrected Calcium 8.5 Phosphorus 3.3 Magnesium 2.4 Total Bilirubin 0.3 AST 20 ALT 13 Alkaline Phosphatase 96 Total Protein 6.3 Albumin 3.9 Globulin 2.4 Albumin/Globulin Ratio 1.6 Coccidioides IgG Ab Negative Coccidioides IgM Ab Negative ABG Interpretation ABG results: 06/07/25 06/07/25 05:41 19:54 ABG pH 7.44 7.29 L D ABG pCO2 61 H 70 H ABG pO2 48 L* 98 D ABG HCO3 41 H 33 H ABG O2 Saturation 71 L 97 ABG Base Excess 14 H 5 H Quality Measures Quality Measures none Advance care planning discussed with:: patient Assessment & Plan Assessment Current Active Medications: Generic Name Dose Route Start Last Admin Trade Name Freq PRN Reason Stop Dose Admin Acetaminophen 650 mg 06/07/25 09:54 06/07/25 14:12 Acetaminophen 325 Mg Tablet PO 07/07/25 09:53 650 mg Q6H PRN Administration PAIN SCALE 1-3 (mild Acetaminophen 650 mg 06/07/25 09:54 Acetaminophen 325 Mg Tablet PO 07/07/25 09:53 Q6H PRN Fever >100.4 Benzonatate 100 mg 06/07/25 10:15 06/09/25 09:14 Benzonatate 100 Mg Capsule PO 07/07/25 10:14 100 mg QDAY EMRE Administration Protocol Dextrose 25 ml 06/07/25 12:04 Dextrose 50%-Water Inj 50 Ml Syringe IV 07/07/25 12:03 Q15MIN PRN BG 50-70 responsive npo pt Dextrose 50 ml 06/07/25 12:04 Dextrose 50%-Water Inj 50 Ml Syringe IV 07/07/25 12:03 Q15MIN PRN BG <50 OR BG <70 & pt unresponsive Diltiazem HCl 360 mg 06/08/25 09:00 06/09/25 09:13 Diltiazem Cd 120 Mg Capcr PO 07/08/25 08:59 360 mg QDAY EMRE Administration Docusate Sodium 100 mg 06/09/25 11:39 Docusate Sod 100 Mg Capsule PO 07/09/25 11:38 BID PRN CONSTIPATION Protocol Glucagon 1 mg 06/07/25 12:04 Glucagon Inj 1 Mg Vial IM Q15MIN PRN BG <70, and no IV access Heparin Sodium (Porcine) 5,000 unit 06/07/25 21:00 06/09/25 09:15 Heparin Sod Inj 5000 Unit/Ml Vial SC 06/21/25 20:59 5,000 unit Q12H EMRE Administration Ceftriaxone Sodium/Dextrose 1 gm in 50 mls @ 100 mls/hr 06/08/25 09:00 06/09/25 09:14 Rocephin/D5w 1gm Iv Premix IV 06/15/25 08:59 100 mls/hr QDAY EMRE Administration Metronidazole 500 mg in 100 mls @ 200 mls/hr 06/08/25 13:26 06/09/25 06:20 Flagyl 500 Mg Iv IV 06/15/25 13:25 200 mls/hr Q8HR EMRE Administration Insulin Human Lispro 0 unit 06/07/25 17:00 06/09/25 11:31 Insulin Lispro (Admelog) 1 Unit/0.01 Ml Unit SC 07/07/25 16:59 Not Given [facility] Protocol Ipratropium [place] 0.5 mg 06/09/25 13:00 Ipratropium Rt 0.5 Mg/ 2.5 Ml Nebu INH 07/09/25 12:59 Q6HRRT EMRE Levalbuterol HCl 1.25 mg 06/07/25 15:00 06/09/25 06:37 Levalbuterol Rt 1.25 Mg/0.5 Ml Nebu INH 07/07/25 14:59 1.25 mg Q6HRRT EMRE Administration Lisinopril 2.5 mg 06/07/25 12:15 06/09/25 09:14 Lisinopril 2.5 Mg Tablet PO 07/07/25 12:14 2.5 mg QDAY EMRE Administration Loratadine 10 mg 06/07/25 12:15 06/09/25 09:14 Loratadine 10 Mg Tablet PO 07/07/25 12:14 10 mg QDAY EMRE Administration Methylprednisolone Sodium Succinate 40 mg 06/08/25 09:00 06/09/25 09:15 Methylprednisolone Sod Succ 40 Mg Vial IVP 06/15/25 08:59 40 mg QDAY EMRE Administration Ondansetron HCl 4 mg 06/07/25 09:54 Ondansetron Inj 2 Mg/Ml Inj 2 Ml IVP 07/07/25 09:53 Q6H PRN NAUSEA OR VOMITING Protocol Oxycodone/Acetaminophen 1 tab 06/07/25 09:54 Oxycodone/Apap 5/325 Tablet PO 06/12/25 09:53 Q6H PRN PAIN SCALE 4-6 (Moderate Pantoprazole Sodium 40 mg 06/09/25 09:00 06/09/25 09:14 Pantoprazole 40 Mg Tablet PO 07/08/25 08:59 40 mg QDAY EMRE Administration Sodium Chloride 3 ml 06/07/25 13:00 06/09/25 06:37 Sodium Chloride Rt [place] 0.9% 3 Ml Nebu INH 07/07/25 12:59 3 ml Q6HRRT EMRE Administration Sodium Chloride 3 ml 06/07/25 12:10 Sodium Chloride Rt [place] 0.9% 3 Ml Nebu INH 07/07/25 12:09 PRN PRN SOLN Plan Jazmin is a 70 y/o female with PMHx of chronic asthma (on oxygen intermittently at home) severe peripheral artery disease (status post left BKA), hypertension, hyperlipidemia, itr-[id number] type 2 diabetes who is admitted for Acute on Chronic respiratory failure and community acquired pneumonia. #CHF exacerbation, ruled out- has chronic diastolic heart failure - euvolemic now Less likely to have CHF exacerbation, as BNP is 27, and the fine crackles heard on chest exam is likely secondary to interstitial lung disease. Chest x-ray and CT chest negative for vascular congestion or volume overload, but significant for reticular pattern indicating possible ILD. - Rule out interstitial lung disease - Pulmonary consultation - May consider high-dose pulse steroid therapy, if agreed by body engineer - Recent echo on April 2025 was significant for RVSP 55 mmHg, but stable LVEF. - Stop diuretics - Strict input output, daily weights and 2 g sodium diet. #Acute respiratory failure, resolved #Chronic respiratory failure #Community-acquired pneumonia #COPD exacerbation #Moderate pulmonary hypertension #Hx of Chronic asthma #Possible Interstitial lung disease #R/O Tuberculosis Patient was recently discharged from the ER for similar symptoms including fever, shortness of breath Patient has never seen a body engineer or gotten PFTs On previous chest abdomen pelvis done in March 2025 shows possible miliary disease, but further reading of the films was suspicious for reticular pattern suggestive of COPD. She reported no expected or exposure to TB, and no recent visit to [place]. Previously she was tested negative for tuberculosis. 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 Despite SOB, she is saturating well on home 3 L NC. Echo previously shows RVSP 55 mmHg -Continue with antibiotics and steroids -DuoNeb as needed -Continue with BiPAP as needed #Chronic Paroxysmal A-fib [id number], HAS-BLED: 2, currently regular rate and rhythm Eliquis held due to concern for GI bleed in the past. 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 We appreciate the opportunity to participate in this patient care. Cardiology will continue to follow-up on this patient. The patient's management plan was discussed with my attending physician MD Angel Bal MD, PGY3 Attending Provider Attestation/Addendum I have personally seen and examined the patient separately on the above date of service and discussed the plan of care with the resident. I reviewed the resident Dr. Angel Tanner consultation progress note and agree with the resident findings and plan in the note above and have also edited the documentation to reflect my findings and plan. Campos Pavon M.D. Interventional Cardiology
[2025-06-09] MEDS: DOCUSATE SOD 100 MG CAPSULE PO (12:34)
[2025-06-09] MEDS: POLYETHYLENE GLYCOL 17 GM PACKET PO (12:34)
[2025-06-09] MEDS: IPRATROPIUM RT 0.5 MG/ 2.5 ML NEBU INH ×2 (13:06→20:10)
--- NOTE | 2025-06-09 13:29 | ESPR_ITS ---
<Statement entered by Paulino Nguyen MD - 06/09/25 19:23> I have reviewed the note and agree with the resident's assessment & plan with exceptions as below. I have personally reviewed labs, imaging, home meds/prior records, examined the patient, formulated and discussed management plan with the IM team. Patient examined at bedside. Patient reports she is doing well. Continue to obtain acid-fast bacillus sputum samples rule out TB. Will continue with current management of antibiotics breathing treatment including Atrovent and Xopenex, and steroids. Spoke with GI, Dr. 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 Repeat hematology and chemistry in AM. Paulino Nguyen, PGY-2 Internal Medicine Documentation for date of: 06/09/25 Subjective Subjective Interval history: CC: shortness of breath Patients symptoms are continuing to improve. Currently she is saturating at 99 on 2L NC, and vitals are otherwise stable. There were no overnight events Exam Vital Signs Temp Pulse Resp BP Pulse Ox O2 Del Method O2 Flow Rate 97.7 F 88 20 124/56 L 99 Nasal Cannula 2 06/09/25 12:00 06/09/25 13:08 06/09/25 13:08 06/09/25 12:00 06/09/25 13:08 06/09/25 12:00 06/09/25 13:08 FiO2 45 06/09/25 08:00 Narrative Exam General:Patient is A&O x3, not in any acute distress, pleasant, conversant HEENT: Normocephalic, atraumatic, PERRL, EOM intact, left pupil has mild leukocoria (patient confirms this is because of known cataract hx which is being followed outpatient) Cardio: Normal S1 S2, 2+ peripheral pulses with no peripheral edema Pulm: Bilateral diffuse wheezing and crackles worse in the bases Abdominal: Bowel sounds present, abdomen is soft, nontender with no rigidity or guarding MSK: Strength 5/5 in bilateral upper extremity and left lower extremity Objective Labs 06/10/25 04:45 06/10/25 04:45 Labs: Laboratory Results - last 24 hr 06/08/25 06/09/25 05:20 05:42 WBC 14.0 H RBC 3.61 L Hgb 10.0 L Hct 33.1 L MCV 92 MCH 27.7 MCHC 30.2 L RDW Std Deviation 49.5 H Plt Count 264 Neut % (Auto) 89 H Lymph % (Auto) 4 L [place] % (Auto) 7 Eos % (Auto) 0 Baso % (Auto) 0 Neut # (Auto) 12.5 H Lymph # (Auto) 0.6 L [place] # (Auto) 0.9 H Eos # (Auto) 0.0 Baso # (Auto) 0.0 Immature Gran # (Auto) 0.06 H Absolute Nucleated RBC 0.00 Immature Gran % 0 Nucleated RBC % 0 Sodium 146 H Potassium 4.8 Chloride 103 Carbon Dioxide 36.5 H Anion Gap 7 BUN 25 H Creatinine 0.7 Estim Creat Clear Calc 52.8 L eGFR > 60 BUN/Creatinine Ratio 36 H Glucose 111 H Calculated Osmolality 295 Calcium 8.4 Corrected Calcium 8.5 Phosphorus 3.3 Magnesium 2.4 Total Bilirubin 0.3 AST 20 ALT 13 Alkaline Phosphatase 96 Total Protein 6.3 Albumin 3.9 Globulin 2.4 Albumin/Globulin Ratio 1.6 Coccidioides IgG Ab Negative ABG Interpretation ABG results: 06/07/25 06/07/25 05:41 19:54 ABG pH 7.44 7.29 L D ABG pCO2 61 H 70 H ABG pO2 48 L* 98 D ABG HCO3 41 H 33 H ABG O2 Saturation 71 L 97 ABG Base Excess 14 H 5 H Quality Measures Quality Measures none Advance care planning discussed with:: patient Assessment & Plan Assessment Current Active Medications: Generic Name Dose Route Start Last Admin Trade Name Freq PRN Reason Stop Dose Admin Acetaminophen 650 mg 06/07/25 09:54 06/07/25 14:12 Acetaminophen 325 Mg Tablet PO 07/07/25 09:53 650 mg Q6H PRN Administration PAIN SCALE 1-3 (mild Acetaminophen 650 mg 06/07/25 09:54 Acetaminophen 325 Mg Tablet PO 07/07/25 09:53 Q6H PRN Fever >100.4 Benzonatate 100 mg 06/07/25 10:15 06/09/25 09:14 Benzonatate 100 Mg Capsule PO 07/07/25 10:14 100 mg QDAY EMRE Administration Protocol Dextrose 25 ml 06/07/25 12:04 Dextrose 50%-Water Inj 50 Ml Syringe IV 07/07/25 12:03 Q15MIN PRN BG 50-70 responsive npo pt Dextrose 50 ml 06/07/25 12:04 Dextrose 50%-Water Inj 50 Ml Syringe IV 07/07/25 12:03 Q15MIN PRN BG <50 OR BG <70 & pt unresponsive Diltiazem HCl 360 mg 06/08/25 09:00 06/09/25 09:13 Diltiazem Cd 120 Mg Capcr PO 07/08/25 08:59 360 mg QDAY EMRE Administration Docusate Sodium 100 mg 06/09/25 11:39 Docusate Sod 100 Mg Capsule PO 07/09/25 11:38 BID PRN CONSTIPATION Protocol Glucagon 1 mg 06/07/25 12:04 Glucagon Inj 1 Mg Vial IM Q15MIN PRN BG <70, and no IV access Heparin Sodium (Porcine) 5,000 unit 06/07/25 21:00 06/09/25 09:15 Heparin Sod Inj 5000 Unit/Ml Vial SC 06/21/25 20:59 5,000 unit Q12H EMRE Administration Ceftriaxone Sodium/Dextrose 1 gm in 50 mls @ 100 mls/hr 06/08/25 09:00 06/09/25 09:14 Rocephin/D5w 1gm Iv Premix IV 06/15/25 08:59 100 mls/hr QDAY EMRE Administration Metronidazole 500 mg in 100 mls @ 200 mls/hr 06/08/25 13:26 06/09/25 06:20 Flagyl 500 Mg Iv IV 06/15/25 13:25 200 mls/hr Q8HR EMRE Administration Insulin Human Lispro 0 unit 06/07/25 17:00 06/09/25 11:31 Insulin Lispro (Admelog) 1 Unit/0.01 Ml Unit SC 07/07/25 16:59 Not Given AC EMRE Protocol Ipratropium [place] 0.5 mg 06/09/25 13:00 06/09/25 13:06 Ipratropium Rt 0.5 Mg/ 2.5 Ml Nebu INH 07/09/25 12:59 0.5 mg Q6HRRT EMRE Administration Levalbuterol HCl 1.25 mg 06/07/25 15:00 06/09/25 13:06 Levalbuterol Rt 1.25 Mg/0.5 Ml Nebu INH 07/07/25 14:59 1.25 mg Q6HRRT EMRE Administration Lisinopril 2.5 mg 06/07/25 12:15 06/09/25 09:14 Lisinopril 2.5 Mg Tablet PO 07/07/25 12:14 2.5 mg QDAY EMRE Administration Loratadine 10 mg 06/07/25 12:15 06/09/25 09:14 Loratadine 10 Mg Tablet PO 07/07/25 12:14 10 mg QDAY EMRE Administration Methylprednisolone Sodium Succinate 40 mg 06/08/25 09:00 06/09/25 09:15 Methylprednisolone Sod Succ 40 Mg Vial IVP 06/15/25 08:59 40 mg QDAY EMRE Administration Ondansetron HCl 4 mg 06/07/25 09:54 Ondansetron Inj 2 Mg/Ml Inj 2 Ml IVP 07/07/25 09:53 Q6H PRN NAUSEA OR VOMITING Protocol Oxycodone/Acetaminophen 1 tab 06/07/25 09:54 Oxycodone/Apap 5/325 Tablet PO 06/12/25 09:53 Q6H PRN PAIN SCALE 4-6 (Moderate Pantoprazole Sodium 40 mg 06/09/25 09:00 06/09/25 09:14 Pantoprazole 40 Mg Tablet PO 07/08/25 08:59 40 mg QDAY EMRE Administration Sodium Chloride 3 ml 06/07/25 13:00 06/09/25 06:37 Sodium Chloride Rt [place] 0.9% 3 Ml Nebu INH 07/07/25 12:59 3 ml Q6HRRT EMRE Administration Sodium Chloride 3 ml 06/07/25 12:10 Sodium Chloride Rt [place] 0.9% 3 Ml Nebu INH 07/07/25 12:09 PRN PRN SOLN Esther Jazmin is a 70 y/o female with PMHx of chronic asthma (on 3L O2 at home) severe peripheral artery disease (status post left BKA), hypertension, hyperlipidemia, [id number] type 2 diabetes who is admitted for Acute on Chronic respiratory failure and community acquired pneumonia. 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 Unlikely group 2 as patient does not have significant heart disease Chest Xray 06/06: increased AP dimension chest, significant vascular congestion, no lobar pneumonia, suspicious for early heart failure Chest xray 06/07: suspicious for early pneumonia Chest CT 06/07: Bilateral pneumonia, most prominent left upper lobe and lingular segment Incidental findings on Chest CT: trace pericardial effusion, stable 19mm lesion posterior right lobe of the liver, posterior left renal cyst -RSV negative -sputum culture shows gram negative rods, 2+ -4/4 blood cultures negative -MRSNA nasal screen negative Plan: ? Rocephin 1 g IV (06/07? ? Azithromycin 500 mg IV (06/07?06/08) - discontinued Azithromycin and began Metronidazole 500mg IV Q8HR due to concern for aspiration pneumonia ? Solu-Medrol 40 mg IV daily ? Chest physiotherapy ? Xopenex 1.25 mg every 6 hours RT - Iptratropium 0.5mg Q6HRRT ? Quantiferon Gold ? ANGELITA ? Tessalon Perles as needed - rule out atypical Mycobacterium. Will initiate Airborne isolation, and get AFB x3 - Outpatient pulmonology follow up for PFTs due to concern for COPD - Outpatient sleep study #Metabolic alkalosis with respiratory acidosis ABG showed a pH of 7.44, bicarb of 41, pCO2 of 61 Patient is a chronic CO2 retainer Repeat ABG on hospital day 3 shows PH 7.29, bicarb 33, and PCO2 of 70 Burnett formula predicts CO2: 57 -> indicates respiratory acidosis with secondary metabolic alkalosis Mixed acid-base disorder Plan: ? Trend CMP ? 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 Pavon, records show that patient had a Holter and with the Holter records patient appears to be in A-fib about 1% of the time -TSH, FT4 wnl, A1C 5.5 Plan: - Appreciate cardiology recs - Strict I&Os, daily weights, 2g sodium diet ? Telemetry ? Keep magnesium and potassium above 2 and 4 respectively ? Resume home Cardizem 360 mg daily ? Will resume Eliquis upon discharge - Cardiac Diet #Hypertension #Hyperlipidemia #Severe peripheral artery disease s/p L BKA Chronic Plan: ? Resumed home Lipitor 80 mg at bedtime ? Resume home lisinopril 2.5 mg daily #Insulin Dependent Type II Diabetes mellitus Takes Novolin 70/30 15 units at home 01/2025 A1c 5.0, 06/08/25 A1c is 5.5 Plan: ? Sliding scale insulin ? Hypoglycemic protocol in place ? Blood sugar checks with meals #Chronic microcytic hematuria DDx: IgA Nephropathy, FSGS, GPA, bladder malignancy No stones seen on imaging, or hx of stones Patient has had blood and RBCs in the urine before Patient shows +2 blood and 19 RBCs today Previous has had ANGELITA, c-ANCA and p-ANCA negative Pt likely has IgA nephropathy No signs of Nephritic or nephrotic syndrome (no protein in urine) at this time Could be GPA but considering ANCA numbers are negative, unlikely, also pt has not commented on hemoptysis No recent fall; Unlikely bladder related due to no smoking hx CK is normal Plan: ?ANGELITA pending #Normocytic anemia #Hx of Gastritis #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 Moore, GI Was supposed be referred to [facility] for surgical intervention, patients daughter confirms this did not happen Chest CT 06/07: retrocardiac gastric hernia; patient is asymptomatic Iron is low (28) and TIBC and ferritin are normal. Retic count % 1.9, absolute retic count is normal Peripheral blood smear: normocytic normochromic anemia with anisocytosis; mature neutrophilia and monocytosis -Spoke with GI, they will give recs in regards to possible oncology workup Plan: ? Trend CBC ? Transfusion protocol hemoglobin below 7 ? Avoiding any NSAIDs ? Protonix 40 mg daily ? FOBT ? Consult GI in place #Health Maintenance Disposition: Telemetry DVT prophylaxis: Heparin Q12H GI prophylaxis: Protonix Diet: Cardiac CODE STATUS: DNR Plan discussed with my attending physician, Dr. Malik , and my senior resident, Dr. Patrick Winter, [facility] Attending Provider Attestation/Addendum I have examined the patient, reviewed labs and imaging findings, discussed the case with the resident(s), and reviewed entered orders. I agree with the plan of care as outlined in this note. Dr. Smooth MD
--- NOTE | 2025-06-09 14:55 | PC.SS ---
Rounding Note: Patient on isolation precaution, ruling out TB. GI is consulting.
[2025-06-09] MEDS: INSULIN LISPRO (AdmeLOG) 1 UNIT/0.01 ML UNIT SC (17:26)
[2025-06-09] MEDS: ATORVASTATIN CALCIUM 20 MG TABLET 80 MG PO (20:03)
[2025-06-09] MEDS: Milk Of Magnesia Susp 30 ML UDC PO (21:21)
--- NOTE | 2025-06-09 23:02 | PD.IMCONS ---
HPI Data of Consult Requesting Physician: Virginie Malik MD Primary Care Provider: Chandraaknt Cardenas MD Consult Narrative Reason for consult: Ac's esophagus with dysplasia, prominent ileocecal valve/mass History of present illness: 70 years old female who was admitted with pneumonia who has a history of left BKA diabetes mellitus type 1 essential hypertension and post hysterectomy I been consulted for previous history of GI tract issues On 02/16/2025 patient underwent upper endoscopy which showed long segment Ac's esophagus with dysplasia and some cell activity may be suggestive of carcinoma Colonoscopy 02/18/2025 showed a prominent ileocecal valve/mass no biopsies were taken to keep the options open Patient clinical presentation was with a hemoglobin of 5.1 g at that time cc:: cc: Virginie Malik MD Review of Systems Review of Systems Systems Reviewed: All systems reviewed, normal except as documented Past Medical History Surgical History OTHER SURGICAL HX: As in the history of present illness Meds Home Medications and Allergies Home Medications ?Medication ?Instructions ?Recorded ?Confirmed ?Type albuterol sulfate 90 mcg/actuation 1 - 2 puff inhalation Q4H PRN 07/18/23 06/07/25 History aerosol inhaler (Ventolin HFA) Shortness Of Breath Or Wheezing insulin human U-100 NPH-regulr 15 unit subcut QAM 07/18/23 06/07/25 History 70-30 mix 100 unit/mL subcutaneous susp (Novolin 70/30 U-100 Insulin) metformin 500 mg tablet 500 mg PO BIDWM 07/18/23 06/07/25 History loratadine 10 mg tablet 10 mg PO QDAY 03/18/25 06/07/25 History Allergies Allergy/AdvReac Type Severity Reaction Status Date / Time aspirin Allergy Severe Difficulty Verified 06/07/25 05:17 Breathing hydrocodone Allergy Severe DIFF Verified 06/07/25 05:17 BREATHING morphine Allergy Severe DIFF Verified 06/07/25 05:17 BREATHING shellfish derived Allergy Severe Hives Verified 06/07/25 05:17 tramadol Allergy Severe Anxiety Verified 06/07/25 05:17 codeine Allergy Difficulty Verified 06/07/25 05:17 Breathing Influenza Virus Vaccines AdvReac Severe Difficulty Verified 06/07/25 05:17 Breathing pneumococcal vaccine AdvReac Severe Difficulty Verified 06/07/25 05:17 Breathing Exam Vital Signs Temp Pulse Resp BP Pulse Ox O2 Del Method O2 Flow Rate 97.4 F 79 18 139/72 H 96 Nasal Cannula 2 06/09/25 20:00 06/09/25 20:05 06/09/25 20:05 06/09/25 20:00 06/09/25 20:05 06/09/25 20:00 06/09/25 20:05 FiO2 45 06/09/25 08:00 Constitutional Comments: Alert oriented Routine Respiratory Exam Comments: Scattered rhonchi Routine Abdominal Exam Comments: Soft nontender Results Labs 06/09/25 05:42 06/09/25 05:42 Labs: Short CBC 06/09/25 Range/Units 05:42 WBC 14.0 H (3.6-11.0) Thou/mm3 Hgb 10.0 L (12.0-16.0) g/dL Hct 33.1 L (36.0-46.0) % Plt Count 264 (140-440) Thou/mm3 BMP 06/09/25 05:42 Sodium 146 H Potassium 4.8 Chloride 103 Carbon Dioxide 36.5 H BUN 25 H Creatinine 0.7 Glucose 111 H Calcium 8.4 Liver Function 06/09/25 Range/Units 05:42 Total Bilirubin 0.3 (0.3-1.2) mg/dL AST 20 (0-34) U/L ALT 13 (10-49) U/L Alkaline Phosphatase 96 (46-116) U/L Albumin 3.9 (3.4-4.8) gm/dL ABG Interpretation ABG results: 06/07/25 06/07/25 05:41 19:54 ABG pH 7.44 7.29 L D ABG pCO2 61 H 70 H ABG pO2 48 L* 98 D ABG HCO3 41 H 33 H ABG O2 Saturation 71 L 97 ABG Base Excess 14 H 5 H Assessment and Plan Additional Assessment & Plan Additional Plan: # Ac's esophagus distal esophagus with dysplasia # 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 Cunningham at [facility] for further evaluation and management Other medical problems include Bilateral pneumonia Left BKA Essential hypertension Diabetes mellitus type 2 Thank you very much for the opportunity to participate in the care of this patient
[2025-06-10] VITALS (12 sets, daily range): BP systolic 123–141; BP diastolic 55–84; PULSE 68–97; RESP 16–25; TEMP 36.1–36.3; O2SAT 95–100; BMI 26.8
[2025-06-10] MEDS: SODIUM CHLORIDE RT SOL 0.9% 3 ML NEBU INH ×3 (01:00→13:11)
[2025-06-10] MEDS: LEVALBUTEROL RT 1.25 MG/0.5 ML NEBU INH ×4 (01:00→19:02)
[2025-06-10] MEDS: IPRATROPIUM RT 0.5 MG/ 2.5 ML NEBU INH ×4 (01:00→19:02)
[2025-06-10] MEDS: metroNIDAZOLE/NS 500 MG IVPB 500 MG/100 ML BAG 200 MG IV ×3 (05:50→21:23)
[2025-06-10 06:51] LABS: Basophils # (Auto) 0.0 Thou/mm3 (0.0-0.2); Basophils % (Auto) 0 % (0-2.5); Eosinophils # (Auto) 0.0 Thou/mm3 (0.0-0.5); Eosinophils % (Auto) 0 % (0-10); Hematocrit 31.1 % (36.0-46.0); Hemoglobin 9.3 g/dL (12.0-16.0); Immature Granulocytes Auto 0.09 Thou/mm3 (0.00-0.00); Lymphocytes # (Auto) 0.2 Thou/mm3 (1.0-4.8); Lymphocytes % (Auto) 2 % (10-50); Mean Corpuscular HGB Conc 29.9 g/dl (31.0-37.0); Mean Corpuscular Hemoglobin 27.6 pg (25.0-35.0); Mean Corpuscular Volume 92 fL (80-100); Monocytes # (Auto) 0.6 Thou/mm3 (0.0-0.8); Monocytes % (Auto) 5 % (0-12); Neutrophils # (Auto) 10.4 Thou/mm3 (1.8-7.7); Neutrophils % (Auto) 92 % (37-80); Nucleated Red Blood Cell # 0.00 Thou/mm3 (0.00-0.00); Nucleated Red Blood Cell % 0 /100 WBC (0); Platelet Count 276 Thou/mm3 (140-440); RDW Standard Deviation 51.9 fL (36.4-46.3); Red Blood Count 3.37 Miln/mm3 (4.00-5.20); White Blood Count 11.4 Thou/mm3 (3.6-11.0)
[2025-06-10 07:09] LABS: Alanine Aminotransferase 16 U/L (10-49); Albumin, Serum 3.7 gm/dL (3.4-4.8); Albumin/Globulin Ratio 1.5 (1.2-2.2); Alkaline Phosphatase 93 U/L (46-116); Anion Gap 7 (7-16); Aspartate Amino Transferase 22 U/L (0-34); BUN/Creatinine Ratio 34 Ratio (12-20); Bilirubin,Total 0.4 mg/dL (0.3-1.2); Blood Urea Nitrogen 24 mg/dL (9-23); Calcium 8.4 mg/dL (8.3-10.6); Calcium (Corrected) 8.6 mg/dL (8.5-10.1); Carbon Dioxide 36.9 mMol/L (20.0-31.0); Chloride 103 mMol/L (98-107); Creatinine (Component) 0.7 mg/dL (0.6-1.3); Estimated Creatinine Clearance 53.9 mL/min (>60); Globulin 2.4 gm/dL (2.3-3.5); Glucose 146 mg/dL (74-106); Magnesium 2.7 mg/dL (1.6-2.6); Osmolality,Calculated 299 (275-295); Phosphorous 2.4 mg/dL (2.4-5.1); Potassium 4.3 mMol/L (3.4-5.1); Sodium 147 mMol/L (136-145); Total Protein 6.1 gm/dL (5.7-8.2); eGFR > 60 See Note
--- NOTE | 2025-06-10 08:10 | ESPR_ITS ---
Documentation for date of: 06/10/25 Subjective Subjective Interval history: The patient was seen and examined at the bedside this morning. She reported improvement in her shortness of breath, and feels like she is back at her baseline. The patient is currently saturating 100% L of NC, and she is at [address] chest revealed bilateral pneumonia, most prominent in left upper lobe and lingular segment, but as interpreted by me, it was also significant for reticular pattern. Primary team ruling out flu along with possible miliary TB given the CT findings The patient was given trial of Lasix IV, but need negative was only 63 cc despite of low input. This suggest that the patient does not have CHF exacerbation, backed by low BNP level and CT chest not revealing any signs of CHF or volume overload. Recommended sleep study. Recommended to stop Lasix. Continue with antibiotics - Continue with diltiazem 360 Mg daily, and avoid beta-mihir in the setting of chronic respiratory failure. - Pt is currently stable but being ruled out for TB Exam Vital Signs Temp Pulse Resp BP Pulse Ox O2 Del Method O2 Flow Rate 97.0 F 68 20 128/71 100 Nasal Cannula 2 06/10/25 04:00 06/10/25 06:32 06/10/25 06:32 06/10/25 04:00 06/10/25 06:32 06/10/25 04:00 06/10/25 06:32 FiO2 45 06/09/25 08:00 Narrative Exam General: No acute distress, Alert and Oriented x 3 HEENT: Moist mucous membranes, oropharynx clear Neck: Supple, No masses, No JVD CVS: S1S2 Regular rate and rhythm, pansystolic murmur over left lower sternal border, rubs or gallops Lungs: no wheeze no rhonchi, no cracles Abd: Soft, NT/ND, +BS, no organomegaly Ext: Left BKA, feeble pulse on right lower extremity Skin: No rash Psych: Appropriate mood and affect Objective Labs 06/10/25 04:45 06/10/25 04:45 Labs: Laboratory Results - last 24 hr 06/08/25 06/10/25 05:20 04:45 WBC 11.4 H RBC 3.37 L Hgb 9.3 L Hct 31.1 L MCV 92 MCH 27.6 MCHC 29.9 L RDW Std Deviation 51.9 H Plt Count 276 Neut % (Auto) 92 H Lymph % (Auto) 2 L [place] % (Auto) 5 Eos % (Auto) 0 Baso % (Auto) 0 Neut # (Auto) 10.4 H Lymph # (Auto) 0.2 L [place] # (Auto) 0.6 Eos # (Auto) 0.0 Baso # (Auto) 0.0 Immature Gran # (Auto) 0.09 H Absolute Nucleated RBC 0.00 Immature Gran % 1 H Nucleated RBC % 0 Sodium 147 H Potassium 4.3 D Chloride 103 Carbon Dioxide 36.9 H Anion Gap 7 BUN 24 H Creatinine 0.7 Estim Creat Clear Calc 53.9 L eGFR > 60 BUN/Creatinine Ratio 34 H Glucose 146 H Calculated Osmolality 299 H Calcium 8.4 Corrected Calcium 8.6 Phosphorus 2.4 Magnesium 2.7 H Total Bilirubin 0.4 AST 22 ALT 16 Alkaline Phosphatase 93 Total Protein 6.1 Albumin 3.7 Globulin 2.4 Albumin/Globulin Ratio 1.5 Coccidioides IgG Ab Negative TB Test (QFT) See Sep Rpt ABG Interpretation ABG results: 06/07/25 06/07/25 05:41 19:54 ABG pH 7.44 7.29 L D ABG pCO2 61 H 70 H ABG pO2 48 L* 98 D ABG HCO3 41 H 33 H ABG O2 Saturation 71 L 97 ABG Base Excess 14 H 5 H Quality Measures Quality Measures none Advance care planning discussed with:: patient Assessment & Plan Assessment Current Active Medications: Generic Name Dose Route Start Last Admin Trade Name Freq PRN Reason Stop Dose Admin Acetaminophen 650 mg 06/07/25 09:54 06/07/25 14:12 Acetaminophen 325 Mg Tablet PO 07/07/25 09:53 650 mg Q6H PRN Administration PAIN SCALE 1-3 (mild Acetaminophen 650 mg 06/07/25 09:54 Acetaminophen 325 Mg Tablet PO 07/07/25 09:53 Q6H PRN Fever >100.4 Atorvastatin Calcium 80 mg 06/09/25 21:00 06/09/25 20:03 Atorvastatin Calcium 20 Mg Tablet PO 07/09/25 20:59 80 mg HS EMRE Administration Benzonatate 100 mg 06/07/25 10:15 06/09/25 09:14 Benzonatate 100 Mg Capsule PO 07/07/25 10:14 100 mg QDAY EMRE Administration Protocol Dextrose 25 ml 06/07/25 12:04 Dextrose 50%-Water Inj 50 Ml Syringe IV 07/07/25 12:03 Q15MIN PRN BG 50-70 responsive npo pt Dextrose 50 ml 06/07/25 12:04 Dextrose 50%-Water Inj 50 Ml Syringe IV 07/07/25 12:03 Q15MIN PRN BG <50 OR BG <70 & pt unresponsive Diltiazem HCl 360 mg 06/08/25 09:00 06/09/25 09:13 Diltiazem Cd 120 Mg Capcr PO 07/08/25 08:59 360 mg QDAY EMRE Administration Docusate Sodium 100 mg 06/09/25 11:39 Docusate Sod 100 Mg Capsule PO 07/09/25 11:38 BID PRN CONSTIPATION Protocol Glucagon 1 mg 06/07/25 12:04 Glucagon Inj 1 Mg Vial IM Q15MIN PRN BG <70, and no IV access Heparin Sodium (Porcine) 5,000 unit 06/07/25 21:00 06/09/25 20:03 Heparin Sod Inj 5000 Unit/Ml Vial SC 06/21/25 20:59 5,000 unit Q12H EMRE Administration Ceftriaxone Sodium/Dextrose 1 gm in 50 mls @ 100 mls/hr 06/08/25 09:00 06/09/25 09:14 Rocephin/D5w 1gm Iv Premix IV 06/15/25 08:59 100 mls/hr QDAY EMRE Administration Metronidazole 500 mg in 100 mls @ 200 mls/hr 06/08/25 13:26 06/10/25 05:50 Flagyl 500 Mg Iv IV 06/15/25 13:25 200 mls/hr Q8HR EMRE Administration Insulin Human Lispro 0 unit 06/07/25 17:00 06/10/25 07:41 Insulin Lispro (Admelog) 1 Unit/0.01 Ml Unit SC 07/07/25 16:59 Not Given AC [facility] Protocol Ipratropium [place] 0.5 mg 06/09/25 13:00 06/10/25 06:31 Ipratropium Rt 0.5 Mg/ 2.5 Ml Nebu INH 07/09/25 12:59 0.5 mg Q6HRRT EMRE Administration Levalbuterol HCl 1.25 mg 06/07/25 15:00 06/10/25 06:31 Levalbuterol Rt 1.25 Mg/0.5 Ml Nebu INH 07/07/25 14:59 1.25 mg Q6HRRT EMRE Administration Lisinopril 2.5 mg 06/07/25 12:15 06/09/25 09:14 Lisinopril 2.5 Mg Tablet PO 07/07/25 12:14 2.5 mg QDAY EMRE Administration Loratadine 10 mg 06/07/25 12:15 06/09/25 09:14 Loratadine 10 Mg Tablet PO 07/07/25 12:14 10 mg QDAY EMRE Administration Methylprednisolone Sodium Succinate 40 mg 06/08/25 09:00 06/09/25 09:15 Methylprednisolone Sod Succ 40 Mg Vial IVP 06/15/25 08:59 40 mg QDAY EMRE Administration Ondansetron HCl 4 mg 06/07/25 09:54 Ondansetron Inj 2 Mg/Ml Inj 2 Ml IVP 07/07/25 09:53 Q6H PRN NAUSEA OR VOMITING Protocol Oxycodone/Acetaminophen 1 tab 06/07/25 09:54 Oxycodone/Apap 5/325 Tablet PO 06/12/25 09:53 Q6H PRN PAIN SCALE 4-6 (Moderate Pantoprazole Sodium 40 mg 06/09/25 09:00 06/09/25 09:14 Pantoprazole 40 Mg Tablet PO 07/08/25 08:59 40 mg QDAY EMRE Administration Sodium Chloride 3 ml 06/07/25 13:00 06/10/25 06:46 Sodium Chloride Rt [place] 0.9% 3 Ml Nebu INH 07/07/25 12:59 3 ml Q6HRRT EMRE Administration Sodium Chloride 3 ml 06/07/25 12:10 Sodium Chloride Rt [place] 0.9% 3 Ml Nebu INH 07/07/25 12:09 PRN PRN SOLN Plan Jazmin is a 70 y/o female with PMHx of chronic asthma (on oxygen intermittently at home) severe peripheral artery disease (status post left BKA), hypertension, hyperlipidemia, len-[id number] type 2 diabetes who is admitted for Acute on Chronic respiratory failure and community acquired pneumonia. #R/O tuberculosis -Pending confirmatory results for TB. #CHF exacerbation, ruled out- has chronic diastolic heart failure - euvolemic now Less likely to have CHF exacerbation, as BNP is 27, and the fine crackles heard on chest exam is likely secondary to interstitial lung disease. Chest x-ray and CT chest negative for vascular congestion or volume overload, but significant for reticular pattern indicating possible ILD. - Rule out interstitial lung disease - Pulmonary consultation - May consider high-dose pulse steroid therapy, if agreed by dental biller - Recent echo on April 2025 was significant for RVSP 55 mmHg, but stable LVEF. - Stop diuretics - Strict input output, daily weights and 2 g sodium diet. #Acute respiratory failure, resolved #Chronic respiratory failure #Community-acquired pneumonia #COPD exacerbation #Moderate pulmonary hypertension #Hx of Chronic asthma #Possible Interstitial lung disease #R/O Tuberculosis Patient was recently discharged from the ER for similar symptoms including fever, shortness of breath Patient has never seen a dental biller or gotten PFTs On previous chest abdomen pelvis done in March 2025 shows possible miliary disease, but further reading of the films was suspicious for reticular pattern suggestive of COPD. She reported no expected or exposure to TB, and no recent visit to [place]. Previously she was tested negative for tuberculosis. 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 Despite SOB, she is saturating well on home 3 L NC. Echo previously shows RVSP 55 mmHg -Continue with antibiotics and steroids -DuoNeb as needed -Continue with BiPAP as needed #Chronic Paroxysmal A-fib [id number], HAS-BLED: 2, currently regular rate and rhythm Eliquis held due to concern for GI bleed in the past. 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 We appreciate the opportunity to participate in this patient care. Cardiology will continue to follow-up on this patient. The patient's management plan was discussed with my attending physician MD Angel Bal MD, PGY3 Attending Provider Attestation/Addendum I have personally seen and examined the patient separately on the above date of service and discussed the plan of care with the resident. I reviewed the resident Dr. Angel Tanner consultation progress note and agree with the resident findings and plan in the note above and have also edited the documentation to reflect my findings and plan. Campos Pavon M.D. Interventional Cardiology
[2025-06-10] MEDS: cefTRIAXone/D5w 1gm IV premix 1 GM/50 ML BAG IV (08:30)
[2025-06-10] MEDS: DILTIAZEM CD 120 MG CAPCR 360 MG PO (08:31)
[2025-06-10] MEDS: PANTOPRAZOLE 40 MG TABLET PO (08:31)
[2025-06-10] MEDS: HEPARIN SOD INJ 5000 UNIT/ML VIAL SC ×2 (08:31→21:22)
[2025-06-10] MEDS: BENZONATATE 100 MG CAPSULE PO (08:31)
--- NOTE | 2025-06-10 10:03 | PD.RESPRO ---
Documentation for date of: 06/10/25 Subjective Subjective Interval history: Pt examined at bedside. No acute overnight events. She reports she has some mild abdominal pain. She says she continues to have a productive cough, however, no night sweats. No other complaints at this time. Exam Vital Signs Temp Pulse Resp BP Pulse Ox O2 Del Method O2 Flow Rate 97.4 F 71 16 139/65 H 100 Room Air 2 06/10/25 08:00 06/10/25 08:31 06/10/25 08:00 06/10/25 08:31 06/10/25 08:00 06/10/25 08:00 06/10/25 06:32 FiO2 45 06/09/25 08:00 Narrative Exam General: AAOx3, NAD, elderly, weak, pleasant female HEENT: Moist mucous membranes, conjunctiva clear, EOMI, PERRLA, poor dentition Cardiovascular: Pansystolic murmur heard over left lower sternal border radiates to left upper sternal border, radial pulses +2 bilat, tachycardia, no hepatojuglar reflex or JVD appreciated Pulmonary: Crackles heard in lung zepeda bilat, no cough, no wheezing GI: No tenderness to light or deep palpitation, no guarding, rigidity, rebound tenderness or distension, possible abdominal hernia Extremities: L BKA, no anasarca appreciated Neuro: AAOx3, no focal motor or sensory deficits in the UE or LE bilat Psych: Cooperative Objective Labs 06/11/25 04:56 06/11/25 04:56 Labs: Laboratory Results - last 24 hr 06/08/25 06/10/25 05:20 04:45 WBC 11.4 H RBC 3.37 L Hgb 9.3 L Hct 31.1 L MCV 92 MCH 27.6 MCHC 29.9 L RDW Std Deviation 51.9 H Plt Count 276 Neut % (Auto) 92 H Lymph % (Auto) 2 L [place] % (Auto) 5 Eos % (Auto) 0 Baso % (Auto) 0 Neut # (Auto) 10.4 H Lymph # (Auto) 0.2 L [place] # (Auto) 0.6 Eos # (Auto) 0.0 Baso # (Auto) 0.0 Immature Gran # (Auto) 0.09 H Absolute Nucleated RBC 0.00 Immature Gran % 1 H Nucleated RBC % 0 Sodium 147 H Potassium 4.3 D Chloride 103 Carbon Dioxide 36.9 H Anion Gap 7 BUN 24 H Creatinine 0.7 Estim Creat Clear Calc 53.9 L eGFR > 60 BUN/Creatinine Ratio 34 H Glucose 146 H Calculated Osmolality 299 H Calcium 8.4 Corrected Calcium 8.6 Phosphorus 2.4 Magnesium 2.7 H Total Bilirubin 0.4 AST 22 ALT 16 Alkaline Phosphatase 93 Total Protein 6.1 Albumin 3.7 Globulin 2.4 Albumin/Globulin Ratio 1.5 Coccidioides IgG Ab Negative TB Test (QFT) See Sep Rpt ABG Interpretation ABG results: 06/07/25 06/07/25 05:41 19:54 ABG pH 7.44 7.29 L D ABG pCO2 61 H 70 H ABG pO2 48 L* 98 D ABG HCO3 41 H 33 H ABG O2 Saturation 71 L 97 ABG Base Excess 14 H 5 H Quality Measures Quality Measures none Advance care planning discussed with:: patient Assessment & Plan Assessment Current Active Medications: Generic Name Dose Route Start Last Admin Trade Name Freq PRN Reason Stop Dose Admin Acetaminophen 650 mg 06/07/25 09:54 06/07/25 14:12 Acetaminophen 325 Mg Tablet PO 07/07/25 09:53 650 mg Q6H PRN Administration PAIN SCALE 1-3 (mild Acetaminophen 650 mg 06/07/25 09:54 Acetaminophen 325 Mg Tablet PO 07/07/25 09:53 Q6H PRN Fever >100.4 Atorvastatin Calcium 80 mg 06/09/25 21:00 06/09/25 20:03 Atorvastatin Calcium 20 Mg Tablet PO 07/09/25 20:59 80 mg HS EMRE Administration Benzonatate 100 mg 06/07/25 10:15 06/10/25 08:31 Benzonatate 100 Mg Capsule PO 07/07/25 10:14 100 mg QDAY EMRE Administration Protocol Dextrose 25 ml 06/07/25 12:04 Dextrose 50%-Water Inj 50 Ml Syringe IV 07/07/25 12:03 Q15MIN PRN BG 50-70 responsive npo pt Dextrose 50 ml 06/07/25 12:04 Dextrose 50%-Water Inj 50 Ml Syringe IV 07/07/25 12:03 Q15MIN PRN BG <50 OR BG <70 & pt unresponsive Diltiazem HCl 360 mg 06/08/25 09:00 06/10/25 08:31 Diltiazem Cd 120 Mg Capcr PO 07/08/25 08:59 360 mg QDAY EMRE Administration Docusate Sodium 100 mg 06/09/25 11:39 Docusate Sod 100 Mg Capsule PO 07/09/25 11:38 BID PRN CONSTIPATION Protocol Glucagon 1 mg 06/07/25 12:04 Glucagon Inj 1 Mg Vial IM Q15MIN PRN BG <70, and no IV access Heparin Sodium (Porcine) 5,000 unit 06/07/25 21:00 06/10/25 08:31 Heparin Sod Inj 5000 Unit/Ml Vial SC 06/21/25 20:59 5,000 unit Q12H EMRE Administration Ceftriaxone Sodium/Dextrose 1 gm in 50 mls @ 100 mls/hr 06/08/25 09:00 06/10/25 08:30 Rocephin/D5w 1gm Iv Premix IV 06/15/25 08:59 100 mls/hr QDAY EMRE Administration Metronidazole 500 mg in 100 mls @ 200 mls/hr 06/08/25 13:26 06/10/25 05:50 Flagyl 500 Mg Iv IV 06/15/25 13:25 200 mls/hr Q8HR EMRE Administration Insulin Human Lispro 0 unit 06/07/25 17:00 06/10/25 07:41 Insulin Lispro (Admelog) 1 Unit/0.01 Ml Unit SC 07/07/25 16:59 Not Given AC [facility] Protocol Ipratropium [place] 0.5 mg 06/09/25 13:00 06/10/25 06:31 Ipratropium Rt 0.5 Mg/ 2.5 Ml Nebu INH 07/09/25 12:59 0.5 mg Q6HRRT EMRE Administration Levalbuterol HCl 1.25 mg 06/07/25 15:00 06/10/25 06:31 Levalbuterol Rt 1.25 Mg/0.5 Ml Nebu INH 07/07/25 14:59 1.25 mg Q6HRRT EMRE Administration Lisinopril 2.5 mg 06/07/25 12:15 06/10/25 08:31 Lisinopril 2.5 Mg Tablet PO 07/07/25 12:14 2.5 mg QDAY EMRE Administration Loratadine 10 mg 06/07/25 12:15 06/10/25 08:31 Loratadine 10 Mg Tablet PO 07/07/25 12:14 10 mg QDAY EMRE Administration Methylprednisolone Sodium Succinate 40 mg 06/08/25 09:00 06/10/25 08:30 Methylprednisolone Sod Succ 40 Mg Vial IVP 06/15/25 08:59 40 mg QDAY EMRE Administration Ondansetron HCl 4 mg 06/07/25 09:54 Ondansetron Inj 2 Mg/Ml Inj 2 Ml IVP 07/07/25 09:53 Q6H PRN NAUSEA OR VOMITING Protocol Oxycodone/Acetaminophen 1 tab 06/07/25 09:54 Oxycodone/Apap 5/325 Tablet PO 06/12/25 09:53 Q6H PRN PAIN SCALE 4-6 (Moderate Pantoprazole Sodium 40 mg 06/09/25 09:00 06/10/25 08:31 Pantoprazole 40 Mg Tablet PO 07/08/25 08:59 40 mg QDAY EMRE Administration Sodium Chloride 3 ml 06/07/25 13:00 06/10/25 06:46 Sodium Chloride Rt [place] 0.9% 3 Ml Nebu INH 07/07/25 12:59 3 ml Q6HRRT EMRE Administration Sodium Chloride 3 ml 06/07/25 12:10 Sodium Chloride Rt [place] 0.9% 3 Ml Nebu INH 07/07/25 12:09 PRN PRN SOLN Plan Assessment Jazmin is a 70 y/o female with PMHx of chronic asthma (on 3L O2 at home) severe peripheral artery disease (status post left BKA), hypertension, hyperlipidemia, hxw-excijgs-jlyeqyrnw type 2 diabetes who is admitted for Acute on Chronic respiratory failure and community acquired pneumonia. 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 Unlikely group 2 as patient does not have significant heart disease Chest Xray 06/06: increased AP dimension chest, significant vascular congestion, no lobar pneumonia, suspicious for early heart failure Chest xray 06/07: suspicious for early pneumonia Chest CT 06/07: Bilateral pneumonia, most prominent left upper lobe and lingular segment Incidental findings on Chest CT: trace pericardial effusion, stable 19mm lesion posterior right lobe of the liver, posterior left renal cyst -RSV negative -sputum culture shows gram negative rods, 2+ -4/4 blood cultures negative -MRSA nasal screen negative -Quantiferon Gold negative Plan: ? Rocephin 1 g IV (06/07? ? Azithromycin 500 mg IV (06/07?06/08) - discontinued Azithromycin and began Metronidazole 500mg IV Q8HR due to concern for aspiration pneumonia ? Solu-Medrol 40 mg IV daily ? Chest physiotherapy ? Xopenex 1.25 mg every 6 hours RT - Iptratropium 0.5mg Q6HRRT ? ANGELITA ? Tessalon Perles as needed - rule out atypical Mycobacterium. Will initiate Airborne isolation, and pending AFB x3 - Outpatient pulmonology follow up for PFTs due to concern for COPD - Outpatient sleep study #Metabolic alkalosis with respiratory acidosis ABG showed a pH of 7.44, bicarb of 41, pCO2 of 61 Patient is a chronic CO2 retainer Repeat ABG on hospital day 3 shows PH 7.29, bicarb 33, and PCO2 of 70 Burnett formula predicts CO2: 57 -> indicates respiratory acidosis with secondary metabolic alkalosis Mixed acid-base disorder Plan: ? Trend CMP ? 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 Pavon, records show that patient had a Holter and with the Holter records patient appears to be in A-fib about 1% of the time -TSH, FT4 wnl, A1C 5.5 Plan: - Appreciate cardiology recs - Strict I&Os, daily weights, 2g sodium diet ? Telemetry ? Keep magnesium and potassium above 2 and 4 respectively ? Resume home Cardizem 360 mg daily ? Will resume Eliquis upon discharge - Cardiac Diet #Hypertension #Hyperlipidemia #Severe peripheral artery disease s/p L BKA Chronic Plan: ? Resumed home Lipitor 80 mg at bedtime ? Resume home lisinopril 2.5 mg daily #Insulin Dependent Type II Diabetes mellitus Takes Novolin 70/30 15 units at home 01/2025 A1c 5.0, 06/08/25 A1c is 5.5 Plan: ? Sliding scale insulin ? Hypoglycemic protocol in place ? Blood sugar checks with meals #Chronic microcytic hematuria DDx: IgA Nephropathy, FSGS, GPA, bladder malignancy No stones seen on imaging, or hx of stones Patient has had blood and RBCs in the urine before Patient shows +2 blood and 19 RBCs today Previous has had ANGELITA, c-ANCA and p-ANCA negative Pt likely has IgA nephropathy No signs of Nephritic or nephrotic syndrome (no protein in urine) at this time Could be GPA but considering ANCA numbers are negative, unlikely, also pt has not commented on hemoptysis No recent fall; Unlikely bladder related due to no smoking hx CK is normal Plan: ?ANGELITA pending #Normocytic anemia #Hx of Gastritis #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 Moore, GI Was supposed be referred to [facility] for surgical intervention, patients daughter confirms this did not happen Chest CT 06/07: retrocardiac gastric hernia; patient is asymptomatic Iron is low (28) and TIBC and ferritin are normal. Retic count % 1.9, absolute retic count is normal Peripheral blood smear: normocytic normochromic anemia with anisocytosis; mature neutrophilia and monocytosis -Spoke with GI, they will give recs in regards to possible oncology workup Plan: ? Trend CBC ? Transfusion protocol hemoglobin below 7 ? Avoiding any NSAIDs ? Protonix 40 mg daily ? FOBT ? Consult GI in place #Health Maintenance Disposition: Telemetry DVT prophylaxis: Heparin Q12H GI prophylaxis: Protonix Diet: Cardiac CODE STATUS: DNR Plan discussed with my attending physician, Dr. Rebollar , Paulino Nguyen, PGY-2 Attending Provider Attestation/Addendum I have examined the patient, reviewed labs and imaging findings, discussed the case with the resident(s), and reviewed entered orders. I agree with the plan of care as outlined in this note, with these additional summaries/recommendations: Patient seen at bedside. No acute overnight events. Discussed with patient that her quantiferon gold came back negative although we are still awaiting AFBs to rule out atypical tuberculosis. Patient is now down to 2 L nasal cannula with appropriate O2 saturation. Continue IV antibiotics for superimposed bacterial pneumonia. Continue breathing treatments and IV steroid. Sputum culture showing gram-negative rods. Cardiology following for atrial fibrillation which is controlled. Continue Cardizem. Gastroenterology was consulted for borderline intramucosal carcinoma noted on path report from EGD. Per gastroenterology patient can follow-up outpatient and be referred to Dr. Cunningham at [facility] for further evaluation and management. Continue PPI. Minimal hypernatremia present today and patient encouraged to increase oral intake. Continue breathing treatments as needed. Patient updated on the plan and in agreement. Please see residents note for additional details and management. Dr. Smooth MD
[2025-06-10 12:22] LABS: Cocci Serology, IgM Negative (Negative)
--- NOTE | 2025-06-10 12:45 | CHAP ---
Patient was visited by the Spiritual Care Volunteer who prayed silently for them. (Volunteer was in the hospital from 10:25-12:45).
--- NOTE | 2025-06-10 14:57 | PC.SS ---
Rounding Note: AFB is pending. F/U with sputum cultures.
[2025-06-10] MEDS: INSULIN LISPRO (AdmeLOG) 1 UNIT/0.01 ML UNIT SC (16:43)
--- NOTE | 2025-06-10 19:21 | ESPR_ITS ---
Documentation for date of: 06/10/25 Subjective Subjective Interval history: Patient evaluated Case discussed in detail Once patient gets discharged Pneumonia gets better Further evaluation to tertiary center Exam Vital Signs Temp Pulse Resp BP Pulse Ox O2 Del Method O2 Flow Rate 97.1 F 79 20 141/74 H 99 Nasal Cannula 3 06/10/25 16:00 06/10/25 19:03 06/10/25 19:03 06/10/25 16:00 06/10/25 19:03 06/10/25 16:00 06/10/25 19:03 FiO2 45 06/09/25 08:00 Objective Labs 06/10/25 04:45 06/10/25 04:45 Labs: Laboratory Results - last 24 hr 06/08/25 06/09/25 06/10/25 05:20 12:38 04:45 WBC 11.4 H RBC 3.37 L Hgb 9.3 L Hct 31.1 L MCV 92 MCH 27.6 MCHC 29.9 L RDW Std Deviation 51.9 H Plt Count 276 Neut % (Auto) 92 H Lymph % (Auto) 2 L [place] % (Auto) 5 Eos % (Auto) 0 Baso % (Auto) 0 Neut # (Auto) 10.4 H Lymph # (Auto) 0.2 L [place] # (Auto) 0.6 Eos # (Auto) 0.0 Baso # (Auto) 0.0 Immature Gran # (Auto) 0.09 H Absolute Nucleated RBC 0.00 Immature Gran % 1 H Nucleated RBC % 0 Sodium 147 H Potassium 4.3 D Chloride 103 Carbon Dioxide 36.9 H Anion Gap 7 BUN 24 H Creatinine 0.7 Estim Creat Clear Calc 53.9 L eGFR > 60 BUN/Creatinine Ratio 34 H Glucose 146 H Calculated Osmolality 299 H Calcium 8.4 Corrected Calcium 8.6 Phosphorus 2.4 Magnesium 2.7 H Total Bilirubin 0.4 AST 22 ALT 16 Alkaline Phosphatase 93 Total Protein 6.1 Albumin 3.7 Globulin 2.4 Albumin/Globulin Ratio 1.5 Coccidioides IgM Ab Negative TB Test (QFT) See Sep Rpt Impressions Impression: 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 Cunningham at [facility] for further evaluation and management Other medical problems include Bilateral pneumonia Left BKA Essential hypertension Diabetes mellitus type 2 Thank you very much for the opportunity to participate in the care of this patient Time Spent With Patient Time: Total time spent is greater than 50% in coordination of care (as documented) at patient's floor/unit and/or counseling patient:
[2025-06-10] MEDS: ATORVASTATIN CALCIUM 20 MG TABLET 80 MG PO (21:22)
[2025-06-11] VITALS (13 sets, daily range): BP systolic 119–155; BP diastolic 59–81; PULSE 70–112; RESP 17–25; TEMP 36.1–36.9; O2SAT 92–99
[2025-06-11] MEDS: SODIUM CHLORIDE RT SOL 0.9% 3 ML NEBU INH ×2 (00:20→18:51)
[2025-06-11] MEDS: IPRATROPIUM RT 0.5 MG/ 2.5 ML NEBU INH ×4 (00:21→18:51)
[2025-06-11] MEDS: LEVALBUTEROL RT 1.25 MG/0.5 ML NEBU INH ×4 (00:21→18:50)
[2025-06-11] MEDS: ACETAMINOPHEN 325 MG TABLET 650 MG PO (00:41)
--- NOTE | 2025-06-11 03:59 | PC.RT ---
Unable to obtain sputum sample from pt. Several attempts to collect.
[2025-06-11] MEDS: metroNIDAZOLE/NS 500 MG IVPB 500 MG/100 ML BAG 200 MG IV (05:08)
[2025-06-11] MEDS: guaiFENesin SYRUP 200 MG/10 ML UDC 100 MG PO (05:08)
[2025-06-11 06:04] LABS: Cult AFB Sendout- Sputum* See Sep Rpt
[2025-06-11 06:19] LABS: Basophils # (Auto) 0.0 Thou/mm3 (0.0-0.2); Basophils % (Auto) 0 % (0-2.5); Eosinophils # (Auto) 0.0 Thou/mm3 (0.0-0.5); Eosinophils % (Auto) 0 % (0-10); Hematocrit 30.6 % (36.0-46.0); Hemoglobin 9.4 g/dL (12.0-16.0); Immature Granulocytes Auto 0.35 Thou/mm3 (0.00-0.00); Lymphocytes # (Auto) 0.3 Thou/mm3 (1.0-4.8); Lymphocytes % (Auto) 2 % (10-50); Mean Corpuscular HGB Conc 30.7 g/dl (31.0-37.0); Mean Corpuscular Hemoglobin 27.9 pg (25.0-35.0); Mean Corpuscular Volume 91 fL (80-100); Monocytes # (Auto) 0.9 Thou/mm3 (0.0-0.8); Monocytes % (Auto) 5 % (0-12); Neutrophils # (Auto) 14.7 Thou/mm3 (1.8-7.7); Neutrophils % (Auto) 90 % (37-80); Nucleated Red Blood Cell # 0.00 Thou/mm3 (0.00-0.00); Nucleated Red Blood Cell % 0 /100 WBC (0); Platelet Count 240 Thou/mm3 (140-440); RDW Standard Deviation 51.1 fL (36.4-46.3); Red Blood Count 3.37 Miln/mm3 (4.00-5.20); White Blood Count 16.3 Thou/mm3 (3.6-11.0)
[2025-06-11 06:41] LABS: Alanine Aminotransferase 15 U/L (10-49); Albumin, Serum 3.7 gm/dL (3.4-4.8); Albumin/Globulin Ratio 1.6 (1.2-2.2); Alkaline Phosphatase 95 U/L (46-116); Anion Gap 5 (7-16); Aspartate Amino Transferase 17 U/L (0-34); BUN/Creatinine Ratio 26 Ratio (12-20); Bilirubin,Total 0.4 mg/dL (0.3-1.2); Blood Urea Nitrogen 18 mg/dL (9-23); Calcium 8.5 mg/dL (8.3-10.6); Calcium (Corrected) 8.7 mg/dL (8.5-10.1); Carbon Dioxide 36.2 mMol/L (20.0-31.0); Chloride 103 mMol/L (98-107); Creatinine (Component) 0.7 mg/dL (0.6-1.3); Estimated Creatinine Clearance 53.9 mL/min (>60); Globulin 2.3 gm/dL (2.3-3.5); Glucose 121 mg/dL (74-106); Magnesium 2.6 mg/dL (1.6-2.6); Osmolality,Calculated 289 (275-295); Phosphorous 2.5 mg/dL (2.4-5.1); Potassium 4.7 mMol/L (3.4-5.1); Sodium 144 mMol/L (136-145); Total Protein 6.0 gm/dL (5.7-8.2); eGFR > 60 See Note
[2025-06-11 06:55] LABS: ANA Screen, IFA NEGATIVE (NEGATIVE)
[2025-06-11] MEDS: cefTRIAXone/D5w 1gm IV premix 1 GM/50 ML BAG IV (09:09)
[2025-06-11] MEDS: BENZONATATE 100 MG CAPSULE PO (09:10)
[2025-06-11] MEDS: HEPARIN SOD INJ 5000 UNIT/ML VIAL SC ×2 (09:10→20:39)
[2025-06-11] MEDS: DILTIAZEM CD 120 MG CAPCR 360 MG PO (09:12)
--- NOTE | 2025-06-11 10:22 | ESPR_ITS ---
Documentation for date of: 06/11/25 Subjective Subjective Interval history: Pt examined at bedside today. No acute overnight events. Patient reports she is doing well. She reports she is still coughing. She says that she does not use a CPAP at night at home. She is wondering when she is going. No other complaints at this time. Exam Vital Signs Temp Pulse Resp BP Pulse Ox O2 Del Method O2 Flow Rate 97.0 F 85 20 131/69 H 98 Nasal Cannula 2 06/11/25 08:00 06/11/25 09:12 06/11/25 08:00 06/11/25 09:12 06/11/25 08:00 06/11/25 08:00 06/11/25 08:00 FiO2 45 06/09/25 08:00 Narrative Exam General: AAOx3, NAD, elderly, weak, pleasant female HEENT: Moist mucous membranes, conjunctiva clear, EOMI, PERRLA, poor dentition Cardiovascular: Pansystolic murmur heard over left lower sternal border radiates to left upper sternal border, radial pulses +2 bilat, tachycardia, no hepatojuglar reflex or JVD appreciated Pulmonary: Crackles heard in lung zepeda bilat, no cough, no wheezing GI: No tenderness to light or deep palpitation, no guarding, rigidity, rebound tenderness or distension, possible abdominal hernia Extremities: L BKA, no anasarca appreciated Neuro: AAOx3, no focal motor or sensory deficits in the UE or LE bilat Psych: Cooperative Objective Labs 06/12/25 05:12 06/12/25 05:12 Labs: Laboratory Results - last 24 hr 06/08/25 06/08/25 06/09/25 05:20 15:52 04:23 WBC RBC Hgb Hct MCV MCH MCHC RDW Std Deviation Plt Count Neut % (Auto) Lymph % (Auto) [place] % (Auto) Eos % (Auto) Baso % (Auto) Neut # (Auto) Lymph # (Auto) [place] # (Auto) Eos # (Auto) Baso # (Auto) Immature Gran # (Auto) Absolute Nucleated RBC Immature Gran % Nucleated RBC % Sodium Potassium Chloride Carbon Dioxide Anion Gap BUN Creatinine Estim Creat Clear Calc eGFR BUN/Creatinine Ratio Glucose Calculated Osmolality Calcium Corrected Calcium Phosphorus Magnesium Total Bilirubin AST ALT Alkaline Phosphatase Total Protein Albumin Globulin Albumin/Globulin Ratio ANGELITA Screen NEGATIVE ANGELITA Titer TNP ANGELITA Titer 2 TNP ANGELITA Titer 3 TNP ANGELITA Pattern TNP ANGELITA Pattern 2 TNP ANGELITA Pattern 3 TNP Coccidioides IgM Ab Mycobacterial Culture See Sep Rpt See Sep Rpt 06/09/25 06/11/25 12:38 04:56 WBC 16.3 H D RBC 3.37 L Hgb 9.4 L Hct 30.6 L MCV 91 MCH 27.9 MCHC 30.7 L RDW Std Deviation 51.1 H Plt Count 240 D Neut % (Auto) 90 H Lymph % (Auto) 2 L [place] % (Auto) 5 Eos % (Auto) 0 Baso % (Auto) 0 Neut # (Auto) 14.7 H Lymph # (Auto) 0.3 L [place] # (Auto) 0.9 H Eos # (Auto) 0.0 Baso # (Auto) 0.0 Immature Gran # (Auto) 0.35 H Absolute Nucleated RBC 0.00 Immature Gran % 2 H Nucleated RBC % 0 Sodium 144 Potassium 4.7 Chloride 103 Carbon Dioxide 36.2 H Anion Gap 5 L BUN 18 Creatinine 0.7 Estim Creat Clear Calc 53.9 L eGFR > 60 BUN/Creatinine Ratio 26 H Glucose 121 H Calculated Osmolality 289 Calcium 8.5 Corrected Calcium 8.7 Phosphorus 2.5 Magnesium 2.6 Total Bilirubin 0.4 AST 17 ALT 15 Alkaline Phosphatase 95 Total Protein 6.0 Albumin 3.7 Globulin 2.3 Albumin/Globulin Ratio 1.6 ANGELITA Screen ANGELITA Titer ANGELITA Titer 2 ANGELITA Titer 3 ANGELITA Pattern ANGELITA Pattern 2 ANGELITA Pattern 3 Coccidioides IgM Ab Negative Mycobacterial Culture ABG Interpretation ABG results: 06/07/25 06/07/25 05:41 19:54 ABG pH 7.44 7.29 L D ABG pCO2 61 H 70 H ABG pO2 48 L* 98 D ABG HCO3 41 H 33 H ABG O2 Saturation 71 L 97 ABG Base Excess 14 H 5 H Quality Measures Quality Measures none Advance care planning discussed with:: patient Assessment & Plan Assessment Current Active Medications: Generic Name Dose Route Start Last Admin Trade Name Freq PRN Reason Stop Dose Admin Acetaminophen 650 mg 06/07/25 09:54 06/11/25 00:41 Acetaminophen 325 Mg Tablet PO 07/07/25 09:53 650 mg Q6H PRN Administration PAIN SCALE 1-3 (mild Acetaminophen 650 mg 06/07/25 09:54 Acetaminophen 325 Mg Tablet PO 07/07/25 09:53 Q6H PRN Fever >100.4 Atorvastatin Calcium 80 mg 06/09/25 21:00 06/10/25 21:22 Atorvastatin Calcium 20 Mg Tablet PO 07/09/25 20:59 80 mg HS EMRE Administration Benzonatate 100 mg 06/07/25 10:15 06/11/25 09:10 Benzonatate 100 Mg Capsule PO 07/07/25 10:14 100 mg QDAY EMRE Administration Protocol Dextrose 25 ml 06/07/25 12:04 Dextrose 50%-Water Inj 50 Ml Syringe IV 07/07/25 12:03 Q15MIN PRN BG 50-70 responsive npo pt Dextrose 50 ml 06/07/25 12:04 Dextrose 50%-Water Inj 50 Ml Syringe IV 07/07/25 12:03 Q15MIN PRN BG <50 OR BG <70 & pt unresponsive Diltiazem HCl 360 mg 06/08/25 09:00 06/11/25 09:12 Diltiazem Cd 120 Mg Capcr PO 07/08/25 08:59 360 mg QDAY EMRE Administration Docusate Sodium 100 mg 06/09/25 11:39 Docusate Sod 100 Mg Capsule PO 07/09/25 11:38 BID PRN CONSTIPATION Protocol Glucagon 1 mg 06/07/25 12:04 Glucagon Inj 1 Mg Vial IM Q15MIN PRN BG <70, and no IV access Heparin Sodium (Porcine) 5,000 unit 06/07/25 21:00 06/11/25 09:10 Heparin Sod Inj 5000 Unit/Ml Vial SC 06/21/25 20:59 5,000 unit Q12H EMRE Administration Insulin Human Lispro 0 unit 06/07/25 17:00 06/11/25 08:49 Insulin Lispro (Admelog) 1 Unit/0.01 Ml Unit SC 07/07/25 16:59 Not Given AC EMRE Protocol Ipratropium [place] 0.5 mg 06/09/25 13:00 06/11/25 07:15 Ipratropium Rt 0.5 Mg/ 2.5 Ml Nebu INH 07/09/25 12:59 0.5 mg Q6HRRT EMRE Administration Levalbuterol HCl 1.25 mg 06/07/25 15:00 06/11/25 07:15 Levalbuterol Rt 1.25 Mg/0.5 Ml Nebu INH 07/07/25 14:59 1.25 mg Q6HRRT EMRE Administration Lisinopril 2.5 mg 06/07/25 12:15 06/11/25 09:10 Lisinopril 2.5 Mg Tablet PO 07/07/25 12:14 2.5 mg QDAY EMRE Administration Loratadine 10 mg 06/07/25 12:15 06/11/25 09:12 Loratadine 10 Mg Tablet PO 07/07/25 12:14 10 mg QDAY EMRE Administration Ondansetron HCl 4 mg 06/07/25 09:54 Ondansetron Inj 2 Mg/Ml Inj 2 Ml IVP 07/07/25 09:53 Q6H PRN NAUSEA OR VOMITING Protocol Oxycodone/Acetaminophen 1 tab 06/07/25 09:54 06/10/25 14:24 Oxycodone/Apap 5/325 Tablet PO 06/12/25 09:53 1 tab Q6H PRN Administration PAIN SCALE 4-6 (Moderate Pantoprazole Sodium 40 mg 06/10/25 16:45 06/11/25 09:10 Pantoprazole Inj 40 Mg Vial IVP 07/10/25 16:44 40 mg QDAY EMRE Administration Simethicone 80 mg 06/10/25 16:42 Simethicone 80 Mg Chew PO 07/10/25 16:41 QID PRN GAS Sodium Chloride 3 ml 06/07/25 13:00 06/11/25 00:20 Sodium Chloride Rt [place] 0.9% 3 Ml Nebu INH 07/07/25 12:59 3 ml Q6HRRT EMRE Administration Sodium Chloride 3 ml 06/07/25 12:10 Sodium Chloride Rt [place] 0.9% 3 Ml Nebu INH 07/07/25 12:09 PRN PRN SOLN Plan Assessment Jazmin is a 70 y/o female with PMHx of chronic asthma (on 3L O2 at home) severe peripheral artery disease (status post left BKA), hypertension, hyperlipidemia, [id number] type 2 diabetes who is admitted for Acute on Chronic respiratory failure and community acquired pneumonia. 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 Zosyn 4.5 g IV (06/11? ? DC steroids ? Chest physiotherapy ? Xopenex 1.25 mg every 6 hours RT - Iptratropium 0.5mg Q6HRRT ? ANGELITA ? Tessalon Perles as needed - rule out atypical Mycobacterium. Will initiate Airborne isolation, and pending AFB x3 - Outpatient pulmonology follow up for PFTs due to concern for COPD - Outpatient sleep study #Metabolic alkalosis with respiratory acidosis ABG showed a pH of 7.44, bicarb of 41, pCO2 of 61 Patient is a chronic CO2 retainer Repeat ABG on hospital day 3 shows PH 7.29, bicarb 33, and PCO2 of 70 Burnett formula predicts CO2: 57 -> indicates respiratory acidosis with secondary metabolic alkalosis Mixed acid-base disorder Plan: ? Trend CMP ? 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 Telemetry ? Keep magnesium and potassium above 2 and 4 respectively ? Resume home Cardizem 360 mg daily ? Will resume Eliquis upon discharge - Cardiac Diet #Hypertension #Hyperlipidemia #Severe peripheral artery disease s/p L BKA Chronic Plan: ? Resumed home Lipitor 80 mg at bedtime ? Resume home lisinopril 2.5 mg daily #Insulin Dependent Type II Diabetes mellitus Takes Novolin 70/30 15 units at home 01/2025 A1c 5.0, 06/08/25 A1c is 5.5 Plan: ? Sliding scale insulin ? Hypoglycemic protocol in place ? Blood sugar checks with meals #Chronic microcytic hematuria DDx: IgA Nephropathy, FSGS, GPA, bladder malignancy No stones seen on imaging, or hx of stones Patient has had blood and RBCs in the urine before Patient shows +2 blood and 19 RBCs today Previous has had ANGELITA, c-ANCA and p-ANCA negative Pt likely has IgA nephropathy No signs of Nephritic or nephrotic syndrome (no protein in urine) at this time Could be GPA but considering ANCA numbers are negative, unlikely, also pt has not commented on hemoptysis No recent fall; Unlikely bladder related due to no smoking hx CK is normal Plan: ?ANGELITA pending #Normocytic anemia #Hx of Gastritis #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 Moore, GI Was supposed be referred to [facility] for surgical intervention, patients daughter confirms this did not happen Chest CT 06/07: retrocardiac gastric hernia; patient is asymptomatic Iron is low (28) and TIBC and ferritin are normal. Retic count % 1.9, absolute retic count is normal Peripheral blood smear: normocytic normochromic anemia with anisocytosis; mature neutrophilia and monocytosis -Spoke with GI, they will give recs in regards to possible oncology workup Plan: ? Trend CBC ? Transfusion protocol hemoglobin below 7 ? Avoiding any NSAIDs ? Protonix 40 mg daily ? FOBT ? Consult GI in place #Health Maintenance Disposition: Telemetry DVT prophylaxis: Heparin Q12H GI prophylaxis: Protonix Diet: Cardiac CODE STATUS: DNR Plan discussed with my attending physician, Dr. Smooth Nguyen, PGY-2 Attending Provider Attestation/Addendum I have examined the patient, reviewed labs and imaging findings, discussed the case with the resident(s), and reviewed entered orders. I agree with the plan of care as outlined in this note, with these additional summaries/recommendations: Patient seen at bedside. No acute overnight events. Quantiferon gold negative and AFB X 1 now negative. We will await results of two additional AFBs before patient can be discharged. Continue supplemental oxygen and 02 saturation appropriate on 2 L nasal cannula. Patient has superimposed bacterial pneumonia. Sputum cx resulted today revealing achromobacter xylos and abx adjusted based of sensitivities and mean inhibitory concentration. Continue breathing treatments and DC steroid. Cardiology following for atrial fibrillation which is controlled. Continue Cardizem. Gastroenterology was consulted for borderline intramucosal carcinoma noted on path report from EGD. Per gastroenterology patient can follow-up outpatient and be referred to Dr. Cunningham at [facility] for further evaluation and management. Continue PPI. Minimal hypernatremia present today and patient encouraged to increase oral intake. Patient updated on the plan and in agreement. Please see residents note for additional details and management. Dr. Smooth MD
[2025-06-11] MEDS: INSULIN LISPRO (AdmeLOG) 1 UNIT/0.01 ML UNIT SC ×2 (12:30→17:58)
[2025-06-11] MEDS: PIPER/TAZO INJ 4.5 GM in SODIUM CHLORIDE 0.9% (POP) 100 ML IV ×2 (13:00→21:42)
--- NOTE | 2025-06-11 14:16 | PC.SS ---
Rounding note: patient is a T/B rule out. D/c plan is home.
--- NOTE | 2025-06-11 17:48 | PD.IMPROG ---
Documentation for date of: 06/11/25 Subjective Subjective Interval history: Patient evaluated In acute hypoxic hypercapnic respiratory failure Bilateral pneumonia Miliary disease being ruled out Serum QuantiFERON is negative Waiting for the patient to have stable respiratory status And upon discharge we will get her to [facility] Exam Vital Signs Temp Pulse Resp BP Pulse Ox O2 Del Method O2 Flow Rate 98.1 F 88 25 H 137/62 H 93 L Nasal Cannula 2 06/11/25 16:00 06/11/25 16:00 06/11/25 16:00 06/11/25 16:00 06/11/25 16:00 06/11/25 16:00 06/11/25 16:00 FiO2 45 06/09/25 08:00 Objective Labs 06/11/25 04:56 06/11/25 04:56 Labs: Laboratory Results - last 24 hr 06/08/25 06/08/25 06/09/25 05:20 15:52 04:23 WBC RBC Hgb Hct MCV MCH MCHC RDW Std Deviation Plt Count Neut % (Auto) Lymph % (Auto) [place] % (Auto) Eos % (Auto) Baso % (Auto) Neut # (Auto) Lymph # (Auto) [place] # (Auto) Eos # (Auto) Baso # (Auto) Immature Gran # (Auto) Absolute Nucleated RBC Immature Gran % Nucleated RBC % Sodium Potassium Chloride Carbon Dioxide Anion Gap BUN Creatinine Estim Creat Clear Calc eGFR BUN/Creatinine Ratio Glucose Calculated Osmolality Calcium Corrected Calcium Phosphorus Magnesium Total Bilirubin AST ALT Alkaline Phosphatase Total Protein Albumin Globulin Albumin/Globulin Ratio ANGELITA Screen NEGATIVE ANGELITA Titer TNP ANGELITA Titer 2 TNP ANGELITA Titer 3 TNP ANGELITA Pattern TNP ANGELITA Pattern 2 TNP ANGELITA Pattern 3 TNP Mycobacterial Culture See Aug Rpt See Aug Rpt 06/11/25 04:56 WBC 16.3 H D RBC 3.37 L Hgb 9.4 L Hct 30.6 L MCV 91 MCH 27.9 MCHC 30.7 L RDW Std Deviation 51.1 H Plt Count 240 D Neut % (Auto) 90 H Lymph % (Auto) 2 L [place] % (Auto) 5 Eos % (Auto) 0 Baso % (Auto) 0 Neut # (Auto) 14.7 H Lymph # (Auto) 0.3 L [place] # (Auto) 0.9 H Eos # (Auto) 0.0 Baso # (Auto) 0.0 Immature Gran # (Auto) 0.35 H Absolute Nucleated RBC 0.00 Immature Gran % 2 H Nucleated RBC % 0 Sodium 144 Potassium 4.7 Chloride 103 Carbon Dioxide 36.2 H Anion Gap 5 L BUN 18 Creatinine 0.7 Estim Creat Clear Calc 53.9 L eGFR > 60 BUN/Creatinine Ratio 26 H Glucose 121 H Calculated Osmolality 289 Calcium 8.5 Corrected Calcium 8.7 Phosphorus 2.5 Magnesium 2.6 Total Bilirubin 0.4 AST 17 ALT 15 Alkaline Phosphatase 95 Total Protein 6.0 Albumin 3.7 Globulin 2.3 Albumin/Globulin Ratio 1.6 ANGELITA Screen ANGELITA Titer ANGELITA Titer 2 ANGELITA Titer 3 ANGELITA Pattern ANGELITA Pattern 2 ANGELITA Pattern 3 Mycobacterial Culture Impressions Impression: Severe dysplasia with possibility of intramucosal carcinoma in the setting of long segment Ac's esophagus Mass ileocecal valve region Acute hypoxic hypercapnic respiratory failure with bilateral pneumonia Continue current management ABG Interpretation ABG results: 06/07/25 06/07/25 05:41 19:54 ABG pH 7.44 7.29 L D ABG pCO2 61 H 70 H ABG pO2 48 L* 98 D ABG HCO3 41 H 33 H ABG O2 Saturation 71 L 97 ABG Base Excess 14 H 5 H Assessment & Plan A&P Narrative # Ac's esophagus distal esophagus with dysplasia # 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 Cunningham at [facility] for further evaluation and management Other medical problems include Bilateral pneumonia Left BKA Essential hypertension Diabetes mellitus type 2 Thank you very much for the opportunity to participate in the care of this patient Time Spent With Patient Time: Total time spent is greater than 50% in coordination of care (as documented) at patient's floor/unit and/or counseling patient:
--- NOTE | 2025-06-11 18:42 | PD.RESPRO ---
Documentation for date of: 06/11/25 Subjective Subjective Interval history: The patient was seen and examined at the bedside this morning. She reported improvement in her shortness of breath, and feels like she is back at her baseline. The patient is currently saturating 100% L of NC, and she is at [address] chest revealed bilateral pneumonia, most prominent in left upper lobe and lingular segment, but as interpreted by me, it was also significant for reticular pattern. Primary team ruling out flu along with possible miliary TB given the CT findings The patient was given trial of Lasix IV, but need negative was only 63 cc despite of low input. This suggest that the patient does not have CHF exacerbation, backed by low BNP level and CT chest not revealing any signs of CHF or volume overload. Recommended sleep study. Recommended to stop Lasix. Continue with antibiotics - Continue with diltiazem 360 Mg daily, and avoid beta-mihir in the setting of chronic respiratory failure. - Pt is currently stable but being ruled out for TB Exam Vital Signs Temp Pulse Resp BP Pulse Ox O2 Del Method O2 Flow Rate 98.1 F 88 25 H 137/62 H 93 L Nasal Cannula 2 06/11/25 16:00 06/11/25 16:00 06/11/25 16:00 06/11/25 16:00 06/11/25 16:00 06/11/25 16:00 06/11/25 16:00 FiO2 45 06/09/25 08:00 Narrative Exam General: No acute distress, Alert and Oriented x 3 HEENT: Moist mucous membranes, oropharynx clear Neck: Supple, No masses, No JVD CVS: S1S2 Regular rate and rhythm, pansystolic murmur over left lower sternal border, rubs or gallops Lungs: no wheeze no rhonchi, no cracles Abd: Soft, NT/ND, +BS, no organomegaly Ext: Left BKA, feeble pulse on right lower extremity Skin: No rash Psych: Appropriate mood and affect Objective Labs 06/12/25 05:12 06/12/25 05:12 Labs: Laboratory Results - last 24 hr 06/08/25 06/08/25 06/09/25 05:20 15:52 04:23 WBC RBC Hgb Hct MCV MCH MCHC RDW Std Deviation Plt Count Neut % (Auto) Lymph % (Auto) [place] % (Auto) Eos % (Auto) Baso % (Auto) Neut # (Auto) Lymph # (Auto) [place] # (Auto) Eos # (Auto) Baso # (Auto) Immature Gran # (Auto) Absolute Nucleated RBC Immature Gran % Nucleated RBC % Sodium Potassium Chloride Carbon Dioxide Anion Gap BUN Creatinine Estim Creat Clear Calc eGFR BUN/Creatinine Ratio Glucose Calculated Osmolality Calcium Corrected Calcium Phosphorus Magnesium Total Bilirubin AST ALT Alkaline Phosphatase Total Protein Albumin Globulin Albumin/Globulin Ratio ANGELITA Screen NEGATIVE ANGELITA Titer TNP ANGELITA Titer 2 TNP ANGELITA Titer 3 TNP ANGELITA Pattern TNP ANGELITA Pattern 2 TNP ANGELITA Pattern 3 TNP Mycobacterial Culture See Aug Rpt See Aug Rpt 06/11/25 04:56 WBC 16.3 H D RBC 3.37 L Hgb 9.4 L Hct 30.6 L MCV 91 MCH 27.9 MCHC 30.7 L RDW Std Deviation 51.1 H Plt Count 240 D Neut % (Auto) 90 H Lymph % (Auto) 2 L [place] % (Auto) 5 Eos % (Auto) 0 Baso % (Auto) 0 Neut # (Auto) 14.7 H Lymph # (Auto) 0.3 L [place] # (Auto) 0.9 H Eos # (Auto) 0.0 Baso # (Auto) 0.0 Immature Gran # (Auto) 0.35 H Absolute Nucleated RBC 0.00 Immature Gran % 2 H Nucleated RBC % 0 Sodium 144 Potassium 4.7 Chloride 103 Carbon Dioxide 36.2 H Anion Gap 5 L BUN 18 Creatinine 0.7 Estim Creat Clear Calc 53.9 L eGFR > 60 BUN/Creatinine Ratio 26 H Glucose 121 H Calculated Osmolality 289 Calcium 8.5 Corrected Calcium 8.7 Phosphorus 2.5 Magnesium 2.6 Total Bilirubin 0.4 AST 17 ALT 15 Alkaline Phosphatase 95 Total Protein 6.0 Albumin 3.7 Globulin 2.3 Albumin/Globulin Ratio 1.6 ANGELITA Screen ANGELITA Titer ANGELITA Titer 2 ANGELITA Titer 3 ANGELITA Pattern ANGELITA Pattern 2 ANGELITA Pattern 3 Mycobacterial Culture ABG Interpretation ABG results: 06/07/25 06/07/25 05:41 19:54 ABG pH 7.44 7.29 L D ABG pCO2 61 H 70 H ABG pO2 48 L* 98 D ABG HCO3 41 H 33 H ABG O2 Saturation 71 L 97 ABG Base Excess 14 H 5 H Quality Measures Quality Measures none Advance care planning discussed with:: patient Assessment & Plan Assessment Current Active Medications: Generic Name Dose Route Start Last Admin Trade Name Freq PRN Reason Stop Dose Admin Acetaminophen 650 mg 06/07/25 09:54 06/11/25 00:41 Acetaminophen 325 Mg Tablet PO 07/07/25 09:53 650 mg Q6H PRN Administration PAIN SCALE 1-3 (mild Acetaminophen 650 mg 06/07/25 09:54 Acetaminophen 325 Mg Tablet PO 07/07/25 09:53 Q6H PRN Fever >100.4 Atorvastatin Calcium 80 mg 06/09/25 21:00 06/10/25 21:22 Atorvastatin Calcium 20 Mg Tablet PO 07/09/25 20:59 80 mg HS EMRE Administration Benzonatate 100 mg 06/07/25 10:15 06/11/25 09:10 Benzonatate 100 Mg Capsule PO 07/07/25 10:14 100 mg QDAY EMRE Administration Protocol Dextrose 25 ml 06/07/25 12:04 Dextrose 50%-Water Inj 50 Ml Syringe IV 07/07/25 12:03 Q15MIN PRN BG 50-70 responsive npo pt Dextrose 50 ml 06/07/25 12:04 Dextrose 50%-Water Inj 50 Ml Syringe IV 07/07/25 12:03 Q15MIN PRN BG <50 OR BG <70 & pt unresponsive Diltiazem HCl 360 mg 06/08/25 09:00 06/11/25 09:12 Diltiazem Cd 120 Mg Capcr PO 07/08/25 08:59 360 mg QDAY EMRE Administration Docusate Sodium 100 mg 06/09/25 11:39 Docusate Sod 100 Mg Capsule PO 07/09/25 11:38 BID PRN CONSTIPATION Protocol Glucagon 1 mg 06/07/25 12:04 Glucagon Inj 1 Mg Vial IM Q15MIN PRN BG <70, and no IV access Heparin Sodium (Porcine) 5,000 unit 06/07/25 21:00 06/11/25 09:10 Heparin Sod Inj 5000 Unit/Ml Vial SC 06/21/25 20:59 5,000 unit Q12H EMRE Administration Piperacillin Sod/Tazobactam 100 mls @ 25 mls/hr 06/11/25 10:22 06/11/25 13:00 Sod 4.5 gm/ Sodium Chloride IV 06/18/25 10:21 25 mls/hr Q8HR EMRE Administration Insulin Human Lispro 0 unit 06/07/25 17:00 06/11/25 17:58 Insulin Lispro (Admelog) 1 Unit/0.01 Ml Unit SC 07/07/25 16:59 2 unit AC EMRE Administration Protocol Ipratropium [place] 0.5 mg 06/09/25 13:00 06/11/25 13:25 Ipratropium Rt 0.5 Mg/ 2.5 Ml Nebu INH 07/09/25 12:59 0.5 mg Q6HRRT EMRE Administration Levalbuterol HCl 1.25 mg 06/07/25 15:00 06/11/25 13:25 Levalbuterol Rt 1.25 Mg/0.5 Ml Nebu INH 07/07/25 14:59 1.25 mg Q6HRRT EMRE Administration Lisinopril 2.5 mg 06/07/25 12:15 06/11/25 09:10 Lisinopril 2.5 Mg Tablet PO 07/07/25 12:14 2.5 mg QDAY EMRE Administration Loratadine 10 mg 06/07/25 12:15 06/11/25 09:12 Loratadine 10 Mg Tablet PO 07/07/25 12:14 10 mg QDAY EMRE Administration Ondansetron HCl 4 mg 06/07/25 09:54 Ondansetron Inj 2 Mg/Ml Inj 2 Ml IVP 07/07/25 09:53 Q6H PRN NAUSEA OR VOMITING Protocol Oxycodone/Acetaminophen 1 tab 06/07/25 09:54 06/10/25 14:24 Oxycodone/Apap 5/325 Tablet PO 06/12/25 09:53 1 tab Q6H PRN Administration PAIN SCALE 4-6 (Moderate Pantoprazole Sodium 40 mg 06/12/25 09:00 Pantoprazole Inj 40 Mg Vial IVP 07/10/25 16:44 DAILY EMRE Simethicone 80 mg 06/10/25 16:42 Simethicone 80 Mg Chew PO 07/10/25 16:41 QID PRN GAS Sodium Chloride 3 ml 06/07/25 13:00 06/11/25 00:20 Sodium Chloride Rt [place] 0.9% 3 Ml Nebu INH 07/07/25 12:59 3 ml Q6HRRT EMRE Administration Sodium Chloride 3 ml 06/07/25 12:10 Sodium Chloride Rt [place] 0.9% 3 Ml Nebu INH 07/07/25 12:09 PRN PRN SOLN Esther Jazmin is a 70 y/o female with PMHx of chronic asthma (on oxygen intermittently at home) severe peripheral artery disease (status post left BKA), hypertension, hyperlipidemia, [id number] type 2 diabetes who is admitted for Acute on Chronic respiratory failure and community acquired pneumonia. #R/O tuberculosis -Pending confirmatory results for TB. #CHF exacerbation, ruled out- has chronic diastolic heart failure - euvolemic now Less likely to have CHF exacerbation, as BNP is 27, and the fine crackles heard on chest exam is likely secondary to interstitial lung disease. Chest x-ray and CT chest negative for vascular congestion or volume overload, but significant for reticular pattern indicating possible ILD. - Rule out interstitial lung disease - Pulmonary consultation - May consider high-dose pulse steroid therapy, if agreed by renewable energy engineer - Recent echo on April 2025 was significant for RVSP 55 mmHg, but stable LVEF. - Stop diuretics - Strict input output, daily weights and 2 g sodium diet. #Acute respiratory failure, resolved #Chronic respiratory failure #Community-acquired pneumonia #COPD exacerbation #Moderate pulmonary hypertension #Hx of Chronic asthma #Possible Interstitial lung disease #R/O Tuberculosis Patient was recently discharged from the ER for similar symptoms including fever, shortness of breath Patient has never seen a renewable energy engineer or gotten PFTs On previous chest abdomen pelvis done in March 2025 shows possible miliary disease, but further reading of the films was suspicious for reticular pattern suggestive of COPD. She reported no expected or exposure to TB, and no recent visit to [place]. Previously she was tested negative for tuberculosis. 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 Despite SOB, she is saturating well on home 3 L NC. Echo previously shows RVSP 55 mmHg -Continue with antibiotics and steroids -DuoNeb as needed -Continue with BiPAP as needed #Chronic Paroxysmal A-fib [id number], HAS-BLED: 2, currently regular rate and rhythm Eliquis held due to concern for GI bleed in the past. 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 We appreciate the opportunity to participate in this patient care. Cardiology will continue to follow-up on this patient. The patient's management plan was discussed with my attending physician MD Angel Bal MD, PGY3 Attending Provider Attestation/Addendum I have personally seen and examined the patient separately on the above date of service and discussed the plan of care with the resident. I reviewed the resident Dr. Angel Tanner consultation progress note and agree with the resident findings and plan in the note above and have also edited the documentation to reflect my findings and plan. Campos Pavon M.D. Interventional Cardiology
[2025-06-11] MEDS: ATORVASTATIN CALCIUM 20 MG TABLET 80 MG PO (20:38)
[2025-06-12] VITALS (13 sets, daily range): BP systolic 129–154; BP diastolic 60–76; PULSE 82–116; RESP 16–24; TEMP 36.2–36.6; O2SAT 89–99; BMI 26.8
[2025-06-12] MEDS: SODIUM CHLORIDE RT SOL 0.9% 3 ML NEBU INH ×2 (00:49→06:42)
[2025-06-12] MEDS: LEVALBUTEROL RT 1.25 MG/0.5 ML NEBU INH ×2 (00:49→06:42)
[2025-06-12] MEDS: IPRATROPIUM RT 0.5 MG/ 2.5 ML NEBU INH ×3 (00:49→19:25)
[2025-06-12] MEDS: PIPER/TAZO INJ 4.5 GM in SODIUM CHLORIDE 0.9% (POP) 100 ML IV ×3 (05:06→21:03)
[2025-06-12 06:22] LABS: Basophils # (Auto) 0.0 Thou/mm3 (0.0-0.2); Basophils % (Auto) 0 % (0-2.5); Eosinophils # (Auto) 0.0 Thou/mm3 (0.0-0.5); Eosinophils % (Auto) 0 % (0-10); Hematocrit 31.7 % (36.0-46.0); Hemoglobin 9.7 g/dL (12.0-16.0); Immature Granulocytes Auto 0.39 Thou/mm3 (0.00-0.00); Lymphocytes # (Auto) 0.2 Thou/mm3 (1.0-4.8); Lymphocytes % (Auto) 1 % (10-50); Mean Corpuscular HGB Conc 30.6 g/dl (31.0-37.0); Mean Corpuscular Hemoglobin 28.0 pg (25.0-35.0); Mean Corpuscular Volume 92 fL (80-100); Monocytes # (Auto) 1.1 Thou/mm3 (0.0-0.8); Monocytes % (Auto) 6 % (0-12); Neutrophils # (Auto) 16.6 Thou/mm3 (1.8-7.7); Neutrophils % (Auto) 91 % (37-80); Nucleated Red Blood Cell # 0.00 Thou/mm3 (0.00-0.00); Nucleated Red Blood Cell % 0 /100 WBC (0); Platelet Count 267 Thou/mm3 (140-440); RDW Standard Deviation 52.6 fL (36.4-46.3); Red Blood Count 3.46 Miln/mm3 (4.00-5.20); White Blood Count 18.3 Thou/mm3 (3.6-11.0)
[2025-06-12 06:46] LABS: Alanine Aminotransferase 27 U/L (10-49); Albumin, Serum 3.7 gm/dL (3.4-4.8); Albumin/Globulin Ratio 1.6 (1.2-2.2); Alkaline Phosphatase 109 U/L (46-116); Anion Gap 4 (7-16); Aspartate Amino Transferase 35 U/L (0-34); BUN/Creatinine Ratio 26 Ratio (12-20); Bilirubin,Total 0.4 mg/dL (0.3-1.2); Blood Urea Nitrogen 18 mg/dL (9-23); Calcium 8.6 mg/dL (8.3-10.6); Calcium (Corrected) 8.8 mg/dL (8.5-10.1); Carbon Dioxide 39.6 mMol/L (20.0-31.0); Chloride 103 mMol/L (98-107); Creatinine (Component) 0.7 mg/dL (0.6-1.3); Estimated Creatinine Clearance 53.9 mL/min (>60); Globulin 2.3 gm/dL (2.3-3.5); Glucose 107 mg/dL (74-106); Magnesium 2.8 mg/dL (1.6-2.6); Osmolality,Calculated 294 (275-295); Phosphorous 3.0 mg/dL (2.4-5.1); Potassium 5.1 mMol/L (3.4-5.1); Sodium 147 mMol/L (136-145); Total Protein 6.0 gm/dL (5.7-8.2); eGFR > 60 See Note
[2025-06-12] MEDS: HEPARIN SOD INJ 5000 UNIT/ML VIAL SC ×2 (08:37→20:19)
[2025-06-12] MEDS: DILTIAZEM CD 120 MG CAPCR 360 MG PO (08:38)
[2025-06-12] MEDS: BENZONATATE 100 MG CAPSULE PO (08:38)
--- NOTE | 2025-06-12 10:01 | ESPR_ITS ---
Documentation for date of: 06/12/25 Subjective Subjective Interval history: Pt examined at bedside today. No acute overnight events. Patient is wondering when she can go home. She reports that her breathing is fine. She is asking if the last culture came back. No other complaints at this time. Exam Vital Signs Temp Pulse Resp BP Pulse Ox O2 Del Method O2 Flow Rate 97.9 F 92 16 131/70 H 95 Nasal Cannula 2 06/12/25 07:49 06/12/25 08:38 06/12/25 07:49 06/12/25 08:38 06/12/25 07:49 06/12/25 04:00 06/12/25 06:44 FiO2 45 06/11/25 20:00 Narrative Exam General: AAOx3, NAD, elderly, weak, pleasant female HEENT: Moist mucous membranes, conjunctiva clear, EOMI, PERRLA, poor dentition Cardiovascular: Pansystolic murmur heard over left lower sternal border radiates to left upper sternal border, radial pulses +2 bilat, tachycardia, no hepatojuglar reflex or JVD appreciated Pulmonary: Crackles heard in lung zepeda bilat, no cough, no wheezing GI: No tenderness to light or deep palpitation, no guarding, rigidity, rebound tenderness or distension, possible abdominal hernia Extremities: L BKA, no anasarca appreciated Neuro: AAOx3, no focal motor or sensory deficits in the UE or LE bilat Psych: Cooperative Objective Labs 06/13/25 05:10 06/13/25 05:10 Labs: Laboratory Results - last 24 hr 06/12/25 05:12 WBC 18.3 H RBC 3.46 L Hgb 9.7 L Hct 31.7 L MCV 92 MCH 28.0 MCHC 30.6 L RDW Std Deviation 52.6 H Plt Count 267 Neut % (Auto) 91 H Lymph % (Auto) 1 L [place] % (Auto) 6 Eos % (Auto) 0 Baso % (Auto) 0 Neut # (Auto) 16.6 H Lymph # (Auto) 0.2 L [place] # (Auto) 1.1 H Eos # (Auto) 0.0 Baso # (Auto) 0.0 Immature Gran # (Auto) 0.39 H Absolute Nucleated RBC 0.00 Immature Gran % 2 H Nucleated RBC % 0 Sodium 147 H Potassium 5.1 Chloride 103 Carbon Dioxide 39.6 H Anion Gap 4 L BUN 18 Creatinine 0.7 Estim Creat Clear Calc 53.9 L eGFR > 60 BUN/Creatinine Ratio 26 H Glucose 107 H Calculated Osmolality 294 Calcium 8.6 Corrected Calcium 8.8 Phosphorus 3.0 Magnesium 2.8 H Total Bilirubin 0.4 AST 35 H ALT 27 Alkaline Phosphatase 109 Total Protein 6.0 Albumin 3.7 Globulin 2.3 Albumin/Globulin Ratio 1.6 ABG Interpretation ABG results: 06/07/25 06/07/25 05:41 19:54 ABG pH 7.44 7.29 L D ABG pCO2 61 H 70 H ABG pO2 48 L* 98 D ABG HCO3 41 H 33 H ABG O2 Saturation 71 L 97 ABG Base Excess 14 H 5 H Quality Measures Quality Measures none Advance care planning discussed with:: patient Assessment & Plan Assessment Current Active Medications: Generic Name Dose Route Start Last Admin Trade Name Freq PRN Reason Stop Dose Admin Acetaminophen 650 mg 06/07/25 09:54 06/11/25 00:41 Acetaminophen 325 Mg Tablet PO 07/07/25 09:53 650 mg Q6H PRN Administration PAIN SCALE 1-3 (mild Acetaminophen 650 mg 06/07/25 09:54 Acetaminophen 325 Mg Tablet PO 07/07/25 09:53 Q6H PRN Fever >100.4 Atorvastatin Calcium 80 mg 06/09/25 21:00 06/11/25 20:38 Atorvastatin Calcium 20 Mg Tablet PO 07/09/25 20:59 80 mg HS EMRE Administration Benzonatate 100 mg 06/07/25 10:15 06/12/25 08:38 Benzonatate 100 Mg Capsule PO 07/07/25 10:14 100 mg QDAY EMRE Administration Protocol Dextrose 25 ml 06/07/25 12:04 Dextrose 50%-Water Inj 50 Ml Syringe IV 07/07/25 12:03 Q15MIN PRN BG 50-70 responsive npo pt Dextrose 50 ml 06/07/25 12:04 Dextrose 50%-Water Inj 50 Ml Syringe IV 07/07/25 12:03 Q15MIN PRN BG <50 OR BG <70 & pt unresponsive Diltiazem HCl 360 mg 06/08/25 09:00 06/12/25 08:38 Diltiazem Cd 120 Mg Capcr PO 07/08/25 08:59 360 mg QDAY EMRE Administration Docusate Sodium 100 mg 06/09/25 11:39 Docusate Sod 100 Mg Capsule PO 07/09/25 11:38 BID PRN CONSTIPATION Protocol Glucagon 1 mg 06/07/25 12:04 Glucagon Inj 1 Mg Vial IM Q15MIN PRN BG <70, and no IV access Heparin Sodium (Porcine) 5,000 unit 06/07/25 21:00 06/12/25 08:37 Heparin Sod Inj 5000 Unit/Ml Vial SC 06/21/25 20:59 5,000 unit Q12H EMRE Administration Piperacillin Sod/Tazobactam 100 mls @ 25 mls/hr 06/11/25 10:22 06/12/25 05:06 Sod 4.5 gm/ Sodium Chloride IV 06/18/25 10:21 25 mls/hr Q8HR EMRE Administration Insulin Human Lispro 0 unit 06/07/25 17:00 06/12/25 07:24 Insulin Lispro (Admelog) 1 Unit/0.01 Ml Unit SC 07/07/25 16:59 Not Given AC [facility] Protocol Ipratropium [place] 0.5 mg 06/09/25 13:00 06/12/25 06:42 Ipratropium Rt 0.5 Mg/ 2.5 Ml Nebu INH 07/09/25 12:59 0.5 mg Q6HRRT EMRE Administration Levalbuterol HCl 1.25 mg 06/07/25 15:00 06/12/25 06:42 Levalbuterol Rt 1.25 Mg/0.5 Ml Nebu INH 07/07/25 14:59 1.25 mg Q6HRRT EMRE Administration Lisinopril 2.5 mg 06/07/25 12:15 06/12/25 08:38 Lisinopril 2.5 Mg Tablet PO 07/07/25 12:14 2.5 mg QDAY EMRE Administration Loratadine 10 mg 06/07/25 12:15 06/12/25 08:38 Loratadine 10 Mg Tablet PO 07/07/25 12:14 10 mg QDAY EMRE Administration Ondansetron HCl 4 mg 06/07/25 09:54 Ondansetron Inj 2 Mg/Ml Inj 2 Ml IVP 07/07/25 09:53 Q6H PRN NAUSEA OR VOMITING Protocol Pantoprazole Sodium 40 mg 06/12/25 09:00 06/12/25 08:37 Pantoprazole Inj 40 Mg Vial IVP 07/10/25 16:44 40 mg DAILY EMRE Administration Simethicone 80 mg 06/10/25 16:42 Simethicone 80 Mg Chew PO 07/10/25 16:41 QID PRN GAS Sodium Chloride 3 ml 06/07/25 13:00 06/12/25 06:42 Sodium Chloride Rt [place] 0.9% 3 Ml Nebu INH 07/07/25 12:59 3 ml Q6HRRT EMRE Administration Sodium Chloride 3 ml 06/07/25 12:10 Sodium Chloride Rt [place] 0.9% 3 Ml Nebu INH 07/07/25 12:09 PRN PRN SOLN Plan Assessment Jazmin is a 70 y/o female with PMHx of chronic asthma (on 3L O2 at home) severe peripheral artery disease (status post left BKA), hypertension, hyperlipidemia, [id number] type 2 diabetes who is admitted for Acute on Chronic respiratory failure and community acquired pneumonia. 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 Zosyn 4.5 g IV (06/11? ? DC steroids ? Chest physiotherapy ? Xopenex 1.25 mg every 6 hours RT - Iptratropium 0.5mg Q6HRRT ? ANGELITA ? Tessalon Perles as needed - rule out atypical Mycobacterium. Will initiate Airborne isolation, and pending AFB x3 - Outpatient pulmonology follow up for PFTs due to concern for COPD - Outpatient sleep study #Metabolic alkalosis with respiratory acidosis ABG showed a pH of 7.44, bicarb of 41, pCO2 of 61 Patient is a chronic CO2 retainer Repeat ABG on hospital day 3 shows PH 7.29, bicarb 33, and PCO2 of 70 Burnett formula predicts CO2: 57 -> indicates respiratory acidosis with secondary metabolic alkalosis Mixed acid-base disorder Plan: ? Trend CMP ? Treat above #Chronic Paroxysmal A-fib [id number] HAS-BLED: 2 Rate: Controlled Rhythm: Regular AC: Used to be on Eliquis, however was stopped because of recent GI bleed Takes Cardizem 360 CD at home No history of heart failure Has not taken Eliquis, however has been taking iron and vitamin C at home Patient's personal care aide is Dr. Pavon, records show that patient had a Holter and with the Holter records patient appears to be in A-fib about 1% of the time -TSH, FT4 wnl, A1C 5.5 Plan: - Appreciate cardiology recs - Strict I&Os, daily weights, 2g sodium diet ? Telemetry ? Keep magnesium and potassium above 2 and 4 respectively ? Resume home Cardizem 360 mg daily ? Will resume Eliquis upon discharge - Cardiac Diet #Hypertension #Hyperlipidemia #Severe peripheral artery disease s/p L BKA Chronic Plan: ? Resumed home Lipitor 80 mg at bedtime ? Resume home lisinopril 2.5 mg daily #Insulin Dependent Type II Diabetes mellitus Takes Novolin 70/30 15 units at home 01/2025 A1c 5.0, 06/08/25 A1c is 5.5 Plan: ? Sliding scale insulin ? Hypoglycemic protocol in place ? Blood sugar checks with meals #Chronic microcytic hematuria DDx: IgA Nephropathy, FSGS, GPA, bladder malignancy No stones seen on imaging, or hx of stones Patient has had blood and RBCs in the urine before Patient shows +2 blood and 19 RBCs today Previous has had ANGELITA, c-ANCA and p-ANCA negative Pt likely has IgA nephropathy No signs of Nephritic or nephrotic syndrome (no protein in urine) at this time Could be GPA but considering ANCA numbers are negative, unlikely, also pt has not commented on hemoptysis No recent fall; Unlikely bladder related due to no smoking hx CK is normal Plan: ?ANGELITA pending #Normocytic anemia #Hx of Gastritis #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 Moore, GI Was supposed be referred to [facility] for surgical intervention, patients daughter confirms this did not happen Chest CT 06/07: retrocardiac gastric hernia; patient is asymptomatic Iron is low (28) and TIBC and ferritin are normal. Retic count % 1.9, absolute retic count is normal Peripheral blood smear: normocytic normochromic anemia with anisocytosis; mature neutrophilia and monocytosis -Spoke with GI, they will give recs in regards to possible oncology workup Plan: ? Trend CBC ? Transfusion protocol hemoglobin below 7 ? Avoiding any NSAIDs ? Protonix 40 mg daily ? FOBT ? Consult GI in place #Health Maintenance Disposition: Telemetry DVT prophylaxis: Heparin Q12H GI prophylaxis: Protonix Diet: Cardiac CODE STATUS: DNR Plan discussed with my attending physician, Dr. Smooth Nguyen, PGY-2 Attending Provider Attestation/Addendum I have examined the patient, reviewed labs and imaging findings, discussed the case with the resident(s), and reviewed entered orders. I agree with the plan of care as outlined in this note, with these additional summaries/recommendations: Patient seen at bedside. No acute overnight events. Quantiferon gold negative and AFB X 2 now negative. We will await result of one additional AFBs before patient can be discharged. Continue supplemental oxygen and 02 saturation appropriate on 2 L nasal cannula. Patient has superimposed bacterial pneumonia. Sputum cx resulted today revealing achromobacter xylos and abx adjusted based of sensitivities and mean inhibitory concentration. Continue breathing treatments and DC steroid. Cardiology following for atrial fibrillation which is controlled. Continue Cardizem. Gastroenterology was consulted for borderline intramucosal carcinoma noted on path report from EGD. Per gastroenterology patient can follow-up outpatient and be referred to Dr. Cunningham at [facility] for further evaluation and management. Continue PPI. Minimal hypernatremia present today and patient encouraged to increase oral intake. Patient updated on the plan and in agreement. Please see residents note for additional details and management. Dr. Smooth MD
--- NOTE | 2025-06-12 10:53 | PD.RESPRO ---
Documentation for date of: 06/12/25 Subjective Subjective Interval history: The patient was seen and examined at the bedside this morning. She reported improvement in her shortness of breath, and feels like she is back at her baseline. The patient is currently saturating 100% L of NC, and she is at [address] chest revealed bilateral pneumonia, most prominent in left upper lobe and lingular segment, but as interpreted by me, it was also significant for reticular pattern. Primary team ruling out flu along with possible miliary TB given the CT findings The patient was given trial of Lasix IV, but need negative was only 63 cc despite of low input. This suggest that the patient does not have CHF exacerbation, backed by low BNP level and CT chest not revealing any signs of CHF or volume overload. Recommended sleep study. Recommended to stop Lasix. Continue with antibiotics - Continue with diltiazem 360 Mg daily, and avoid beta-mihir in the setting of chronic respiratory failure. - Pt is currently stable but being ruled out for TB Exam Vital Signs Temp Pulse Resp BP Pulse Ox O2 Del Method O2 Flow Rate 97.9 F 92 16 131/70 H 95 Nasal Cannula 2 06/12/25 07:49 06/12/25 08:38 06/12/25 07:49 06/12/25 08:38 06/12/25 07:49 06/12/25 04:00 06/12/25 06:44 FiO2 45 06/11/25 20:00 Narrative Exam General: No acute distress, Alert and Oriented x 3 HEENT: Moist mucous membranes, oropharynx clear Neck: Supple, No masses, No JVD CVS: S1S2 Regular rate and rhythm, pansystolic murmur over left lower sternal border, rubs or gallops Lungs: no wheeze no rhonchi, no cracles Abd: Soft, NT/ND, +BS, no organomegaly Ext: Left BKA, feeble pulse on right lower extremity Skin: No rash Psych: Appropriate mood and affect Objective Labs 06/12/25 05:12 06/12/25 05:12 Labs: Laboratory Results - last 24 hr 06/12/25 05:12 WBC 18.3 H RBC 3.46 L Hgb 9.7 L Hct 31.7 L MCV 92 MCH 28.0 MCHC 30.6 L RDW Std Deviation 52.6 H Plt Count 267 Neut % (Auto) 91 H Lymph % (Auto) 1 L [place] % (Auto) 6 Eos % (Auto) 0 Baso % (Auto) 0 Neut # (Auto) 16.6 H Lymph # (Auto) 0.2 L [place] # (Auto) 1.1 H Eos # (Auto) 0.0 Baso # (Auto) 0.0 Immature Gran # (Auto) 0.39 H Absolute Nucleated RBC 0.00 Immature Gran % 2 H Nucleated RBC % 0 Sodium 147 H Potassium 5.1 Chloride 103 Carbon Dioxide 39.6 H Anion Gap 4 L BUN 18 Creatinine 0.7 Estim Creat Clear Calc 53.9 L eGFR > 60 BUN/Creatinine Ratio 26 H Glucose 107 H Calculated Osmolality 294 Calcium 8.6 Corrected Calcium 8.8 Phosphorus 3.0 Magnesium 2.8 H Total Bilirubin 0.4 AST 35 H ALT 27 Alkaline Phosphatase 109 Total Protein 6.0 Albumin 3.7 Globulin 2.3 Albumin/Globulin Ratio 1.6 ABG Interpretation ABG results: 06/07/25 06/07/25 05:41 19:54 ABG pH 7.44 7.29 L D ABG pCO2 61 H 70 H ABG pO2 48 L* 98 D ABG HCO3 41 H 33 H ABG O2 Saturation 71 L 97 ABG Base Excess 14 H 5 H Quality Measures Quality Measures none Advance care planning discussed with:: patient Assessment & Plan Assessment Current Active Medications: Generic Name Dose Route Start Last Admin Trade Name Freq PRN Reason Stop Dose Admin Acetaminophen 650 mg 06/07/25 09:54 06/11/25 00:41 Acetaminophen 325 Mg Tablet PO 07/07/25 09:53 650 mg Q6H PRN Administration PAIN SCALE 1-3 (mild Acetaminophen 650 mg 06/07/25 09:54 Acetaminophen 325 Mg Tablet PO 07/07/25 09:53 Q6H PRN Fever >100.4 Atorvastatin Calcium 80 mg 06/09/25 21:00 06/11/25 20:38 Atorvastatin Calcium 20 Mg Tablet PO 07/09/25 20:59 80 mg HS EMRE Administration Benzonatate 100 mg 06/07/25 10:15 06/12/25 08:38 Benzonatate 100 Mg Capsule PO 07/07/25 10:14 100 mg QDAY EMRE Administration Protocol Dextrose 25 ml 06/07/25 12:04 Dextrose 50%-Water Inj 50 Ml Syringe IV 07/07/25 12:03 Q15MIN PRN BG 50-70 responsive npo pt Dextrose 50 ml 06/07/25 12:04 Dextrose 50%-Water Inj 50 Ml Syringe IV 07/07/25 12:03 Q15MIN PRN BG <50 OR BG <70 & pt unresponsive Diltiazem HCl 360 mg 06/08/25 09:00 06/12/25 08:38 Diltiazem Cd 120 Mg Capcr PO 07/08/25 08:59 360 mg QDAY EMRE Administration Docusate Sodium 100 mg 06/09/25 11:39 Docusate Sod 100 Mg Capsule PO 07/09/25 11:38 BID PRN CONSTIPATION Protocol Glucagon 1 mg 06/07/25 12:04 Glucagon Inj 1 Mg Vial IM Q15MIN PRN BG <70, and no IV access Heparin Sodium (Porcine) 5,000 unit 06/07/25 21:00 06/12/25 08:37 Heparin Sod Inj 5000 Unit/Ml Vial SC 06/21/25 20:59 5,000 unit Q12H EMRE Administration Piperacillin Sod/Tazobactam 100 mls @ 25 mls/hr 06/11/25 10:22 06/12/25 05:06 Sod 4.5 gm/ Sodium Chloride IV 06/18/25 10:21 25 mls/hr Q8HR EMRE Administration Insulin Human Lispro 0 unit 06/07/25 17:00 06/12/25 07:24 Insulin Lispro (Admelog) 1 Unit/0.01 Ml Unit SC 07/07/25 16:59 Not Given AC EMRE Protocol Ipratropium [place] 0.5 mg 06/12/25 19:00 Ipratropium Rt 0.5 Mg/ 2.5 Ml Nebu INH 07/12/25 18:59 [id number] EMRE Levalbuterol HCl 1.25 mg 06/12/25 19:00 Levalbuterol Rt 1.25 Mg/0.5 Ml Nebu INH 07/12/25 18:59 [id number] EMRE Lisinopril 2.5 mg 06/07/25 12:15 06/12/25 08:38 Lisinopril 2.5 Mg Tablet PO 07/07/25 12:14 2.5 mg QDAY EMRE Administration Loratadine 10 mg 06/07/25 12:15 06/12/25 08:38 Loratadine 10 Mg Tablet PO 07/07/25 12:14 10 mg QDAY EMRE Administration Ondansetron HCl 4 mg 06/07/25 09:54 Ondansetron Inj 2 Mg/Ml Inj 2 Ml IVP 07/07/25 09:53 Q6H PRN NAUSEA OR VOMITING Protocol Pantoprazole Sodium 40 mg 06/12/25 09:00 06/12/25 08:37 Pantoprazole Inj 40 Mg Vial IVP 07/10/25 16:44 40 mg DAILY EMRE Administration Simethicone 80 mg 06/10/25 16:42 Simethicone 80 Mg Chew PO 07/10/25 16:41 QID PRN GAS Sodium Chloride 3 ml 06/07/25 13:00 06/12/25 06:42 Sodium Chloride Rt [place] 0.9% 3 Ml Nebu INH 07/07/25 12:59 3 ml Q6HRRT EMRE Administration Sodium Chloride 3 ml 06/07/25 12:10 Sodium Chloride Rt [place] 0.9% 3 Ml Nebu INH 07/07/25 12:09 PRN PRN SOLN Plan Jazmin is a 70 y/o female with PMHx of chronic asthma (on oxygen intermittently at home) severe peripheral artery disease (status post left BKA), hypertension, hyperlipidemia, [id number]-fbotewzgi type 2 diabetes who is admitted for Acute on Chronic respiratory failure and community acquired pneumonia. #R/O tuberculosis -Pending confirmatory results for TB. #CHF exacerbation, ruled out- has chronic diastolic heart failure - euvolemic now Less likely to have CHF exacerbation, as BNP is 27, and the fine crackles heard on chest exam is likely secondary to interstitial lung disease. Chest x-ray and CT chest negative for vascular congestion or volume overload, but significant for reticular pattern indicating possible ILD. - Rule out interstitial lung disease - Pulmonary consultation - May consider high-dose pulse steroid therapy, if agreed by neuro ophthalmologist - Recent echo on April 2025 was significant for RVSP 55 mmHg, but stable LVEF. - Stop diuretics - Strict input output, daily weights and 2 g sodium diet. #Acute respiratory failure, resolved #Chronic respiratory failure #Community-acquired pneumonia #COPD exacerbation #Moderate pulmonary hypertension #Hx of Chronic asthma #Possible Interstitial lung disease #R/O Tuberculosis Patient was recently discharged from the ER for similar symptoms including fever, shortness of breath Patient has never seen a neuro ophthalmologist or gotten PFTs On previous chest abdomen pelvis done in March 2025 shows possible miliary disease, but further reading of the films was suspicious for reticular pattern suggestive of COPD. She reported no expected or exposure to TB, and no recent visit to [place]. Previously she was tested negative for tuberculosis. 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 Despite SOB, she is saturating well on home 3 L NC. Echo previously shows RVSP 55 mmHg -Continue with antibiotics and steroids -DuoNeb as needed -Continue with BiPAP as needed #Chronic Paroxysmal A-fib [id number], HAS-BLED: 2, currently regular rate and rhythm Eliquis held due to concern for GI bleed in the past. 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 We appreciate the opportunity to participate in this patient care. Cardiology will continue to follow-up on this patient. The patient's management plan was discussed with my attending physician MD Angel Bal MD, PGY3 Attending Provider Attestation/Addendum I have personally seen and examined the patient separately on the above date of service and discussed the plan of care with the resident. I reviewed the resident Dr. Angel Tanner consultation progress note and agree with the resident findings and plan in the note above and have also edited the documentation to reflect my findings and plan. Campos Pavon M.D. Interventional Cardiology
[2025-06-12] MEDS: INSULIN LISPRO (AdmeLOG) 1 UNIT/0.01 ML UNIT SC (11:14)
[2025-06-12] MEDS: ACETAMINOPHEN 325 MG TABLET 650 MG PO ×2 (13:03→23:08)
--- NOTE | 2025-06-12 15:33 | PC.SS ---
Per rounding, pt is not ready for dc. Pt Continue with antibiotics. Ptt is currently stable but being ruled out for TB. No pending d/c date at this time.
--- NOTE | 2025-06-12 17:42 | EKG_ITS ---
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 : 1955 Requested By: Paulino Nguyen Order Number: [id number] Reading MD: Paulino Nguyen Measurements Intervals [place] Rate: 107 P: -55 IA: 125 QRS: -73 QRSD: 118 T: 35 QT: 312 QTc: 418 Interpretive Statements SINUS TACHYCARDIA LOW QRS VOLTAGE IN PRECORDIAL LEADS RIGHT BUNDLE BRANCH BLOCK LEFT ANTERIOR FASCICULAR BLOCK POSSIBLE ANTEROSEPTAL MYOCARDIAL INFARCTION , OF INDETERMINATE AGE Compared to ECG 06/07/2025 05:46:16 Low QRS voltage now present Left anterior fascicular block now present Myocardial infarct finding now present Left-axis deviation no longer present /store/S0/[id number]/[id number].pdf
[2025-06-12] MEDS: HYOSCYAMINE SULF 0.125 MG TAB.SUBL PO (18:06)
[2025-06-12] MEDS: METOCLOPRAMIDE INJ 5 MG/ML VIAL 2 ML 10 MG IVP (18:06)
--- NOTE | 2025-06-12 18:43 | ESPR_ITS ---
Documentation for date of: 06/12/25 Subjective Subjective Interval history: Patient evaluated being treated for bilateral pneumonia Exam Vital Signs Temp Pulse Resp BP Pulse Ox O2 Del Method O2 Flow Rate 97.6 F 92 19 151/64 H 96 Nasal Cannula 3 06/12/25 16:00 06/12/25 16:00 06/12/25 16:00 06/12/25 16:00 06/12/25 16:00 06/12/25 16:00 06/12/25 16:00 FiO2 45 06/11/25 20:00 Objective Labs 06/12/25 05:12 06/12/25 05:12 Labs: Laboratory Results - last 24 hr 06/12/25 05:12 WBC 18.3 H RBC 3.46 L Hgb 9.7 L Hct 31.7 L MCV 92 MCH 28.0 MCHC 30.6 L RDW Std Deviation 52.6 H Plt Count 267 Neut % (Auto) 91 H Lymph % (Auto) 1 L [place] % (Auto) 6 Eos % (Auto) 0 Baso % (Auto) 0 Neut # (Auto) 16.6 H Lymph # (Auto) 0.2 L [place] # (Auto) 1.1 H Eos # (Auto) 0.0 Baso # (Auto) 0.0 Immature Gran # (Auto) 0.39 H Absolute Nucleated RBC 0.00 Immature Gran % 2 H Nucleated RBC % 0 Sodium 147 H Potassium 5.1 Chloride 103 Carbon Dioxide 39.6 H Anion Gap 4 L BUN 18 Creatinine 0.7 Estim Creat Clear Calc 53.9 L eGFR > 60 BUN/Creatinine Ratio 26 H Glucose 107 H Calculated Osmolality 294 Calcium 8.6 Corrected Calcium 8.8 Phosphorus 3.0 Magnesium 2.8 H Total Bilirubin 0.4 AST 35 H ALT 27 Alkaline Phosphatase 109 Total Protein 6.0 Albumin 3.7 Globulin 2.3 Albumin/Globulin Ratio 1.6 Impressions Impression: Ac's esophagus with severe dysplasia 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 Cunningham at [facility] for further evaluation and management Other medical problems include Bilateral pneumonia Left BKA Essential hypertension Diabetes mellitus type 2 Thank you very much for the opportunity to participate in the care of this patient Time Spent With Patient Time: Total time spent is greater than 50% in coordination of care (as documented) at patient's floor/unit and/or counseling patient:
--- NOTE | 2025-06-12 19:01 | PC.NURSE ---
Addendum entered by Rush Noble RN 06/12/25 19:03: Rivas with RT will look into chart and see if pt has any PRN breathing treatments, if not he will call the hospitalists to get an order. Original Note: Pt complaining of having an asthma attack and requesting a breathing treatment. RN will call RT to request a breathing tx.
[2025-06-12] MEDS: ATORVASTATIN CALCIUM 20 MG TABLET 80 MG PO (20:18)
--- NOTE | 2025-06-12 21:29 | PC.NURSE ---
Addendum entered by Rush Noble RN 06/12/25 21:35: Dr. Patel made aware. Dr. Patel will check the patient's chart and put in orders. Original Note: Pt's family complaining that patient is in pain. RN checked MAR and see that patient only has tylenol for pain. RN went to go tell family that patient only has tylenol. RN asked patient if she wanted tylenol or something stronger and pt said something stronger. Pt. says the pain is throughout her whole body, but cannot give a location of the pain. RN will call hospitalists to see what they would like to do.
[2025-06-13] VITALS (14 sets, daily range): BP systolic 116–154; BP diastolic 58–88; PULSE 90–125; RESP 16–22; TEMP 36.4–37.5; O2SAT 91–99; BMI 26.6
[2025-06-13] MEDS: LEVALBUTEROL RT 0.63 MG/3 ML NEBU INH ×4 (01:00→18:27)
[2025-06-13] MEDS: IPRATROPIUM RT 0.5 MG/ 2.5 ML NEBU INH ×4 (01:00→18:27)
[2025-06-13] MEDS: LEVALBUTEROL RT 1.25 MG/0.5 ML NEBU INH (01:47)
[2025-06-13] MEDS: PIPER/TAZO INJ 4.5 GM in SODIUM CHLORIDE 0.9% (POP) 100 ML IV ×3 (05:20→21:34)
[2025-06-13] MEDS: SODIUM CHLORIDE RT SOL 0.9% 3 ML NEBU INH ×2 (06:05→18:27)
[2025-06-13 06:38] LABS: Basophils # (Auto) 0.0 Thou/mm3 (0.0-0.2); Basophils % (Auto) 0 % (0-2.5); Eosinophils # (Auto) 0.0 Thou/mm3 (0.0-0.5); Eosinophils % (Auto) 0 % (0-10); Hematocrit 31.8 % (36.0-46.0); Hemoglobin 9.6 g/dL (12.0-16.0); Immature Granulocytes Auto 0.22 Thou/mm3 (0.00-0.00); Lymphocytes # (Auto) 0.4 Thou/mm3 (1.0-4.8); Lymphocytes % (Auto) 2 % (10-50); Mean Corpuscular HGB Conc 30.2 g/dl (31.0-37.0); Mean Corpuscular Hemoglobin 28.3 pg (25.0-35.0); Mean Corpuscular Volume 94 fL (80-100); Monocytes # (Auto) 0.9 Thou/mm3 (0.0-0.8); Monocytes % (Auto) 5 % (0-12); Neutrophils # (Auto) 15.6 Thou/mm3 (1.8-7.7); Neutrophils % (Auto) 91 % (37-80); Nucleated Red Blood Cell # 0.00 Thou/mm3 (0.00-0.00); Nucleated Red Blood Cell % 0 /100 WBC (0); Platelet Count 225 Thou/mm3 (140-440); RDW Standard Deviation 54.5 fL (36.4-46.3); Red Blood Count 3.39 Miln/mm3 (4.00-5.20); White Blood Count 17.2 Thou/mm3 (3.6-11.0)
[2025-06-13 07:13] LABS: Alanine Aminotransferase 37 U/L (10-49); Albumin, Serum 3.4 gm/dL (3.4-4.8); Albumin/Globulin Ratio 1.5 (1.2-2.2); Alkaline Phosphatase 107 U/L (46-116); Anion Gap 8 (7-16); Aspartate Amino Transferase 47 U/L (0-34); BUN/Creatinine Ratio 20 Ratio (12-20); Bilirubin,Total 0.5 mg/dL (0.3-1.2); Blood Urea Nitrogen 16 mg/dL (9-23); Calcium 8.2 mg/dL (8.3-10.6); Calcium (Corrected) 8.7 mg/dL (8.5-10.1); Carbon Dioxide 37.8 mMol/L (20.0-31.0); Chloride 101 mMol/L (98-107); Creatinine (Component) 0.8 mg/dL (0.6-1.3); Estimated Creatinine Clearance 47.0 mL/min (>60); Globulin 2.3 gm/dL (2.3-3.5); Glucose 90 mg/dL (74-106); Magnesium 2.1 mg/dL (1.6-2.6); Osmolality,Calculated 293 (275-295); Phosphorous 4.0 mg/dL (2.4-5.1); Potassium 4.3 mMol/L (3.4-5.1); Sodium 147 mMol/L (136-145); Total Protein 5.7 gm/dL (5.7-8.2); eGFR > 60 See Note
[2025-06-13] MEDS: DILTIAZEM CD 120 MG CAPCR 360 MG PO (08:13)
[2025-06-13] MEDS: HEPARIN SOD INJ 5000 UNIT/ML VIAL SC ×2 (08:13→21:36)
[2025-06-13] MEDS: BENZONATATE 100 MG CAPSULE PO (08:14)
[2025-06-13] MEDS: ACETAMINOPHEN 325 MG TABLET 650 MG PO (11:38)
[2025-06-13] MEDS: SIMETHICONE 80 MG CHEW PO (11:40)
--- NOTE | 2025-06-13 14:35 | PD.RESPRO ---
Documentation for date of: 06/13/25 Subjective Subjective Interval history: No acute overnight events. Continued on OxyMask and breathing treatments. Denies new or worsening symptoms. Denies fever, chills, headaches, chest pain, worsening sob, cough, GI or urinary symptoms. Exam Vital Signs Temp Pulse Resp BP Pulse Ox O2 Del Method O2 Flow Rate 97.6 F 96 22 H 135/65 H 94 L Oxy Mask 4 06/13/25 12:00 06/13/25 12:06 06/13/25 12:06 06/13/25 12:00 06/13/25 12:06 06/13/25 12:00 06/13/25 12:06 FiO2 45 06/13/25 04:00 Narrative Exam General: AAOx3, NAD, elderly, weak, pleasant female HEENT: Moist mucous membranes, conjunctiva clear, EOMI, PERRLA, poor dentition Cardiovascular: Pansystolic murmur heard over left lower sternal border radiates to left upper sternal border, radial pulses +2 bilat, tachycardia, no hepatojuglar reflex or JVD appreciated Pulmonary: Crackles and wheezing heard in lung zepeda bilat, no cough. GI: No tenderness to light or deep palpitation, no guarding, rigidity, rebound tenderness or distension, possible abdominal hernia Extremities: L BKA, no anasarca appreciated Neuro: AAOx3, no focal motor or sensory deficits in the UE or LE bilat Psych: Cooperative Objective Labs 06/13/25 05:10 06/13/25 05:10 Labs: Laboratory Results - last 24 hr 06/13/25 05:10 WBC 17.2 H RBC 3.39 L Hgb 9.6 L Hct 31.8 L MCV 94 MCH 28.3 MCHC 30.2 L RDW Std Deviation 54.5 H Plt Count 225 D Neut % (Auto) 91 H Lymph % (Auto) 2 L [place] % (Auto) 5 Eos % (Auto) 0 Baso % (Auto) 0 Neut # (Auto) 15.6 H Lymph # (Auto) 0.4 L [place] # (Auto) 0.9 H Eos # (Auto) 0.0 Baso # (Auto) 0.0 Immature Gran # (Auto) 0.22 H Absolute Nucleated RBC 0.00 Immature Gran % 1 H Nucleated RBC % 0 Sodium 147 H Potassium 4.3 D Chloride 101 Carbon Dioxide 37.8 H Anion Gap 8 BUN 16 Creatinine 0.8 Estim Creat Clear Calc 47.0 L eGFR > 60 BUN/Creatinine Ratio 20 Glucose 90 Calculated Osmolality 293 Calcium 8.2 L Corrected Calcium 8.7 Phosphorus 4.0 Magnesium 2.1 Total Bilirubin 0.5 AST 47 H ALT 37 Alkaline Phosphatase 107 Total Protein 5.7 Albumin 3.4 Globulin 2.3 Albumin/Globulin Ratio 1.5 ABG Interpretation ABG results: 06/07/25 06/07/25 05:41 19:54 ABG pH 7.44 7.29 L D ABG pCO2 61 H 70 H ABG pO2 48 L* 98 D ABG HCO3 41 H 33 H ABG O2 Saturation 71 L 97 ABG Base Excess 14 H 5 H Quality Measures Quality Measures none Advance care planning discussed with:: patient Assessment & Plan Assessment Current Active Medications: Generic Name Dose Route Start Last Admin Trade Name Freq PRN Reason Stop Dose Admin Acetaminophen 650 mg 06/07/25 09:54 06/13/25 11:38 Acetaminophen 325 Mg Tablet PO 07/07/25 09:53 650 mg Q6H PRN Administration PAIN SCALE 1-3 (mild Acetaminophen 650 mg 06/07/25 09:54 Acetaminophen 325 Mg Tablet PO 07/07/25 09:53 Q6H PRN Fever >100.4 Atorvastatin Calcium 80 mg 06/09/25 21:00 06/12/25 20:18 Atorvastatin Calcium 20 Mg Tablet PO 07/09/25 20:59 80 mg HS EMRE Administration Benzonatate 100 mg 06/07/25 10:15 06/13/25 08:14 Benzonatate 100 Mg Capsule PO 07/07/25 10:14 100 mg QDAY EMRE Administration Protocol Dextrose 25 ml 06/07/25 12:04 Dextrose 50%-Water Inj 50 Ml Syringe IV 07/07/25 12:03 Q15MIN PRN BG 50-70 responsive npo pt Dextrose 50 ml 06/07/25 12:04 Dextrose 50%-Water Inj 50 Ml Syringe IV 07/07/25 12:03 Q15MIN PRN BG <50 OR BG <70 & pt unresponsive Diltiazem HCl 360 mg 06/08/25 09:00 06/13/25 08:13 Diltiazem Cd 120 Mg Capcr PO 07/08/25 08:59 360 mg QDAY EMRE Administration Docusate Sodium 100 mg 06/09/25 11:39 Docusate Sod 100 Mg Capsule PO 07/09/25 11:38 BID PRN CONSTIPATION Protocol Glucagon 1 mg 06/07/25 12:04 Glucagon Inj 1 Mg Vial IM Q15MIN PRN BG <70, and no IV access Heparin Sodium (Porcine) 5,000 unit 06/07/25 21:00 06/13/25 08:13 Heparin Sod Inj 5000 Unit/Ml Vial SC 06/21/25 20:59 5,000 unit Q12H EMRE Administration Piperacillin Sod/Tazobactam 100 mls @ 25 mls/hr 06/11/25 10:22 06/13/25 13:19 Sod 4.5 gm/ Sodium Chloride IV 06/18/25 10:21 25 mls/hr Q8HR EMRE Administration Insulin Human Lispro 0 unit 06/07/25 17:00 06/13/25 11:14 Insulin Lispro (Admelog) 1 Unit/0.01 Ml Unit SC 07/07/25 16:59 Not Given AC [facility] Protocol Ipratropium [place] 0.5 mg 06/12/25 19:20 06/12/25 19:25 Ipratropium Rt 0.5 Mg/ 2.5 Ml Nebu INH 07/12/25 19:59 0.5 mg Q2HR PRN Administration sob/wheezing Ipratropium [place] 0.5 mg 06/13/25 01:00 06/13/25 12:04 Ipratropium Rt 0.5 Mg/ 2.5 Ml Nebu INH 07/13/25 00:59 0.5 mg Q6HRRT EMRE Administration Levalbuterol HCl 1.25 mg 06/12/25 19:20 06/13/25 01:47 Levalbuterol Rt 1.25 Mg/0.5 Ml Nebu INH 07/12/25 19:59 1.25 mg Q2HR PRN Administration sob/wheezing Levalbuterol HCl 0.63 mg 06/12/25 19:30 06/13/25 12:04 Levalbuterol Rt 0.63 Mg/3 Ml Nebu INH 07/12/25 19:29 0.63 mg Q6H EMRE Administration Lisinopril 2.5 mg 06/07/25 12:15 06/13/25 08:13 Lisinopril 2.5 Mg Tablet PO 07/07/25 12:14 2.5 mg QDAY EMRE Administration Loratadine 10 mg 06/07/25 12:15 06/13/25 08:14 Loratadine 10 Mg Tablet PO 07/07/25 12:14 10 mg QDAY EMRE Administration Ondansetron HCl 4 mg 06/07/25 09:54 Ondansetron Inj 2 Mg/Ml Inj 2 Ml IVP 07/07/25 09:53 Q6H PRN NAUSEA OR VOMITING Protocol Pantoprazole Sodium 40 mg 06/12/25 09:00 06/13/25 08:13 Pantoprazole Inj 40 Mg Vial IVP 07/10/25 16:44 40 mg DAILY EMRE Administration Simethicone 80 mg 06/10/25 16:42 06/13/25 11:40 Simethicone 80 Mg Chew PO 07/10/25 16:41 80 mg QID PRN Administration GAS Sodium Chloride 3 ml 06/07/25 13:00 06/13/25 06:05 Sodium Chloride Rt [place] 0.9% 3 Ml Nebu INH 07/07/25 12:59 3 ml Q6HRRT EMRE Administration Sodium Chloride 3 ml 06/07/25 12:10 Sodium Chloride Rt [place] 0.9% 3 Ml Nebu INH 07/07/25 12:09 PRN PRN SOLN Esther Wu is a 70 y/o female with PMHx of chronic asthma (on oxygen intermittently at home) severe peripheral artery disease (status post left BKA), hypertension, hyperlipidemia, soj-[id number] type 2 diabetes who is admitted for Acute on Chronic respiratory failure and community acquired pneumonia. #R/O tuberculosis -Pending confirmatory results for TB. #CHF exacerbation, ruled out- has chronic diastolic heart failure - euvolemic now Less likely to have CHF exacerbation, as BNP is 27, and the fine crackles heard on chest exam is likely secondary to interstitial lung disease. Chest x-ray and CT chest negative for vascular congestion or volume overload, but significant for reticular pattern indicating possible ILD. - Rule out interstitial lung disease - Pulmonary consultation - May consider high-dose pulse steroid therapy, if agreed by drug safety physician - Recent echo on April 2025 was significant for RVSP 55 mmHg, but stable LVEF. - Stop diuretics - Strict input output, daily weights and 2 g sodium diet. #Acute respiratory failure, resolved #Chronic respiratory failure #Community-acquired pneumonia #COPD exacerbation #Moderate pulmonary hypertension #Hx of Chronic asthma #Possible Interstitial lung disease #R/O Tuberculosis Patient was recently discharged from the ER for similar symptoms including fever, shortness of breath Patient has never seen a drug safety physician or gotten PFTs On previous chest abdomen pelvis done in March 2025 shows possible miliary disease, but further reading of the films was suspicious for reticular pattern suggestive of COPD. She reported no expected or exposure to TB, and no recent visit to [place]. Previously she was tested negative for tuberculosis. 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 Despite SOB, she is saturating well on home 3 L NC. Echo previously shows RVSP 55 mmHg -Continue with antibiotics and steroids -DuoNeb as needed -Continue with BiPAP as needed ? Will need outpatient pulmonology #Chronic Paroxysmal A-fib [id number], HAS-BLED: 2, currently regular rate and rhythm Eliquis held due to concern for GI bleed in the past. 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 We appreciate the opportunity to participate in this patient care. Cardiology will continue to follow-up on this patient. The patient's management plan was discussed with my attending physician MD Angel Bal MD, PGY3 Attending Provider Attestation/Addendum I have examined the patient, reviewed labs and imaging findings, discussed the case with the resident(s), and reviewed entered orders. I agree with the plan of care as outlined in this note, with these additional summaries/recommendations: Patient seen at bedside. No acute overnight events. She is alert & oriented X 3. Discussed we are still awaiting additional AFB. Quantiferon gold negative and AFB X 2 now negative. We will await result of one additional AFB before patient can be discharged. Continue supplemental oxygen and 02 saturation appropriate on 2 L nasal cannula. Patient has superimposed bacterial pneumonia. Sputum cx resulted today revealing achromobacter xylos and abx adjusted based of sensitivities and mean inhibitory concentration. Continue breathing treatments and DC steroid. Cardiology following for atrial fibrillation which is controlled. Continue Cardizem. Gastroenterology was consulted for borderline intramucosal carcinoma noted on path report from EGD. Per gastroenterology patient can follow-up outpatient and be referred to Dr. Cunningham at [facility] for further evaluation and management. Continue PPI. Minimal hypernatremia present today and patient encouraged to increase oral intake. Patient updated on the plan and in agreement. Please see residents note for additional details and management. Dr. Smooth MD
--- NOTE | 2025-06-13 14:40 | PC.SS ---
Rounding note: AFB results pending. Patient to discharge home when medically clear.
--- NOTE | 2025-06-13 16:30 | ESPR_ITS ---
Documentation for date of: 06/13/25 Subjective Subjective Interval history: The patient was seen and examined at the bedside this morning. She reported improvement in her shortness of breath, and feels like she is back at her baseline. The patient is currently saturating 100% L of NC, and she is at [address] chest revealed bilateral pneumonia, most prominent in left upper lobe and lingular segment, but as interpreted by me, it was also significant for reticular pattern. Primary team ruling out flu along with possible miliary TB given the CT findings The patient was given trial of Lasix IV, but need negative was only 63 cc despite of low input. This suggest that the patient does not have CHF exacerbation, backed by low BNP level and CT chest not revealing any signs of CHF or volume overload. Recommended sleep study. Recommended to stop Lasix. Continue with antibiotics - Continue with diltiazem 360 Mg daily, and avoid beta-mihir in the setting of chronic respiratory failure. - Pt is currently stable but being ruled out for TB Exam Vital Signs Temp Pulse Resp BP Pulse Ox O2 Del Method O2 Flow Rate 98.1 F 93 17 125/63 93 L Nasal Cannula 4 06/13/25 15:52 06/13/25 15:52 06/13/25 15:52 06/13/25 15:52 06/13/25 15:52 06/13/25 15:52 06/13/25 12:06 FiO2 45 06/13/25 04:00 Narrative Exam General: No acute distress, Alert and Oriented x 3 HEENT: Moist mucous membranes, oropharynx clear Neck: Supple, No masses, No JVD CVS: S1S2 Regular rate and rhythm, pansystolic murmur over left lower sternal border, rubs or gallops Lungs: no wheeze no rhonchi, no cracles Abd: Soft, NT/ND, +BS, no organomegaly Ext: Left BKA, feeble pulse on right lower extremity Skin: No rash Psych: Appropriate mood and affect Objective Labs 06/13/25 05:10 06/13/25 05:10 Labs: Laboratory Results - last 24 hr 06/13/25 05:10 WBC 17.2 H RBC 3.39 L Hgb 9.6 L Hct 31.8 L MCV 94 MCH 28.3 MCHC 30.2 L RDW Std Deviation 54.5 H Plt Count 225 D Neut % (Auto) 91 H Lymph % (Auto) 2 L [place] % (Auto) 5 Eos % (Auto) 0 Baso % (Auto) 0 Neut # (Auto) 15.6 H Lymph # (Auto) 0.4 L [place] # (Auto) 0.9 H Eos # (Auto) 0.0 Baso # (Auto) 0.0 Immature Gran # (Auto) 0.22 H Absolute Nucleated RBC 0.00 Immature Gran % 1 H Nucleated RBC % 0 Sodium 147 H Potassium 4.3 D Chloride 101 Carbon Dioxide 37.8 H Anion Gap 8 BUN 16 Creatinine 0.8 Estim Creat Clear Calc 47.0 L eGFR > 60 BUN/Creatinine Ratio 20 Glucose 90 Calculated Osmolality 293 Calcium 8.2 L Corrected Calcium 8.7 Phosphorus 4.0 Magnesium 2.1 Total Bilirubin 0.5 AST 47 H ALT 37 Alkaline Phosphatase 107 Total Protein 5.7 Albumin 3.4 Globulin 2.3 Albumin/Globulin Ratio 1.5 ABG Interpretation ABG results: 06/07/25 06/07/25 05:41 19:54 ABG pH 7.44 7.29 L D ABG pCO2 61 H 70 H ABG pO2 48 L* 98 D ABG HCO3 41 H 33 H ABG O2 Saturation 71 L 97 ABG Base Excess 14 H 5 H Quality Measures Quality Measures none Advance care planning discussed with:: patient Assessment & Plan Assessment Current Active Medications: Generic Name Dose Route Start Last Admin Trade Name Freq PRN Reason Stop Dose Admin Acetaminophen 650 mg 06/07/25 09:54 06/13/25 11:38 Acetaminophen 325 Mg Tablet PO 07/07/25 09:53 650 mg Q6H PRN Administration PAIN SCALE 1-3 (mild Acetaminophen 650 mg 06/07/25 09:54 Acetaminophen 325 Mg Tablet PO 07/07/25 09:53 Q6H PRN Fever >100.4 Atorvastatin Calcium 80 mg 06/09/25 21:00 06/12/25 20:18 Atorvastatin Calcium 20 Mg Tablet PO 07/09/25 20:59 80 mg HS EMRE Administration Benzonatate 100 mg 06/07/25 10:15 06/13/25 08:14 Benzonatate 100 Mg Capsule PO 07/07/25 10:14 100 mg QDAY EMRE Administration Protocol Dextrose 25 ml 06/07/25 12:04 Dextrose 50%-Water Inj 50 Ml Syringe IV 07/07/25 12:03 Q15MIN PRN BG 50-70 responsive npo pt Dextrose 50 ml 06/07/25 12:04 Dextrose 50%-Water Inj 50 Ml Syringe IV 07/07/25 12:03 Q15MIN PRN BG <50 OR BG <70 & pt unresponsive Diltiazem HCl 360 mg 06/08/25 09:00 06/13/25 08:13 Diltiazem Cd 120 Mg Capcr PO 07/08/25 08:59 360 mg QDAY EMRE Administration Docusate Sodium 100 mg 06/09/25 11:39 Docusate Sod 100 Mg Capsule PO 07/09/25 11:38 BID PRN CONSTIPATION Protocol Glucagon 1 mg 06/07/25 12:04 Glucagon Inj 1 Mg Vial IM Q15MIN PRN BG <70, and no IV access Heparin Sodium (Porcine) 5,000 unit 06/07/25 21:00 06/13/25 08:13 Heparin Sod Inj 5000 Unit/Ml Vial SC 06/21/25 20:59 5,000 unit Q12H EMRE Administration Piperacillin Sod/Tazobactam 100 mls @ 25 mls/hr 06/11/25 10:22 06/13/25 13:19 Sod 4.5 gm/ Sodium Chloride IV 06/18/25 10:21 25 mls/hr Q8HR EMRE Administration Insulin Human Lispro 0 unit 06/07/25 17:00 06/13/25 11:14 Insulin Lispro (Admelog) 1 Unit/0.01 Ml Unit SC 07/07/25 16:59 Not Given AC [facility] Protocol Ipratropium [place] 0.5 mg 06/12/25 19:20 06/12/25 19:25 Ipratropium Rt 0.5 Mg/ 2.5 Ml Nebu INH 07/12/25 19:59 0.5 mg Q2HR PRN Administration sob/wheezing Ipratropium [place] 0.5 mg 06/13/25 01:00 06/13/25 12:04 Ipratropium Rt 0.5 Mg/ 2.5 Ml Nebu INH 07/13/25 00:59 0.5 mg Q6HRRT EMRE Administration Levalbuterol HCl 1.25 mg 06/12/25 19:20 06/13/25 01:47 Levalbuterol Rt 1.25 Mg/0.5 Ml Nebu INH 07/12/25 19:59 1.25 mg Q2HR PRN Administration sob/wheezing Levalbuterol HCl 0.63 mg 06/12/25 19:30 06/13/25 12:04 Levalbuterol Rt 0.63 Mg/3 Ml Nebu INH 07/12/25 19:29 0.63 mg Q6H EMRE Administration Lisinopril 2.5 mg 06/07/25 12:15 06/13/25 08:13 Lisinopril 2.5 Mg Tablet PO 07/07/25 12:14 2.5 mg QDAY EMRE Administration Loratadine 10 mg 06/07/25 12:15 06/13/25 08:14 Loratadine 10 Mg Tablet PO 07/07/25 12:14 10 mg QDAY EMRE Administration Ondansetron HCl 4 mg 06/07/25 09:54 Ondansetron Inj 2 Mg/Ml Inj 2 Ml IVP 07/07/25 09:53 Q6H PRN NAUSEA OR VOMITING Protocol Pantoprazole Sodium 40 mg 06/12/25 09:00 06/13/25 08:13 Pantoprazole Inj 40 Mg Vial IVP 07/10/25 16:44 40 mg DAILY EMRE Administration Simethicone 80 mg 06/10/25 16:42 06/13/25 11:40 Simethicone 80 Mg Chew PO 07/10/25 16:41 80 mg QID PRN Administration GAS Sodium Chloride 3 ml 06/07/25 13:00 06/13/25 06:05 Sodium Chloride R[place] 0.9% 3 Ml Nebu INH 07/07/25 12:59 3 ml Q6HRRT EMRE Administration Sodium Chloride 3 ml 06/07/25 12:10 Sodium Chloride R[place] 0.9% 3 Ml Nebu INH 07/07/25 12:09 PRN PRN SOLN Plan Jazmin is a 70 y/o female with PMHx of chronic asthma (on oxygen intermittently at home) severe peripheral artery disease (status post left BKA), hypertension, hyperlipidemia, [id number] type 2 diabetes who is admitted for Acute on Chronic respiratory failure and community acquired pneumonia. #R/O tuberculosis -Pending confirmatory results for TB. #CHF exacerbation, ruled out- has chronic diastolic heart failure - euvolemic now Less likely to have CHF exacerbation, as BNP is 27, and the fine crackles heard on chest exam is likely secondary to interstitial lung disease. Chest x-ray and CT chest negative for vascular congestion or volume overload, but significant for reticular pattern indicating possible ILD. - Rule out interstitial lung disease - Pulmonary consultation - May consider high-dose pulse steroid therapy, if agreed by cut roll machine operator - Recent echo on April 2025 was significant for RVSP 55 mmHg, but stable LVEF. - Stop diuretics - Strict input output, daily weights and 2 g sodium diet. #Acute respiratory failure, resolved #Chronic respiratory failure #Community-acquired pneumonia #COPD exacerbation #Moderate pulmonary hypertension #Hx of Chronic asthma #Possible Interstitial lung disease #R/O Tuberculosis Patient was recently discharged from the ER for similar symptoms including fever, shortness of breath Patient has never seen a cut roll machine operator or gotten PFTs On previous chest abdomen pelvis done in March 2025 shows possible miliary disease, but further reading of the films was suspicious for reticular pattern suggestive of COPD. She reported no expected or exposure to TB, and no recent visit to [place]. Previously she was tested negative for tuberculosis. 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 Despite SOB, she is saturating well on home 3 L NC. Echo previously shows RVSP 55 mmHg -Continue with antibiotics and steroids -DuoNeb as needed -Continue with BiPAP as needed #Chronic Paroxysmal A-fib [id number], HAS-BLED: 2, currently regular rate and rhythm Eliquis held due to concern for GI bleed in the past. 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 We appreciate the opportunity to participate in this patient care. Cardiology will continue to follow-up on this patient. The patient's management plan was discussed with my attending physician MD Angel Bal MD, PGY3 Attending Provider Attestation/Addendum I have personally seen and examined the patient separately on the above date of service and discussed the plan of care with the resident. I reviewed the resident Dr. Angel Tanner consultation progress note and agree with the resident findings and plan in the note above and have also edited the documentation to reflect my findings and plan. Campos Pavon M.D. Interventional Cardiology
--- NOTE | 2025-06-13 18:07 | ESPR_ITS ---
Documentation for date of: 06/13/25 Subjective Subjective Interval history: Patient evaluated Waiting for her to improve before further GI workup can be done Exam Vital Signs Temp Pulse Resp BP Pulse Ox O2 Del Method O2 Flow Rate 98.1 F 93 17 125/63 93 L Nasal Cannula 4 06/13/25 15:52 06/13/25 15:52 06/13/25 15:52 06/13/25 15:52 06/13/25 15:52 06/13/25 15:52 06/13/25 12:06 FiO2 45 06/13/25 04:00 Objective Labs 06/13/25 05:10 06/13/25 05:10 Labs: Laboratory Results - last 24 hr 06/13/25 05:10 WBC 17.2 H RBC 3.39 L Hgb 9.6 L Hct 31.8 L MCV 94 MCH 28.3 MCHC 30.2 L RDW Std Deviation 54.5 H Plt Count 225 D Neut % (Auto) 91 H Lymph % (Auto) 2 L [place] % (Auto) 5 Eos % (Auto) 0 Baso % (Auto) 0 Neut # (Auto) 15.6 H Lymph # (Auto) 0.4 L [place] # (Auto) 0.9 H Eos # (Auto) 0.0 Baso # (Auto) 0.0 Immature Gran # (Auto) 0.22 H Absolute Nucleated RBC 0.00 Immature Gran % 1 H Nucleated RBC % 0 Sodium 147 H Potassium 4.3 D Chloride 101 Carbon Dioxide 37.8 H Anion Gap 8 BUN 16 Creatinine 0.8 Estim Creat Clear Calc 47.0 L eGFR > 60 BUN/Creatinine Ratio 20 Glucose 90 Calculated Osmolality 293 Calcium 8.2 L Corrected Calcium 8.7 Phosphorus 4.0 Magnesium 2.1 Total Bilirubin 0.5 AST 47 H ALT 37 Alkaline Phosphatase 107 Total Protein 5.7 Albumin 3.4 Globulin 2.3 Albumin/Globulin Ratio 1.5 Impressions Impression: 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 Cunningham at [facility] for further evaluation and management Other medical problems include Bilateral pneumonia Left BKA Essential hypertension Diabetes mellitus type 2 Thank you very much for the opportunity to participate in the care of this patient Time Spent With Patient Time: Total time spent is greater than 50% in coordination of care (as documented) at patient's floor/unit and/or counseling patient:
[2025-06-13] MEDS: ATORVASTATIN CALCIUM 20 MG TABLET 80 MG PO (21:35)
[2025-06-14] VITALS (19 sets, daily range): BP systolic 105–130; BP diastolic 52–88; PULSE 94–114; RESP 16–28; TEMP 36.1–36.7; O2SAT 87–96; BMI 25.9
[2025-06-14] MEDS: LEVALBUTEROL RT 0.63 MG/3 ML NEBU INH ×4 (00:14→18:18)
[2025-06-14] MEDS: IPRATROPIUM RT 0.5 MG/ 2.5 ML NEBU INH ×5 (00:14→18:18)
[2025-06-14] MEDS: SODIUM CHLORIDE RT SOL 0.9% 3 ML NEBU INH (00:14)
[2025-06-14] MEDS: LEVALBUTEROL RT 1.25 MG/0.5 ML NEBU INH (04:11)
[2025-06-14] MEDS: PIPER/TAZO INJ 4.5 GM in SODIUM CHLORIDE 0.9% (POP) 100 ML IV ×3 (05:53→21:51)
[2025-06-14] MEDS: BENZONATATE 100 MG CAPSULE PO (08:34)
[2025-06-14] MEDS: DILTIAZEM CD 120 MG CAPCR 360 MG PO (08:35)
[2025-06-14] MEDS: HEPARIN SOD INJ 5000 UNIT/ML VIAL SC ×2 (08:35→21:55)
--- NOTE | 2025-06-14 10:02 | PC.NURSE ---
Called Lab and spoke with Stu regarding AM lab draws, per Stu will call to see where the techs are at, should have been drawn.
[2025-06-14 10:16] LABS: Basophils # (Auto) 0.0 Thou/mm3 (0.0-0.2); Basophils % (Auto) 0 % (0-2.5); Eosinophils # (Auto) 0.2 Thou/mm3 (0.0-0.5); Eosinophils % (Auto) 1 % (0-10); Hematocrit 30.8 % (36.0-46.0); Hemoglobin 9.3 g/dL (12.0-16.0); Immature Granulocytes Auto 0.24 Thou/mm3 (0.00-0.00); Lymphocytes # (Auto) 0.4 Thou/mm3 (1.0-4.8); Lymphocytes % (Auto) 2 % (10-50); Mean Corpuscular HGB Conc 30.2 g/dl (31.0-37.0); Mean Corpuscular Hemoglobin 28.9 pg (25.0-35.0); Mean Corpuscular Volume 96 fL (80-100); Monocytes # (Auto) 0.8 Thou/mm3 (0.0-0.8); Monocytes % (Auto) 5 % (0-12); Neutrophils # (Auto) 16.7 Thou/mm3 (1.8-7.7); Neutrophils % (Auto) 91 % (37-80); Nucleated Red Blood Cell # 0.02 Thou/mm3 (0.00-0.00); Nucleated Red Blood Cell % 0 /100 WBC (0); Platelet Count 192 Thou/mm3 (140-440); RDW Standard Deviation 56.4 fL (36.4-46.3); Red Blood Count 3.22 Miln/mm3 (4.00-5.20); White Blood Count 18.4 Thou/mm3 (3.6-11.0)
[2025-06-14 10:33] LABS: Alanine Aminotransferase 33 U/L (10-49); Albumin, Serum 3.2 gm/dL (3.4-4.8); Albumin/Globulin Ratio 1.8 (1.2-2.2); Alkaline Phosphatase 93 U/L (46-116); Anion Gap 7 (7-16); Aspartate Amino Transferase 41 U/L (0-34); BUN/Creatinine Ratio 19 Ratio (12-20); Bilirubin,Total 0.5 mg/dL (0.3-1.2); Blood Urea Nitrogen 15 mg/dL (9-23); Calcium 8.1 mg/dL (8.3-10.6); Calcium (Corrected) 8.7 mg/dL (8.5-10.1); Carbon Dioxide 35.1 mMol/L (20.0-31.0); Chloride 98 mMol/L (98-107); Creatinine (Component) 0.8 mg/dL (0.6-1.3); Estimated Creatinine Clearance 46.5 mL/min (>60); Globulin 1.8 gm/dL (2.3-3.5); Glucose 193 mg/dL (74-106); Magnesium 2.2 mg/dL (1.6-2.6); Osmolality,Calculated 285 (275-295); Phosphorous 4.0 mg/dL (2.4-5.1); Potassium 4.4 mMol/L (3.4-5.1); Sodium 140 mMol/L (136-145); Total Protein 5.0 gm/dL (5.7-8.2); eGFR > 60 See Note
[2025-06-14] MEDS: INSULIN LISPRO (AdmeLOG) 1 UNIT/0.01 ML UNIT SC (11:39)
--- NOTE | 2025-06-14 12:06 | PC.SS ---
rounding note: Patient still pending one AFB result. R/o TB.
[2025-06-14 13:18] LABS: OBS Card Expiration Date 2028/02/28; OBS Developer Expiration Date 2027-02-28; OBS Developer Lot # 04-24-551749; OBS QC OK? Yes
[2025-06-14 13:58] LABS: Occult Blood, Stool Negative (Negative)
[2025-06-14 13:59] LABS: OBS Performed By YANGS1
--- NOTE | 2025-06-14 14:40 | PD.RESPRO ---
Documentation for date of: 06/14/25 Subjective Subjective Interval history: The patient was seen and examined at the bedside this morning. She reported improvement in her shortness of breath, and feels like she is back at her baseline. The patient is currently saturating 95% on 5 L of oxy mask, and she is at [address] chest revealed bilateral pneumonia, most prominent in left upper lobe and lingular segment, but as interpreted by me, it was also significant for reticular pattern. Primary team ruling out flu along with possible miliary TB given the CT findings On admission patient was given a trial of Lasix IV but patient did not have much urinary output. Patient overall appears to be euvolemic on admission and hence the Lasix was stopped. He is not having the increased work of breathing and her pCO2 has not been measured but patient has been placed on BiPAP and repeat ABG is being planned by the primary team. Chest x-ray has not been done and plan to get a chest x-ray along with a BNP to see if the patient is volume overloaded. If there is evidence of volume overload then patient then Lasix can be considered Patient heart rate is elevated mostly secondary to the increased work of breathing as well as shortness of breath. - Continue with diltiazem 360 Mg daily, and avoid beta-mihir in the setting of chronic respiratory failure. - Pt is currently stable but being ruled out for TB-2 samples have been negative and awaiting third sample results. Exam Vital Signs Temp Pulse Resp BP Pulse Ox O2 Del Method O2 Flow Rate 97.9 F 95 17 105/54 L 96 Oxy Mask 5 06/14/25 12:00 06/14/25 12:13 06/14/25 12:06/14/25 12:06/14/25 12:06/14/25 12:06/14/25 12:00 FiO2 50 06/14/25 11:49 Narrative Exam General: No acute distress, Alert and Oriented x 3 HEENT: Moist mucous membranes, oropharynx clear Neck: Supple, No masses, No JVD CVS: S1S2 normal, ocassionally tachycardiac, pansystolic murmur over left lower sternal border, rubs or gallops Lungs: no wheeze no rhonchi, no cracles Abd: Soft, NT/ND, +BS, no organomegaly Ext: Left BKA, feeble pulse on right lower extremity Skin: No rash Psych: Appropriate mood and affect Objective Labs 06/14/25 09:42 06/14/25 09:42 Labs: Laboratory Results - last 24 hr 06/14/25 06/14/25 09:42 12:48 WBC 18.4 H RBC 3.22 L Hgb 9.3 L Hct 30.8 L MCV 96 MCH 28.9 MCHC 30.2 L RDW Std Deviation 56.4 H Plt Count 192 D Neut % (Auto) 91 H Lymph % (Auto) 2 L [place] % (Auto) 5 Eos % (Auto) 1 Baso % (Auto) 0 Neut # (Auto) 16.7 H Lymph # (Auto) 0.4 L [place] # (Auto) 0.8 Eos # (Auto) 0.2 Baso # (Auto) 0.0 Immature Gran # (Auto) 0.24 H Absolute Nucleated RBC 0.02 H Immature Gran % 1 H Nucleated RBC % 0 Sodium 140 Potassium 4.4 Chloride 98 Carbon Dioxide 35.1 H Anion Gap 7 BUN 15 Creatinine 0.8 Estim Creat Clear Calc 46.5 L eGFR > 60 BUN/Creatinine Ratio 19 Glucose 193 H D Calculated Osmolality 285 Calcium 8.1 L Corrected Calcium 8.7 Phosphorus 4.0 Magnesium 2.2 Total Bilirubin 0.5 AST 41 H ALT 33 Alkaline Phosphatase 93 Total Protein 5.0 L Albumin 3.2 L Globulin 1.8 L Albumin/Globulin Ratio 1.8 Stool Occult Blood Negative ABG Interpretation ABG results: 06/07/25 06/07/25 05:41 19:54 ABG pH 7.44 7.29 L D ABG pCO2 61 H 70 H ABG pO2 48 L* 98 D ABG HCO3 41 H 33 H ABG O2 Saturation 71 L 97 ABG Base Excess 14 H 5 H Quality Measures Quality Measures none Advance care planning discussed with:: patient Assessment & Plan Assessment Current Active Medications: Generic Name Dose Route Start Last Admin Trade Name Freq PRN Reason Stop Dose Admin Acetaminophen 650 mg 06/07/25 09:54 06/13/25 11:38 Acetaminophen 325 Mg Tablet PO 07/07/25 09:53 650 mg Q6H PRN Administration PAIN SCALE 1-3 (mild Acetaminophen 650 mg 06/07/25 09:54 Acetaminophen 325 Mg Tablet PO 07/07/25 09:53 Q6H PRN Fever >100.4 Atorvastatin Calcium 80 mg 06/09/25 21:00 06/13/25 21:35 Atorvastatin Calcium 20 Mg Tablet PO 07/09/25 20:59 80 mg HS EMRE Administration Benzonatate 100 mg 06/07/25 10:15 06/14/25 08:34 Benzonatate 100 Mg Capsule PO 07/07/25 10:14 100 mg QDAY EMRE Administration Protocol Dextrose 25 ml 06/07/25 12:04 Dextrose 50%-Water Inj 50 Ml Syringe IV 07/07/25 12:03 Q15MIN PRN BG 50-70 responsive npo pt Dextrose 50 ml 06/07/25 12:04 Dextrose 50%-Water Inj 50 Ml Syringe IV 07/07/25 12:03 Q15MIN PRN BG <50 OR BG <70 & pt unresponsive Diltiazem HCl 360 mg 06/08/25 09:00 06/14/25 08:35 Diltiazem Cd 120 Mg Capcr PO 07/08/25 08:59 360 mg QDAY EMRE Administration Docusate Sodium 100 mg 06/09/25 11:39 Docusate Sod 100 Mg Capsule PO 07/09/25 11:38 BID PRN CONSTIPATION Protocol Glucagon 1 mg 06/07/25 12:04 Glucagon Inj 1 Mg Vial IM Q15MIN PRN BG <70, and no IV access Heparin Sodium (Porcine) 5,000 unit 06/07/25 21:00 06/14/25 08:35 Heparin Sod Inj 5000 Unit/Ml Vial SC 06/21/25 20:59 5,000 unit Q12H EMRE Administration Piperacillin Sod/Tazobactam 100 mls @ 25 mls/hr 06/11/25 10:22 06/14/25 13:10 Sod 4.5 gm/ Sodium Chloride IV 06/18/25 10:21 25 mls/hr Q8HR EMRE Administration Insulin Human Lispro 0 unit 06/07/25 17:00 06/14/25 11:39 Insulin Lispro (Admelog) 1 Unit/0.01 Ml Unit SC 07/07/25 16:59 1 unit AC EMRE Administration Protocol Ipratropium [place] 0.5 mg 06/13/25 01:00 06/14/25 11:45 Ipratropium Rt 0.5 Mg/ 2.5 Ml Nebu INH 07/13/25 00:59 0.5 mg Q6HRRT EMRE Administration Ipratropium [place] 0.5 mg 06/14/25 09:22 Ipratropium Rt 0.5 Mg/ 2.5 Ml Nebu INH 07/12/25 19:59 Q2HR PRN sob/wheezing Levalbuterol HCl 0.63 mg 06/12/25 19:30 06/14/25 11:45 Levalbuterol Rt 0.63 Mg/3 Ml Nebu INH 07/12/25 19:29 0.63 mg Q6H EMRE Administration Levalbuterol HCl 1.25 mg 06/14/25 09:23 Levalbuterol Rt 1.25 Mg/0.5 Ml Nebu INH 07/12/25 19:59 Q2HR PRN sob/wheezing Lisinopril 2.5 mg 06/07/25 12:15 06/14/25 08:36 Lisinopril 2.5 Mg Tablet PO 07/07/25 12:14 2.5 mg QDAY EMRE Administration Loratadine 10 mg 06/07/25 12:15 06/14/25 08:34 Loratadine 10 Mg Tablet PO 07/07/25 12:14 10 mg QDAY EMRE Administration Ondansetron HCl 4 mg 06/07/25 09:54 Ondansetron Inj 2 Mg/Ml Inj 2 Ml IVP 07/07/25 09:53 Q6H PRN NAUSEA OR VOMITING Protocol Pantoprazole Sodium 40 mg 06/12/25 09:00 06/14/25 08:34 Pantoprazole Inj 40 Mg Vial IVP 07/10/25 16:44 40 mg DAILY EMRE Administration Simethicone 80 mg 06/10/25 16:42 06/13/25 11:40 Simethicone 80 Mg Chew PO 07/10/25 16:41 80 mg QID PRN Administration GAS Sodium Chloride 3 ml 06/07/25 12:10 Sodium Chloride Rt [place] 0.9% 3 Ml Nebu INH 07/07/25 12:09 PRN PRN SOLN Esther Jazmin is a 70 y/o female with PMHx of chronic asthma (on oxygen intermittently at home) severe peripheral artery disease (status post left BKA), hypertension, hyperlipidemia, [id number] type 2 diabetes who is admitted for Acute on Chronic respiratory failure and community acquired pneumonia. #R/O tuberculosis -Pending confirmatory results for TB. #CHF exacerbation, ruled out- has chronic diastolic heart failure - euvolemic now Less likely to have CHF exacerbation, as BNP is 27, and the fine crackles heard on chest exam is likely secondary to interstitial lung disease. Chest x-ray and CT chest negative for vascular congestion or volume overload, but significant for reticular pattern indicating possible ILD. - Rule out interstitial lung disease - Pulmonary consultation - May consider high-dose pulse steroid therapy, if agreed by audience coordinator - Recent echo on April 2025 was significant for RVSP 55 mmHg, but stable LVEF. - Stop diuretics - Strict input output, daily weights and 2 g sodium diet. #Acute respiratory failure, resolved #Chronic respiratory failure #Community-acquired pneumonia #COPD exacerbation #Moderate pulmonary hypertension #Hx of Chronic asthma #Possible Interstitial lung disease #R/O Tuberculosis Patient was recently discharged from the ER for similar symptoms including fever, shortness of breath Patient has never seen a audience coordinator or gotten PFTs On previous chest abdomen pelvis done in March 2025 shows possible miliary disease, but further reading of the films was suspicious for reticular pattern suggestive of COPD. She reported no expected or exposure to TB, and no recent visit to [place]. Previously she was tested negative for tuberculosis. 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 Despite SOB, she is saturating well on home 3 L NC. Echo previously shows RVSP 55 mmHg -Continue with antibiotics and steroids -DuoNeb as needed -Continue with BiPAP as needed Primary team ruling out flu along with possible miliary TB given the CT findings On admission patient was given a trial of Lasix IV but patient did not have much urinary output. Patient overall appears to be euvolemic on admission and hence the Lasix was stopped. He is not having the increased work of breathing and her pCO2 has not been measured but patient has been placed on BiPAP and repeat ABG is being planned by the primary team. Chest x-ray has not been done and plan to get a chest x-ray along with a BNP to see if the patient is volume overloaded. If there is evidence of volume overload then patient then Lasix can be considered Patient heart rate is elevated mostly secondary to the increased work of breathing as well as shortness of breath. - Pt is currently stable but being ruled out for TB-2 samples have been negative and awaiting third sample results. #Chronic Paroxysmal A-fib [id number], HAS-BLED: 2, currently regular rate and rhythm Eliquis held due to concern for GI bleed in the past. Recent Holter records revealed patient appears to be in A-fib about 1% of the time -Continue with telemetry monitoring, -Keep magnesium and potassium above 2 and 4 respectively -Continue with diltiazem 360 Mg daily, and avoid beta-mihir in the setting of chronic respiratory failure. 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 Patient has been recommended procedures at [facility] and she is yet to follow-up with them regarding the questionable adenocarcinoma or Ac's esophagus along with possible obstructing ileocecal valve tumor. Patient is DNR at the present point of time but that he wants to continue full treatment. -Management deferred to primary team Thank you for consulting cardiology team. We appreciate the opportunity to participate in this patient care. Cardiology will continue to follow-up on this patient. The patient's management plan was discussed with my attending physician MD Angel Bal MD, PGY3 Attending Provider Attestation/Addendum I have personally seen and examined the patient separately on the above date of service and discussed the plan of care with the resident. I reviewed the resident Dr. Angel Tanner consultation progress note and agree with the resident findings and plan in the note above and have also edited the documentation to reflect my findings and plan. Campos Pavon M.D. Interventional Cardiology
--- NOTE | 2025-06-14 16:51 | ESPR_ITS ---
Documentation for date of: 06/14/25 Subjective Subjective Interval history: Patient examined at bedside today. Patient reports that she is doing well. Patient reports that she was in oxygen because her oxygen went down a bit. She is wondering when to go home. She denies any cough. She has no other complaints this time. Exam Vital Signs Temp Pulse Resp BP Pulse Ox O2 Del Method O2 Flow Rate 97.9 F 99 17 105/54 L 96 Oxy Mask 5 06/14/25 12:00 06/14/25 16:50 06/14/25 12:00 06/14/25 12:00 06/14/25 12:00 06/14/25 12:00 06/14/25 12:00 FiO2 50 06/14/25 11:49 Narrative Exam General: AAOx3, NAD, elderly, weak, pleasant female, appears to be lethargic HEENT: Moist mucous membranes, conjunctiva clear, EOMI, PERRLA, poor dentition Cardiovascular: Pansystolic murmur heard over left lower sternal border radiates to left upper sternal border, radial pulses +2 bilat, tachycardia, no hepatojuglar reflex or JVD appreciated Pulmonary: Minimal wheezing at this time GI: No tenderness to light or deep palpitation, no guarding, rigidity, rebound tenderness or distension, possible abdominal hernia Extremities: L BKA, no anasarca appreciated Neuro: AAOx3, no focal motor or sensory deficits in the UE or LE bilat Psych: Cooperative Objective Labs 06/16/25 08:44 06/16/25 08:44 Labs: Laboratory Results - last 24 hr 06/14/25 06/14/25 09:42 12:48 WBC 18.4 H RBC 3.22 L Hgb 9.3 L Hct 30.8 L MCV 96 MCH 28.9 MCHC 30.2 L RDW Std Deviation 56.4 H Plt Count 192 D Neut % (Auto) 91 H Lymph % (Auto) 2 L [place] % (Auto) 5 Eos % (Auto) 1 Baso % (Auto) 0 Neut # (Auto) 16.7 H Lymph # (Auto) 0.4 L [place] # (Auto) 0.8 Eos # (Auto) 0.2 Baso # (Auto) 0.0 Immature Gran # (Auto) 0.24 H Absolute Nucleated RBC 0.02 H Immature Gran % 1 H Nucleated RBC % 0 Sodium 140 Potassium 4.4 Chloride 98 Carbon Dioxide 35.1 H Anion Gap 7 BUN 15 Creatinine 0.8 Estim Creat Clear Calc 46.5 L eGFR > 60 BUN/Creatinine Ratio 19 Glucose 193 H D Calculated Osmolality 285 Calcium 8.1 L Corrected Calcium 8.7 Phosphorus 4.0 Magnesium 2.2 Total Bilirubin 0.5 AST 41 H ALT 33 Alkaline Phosphatase 93 Total Protein 5.0 L Albumin 3.2 L Globulin 1.8 L Albumin/Globulin Ratio 1.8 Stool Occult Blood Negative ABG Interpretation ABG results: 06/07/25 06/07/25 05:41 19:54 ABG pH 7.44 7.29 L D ABG pCO2 61 H 70 H ABG pO2 48 L* 98 D ABG HCO3 41 H 33 H ABG O2 Saturation 71 L 97 ABG Base Excess 14 H 5 H Quality Measures Quality Measures none Advance care planning discussed with:: patient Assessment & Plan Assessment Current Active Medications: Generic Name Dose Route Start Last Admin Trade Name Freq PRN Reason Stop Dose Admin Acetaminophen 650 mg 06/07/25 09:54 06/13/25 11:38 Acetaminophen 325 Mg Tablet PO 07/07/25 09:53 650 mg Q6H PRN Administration PAIN SCALE 1-3 (mild Acetaminophen 650 mg 06/07/25 09:54 Acetaminophen 325 Mg Tablet PO 07/07/25 09:53 Q6H PRN Fever >100.4 Atorvastatin Calcium 80 mg 06/09/25 21:00 06/13/25 21:35 Atorvastatin Calcium 20 Mg Tablet PO 07/09/25 20:59 80 mg HS EMRE Administration Benzonatate 100 mg 06/07/25 10:15 06/14/25 08:34 Benzonatate 100 Mg Capsule PO 07/07/25 10:14 100 mg QDAY EMRE Administration Protocol Dextrose 25 ml 06/07/25 12:04 Dextrose 50%-Water Inj 50 Ml Syringe IV 07/07/25 12:03 Q15MIN PRN BG 50-70 responsive npo pt Dextrose 50 ml 06/07/25 12:04 Dextrose 50%-Water Inj 50 Ml Syringe IV 07/07/25 12:03 Q15MIN PRN BG <50 OR BG <70 & pt unresponsive Diltiazem HCl 360 mg 06/08/25 09:00 06/14/25 08:35 Diltiazem Cd 120 Mg Capcr PO 07/08/25 08:59 360 mg QDAY EMRE Administration Docusate Sodium 100 mg 06/09/25 11:39 Docusate Sod 100 Mg Capsule PO 07/09/25 11:38 BID PRN CONSTIPATION Protocol Glucagon 1 mg 06/07/25 12:04 Glucagon Inj 1 Mg Vial IM Q15MIN PRN BG <70, and no IV access Heparin Sodium (Porcine) 5,000 unit 06/07/25 21:00 06/14/25 08:35 Heparin Sod Inj 5000 Unit/Ml Vial SC 06/21/25 20:59 5,000 unit Q12H EMRE Administration Piperacillin Sod/Tazobactam 100 mls @ 25 mls/hr 06/11/25 10:22 06/14/25 13:10 Sod 4.5 gm/ Sodium Chloride IV 06/18/25 10:21 25 mls/hr Q8HR EMRE Administration Insulin Human Lispro 0 unit 06/07/25 17:00 06/14/25 11:39 Insulin Lispro (Admelog) 1 Unit/0.01 Ml Unit SC 07/07/25 16:59 1 unit AC EMRE Administration Protocol Ipratropium [place] 0.5 mg 06/13/25 01:00 06/14/25 11:45 Ipratropium Rt 0.5 Mg/ 2.5 Ml Nebu INH 07/13/25 00:59 0.5 mg Q6HRRT EMRE Administration Ipratropium [place] 0.5 mg 06/14/25 09:22 Ipratropium Rt 0.5 Mg/ 2.5 Ml Nebu INH 07/12/25 19:59 Q2HR PRN sob/wheezing Levalbuterol HCl 0.63 mg 06/12/25 19:30 06/14/25 11:45 Levalbuterol Rt 0.63 Mg/3 Ml Nebu INH 07/12/25 19:29 0.63 mg Q6H EMRE Administration Levalbuterol HCl 1.25 mg 06/14/25 09:23 Levalbuterol Rt 1.25 Mg/0.5 Ml Nebu INH 07/12/25 19:59 Q2HR PRN sob/wheezing Lisinopril 2.5 mg 06/07/25 12:15 06/14/25 08:36 Lisinopril 2.5 Mg Tablet PO 07/07/25 12:14 2.5 mg QDAY EMRE Administration Loratadine 10 mg 06/07/25 12:15 06/14/25 08:34 Loratadine 10 Mg Tablet PO 07/07/25 12:14 10 mg QDAY EMRE Administration Ondansetron HCl 4 mg 06/07/25 09:54 Ondansetron Inj 2 Mg/Ml Inj 2 Ml IVP 07/07/25 09:53 Q6H PRN NAUSEA OR VOMITING Protocol Pantoprazole Sodium 40 mg 06/12/25 09:00 06/14/25 08:34 Pantoprazole Inj 40 Mg Vial IVP 07/10/25 16:44 40 mg DAILY EMRE Administration Simethicone 80 mg 06/10/25 16:42 06/13/25 11:40 Simethicone 80 Mg Chew PO 07/10/25 16:41 80 mg QID PRN Administration GAS Sodium Chloride 3 ml 06/07/25 12:10 Sodium Chloride Rt [place] 0.9% 3 Ml Nebu INH 07/07/25 12:09 PRN PRN SOLN Plan Assessment Jazmin is a 70 y/o female with PMHx of chronic asthma (on 3L O2 at home) severe peripheral artery disease (status post left BKA), hypertension, hyperlipidemia, [id number] type 2 diabetes who is admitted for Acute on Chronic respiratory failure and community acquired pneumonia. 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 Zosyn 4.5 g IV (06/11? ? DC steroids ? Chest physiotherapy ? Xopenex 1.25 mg every 6 hours RT - Iptratropium 0.5mg Q6HRRT ? ANGELITA ? Tessalon Perles as needed - rule out atypical Mycobacterium. Will initiate Airborne isolation, and pending AFB x3 - Outpatient pulmonology follow up for PFTs due to concern for COPD - Outpatient sleep study #Chronic respiratory acidosis ABG showed a pH of 7.44, bicarb of 41, pCO2 of 61 Patient is a chronic CO2 retainer Repeat ABG on hospital day 3 shows PH 7.29, bicarb 33, and PCO2 of 70 Burnett formula predicts CO2: 57 -> indicates respiratory acidosis with secondary metabolic alkalosis Mixed acid-base disorder Plan: ? Trend CMP ? Treat above ? BiPAP ? 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 Pavon, records show that patient had a Holter and with the Holter records patient appears to be in A-fib about 1% of the time -TSH, FT4 wnl, A1C 5.5 Plan: - Appreciate cardiology recs - Strict I&Os, daily weights, 2g sodium diet ? Telemetry ? Keep magnesium and potassium above 2 and 4 respectively ? Resume home Cardizem 360 mg daily ? Will resume Eliquis upon discharge - Cardiac Diet #Hypertension #Hyperlipidemia #Severe peripheral artery disease s/p L BKA Chronic Plan: ? Resumed home Lipitor 80 mg at bedtime ? Resume home lisinopril 2.5 mg daily #Insulin Dependent Type II Diabetes mellitus Takes Novolin 70/30 15 units at home 01/2025 A1c 5.0, 06/08/25 A1c is 5.5 Plan: ? Sliding scale insulin ? Hypoglycemic protocol in place ? Blood sugar checks with meals #Chronic microcytic hematuria DDx: IgA Nephropathy, FSGS, GPA, bladder malignancy No stones seen on imaging, or hx of stones Patient has had blood and RBCs in the urine before Patient shows +2 blood and 19 RBCs today Previous has had ANGELITA, c-ANCA and p-ANCA negative Pt likely has IgA nephropathy No signs of Nephritic or nephrotic syndrome (no protein in urine) at this time Could be GPA but considering ANCA numbers are negative, unlikely, also pt has not commented on hemoptysis No recent fall; Unlikely bladder related due to no smoking hx CK is normal Plan: ?ANGELITA pending #Normocytic anemia #Hx of Gastritis #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 Moore, GI Was supposed be referred to [facility] for surgical intervention, patients daughter confirms this did not happen Chest CT 06/07: retrocardiac gastric hernia; patient is asymptomatic Iron is low (28) and TIBC and ferritin are normal. Retic count % 1.9, absolute retic count is normal Peripheral blood smear: normocytic normochromic anemia with anisocytosis; mature neutrophilia and monocytosis -Spoke with GI, they will give recs in regards to possible oncology workup Plan: ? Trend CBC ? Transfusion protocol hemoglobin below 7 ? Avoiding any NSAIDs ? Protonix 40 mg daily ? FOBT ? Consult GI in place #Health Maintenance Disposition: Telemetry DVT prophylaxis: Heparin Q12H GI prophylaxis: Protonix Diet: Cardiac CODE STATUS: DNR Plan discussed with my attending physician, Dr. Smooth Nguyen, PGY-2 Attending Provider Attestation/Addendum I have examined the patient, reviewed labs and imaging findings, discussed the case with the resident(s), and reviewed entered orders. I agree with the plan of care as outlined in this note, with these additional summaries/recommendations: Patient seen at bedside. No acute overnight events. She is alert & oriented X 3. Awaiting additional AFB before patient can be safely discharged. . Quantiferon gold negative and AFB X 2 now negative. We will await result of one additional AFB before patient can be discharged. Continue supplemental oxygen and 02 saturation appropriate on 2 L nasal cannula. Patient has superimposed bacterial pneumonia. Sputum cx resulted today revealing achromobacter xylos and abx adjusted based of sensitivities and mean inhibitory concentration. Continue breathing treatments and DC steroid. No wheezing noted although patient has chronic CO2 retention secondary to underlying COPD. Steroids discontinued and persistent leukocytosis likely secondary to steroids. Cardiology following for atrial fibrillation which is controlled. Continue Cardizem. Gastroenterology was consulted for borderline intramucosal carcinoma noted on path report from EGD. Per gastroenterology patient can follow-up outpatient and be referred to Dr. Cunningham at [facility] for further evaluation and management. Continue PPI. Patient updated on the plan and in agreement. Please see residents note for additional details and management. Dr. Smooth MD
--- NOTE | 2025-06-14 17:40 | PC.NURSE ---
Removed Bipap per Dr. Nguyen's orders, put patient back on 3L oxymask.
--- NOTE | 2025-06-14 18:39 | XR_ITS ---
Examination: AP chest single view TECHNIQUE: AP portable upright chest single view Date and time: June 14, 2025 1932 hours Comparison June 07, 2025. INDICATIONS: Shortness of breath acute hypoxic respiratory failure today FINDINGS: Significant bibasilar pneumonia Minimal prominence left ventricle Moderate vascular congestion Prominent osteopenia IMPRESSION: Significant bibasilar pneumonia Mild associated heart failure
[2025-06-14 20:09] LABS: Base Excess 12 (-3-3); HCO3 39 mEq/L (20-26); Inspired O2, VO2 Liters 4 L/min; O2 Saturation 94 % (91-98); PCO2 69 mmHg (32.0-48.0); PO2 69 mmHg (83-108); pH, Arterial 7.36 (7.35-7.45)
[2025-06-14 20:12] LABS: Allen Test Performed/OK; Puncture Site Right Radial
[2025-06-14] MEDS: ATORVASTATIN CALCIUM 20 MG TABLET 80 MG PO (21:51)
--- NOTE | 2025-06-14 22:04 | ESPR_ITS ---
Documentation for date of: 06/14/25 Subjective Subjective Interval history: Patient is still being treated for pneumonia and has shortness of breath Exam Vital Signs Temp Pulse Resp BP Pulse Ox O2 Del Method O2 Flow Rate 97.0 F 98 19 122/83 94 L Oxy Mask 4 06/14/25 20:00 06/14/25 20:00 06/14/25 20:00 06/14/25 20:00 06/14/25 20:00 06/14/25 20:00 06/14/25 18:18 FiO2 50 06/14/25 16:04 Objective Labs 06/14/25 09:42 06/14/25 09:42 Labs: Laboratory Results - last 24 hr 06/14/25 06/14/25 06/14/25 09:42 12:48 19:56 WBC 18.4 H RBC 3.22 L Hgb 9.3 L Hct 30.8 L MCV 96 MCH 28.9 MCHC 30.2 L RDW Std Deviation 56.4 H Plt Count 192 D Neut % (Auto) 91 H Lymph % (Auto) 2 L [place] % (Auto) 5 Eos % (Auto) 1 Baso % (Auto) 0 Neut # (Auto) 16.7 H Lymph # (Auto) 0.4 L [place] # (Auto) 0.8 Eos # (Auto) 0.2 Baso # (Auto) 0.0 Immature Gran # (Auto) 0.24 H Absolute Nucleated RBC 0.02 H Immature Gran % 1 H Nucleated RBC % 0 Puncture Site Right Radial ABG pH 7.36 ABG pCO2 69 H ABG pO2 69 L ABG HCO3 39 H ABG O2 Saturation 94 ABG Base Excess 12 H Oxygen Liter Flow 4 Sodium 140 Potassium 4.4 Chloride 98 Carbon Dioxide 35.1 H Anion Gap 7 BUN 15 Creatinine 0.8 Estim Creat Clear Calc 46.5 L eGFR > 60 BUN/Creatinine Ratio 19 Glucose 193 H D Calculated Osmolality 285 Calcium 8.1 L Corrected Calcium 8.7 Phosphorus 4.0 Magnesium 2.2 Total Bilirubin 0.5 AST 41 H ALT 33 Alkaline Phosphatase 93 Total Protein 5.0 L Albumin 3.2 L Globulin 1.8 L Albumin/Globulin Ratio 1.8 Stool Occult Blood Negative Impressions Impression: Ac's esophagus with dysplasia and intramucosal possibility of carcinoma Ileocecal valve mass Continue current management ABG Interpretation ABG results: 07/06/2506/07/25 06/14/25 05:41 19:54 19:56 ABG pH 7.44 7.29 L D 7.36 ABG pCO2 61 H 70 H 69 H ABG pO2 48 L* 98 D 69 L ABG HCO3 41 H 33 H 39 H ABG O2 Saturation 71 L 97 94 ABG Base Excess 14 H 5 H 12 H Assessment & Plan A&P Narrative # Ac's esophagus distal esophagus with dysplasia # 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 Cunningham at [facility] for further evaluation and management Other medical problems include Bilateral pneumonia Left BKA Essential hypertension Diabetes mellitus type 2 Thank you very much for the opportunity to participate in the care of this patient Time Spent With Patient Time: Total time spent is greater than 50% in coordination of care (as documented) at patient's floor/unit and/or counseling patient:
[2025-06-15] VITALS (15 sets, daily range): BP systolic 99–136; BP diastolic 56–82; PULSE 87–104; RESP 18–30; TEMP 36.1–36.6; O2SAT 92–97; BMI 26.7
[2025-06-15] MEDS: LEVALBUTEROL RT 1.25 MG/0.5 ML NEBU INH ×2 (00:09→04:28)
[2025-06-15] MEDS: IPRATROPIUM RT 0.5 MG/ 2.5 ML NEBU INH ×7 (00:09→22:22)
[2025-06-15] MEDS: PIPER/TAZO INJ 4.5 GM in SODIUM CHLORIDE 0.9% (POP) 100 ML IV ×3 (05:55→21:29)
[2025-06-15 06:36] LABS: Basophils # (Auto) 0.0 Thou/mm3 (0.0-0.2); Basophils % (Auto) 0 % (0-2.5); Eosinophils # (Auto) 0.8 Thou/mm3 (0.0-0.5); Eosinophils % (Auto) 6 % (0-10); Hematocrit 31.6 % (36.0-46.0); Hemoglobin 9.6 g/dL (12.0-16.0); Immature Granulocytes Auto 0.16 Thou/mm3 (0.00-0.00); Lymphocytes # (Auto) 0.8 Thou/mm3 (1.0-4.8); Lymphocytes % (Auto) 6 % (10-50); Mean Corpuscular HGB Conc 30.4 g/dl (31.0-37.0); Mean Corpuscular Hemoglobin 28.4 pg (25.0-35.0); Mean Corpuscular Volume 94 fL (80-100); Monocytes # (Auto) 1.0 Thou/mm3 (0.0-0.8); Monocytes % (Auto) 7 % (0-12); Neutrophils # (Auto) 11.4 Thou/mm3 (1.8-7.7); Neutrophils % (Auto) 81 % (37-80); Nucleated Red Blood Cell # 0.00 Thou/mm3 (0.00-0.00); Nucleated Red Blood Cell % 0 /100 WBC (0); Platelet Count 174 Thou/mm3 (140-440); RDW Standard Deviation 54.2 fL (36.4-46.3); Red Blood Count 3.38 Miln/mm3 (4.00-5.20); White Blood Count 14.1 Thou/mm3 (3.6-11.0)
[2025-06-15 06:40] LABS: Alanine Aminotransferase 37 U/L (10-49); Albumin, Serum 3.3 gm/dL (3.4-4.8); Albumin/Globulin Ratio 1.4 (1.2-2.2); Alkaline Phosphatase 99 U/L (46-116); Anion Gap 6 (7-16); Aspartate Amino Transferase 50 U/L (0-34); BUN/Creatinine Ratio 23 Ratio (12-20); Bilirubin,Total 0.6 mg/dL (0.3-1.2); Blood Urea Nitrogen 18 mg/dL (9-23); Calcium 8.0 mg/dL (8.3-10.6); Calcium (Corrected) 8.6 mg/dL (8.5-10.1); Carbon Dioxide 39.2 mMol/L (20.0-31.0); Chloride 99 mMol/L (98-107); Creatinine (Component) 0.8 mg/dL (0.6-1.3); Estimated Creatinine Clearance 47.2 mL/min (>60); Globulin 2.3 gm/dL (2.3-3.5); Glucose 95 mg/dL (74-106); Magnesium 2.2 mg/dL (1.6-2.6); Osmolality,Calculated 288 (275-295); Phosphorous 3.2 mg/dL (2.4-5.1); Potassium 4.0 mMol/L (3.4-5.1); Sodium 144 mMol/L (136-145); Total Protein 5.6 gm/dL (5.7-8.2); eGFR > 60 See Note
[2025-06-15] MEDS: LEVALBUTEROL RT 0.63 MG/3 ML NEBU INH ×5 (06:44→22:22)
[2025-06-15 07:54] LABS: B-Type Natriuretic Peptide < 20 pg/mL (0-100)
[2025-06-15] MEDS: DILTIAZEM CD 120 MG CAPCR 360 MG PO (09:07)
[2025-06-15] MEDS: HEPARIN SOD INJ 5000 UNIT/ML VIAL SC ×2 (09:07→21:21)
[2025-06-15] MEDS: BENZONATATE 100 MG CAPSULE PO (09:08)
[2025-06-15] MEDS: INSULIN LISPRO (AdmeLOG) 1 UNIT/0.01 ML UNIT SC ×2 (11:13→17:00)
--- NOTE | 2025-06-15 11:24 | PD.RESPRO ---
Documentation for date of: 06/15/25 Subjective Subjective Interval history: The patient was seen and examined at the bedside this morning. She reported improvement in her shortness of breath, and feels like she is back at her baseline. The patient is currently saturating 95% on 5 L of oxy mask, and she is at [address] chest revealed bilateral pneumonia, most prominent in left upper lobe and lingular segment, but as interpreted by me, it was also significant for reticular pattern. Primary team ruling out flu along with possible miliary TB given the CT findings. On admission patient was given a trial of Lasix IV but patient did not have much urinary output. Patient overall appears to be euvolemic on admission and hence the Lasix was stopped. He is not having the increased work of breathing and her pCO2 has not been measured but patient has been placed on BiPAP and repeat ABG is being planned by the primary team. Chest x-ray has not been done and plan to get a chest x-ray along with a BNP to see if the patient is volume overloaded. If there is evidence of volume overload then Lasix can be considered Patient heart rate is elevated mostly secondary to the increased work of breathing as well as shortness of breath. - Continue with diltiazem 360 Mg daily, and avoid beta-mihir in the setting of chronic respiratory failure. - Pt is currently stable but being ruled out for TB-2 samples have been negative and awaiting third sample results. -Chest x-ray done on 06/14/2025 was significant for left lower pleural effusion. Further decision regarding Lasix versus thoracocentesis will be done by tomorrow after further reviewing the chest x-ray. Exam Vital Signs Temp Pulse Resp BP Pulse Ox O2 Del Method O2 Flow Rate 97.0 F 92 30 H 136/74 H 92 L Oxy Mask 5 06/15/25 08:00 06/15/25 09:08 06/15/25 08:00 06/15/25 09:08 06/15/25 08:00 06/15/25 08:00 06/15/25 08:00 FiO2 50 06/15/25 08:00 Narrative Exam General: No acute distress, Alert and Oriented x 3 HEENT: Moist mucous membranes, oropharynx clear Neck: Supple, No masses, No JVD CVS: S1S2 normal, ocassionally tachycardiac, pansystolic murmur over left lower sternal border, rubs or gallops Lungs: Decreased breath sound over left lower lung, mild crackles/crepitus present over right lower lung. Abd: Soft, NT/ND, +BS, no organomegaly Ext: Left BKA, feeble pulse on right lower extremity Skin: No rash Psych: Appropriate mood and affect Objective Labs 06/15/25 05:05 06/15/25 05:05 Labs: Laboratory Results - last 24 hr 06/14/25 06/14/25 06/15/25 12:48 19:56 05:05 WBC 14.1 H RBC 3.38 L Hgb 9.6 L Hct 31.6 L MCV 94 MCH 28.4 MCHC 30.4 L RDW Std Deviation 54.2 H Plt Count 174 Neut % (Auto) 81 H Lymph % (Auto) 6 L Hutchinson % (Auto) 7 Eos % (Auto) 6 Baso % (Auto) 0 Neut # (Auto) 11.4 H Lymph # (Auto) 0.8 L Hutchinson # (Auto) 1.0 H Eos # (Auto) 0.8 H Baso # (Auto) 0.0 Immature Gran # (Auto) 0.16 H Absolute Nucleated RBC 0.00 Immature Gran % 1 H Nucleated RBC % 0 Puncture Site Right Radial ABG pH 7.36 ABG pCO2 69 H ABG pO2 69 L ABG HCO3 39 H ABG O2 Saturation 94 ABG Base Excess 12 H Oxygen Liter Flow 4 Sodium Cancelled Potassium Chloride Carbon Dioxide Anion Gap BUN Creatinine Estim Creat Clear Calc eGFR BUN/Creatinine Ratio Glucose Calculated Osmolality Calcium Corrected Calcium Phosphorus Magnesium Total Bilirubin AST ALT Alkaline Phosphatase B-Natriuretic Peptide Total Protein Albumin Globulin Albumin/Globulin Ratio Stool Occult Blood Negative 06/15/25 06/15/25 06/15/25 05:05 05:05 05:05 WBC RBC Hgb Hct MCV MCH MCHC RDW Std Deviation Plt Count Neut % (Auto) Lymph % (Auto) Hutchinson % (Auto) Eos % (Auto) Baso % (Auto) Neut # (Auto) Lymph # (Auto) Hutchinson # (Auto) Eos # (Auto) Baso # (Auto) Immature Gran # (Auto) Absolute Nucleated RBC Immature Gran % Nucleated RBC % Puncture Site ABG pH ABG pCO2 ABG pO2 ABG HCO3 ABG O2 Saturation ABG Base Excess Oxygen Liter Flow Sodium 144 Potassium Cancelled 4.0 Chloride Cancelled 99 Carbon Dioxide Cancelled Anion Gap BUN Creatinine Estim Creat Clear Calc eGFR BUN/Creatinine Ratio Glucose Calculated Osmolality Calcium Corrected Calcium Phosphorus Magnesium Total Bilirubin AST ALT Alkaline Phosphatase B-Natriuretic Peptide Total Protein Albumin Globulin Albumin/Globulin Ratio Stool Occult Blood 06/15/25 06/15/25 06/15/25 05:05 05:05 05:05 WBC RBC Hgb Hct MCV MCH MCHC RDW Std Deviation Plt Count Neut % (Auto) Lymph % (Auto) Hutchinson % (Auto) Eos % (Auto) Baso % (Auto) Neut # (Auto) Lymph # (Auto) Hutchinson # (Auto) Eos # (Auto) Baso # (Auto) Immature Gran # (Auto) Absolute Nucleated RBC Immature Gran % Nucleated RBC % Puncture Site ABG pH ABG pCO2 ABG pO2 ABG HCO3 ABG O2 Saturation ABG Base Excess Oxygen Liter Flow Sodium Potassium Chloride Carbon Dioxide 39.2 H Anion Gap Cancelled 6 L BUN Cancelled 18 Creatinine Cancelled Estim Creat Clear Calc eGFR BUN/Creatinine Ratio Glucose Calculated Osmolality Calcium Corrected Calcium Phosphorus Magnesium Total Bilirubin AST ALT Alkaline Phosphatase B-Natriuretic Peptide Total Protein Albumin Globulin Albumin/Globulin Ratio Stool Occult Blood 06/15/25 06/15/25 06/15/25 05:05 05:05 05:05 WBC RBC Hgb Hct MCV MCH MCHC RDW Std Deviation Plt Count Neut % (Auto) Lymph % (Auto) Hutchinson % (Auto) Eos % (Auto) Baso % (Auto) Neut # (Auto) Lymph # (Auto) Hutchinson # (Auto) Eos # (Auto) Baso # (Auto) Immature Gran # (Auto) Absolute Nucleated RBC Immature Gran % Nucleated RBC % Puncture Site ABG pH ABG pCO2 ABG pO2 ABG HCO3 ABG O2 Saturation ABG Base Excess Oxygen Liter Flow Sodium Potassium Chloride Carbon Dioxide Anion Gap BUN Creatinine 0.8 Estim Creat Clear Calc Cancelled 47.2 L eGFR Cancelled > 60 BUN/Creatinine Ratio Cancelled Glucose Calculated Osmolality Calcium Corrected Calcium Phosphorus Magnesium Total Bilirubin AST ALT Alkaline Phosphatase B-Natriuretic Peptide Total Protein Albumin Globulin Albumin/Globulin Ratio Stool Occult Blood 06/15/25 06/15/25 06/15/25 05:05 05:05 05:05 WBC RBC Hgb Hct MCV MCH MCHC RDW Std Deviation Plt Count Neut % (Auto) Lymph % (Auto) Hutchinson % (Auto) Eos % (Auto) Baso % (Auto) Neut # (Auto) Lymph # (Auto) Hutchinson # (Auto) Eos # (Auto) Baso # (Auto) Immature Gran # (Auto) Absolute Nucleated RBC Immature Gran % Nucleated RBC % Puncture Site ABG pH ABG pCO2 ABG pO2 ABG HCO3 ABG O2 Saturation ABG Base Excess Oxygen Liter Flow Sodium Potassium Chloride Carbon Dioxide Anion Gap BUN Creatinine Estim Creat Clear Calc eGFR BUN/Creatinine Ratio 23 H Glucose Cancelled 95 D Calculated Osmolality Cancelled 288 Calcium Cancelled Corrected Calcium Phosphorus Magnesium Total Bilirubin AST ALT Alkaline Phosphatase B-Natriuretic Peptide Total Protein Albumin Globulin Albumin/Globulin Ratio Stool Occult Blood 06/15/25 06/15/25 06/15/25 05:05 05:05 05:05 WBC RBC Hgb Hct MCV MCH MCHC RDW Std Deviation Plt Count Neut % (Auto) Lymph % (Auto) Hutchinson % (Auto) Eos % (Auto) Baso % (Auto) Neut # (Auto) Lymph # (Auto) Hutchinson # (Auto) Eos # (Auto) Baso # (Auto) Immature Gran # (Auto) Absolute Nucleated RBC Immature Gran % Nucleated RBC % Puncture Site ABG pH ABG pCO2 ABG pO2 ABG HCO3 ABG O2 Saturation ABG Base Excess Oxygen Liter Flow Sodium Potassium Chloride Carbon Dioxide Anion Gap BUN Creatinine Estim Creat Clear Calc eGFR BUN/Creatinine Ratio Glucose Calculated Osmolality Calcium 8.0 L Corrected Calcium Cancelled 8.6 Phosphorus Cancelled 3.2 Magnesium Cancelled Total Bilirubin AST ALT Alkaline Phosphatase B-Natriuretic Peptide Total Protein Albumin Globulin Albumin/Globulin Ratio Stool Occult Blood 06/15/25 06/15/25 06/15/25 05:05 05:05 05:05 WBC RBC Hgb Hct MCV MCH MCHC RDW Std Deviation Plt Count Neut % (Auto) Lymph % (Auto) Hutchinson % (Auto) Eos % (Auto) Baso % (Auto) Neut # (Auto) Lymph # (Auto) Hutchinson # (Auto) Eos # (Auto) Baso # (Auto) Immature Gran # (Auto) Absolute Nucleated RBC Immature Gran % Nucleated RBC % Puncture Site ABG pH ABG pCO2 ABG pO2 ABG HCO3 ABG O2 Saturation ABG Base Excess Oxygen Liter Flow Sodium Potassium Chloride Carbon Dioxide Anion Gap BUN Creatinine Estim Creat Clear Calc eGFR BUN/Creatinine Ratio Glucose Calculated Osmolality Calcium Corrected Calcium Phosphorus Magnesium 2.2 Total Bilirubin Cancelled 0.6 AST Cancelled 50 H ALT Cancelled Alkaline Phosphatase B-Natriuretic Peptide Total Protein Albumin Globulin Albumin/Globulin Ratio Stool Occult Blood 06/15/25 06/15/25 06/15/25 05:05 05:05 05:05 WBC RBC Hgb Hct MCV MCH MCHC RDW Std Deviation Plt Count Neut % (Auto) Lymph % (Auto) Hutchinson % (Auto) Eos % (Auto) Baso % (Auto) Neut # (Auto) Lymph # (Auto) Hutchinson # (Auto) Eos # (Auto) Baso # (Auto) Immature Gran # (Auto) Absolute Nucleated RBC Immature Gran % Nucleated RBC % Puncture Site ABG pH ABG pCO2 ABG pO2 ABG HCO3 ABG O2 Saturation ABG Base Excess Oxygen Liter Flow Sodium Potassium Chloride Carbon Dioxide Anion Gap BUN Creatinine Estim Creat Clear Calc eGFR BUN/Creatinine Ratio Glucose Calculated Osmolality Calcium Corrected Calcium Phosphorus Magnesium Total Bilirubin AST ALT 37 Alkaline Phosphatase Cancelled 99 B-Natriuretic Peptide < 20 Total Protein Cancelled 5.6 L Albumin Cancelled Globulin Albumin/Globulin Ratio Stool Occult Blood 06/15/25 06/15/25 06/15/25 05:05 05:05 05:05 WBC RBC Hgb Hct MCV MCH MCHC RDW Std Deviation Plt Count Neut % (Auto) Lymph % (Auto) Hutchinson % (Auto) Eos % (Auto) Baso % (Auto) Neut # (Auto) Lymph # (Auto) Hutchinson # (Auto) Eos # (Auto) Baso # (Auto) Immature Gran # (Auto) Absolute Nucleated RBC Immature Gran % Nucleated RBC % Puncture Site ABG pH ABG pCO2 ABG pO2 ABG HCO3 ABG O2 Saturation ABG Base Excess Oxygen Liter Flow Sodium Potassium Chloride Carbon Dioxide Anion Gap BUN Creatinine Estim Creat Clear Calc eGFR BUN/Creatinine Ratio Glucose Calculated Osmolality Calcium Corrected Calcium Phosphorus Magnesium Total Bilirubin AST ALT Alkaline Phosphatase B-Natriuretic Peptide Total Protein Albumin 3.3 L Globulin Cancelled 2.3 Albumin/Globulin Ratio Cancelled 1.4 Stool Occult Blood ABG Interpretation ABG results: 06/07/25 06/07/25 06/14/25 05:41 19:54 19:56 ABG pH 7.44 7.29 L D 7.36 ABG pCO2 61 H 70 H 69 H ABG pO2 48 L* 98 D 69 L ABG HCO3 41 H 33 H 39 H ABG O2 Saturation 71 L 97 94 ABG Base Excess 14 H 5 H 12 H Quality Measures Quality Measures none Advance care planning discussed with:: patient and child Assessment & Plan Assessment Current Active Medications: Generic Name Dose Route Start Last Admin Trade Name Bella PRN Reason Stop Dose Admin Acetaminophen 650 mg 06/07/25 09:54 06/13/25 11:38 Acetaminophen 325 Mg Tablet PO 07/07/25 09:53 650 mg Q6H PRN Administration PAIN SCALE 1-3 (mild Acetaminophen 650 mg 06/07/25 09:54 Acetaminophen 325 Mg Tablet PO 07/07/25 09:53 Q6H PRN Fever >100.4 Atorvastatin Calcium 80 mg 06/09/25 21:00 06/14/25 21:51 Atorvastatin Calcium 20 Mg Tablet PO 07/09/25 20:59 80 mg HS EMRE Administration Benzonatate 100 mg 06/07/25 10:15 06/15/25 09:08 Benzonatate 100 Mg Capsule PO 07/07/25 10:14 100 mg QDAY EMRE Administration Protocol Dextrose 25 ml 06/07/25 12:04 Dextrose 50%-Water Inj 50 Ml Syringe IV 07/07/25 12:03 Q15MIN PRN BG 50-70 responsive npo pt Dextrose 50 ml 06/07/25 12:04 Dextrose 50%-Water Inj 50 Ml Syringe IV 07/07/25 12:03 Q15MIN PRN BG <50 OR BG <70 & pt unresponsive Diltiazem HCl 360 mg 06/08/25 09:00 06/15/25 09:07 Diltiazem Cd 120 Mg Capcr PO 07/08/25 08:59 360 mg QDAY EMRE Administration Docusate Sodium 100 mg 06/09/25 11:39 Docusate Sod 100 Mg Capsule PO 07/09/25 11:38 BID PRN CONSTIPATION Protocol Glucagon 1 mg 06/07/25 12:04 Glucagon Inj 1 Mg Vial IM Q15MIN PRN BG <70, and no IV access Heparin Sodium (Porcine) 5,000 unit 06/07/25 21:00 06/15/25 09:07 Heparin Sod Inj 5000 Unit/Ml Vial SC 06/21/25 20:59 5,000 unit Q12H EMRE Administration Piperacillin Sod/Tazobactam 100 mls @ 25 mls/hr 06/11/25 10:22 06/15/25 05:55 Sod 4.5 gm/ Sodium Chloride IV 06/18/25 10:21 25 mls/hr Q8HR EMRE Administration Insulin Human Lispro 0 unit 06/07/25 17:00 06/15/25 11:13 Insulin Lispro (Admelog) 1 Unit/0.01 Ml Unit SC 07/07/25 16:59 1 unit AC EMRE Administration Protocol Ipratropium [place] 0.5 mg 06/14/25 09:22 06/15/25 04:29 Ipratropium Rt 0.5 Mg/ 2.5 Ml Nebu INH 07/12/25 19:59 0.5 mg Q2HR PRN Administration sob/wheezing Ipratropium [place] 0.5 mg 06/15/25 11:00 06/15/25 11:15 Ipratropium Rt 0.5 Mg/ 2.5 Ml Nebu INH 07/15/25 10:59 0.5 mg Q4HRRT EMRE Administration Levalbuterol HCl 1.25 mg 06/14/25 09:23 06/15/25 04:28 Levalbuterol Rt 1.25 Mg/0.5 Ml Nebu INH 07/12/25 19:59 1.25 mg Q2HR PRN Administration sob/wheezing Levalbuterol HCl 0.63 mg 06/15/25 11:00 06/15/25 11:15 Levalbuterol Rt 0.63 Mg/3 Ml Nebu INH 07/15/25 10:59 0.63 mg Q4HRRT EMRE Administration Lisinopril 2.5 mg 06/07/25 12:15 06/15/25 09:08 Lisinopril 2.5 Mg Tablet PO 07/07/25 12:14 2.5 mg QDAY MERE Administration Loratadine 10 mg 06/07/25 12:15 06/15/25 09:08 Loratadine 10 Mg Tablet PO 07/07/25 12:14 10 mg QDAY EMRE Administration Ondansetron HCl 4 mg 06/07/25 09:54 Ondansetron Inj 2 Mg/Ml Inj 2 Ml IVP 07/07/25 09:53 Q6H PRN NAUSEA OR VOMITING Protocol Pantoprazole Sodium 40 mg 06/12/25 09:00 06/15/25 09:06 Pantoprazole Inj 40 Mg Vial IVP 07/10/25 16:44 40 mg DAILY EMRE Administration Simethicone 80 mg 06/10/25 16:42 06/13/25 11:40 Simethicone 80 Mg Chew PO 07/10/25 16:41 80 mg QID PRN Administration GAS Sodium Chloride 3 ml 06/07/25 12:10 Sodium Chloride Rt [place] 0.9% 3 Ml Nebu INH 07/07/25 12:09 PRN PRN SOLN Esther Wu is a 70 y/o female with PMHx of chronic asthma (on oxygen intermittently at home) severe peripheral artery disease (status post left BKA), hypertension, hyperlipidemia, [id number] type 2 diabetes who is admitted for Acute on Chronic respiratory failure and community acquired pneumonia. #R/O tuberculosis -Pending confirmatory results for TB. -So far quantiferon gold has been negative -2 AFB samples has been negative, pending 1 more sample results #CHF exacerbation, ruled out- has chronic diastolic heart failure - euvolemic now Less likely to have CHF exacerbation, as BNP is 27, and the fine crackles heard on chest exam is likely secondary to interstitial lung disease. Chest x-ray and CT chest negative for vascular congestion or volume overload, but significant for reticular pattern indicating possible ILD. - Rule out interstitial lung disease - Pulmonary consultation - May consider high-dose pulse steroid therapy, if agreed by starter cup powder mixer - Recent echo on April 2025 was significant for RVSP 55 mmHg, but stable LVEF. - Stop diuretics - Strict input output, daily weights and 2 g sodium diet. #Lt pleural effusion #Acute on chronic respiratory failure #Community-acquired pneumonia #COPD exacerbation #Moderate pulmonary hypertension #Hx of Chronic asthma #Possible Interstitial lung disease #R/O Tuberculosis Patient was recently discharged from the ER for similar symptoms including fever, shortness of breath Patient has never seen a starter cup powder mixer or gotten PFTs On previous chest abdomen pelvis done in March 2025 shows possible miliary disease, but further reading of the films was suspicious for reticular pattern suggestive of COPD. She reported no expected or exposure to TB, and no recent visit to [place]. Previously she was tested negative for tuberculosis. 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 Despite SOB, she is saturating well on home 3 L NC. Echo previously shows RVSP 55 mmHg CXR on 06/14/25 was significant for lt pleural effusion -Further decision on lasix vs thoracocentesis will be made tomorrow after repeat cxr -Continue with antibiotics -DuoNeb as needed -Continue with BiPAP as needed Primary team ruling out flu along with possible miliary TB given the CT findings On admission patient was given a trial of Lasix IV but patient did not have much urinary output. Patient overall appears to be euvolemic on admission and hence the Lasix was stopped. He is not having the increased work of breathing and her pCO2 has not been measured but patient has been placed on BiPAP and repeat ABG is being planned by the primary team. Chest x-ray has not been done and plan to get a chest x-ray along with a BNP to see if the patient is volume overloaded. If there is evidence of volume overload then patient then Lasix can be considered Patient heart rate is elevated mostly secondary to the increased work of breathing as well as shortness of breath. - Pt is currently stable but being ruled out for TB-2 samples have been negative and awaiting third sample results. #Chronic Paroxysmal A-fib [id number], HAS-BLED: 2, currently regular rate and rhythm Eliquis held due to concern for GI bleed in the past. Recent Holter records revealed patient appears to be in A-fib about 1% of the time -Continue with telemetry monitoring, -Keep magnesium and potassium above 2 and 4 respectively -Continue with diltiazem 360 Mg daily, and avoid beta-mihir in the setting of chronic respiratory failure. 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 Patient has been recommended procedures at [facility] and she is yet to follow-up with them regarding the questionable adenocarcinoma or Ac's esophagus along with possible obstructing ileocecal valve tumor. Patient is DNR at the present point of time but that he wants to continue full treatment. -Management deferred to primary team Thank you for consulting cardiology team. We appreciate the opportunity to participate in this patient care. Cardiology will continue to follow-up on this patient. The patient's management plan was discussed with my attending physician MD Angel Bal MD, PGY3 Attending Provider Attestation/Addendum I have personally seen and examined the patient separately on the above date of service and discussed the plan of care with the resident. I reviewed the resident Dr. Angel Tanner consultation progress note and agree with the resident findings and plan in the note above and have also edited the documentation to reflect my findings and plan. Patient shortness of breath appears to be have worsened over the last couple of days. She is now on 5 L oxygen via Ventimask. Previously at home she was on 3 L oxygen via nasal cannula. Requested for chest x-ray yesterday along with the BNP. BNP is less than 20 but chest x-ray shows vascular congestion along with left-sided pleural effusion that appears to be at least mild to moderate on the left side and has right CP angle also blunted indicating trace to small effusion. On physical examination he does not have significant peripheral edema. Kidney function also appears to be stable. LFTs also appear stable and there is no evidence of clear hepatic congestion. BNP has been less than 20 even previously. If blood pressure is stable we can trial with 1 dose of IV Lasix 20 mg IV for now as fluid status by physical exam is unclear. Recommend primary team to further evaluate the pleural effusions for the patient and to see if needed for diagnostic or therapeutic tap if patient continues to have increasing oxygen requirements. Campos Pavon M.D. Interventional Cardiology
--- NOTE | 2025-06-15 13:38 | PD.RESPRO ---
Documentation for date of: 06/15/25 Subjective Subjective Interval history: Pt examined at bedside today. Pt reports she is doing okay. She denies having any CP, however does say she still has some shortness of breath and a cough. She says she wants to think about her treatment moving forward if there is a tumor in her abdomen. She has no other complaints at this time. Exam Vital Signs Temp Pulse Resp BP Pulse Ox O2 Del Method O2 Flow Rate 97.0 F 104 H 18 136/74 H 92 L Oxy Mask 5 06/15/25 08:00 06/15/25 11:21 06/15/25 11:21 06/15/25 09:08 06/15/25 11:21 06/15/25 08:00 06/15/25 11:21 FiO2 50 06/15/25 08:00 Narrative Exam General: AAOx3, NAD, elderly, weak, pleasant female, appears to be lethargic HEENT: Moist mucous membranes, conjunctiva clear, EOMI, PERRLA, poor dentition Cardiovascular: Pansystolic murmur heard over left lower sternal border radiates to left upper sternal border, radial pulses +2 bilat, tachycardia, no hepatojuglar reflex or JVD appreciated Pulmonary: Wheezing heard throughout all lung zepeda, on oxymask currently GI: No tenderness to light or deep palpitation, no guarding, rigidity, rebound tenderness or distension, possible abdominal hernia Extremities: L BKA, no anasarca appreciated Neuro: AAOx3, no focal motor or sensory deficits in the UE or LE bilat Psych: Cooperative Objective Labs 06/16/25 08:44 06/16/25 08:44 Labs: Laboratory Results - last 24 hr 06/14/25 06/14/25 06/15/25 12:48 19:56 05:05 WBC 14.1 H RBC 3.38 L Hgb 9.6 L Hct 31.6 L MCV 94 MCH 28.4 MCHC 30.4 L RDW Std Deviation 54.2 H Plt Count 174 Neut % (Auto) 81 H Lymph % (Auto) 6 L Person % (Auto) 7 Eos % (Auto) 6 Baso % (Auto) 0 Neut # (Auto) 11.4 H Lymph # (Auto) 0.8 L Person # (Auto) 1.0 H Eos # (Auto) 0.8 H Baso # (Auto) 0.0 Immature Gran # (Auto) 0.16 H Absolute Nucleated RBC 0.00 Immature Gran % 1 H Nucleated RBC % 0 Puncture Site Right Radial ABG pH 7.36 ABG pCO2 69 H ABG pO2 69 L ABG HCO3 39 H ABG O2 Saturation 94 ABG Base Excess 12 H Oxygen Liter Flow 4 Sodium Cancelled Potassium Chloride Carbon Dioxide Anion Gap BUN Creatinine Estim Creat Clear Calc eGFR BUN/Creatinine Ratio Glucose Calculated Osmolality Calcium Corrected Calcium Phosphorus Magnesium Total Bilirubin AST ALT Alkaline Phosphatase B-Natriuretic Peptide Total Protein Albumin Globulin Albumin/Globulin Ratio Stool Occult Blood Negative 06/15/25 06/15/25 06/15/25 05:05 05:05 05:05 WBC RBC Hgb Hct MCV MCH MCHC RDW Std Deviation Plt Count Neut % (Auto) Lymph % (Auto) Person % (Auto) Eos % (Auto) Baso % (Auto) Neut # (Auto) Lymph # (Auto) Person # (Auto) Eos # (Auto) Baso # (Auto) Immature Gran # (Auto) Absolute Nucleated RBC Immature Gran % Nucleated RBC % Puncture Site ABG pH ABG pCO2 ABG pO2 ABG HCO3 ABG O2 Saturation ABG Base Excess Oxygen Liter Flow Sodium 144 Potassium Cancelled 4.0 Chloride Cancelled 99 Carbon Dioxide Cancelled Anion Gap BUN Creatinine Estim Creat Clear Calc eGFR BUN/Creatinine Ratio Glucose Calculated Osmolality Calcium Corrected Calcium Phosphorus Magnesium Total Bilirubin AST ALT Alkaline Phosphatase B-Natriuretic Peptide Total Protein Albumin Globulin Albumin/Globulin Ratio Stool Occult Blood 06/15/25 06/15/25 06/15/25 05:05 05:05 05:05 WBC RBC Hgb Hct MCV MCH MCHC RDW Std Deviation Plt Count Neut % (Auto) Lymph % (Auto) Person % (Auto) Eos % (Auto) Baso % (Auto) Neut # (Auto) Lymph # (Auto) Person # (Auto) Eos # (Auto) Baso # (Auto) Immature Gran # (Auto) Absolute Nucleated RBC Immature Gran % Nucleated RBC % Puncture Site ABG pH ABG pCO2 ABG pO2 ABG HCO3 ABG O2 Saturation ABG Base Excess Oxygen Liter Flow Sodium Potassium Chloride Carbon Dioxide 39.2 H Anion Gap Cancelled 6 L BUN Cancelled 18 Creatinine Cancelled Estim Creat Clear Calc eGFR BUN/Creatinine Ratio Glucose Calculated Osmolality Calcium Corrected Calcium Phosphorus Magnesium Total Bilirubin AST ALT Alkaline Phosphatase B-Natriuretic Peptide Total Protein Albumin Globulin Albumin/Globulin Ratio Stool Occult Blood 06/15/25 06/15/25 06/15/25 05:05 05:05 05:05 WBC RBC Hgb Hct MCV MCH MCHC RDW Std Deviation Plt Count Neut % (Auto) Lymph % (Auto) Person % (Auto) Eos % (Auto) Baso % (Auto) Neut # (Auto) Lymph # (Auto) Person # (Auto) Eos # (Auto) Baso # (Auto) Immature Gran # (Auto) Absolute Nucleated RBC Immature Gran % Nucleated RBC % Puncture Site ABG pH ABG pCO2 ABG pO2 ABG HCO3 ABG O2 Saturation ABG Base Excess Oxygen Liter Flow Sodium Potassium Chloride Carbon Dioxide Anion Gap BUN Creatinine 0.8 Estim Creat Clear Calc Cancelled 47.2 L eGFR Cancelled > 60 BUN/Creatinine Ratio Cancelled Glucose Calculated Osmolality Calcium Corrected Calcium Phosphorus Magnesium Total Bilirubin AST ALT Alkaline Phosphatase B-Natriuretic Peptide Total Protein Albumin Globulin Albumin/Globulin Ratio Stool Occult Blood 06/15/25 06/15/25 06/15/25 05:05 05:05 05:05 WBC RBC Hgb Hct MCV MCH MCHC RDW Std Deviation Plt Count Neut % (Auto) Lymph % (Auto) Person % (Auto) Eos % (Auto) Baso % (Auto) Neut # (Auto) Lymph # (Auto) Person # (Auto) Eos # (Auto) Baso # (Auto) Immature Gran # (Auto) Absolute Nucleated RBC Immature Gran % Nucleated RBC % Puncture Site ABG pH ABG pCO2 ABG pO2 ABG HCO3 ABG O2 Saturation ABG Base Excess Oxygen Liter Flow Sodium Potassium Chloride Carbon Dioxide Anion Gap BUN Creatinine Estim Creat Clear Calc eGFR BUN/Creatinine Ratio 23 H Glucose Cancelled 95 D Calculated Osmolality Cancelled 288 Calcium Cancelled Corrected Calcium Phosphorus Magnesium Total Bilirubin AST ALT Alkaline Phosphatase B-Natriuretic Peptide Total Protein Albumin Globulin Albumin/Globulin Ratio Stool Occult Blood 06/15/25 06/15/25 06/15/25 05:05 05:05 05:05 WBC RBC Hgb Hct MCV MCH MCHC RDW Std Deviation Plt Count Neut % (Auto) Lymph % (Auto) Person % (Auto) Eos % (Auto) Baso % (Auto) Neut # (Auto) Lymph # (Auto) Person # (Auto) Eos # (Auto) Baso # (Auto) Immature Gran # (Auto) Absolute Nucleated RBC Immature Gran % Nucleated RBC % Puncture Site ABG pH ABG pCO2 ABG pO2 ABG HCO3 ABG O2 Saturation ABG Base Excess Oxygen Liter Flow Sodium Potassium Chloride Carbon Dioxide Anion Gap BUN Creatinine Estim Creat Clear Calc eGFR BUN/Creatinine Ratio Glucose Calculated Osmolality Calcium 8.0 L Corrected Calcium Cancelled 8.6 Phosphorus Cancelled 3.2 Magnesium Cancelled Total Bilirubin AST ALT Alkaline Phosphatase B-Natriuretic Peptide Total Protein Albumin Globulin Albumin/Globulin Ratio Stool Occult Blood 06/15/25 06/15/25 06/15/25 05:05 05:05 05:05 WBC RBC Hgb Hct MCV MCH MCHC RDW Std Deviation Plt Count Neut % (Auto) Lymph % (Auto) Person % (Auto) Eos % (Auto) Baso % (Auto) Neut # (Auto) Lymph # (Auto) Person # (Auto) Eos # (Auto) Baso # (Auto) Immature Gran # (Auto) Absolute Nucleated RBC Immature Gran % Nucleated RBC % Puncture Site ABG pH ABG pCO2 ABG pO2 ABG HCO3 ABG O2 Saturation ABG Base Excess Oxygen Liter Flow Sodium Potassium Chloride Carbon Dioxide Anion Gap BUN Creatinine Estim Creat Clear Calc eGFR BUN/Creatinine Ratio Glucose Calculated Osmolality Calcium Corrected Calcium Phosphorus Magnesium 2.2 Total Bilirubin Cancelled 0.6 AST Cancelled 50 H ALT Cancelled Alkaline Phosphatase B-Natriuretic Peptide Total Protein Albumin Globulin Albumin/Globulin Ratio Stool Occult Blood 06/15/25 06/15/25 06/15/25 05:05 05:05 05:05 WBC RBC Hgb Hct MCV MCH MCHC RDW Std Deviation Plt Count Neut % (Auto) Lymph % (Auto) Person % (Auto) Eos % (Auto) Baso % (Auto) Neut # (Auto) Lymph # (Auto) Person # (Auto) Eos # (Auto) Baso # (Auto) Immature Gran # (Auto) Absolute Nucleated RBC Immature Gran % Nucleated RBC % Puncture Site ABG pH ABG pCO2 ABG pO2 ABG HCO3 ABG O2 Saturation ABG Base Excess Oxygen Liter Flow Sodium Potassium Chloride Carbon Dioxide Anion Gap BUN Creatinine Estim Creat Clear Calc eGFR BUN/Creatinine Ratio Glucose Calculated Osmolality Calcium Corrected Calcium Phosphorus Magnesium Total Bilirubin AST ALT 37 Alkaline Phosphatase Cancelled 99 B-Natriuretic Peptide < 20 Total Protein Cancelled 5.6 L Albumin Cancelled Globulin Albumin/Globulin Ratio Stool Occult Blood 06/15/25 06/15/25 06/15/25 05:05 05:05 05:05 WBC RBC Hgb Hct MCV MCH MCHC RDW Std Deviation Plt Count Neut % (Auto) Lymph % (Auto) Person % (Auto) Eos % (Auto) Baso % (Auto) Neut # (Auto) Lymph # (Auto) Person # (Auto) Eos # (Auto) Baso # (Auto) Immature Gran # (Auto) Absolute Nucleated RBC Immature Gran % Nucleated RBC % Puncture Site ABG pH ABG pCO2 ABG pO2 ABG HCO3 ABG O2 Saturation ABG Base Excess Oxygen Liter Flow Sodium Potassium Chloride Carbon Dioxide Anion Gap BUN Creatinine Estim Creat Clear Calc eGFR BUN/Creatinine Ratio Glucose Calculated Osmolality Calcium Corrected Calcium Phosphorus Magnesium Total Bilirubin AST ALT Alkaline Phosphatase B-Natriuretic Peptide Total Protein Albumin 3.3 L Globulin Cancelled 2.3 Albumin/Globulin Ratio Cancelled 1.4 Stool Occult Blood ABG Interpretation ABG results: 06/07/25 06/07/25 06/14/25 05:41 19:54 19:56 ABG pH 7.44 7.29 L D 7.36 ABG pCO2 61 H 70 H 69 H ABG pO2 48 L* 98 D 69 L ABG HCO3 41 H 33 H 39 H ABG O2 Saturation 71 L 97 94 ABG Base Excess 14 H 5 H 12 H Quality Measures Quality Measures none Advance care planning discussed with:: patient Assessment & Plan Assessment Current Active Medications: Generic Name Dose Route Start Last Admin Trade Name Freq PRN Reason Stop Dose Admin Acetaminophen 650 mg 06/07/25 09:54 06/13/25 11:38 Acetaminophen 325 Mg Tablet PO 07/07/25 09:53 650 mg Q6H PRN Administration PAIN SCALE 1-3 (mild Acetaminophen 650 mg 06/07/25 09:54 Acetaminophen 325 Mg Tablet PO 07/07/25 09:53 Q6H PRN Fever >100.4 Atorvastatin Calcium 80 mg 06/09/25 21:00 06/14/25 21:51 Atorvastatin Calcium 20 Mg Tablet PO 07/09/25 20:59 80 mg HS EMRE Administration Benzonatate 100 mg 06/07/25 10:15 06/15/25 09:08 Benzonatate 100 Mg Capsule PO 07/07/25 10:14 100 mg QDAY EMRE Administration Protocol Dextrose 25 ml 06/07/25 12:04 Dextrose 50%-Water Inj 50 Ml Syringe IV 07/07/25 12:03 Q15MIN PRN BG 50-70 responsive npo pt Dextrose 50 ml 06/07/25 12:04 Dextrose 50%-Water Inj 50 Ml Syringe IV 07/07/25 12:03 Q15MIN PRN BG <50 OR BG <70 & pt unresponsive Diltiazem HCl 360 mg 06/08/25 09:00 06/15/25 09:07 Diltiazem Cd 120 Mg Capcr PO 07/08/25 08:59 360 mg QDAY EMRE Administration Docusate Sodium 100 mg 06/09/25 11:39 Docusate Sod 100 Mg Capsule PO 07/09/25 11:38 BID PRN CONSTIPATION Protocol Glucagon 1 mg 06/07/25 12:04 Glucagon Inj 1 Mg Vial IM Q15MIN PRN BG <70, and no IV access Heparin Sodium (Porcine) 5,000 unit 06/07/25 21:00 06/15/25 09:07 Heparin Sod Inj 5000 Unit/Ml Vial SC 06/21/25 20:59 5,000 unit Q12H EMRE Administration Piperacillin Sod/Tazobactam 100 mls @ 25 mls/hr 06/11/25 10:22 06/15/25 05:55 Sod 4.5 gm/ Sodium Chloride IV 06/18/25 10:21 25 mls/hr Q8HR EMRE Administration Insulin Human Lispro 0 unit 06/07/25 17:00 06/15/25 11:13 Insulin Lispro (Admelog) 1 Unit/0.01 Ml Unit SC 07/07/25 16:59 1 unit AC EMRE Administration Protocol Ipratropium [place] 0.5 mg 06/14/25 09:22 06/15/25 04:29 Ipratropium Rt 0.5 Mg/ 2.5 Ml Nebu INH 07/12/25 19:59 0.5 mg Q2HR PRN Administration sob/wheezing Ipratropium [place] 0.5 mg 06/15/25 11:00 06/15/25 11:15 Ipratropium Rt 0.5 Mg/ 2.5 Ml Nebu INH 07/15/25 10:59 0.5 mg Q4HRRT EMRE Administration Levalbuterol HCl 1.25 mg 06/14/25 09:23 06/15/25 04:28 Levalbuterol Rt 1.25 Mg/0.5 Ml Nebu INH 07/12/25 19:59 1.25 mg Q2HR PRN Administration sob/wheezing Levalbuterol HCl 0.63 mg 06/15/25 11:00 06/15/25 11:15 Levalbuterol Rt 0.63 Mg/3 Ml Nebu INH 07/15/25 10:59 0.63 mg Q4HRRT EMRE Administration Lisinopril 2.5 mg 06/07/25 12:15 06/15/25 09:08 Lisinopril 2.5 Mg Tablet PO 07/07/25 12:14 2.5 mg QDAY EMRE Administration Loratadine 10 mg 06/07/25 12:15 06/15/25 09:08 Loratadine 10 Mg Tablet PO 07/07/25 12:14 10 mg QDAY EMRE Administration Ondansetron HCl 4 mg 06/07/25 09:54 Ondansetron Inj 2 Mg/Ml Inj 2 Ml IVP 07/07/25 09:53 Q6H PRN NAUSEA OR VOMITING Protocol Pantoprazole Sodium 40 mg 06/12/25 09:00 06/15/25 09:06 Pantoprazole Inj 40 Mg Vial IVP 07/10/25 16:44 40 mg DAILY EMRE Administration Simethicone 80 mg 06/10/25 16:42 06/13/25 11:40 Simethicone 80 Mg Chew PO 07/10/25 16:41 80 mg QID PRN Administration GAS Sodium Chloride 3 ml 06/07/25 12:10 Sodium Chloride Rt [place] 0.9% 3 Ml Nebu INH 07/07/25 12:09 PRN PRN SOLN Plan Assessment Jazmin is a 70 y/o female with PMHx of chronic asthma (on 3L O2 at home) severe peripheral artery disease (status post left BKA), hypertension, hyperlipidemia, [id number] type 2 diabetes who is admitted for Acute on Chronic respiratory failure and community acquired pneumonia. 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 Zosyn 4.5 g IV (06/11? ? DC steroids ? Chest physiotherapy ? Xopenex 1.25 mg every 4 hours RT - Iptratropium 0.5mg Q4HRRT ? ANGELITA ? Tessalon Perles as needed - Removing airborne precautions at this time - rule out atypical Mycobacterium. Will initiate Airborne isolation, and pending AFB x3 - Outpatient pulmonology follow up for PFTs due to concern for COPD - Outpatient sleep study #Chronic respiratory acidosis ABG showed a pH of 7.44, bicarb of 41, pCO2 of 61 Patient is a chronic CO2 retainer Repeat ABG on hospital day 3 shows PH 7.29, bicarb 33, and PCO2 of 70 Burnett formula predicts CO2: 57 -> indicates respiratory acidosis with secondary metabolic alkalosis Mixed acid-base disorder Plan: ? Trend CMP ? Treat above ? BiPAP ? 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 Pavon, records show that patient had a Holter and with the Holter records patient appears to be in A-fib about 1% of the time -TSH, FT4 wnl, A1C 5.5 Plan: - Appreciate cardiology recs - Strict I&Os, daily weights, 2g sodium diet ? Telemetry ? Keep magnesium and potassium above 2 and 4 respectively ? Resume home Cardizem 360 mg daily ? Will resume Eliquis upon discharge - Cardiac Diet #Hypertension #Hyperlipidemia #Severe peripheral artery disease s/p L BKA Chronic Plan: ? Resumed home Lipitor 80 mg at bedtime ? Resume home lisinopril 2.5 mg daily #Insulin Dependent Type II Diabetes mellitus Takes Novolin 70/30 15 units at home 01/2025 A1c 5.0, 06/08/25 A1c is 5.5 Plan: ? Sliding scale insulin ? Hypoglycemic protocol in place ? 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 Moore, GI Was supposed be referred to [facility] for surgical intervention, patients daughter confirms this did not happen Chest CT 06/07: retrocardiac gastric hernia; patient is asymptomatic Iron is low (28) and TIBC and ferritin are normal. Retic count % 1.9, absolute retic count is normal Peripheral blood smear: normocytic normochromic anemia with anisocytosis; mature neutrophilia and monocytosis -Spoke with GI, they will give recs in regards to possible oncology workup 06/15/2025: Pt to think if she wants further tx of tumor see in colonscopy Plan: ? Trend CBC ? Transfusion protocol hemoglobin below 7 ? Avoiding any NSAIDs ? Protonix 40 mg daily ? FOBT ? Consult GI in place #Health Maintenance Disposition: Telemetry DVT prophylaxis: Heparin Q12H GI prophylaxis: Protonix Diet: Cardiac CODE STATUS: DNR Plan discussed with my attending physician, Dr. Linda Nguyen, PGY-2 Attending Provider Attestation/Addendum Estela Hilliard, DO, attest that I was physically present for the shane portions of the service and evaluated the patient with the resident and I reviewed and discussed the case with the resident and agree with the resident's findings and plans of care as documented above Patient seen eval this a.m. She continues to have some scattered wheezing on exam in the left lung zepeda greater than the right lung zepeda. Will increase her breathing treatments as scheduled to every 4 hours as she has needed some as needed breathing treatments overnight in addition to her every 6 hourly DuoNebs. She remains on isolation due to concern for TB, but AFBs have been negative and QuantiFERON is negative. We will remove isolation at this time as she has been cleared by infection control. Patient is aware of her findings of Ac's esophagus in the past in January and advised to follow-up with GI. Patient remains on 5 L oxymask at this time. She is in no acute distress and resting comfortably otherwise.
--- NOTE | 2025-06-15 20:49 | PD.IMPROG ---
Documentation for date of: 06/15/25 Subjective Subjective Interval history: Will speak with the patient in detail about her further treatment of the esophageal and the ileocecal valve problems Once her general condition improves Exam Vital Signs Temp Pulse Resp BP Pulse Ox O2 Del Method O2 Flow Rate 97.4 F 100 21 H 130/78 97 Oxy Mask 4 06/15/25 16:00 06/15/25 18:41 06/15/25 18:41 06/15/25 16:00 06/15/25 18:41 06/15/25 16:00 06/15/25 18:41 FiO2 50 06/15/25 16:00 Objective Labs 06/15/25 05:05 06/15/25 05:05 Labs: Laboratory Results - last 24 hr 06/15/25 06/15/25 06/15/25 05:05 05:05 05:05 WBC 14.1 H RBC 3.38 L Hgb 9.6 L Hct 31.6 L MCV 94 MCH 28.4 MCHC 30.4 L RDW Std Deviation 54.2 H Plt Count 174 Neut % (Auto) 81 H Lymph % (Auto) 6 L [place] % (Auto) 7 Eos % (Auto) 6 Baso % (Auto) 0 Neut # (Auto) 11.4 H Lymph # (Auto) 0.8 L [place] # (Auto) 1.0 H Eos # (Auto) 0.8 H Baso # (Auto) 0.0 Immature Gran # (Auto) 0.16 H Absolute Nucleated RBC 0.00 Immature Gran % 1 H Nucleated RBC % 0 Sodium Cancelled 144 Potassium Cancelled 4.0 Chloride Cancelled Carbon Dioxide Anion Gap BUN Creatinine Estim Creat Clear Calc eGFR BUN/Creatinine Ratio Glucose Calculated Osmolality Calcium Corrected Calcium Phosphorus Magnesium Total Bilirubin AST ALT Alkaline Phosphatase B-Natriuretic Peptide Total Protein Albumin Globulin Albumin/Globulin Ratio 06/15/25 06/15/25 06/15/25 05:05 05:05 05:05 WBC RBC Hgb Hct MCV MCH MCHC RDW Std Deviation Plt Count Neut % (Auto) Lymph % (Auto) [place] % (Auto) Eos % (Auto) Baso % (Auto) Neut # (Auto) Lymph # (Auto) [place] # (Auto) Eos # (Auto) Baso # (Auto) Immature Gran # (Auto) Absolute Nucleated RBC Immature Gran % Nucleated RBC % Sodium Potassium Chloride 99 Carbon Dioxide Cancelled 39.2 H Anion Gap Cancelled 6 L BUN Cancelled Creatinine Estim Creat Clear Calc eGFR BUN/Creatinine Ratio Glucose Calculated Osmolality Calcium Corrected Calcium Phosphorus Magnesium Total Bilirubin AST ALT Alkaline Phosphatase B-Natriuretic Peptide Total Protein Albumin Globulin Albumin/Globulin Ratio 06/15/25 06/15/25 06/15/25 05:05 05:05 05:05 WBC RBC Hgb Hct MCV MCH MCHC RDW Std Deviation Plt Count Neut % (Auto) Lymph % (Auto) [place] % (Auto) Eos % (Auto) Baso % (Auto) Neut # (Auto) Lymph # (Auto) [place] # (Auto) Eos # (Auto) Baso # (Auto) Immature Gran # (Auto) Absolute Nucleated RBC Immature Gran % Nucleated RBC % Sodium Potassium Chloride Carbon Dioxide Anion Gap BUN 18 Creatinine Cancelled 0.8 Estim Creat Clear Calc Cancelled 47.2 L eGFR Cancelled BUN/Creatinine Ratio Glucose Calculated Osmolality Calcium Corrected Calcium Phosphorus Magnesium Total Bilirubin AST ALT Alkaline Phosphatase B-Natriuretic Peptide Total Protein Albumin Globulin Albumin/Globulin Ratio 06/15/25 06/15/25 06/15/25 05:05 05:05 05:05 WBC RBC Hgb Hct MCV MCH MCHC RDW Std Deviation Plt Count Neut % (Auto) Lymph % (Auto) [place] % (Auto) Eos % (Auto) Baso % (Auto) Neut # (Auto) Lymph # (Auto) [place] # (Auto) Eos # (Auto) Baso # (Auto) Immature Gran # (Auto) Absolute Nucleated RBC Immature Gran % Nucleated RBC % Sodium Potassium Chloride Carbon Dioxide Anion Gap BUN Creatinine Estim Creat Clear Calc eGFR > 60 BUN/Creatinine Ratio Cancelled 23 H Glucose Cancelled 95 D Calculated Osmolality Cancelled Calcium Corrected Calcium Phosphorus Magnesium Total Bilirubin AST ALT Alkaline Phosphatase B-Natriuretic Peptide Total Protein Albumin Globulin Albumin/Globulin Ratio 06/15/25 06/15/25 06/15/25 05:05 05:05 05:05 WBC RBC Hgb Hct MCV MCH MCHC RDW Std Deviation Plt Count Neut % (Auto) Lymph % (Auto) [place] % (Auto) Eos % (Auto) Baso % (Auto) Neut # (Auto) Lymph # (Auto) [place] # (Auto) Eos # (Auto) Baso # (Auto) Immature Gran # (Auto) Absolute Nucleated RBC Immature Gran % Nucleated RBC % Sodium Potassium Chloride Carbon Dioxide Anion Gap BUN Creatinine Estim Creat Clear Calc eGFR BUN/Creatinine Ratio Glucose Calculated Osmolality 288 Calcium Cancelled 8.0 L Corrected Calcium Cancelled 8.6 Phosphorus Cancelled Magnesium Total Bilirubin AST ALT Alkaline Phosphatase B-Natriuretic Peptide Total Protein Albumin Globulin Albumin/Globulin Ratio 06/15/25 06/15/25 06/15/25 05:05 05:05 05:05 WBC RBC Hgb Hct MCV MCH MCHC RDW Std Deviation Plt Count Neut % (Auto) Lymph % (Auto) [place] % (Auto) Eos % (Auto) Baso % (Auto) Neut # (Auto) Lymph # (Auto) [place] # (Auto) Eos # (Auto) Baso # (Auto) Immature Gran # (Auto) Absolute Nucleated RBC Immature Gran % Nucleated RBC % Sodium Potassium Chloride Carbon Dioxide Anion Gap BUN Creatinine Estim Creat Clear Calc eGFR BUN/Creatinine Ratio Glucose Calculated Osmolality Calcium Corrected Calcium Phosphorus 3.2 Magnesium Cancelled 2.2 Total Bilirubin Cancelled 0.6 AST Cancelled ALT Alkaline Phosphatase B-Natriuretic Peptide Total Protein Albumin Globulin Albumin/Globulin Ratio 06/15/25 06/15/25 06/15/25 05:05 05:05 05:05 WBC RBC Hgb Hct MCV MCH MCHC RDW Std Deviation Plt Count Neut % (Auto) Lymph % (Auto) [place] % (Auto) Eos % (Auto) Baso % (Auto) Neut # (Auto) Lymph # (Auto) [place] # (Auto) Eos # (Auto) Baso # (Auto) Immature Gran # (Auto) Absolute Nucleated RBC Immature Gran % Nucleated RBC % Sodium Potassium Chloride Carbon Dioxide Anion Gap BUN Creatinine Estim Creat Clear Calc eGFR BUN/Creatinine Ratio Glucose Calculated Osmolality Calcium Corrected Calcium Phosphorus Magnesium Total Bilirubin AST 50 H ALT Cancelled 37 Alkaline Phosphatase Cancelled 99 B-Natriuretic Peptide < 20 Total Protein Cancelled Albumin Globulin Albumin/Globulin Ratio 06/15/25 06/15/25 06/15/25 05:05 05:05 05:05 WBC RBC Hgb Hct MCV MCH MCHC RDW Std Deviation Plt Count Neut % (Auto) Lymph % (Auto) [place] % (Auto) Eos % (Auto) Baso % (Auto) Neut # (Auto) Lymph # (Auto) [place] # (Auto) Eos # (Auto) Baso # (Auto) Immature Gran # (Auto) Absolute Nucleated RBC Immature Gran % Nucleated RBC % Sodium Potassium Chloride Carbon Dioxide Anion Gap BUN Creatinine Estim Creat Clear Calc eGFR BUN/Creatinine Ratio Glucose Calculated Osmolality Calcium Corrected Calcium Phosphorus Magnesium Total Bilirubin AST ALT Alkaline Phosphatase B-Natriuretic Peptide Total Protein 5.6 L Albumin Cancelled 3.3 L Globulin Cancelled 2.3 Albumin/Globulin Ratio Cancelled 06/15/25 05:05 WBC RBC Hgb Hct MCV MCH MCHC RDW Std Deviation Plt Count Neut % (Auto) Lymph % (Auto) [place] % (Auto) Eos % (Auto) Baso % (Auto) Neut # (Auto) Lymph # (Auto) [place] # (Auto) Eos # (Auto) Baso # (Auto) Immature Gran # (Auto) Absolute Nucleated RBC Immature Gran % Nucleated RBC % Sodium Potassium Chloride Carbon Dioxide Anion Gap BUN Creatinine Estim Creat Clear Calc eGFR BUN/Creatinine Ratio Glucose Calculated Osmolality Calcium Corrected Calcium Phosphorus Magnesium Total Bilirubin AST ALT Alkaline Phosphatase B-Natriuretic Peptide Total Protein Albumin Globulin Albumin/Globulin Ratio 1.4 Impressions Impression: 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 Cunningham at [facility] for further evaluation and management Other medical problems include Bilateral pneumonia Left BKA Essential hypertension Diabetes mellitus type 2 Thank you very much for the opportunity to participate in the care of this patient Time Spent With Patient Time: Total time spent is greater than 50% in coordination of care (as documented) at patient's floor/unit and/or counseling patient:
[2025-06-15] MEDS: ACETAMINOPHEN 325 MG TABLET 650 MG PO (21:20)
[2025-06-15] MEDS: ATORVASTATIN CALCIUM 20 MG TABLET 80 MG PO (21:21)
[2025-06-16] VITALS (13 sets, daily range): BP systolic 98–122; BP diastolic 44–71; PULSE 86–107; RESP 18–27; TEMP 36.1–36.6; O2SAT 90–98; BMI 13.0
[2025-06-16] MEDS: LEVALBUTEROL RT 0.63 MG/3 ML NEBU INH ×5 (03:28→18:12)
[2025-06-16] MEDS: IPRATROPIUM RT 0.5 MG/ 2.5 ML NEBU INH ×5 (03:28→18:11)
[2025-06-16] MEDS: PIPER/TAZO INJ 4.5 GM in SODIUM CHLORIDE 0.9% (POP) 100 ML IV ×2 (06:00→14:49)
--- NOTE | 2025-06-16 06:00 | XR_ITS ---
Examination: AP chest single view TECHNIQUE: AP portable semiupright chest single view Date and time: June 16, 2025, 0527 hours Comparison June 14, 2025 INDICATIONS: Acute hypoxic respiratory failure, shortness of breath this week. FINDINGS: Mild prominence cardiac contour Significant perihilar basilar pneumonia. Prominent osteopenia IMPRESSION: Significant bilateral pneumonia
[2025-06-16 09:11] LABS: Basophils # (Auto) 0.0 Thou/mm3 (0.0-0.2); Basophils % (Auto) 0 % (0-2.5); Eosinophils # (Auto) 0.7 Thou/mm3 (0.0-0.5); Eosinophils % (Auto) 7 % (0-10); Hematocrit 28.1 % (36.0-46.0); Immature Granulocytes Auto 0.10 Thou/mm3 (0.00-0.00); Lymphocytes # (Auto) 0.6 Thou/mm3 (1.0-4.8); Lymphocytes % (Auto) 6 % (10-50); Mean Corpuscular HGB Conc 30.6 g/dl (31.0-37.0); Mean Corpuscular Hemoglobin 28.5 pg (25.0-35.0); Mean Corpuscular Volume 93 fL (80-100); Monocytes # (Auto) 0.8 Thou/mm3 (0.0-0.8); Monocytes % (Auto) 7 % (0-12); Neutrophils # (Auto) 8.5 Thou/mm3 (1.8-7.7); Neutrophils % (Auto) 80 % (37-80); Nucleated Red Blood Cell # 0.00 Thou/mm3 (0.00-0.00); Nucleated Red Blood Cell % 0 /100 WBC (0); Platelet Count 168 Thou/mm3 (140-440); RDW Standard Deviation 52.5 fL (36.4-46.3); Red Blood Count 3.02 Miln/mm3 (4.00-5.20); White Blood Count 10.6 Thou/mm3 (3.6-11.0)
[2025-06-16 09:16] LABS: Hemoglobin 8.6 g/dL (12.0-16.0)
[2025-06-16 09:38] LABS: Alanine Aminotransferase 35 U/L (10-49); Albumin, Serum 3.1 gm/dL (3.4-4.8); Albumin/Globulin Ratio 1.4 (1.2-2.2); Alkaline Phosphatase 90 U/L (46-116); Anion Gap 6 (7-16); Aspartate Amino Transferase 44 U/L (0-34); BUN/Creatinine Ratio 24 Ratio (12-20); Bilirubin,Total 0.5 mg/dL (0.3-1.2); Blood Urea Nitrogen 17 mg/dL (9-23); Calcium 8.0 mg/dL (8.3-10.6); Calcium (Corrected) 8.7 mg/dL (8.5-10.1); Carbon Dioxide 37.2 mMol/L (20.0-31.0); Chloride 101 mMol/L (98-107); Creatinine (Component) 0.7 mg/dL (0.6-1.3); Estimated Creatinine Clearance 53.9 mL/min (>60); Globulin 2.2 gm/dL (2.3-3.5); Glucose 83 mg/dL (74-106); Magnesium 2.2 mg/dL (1.6-2.6); Osmolality,Calculated 287 (275-295); Phosphorous 2.8 mg/dL (2.4-5.1); Potassium 3.9 mMol/L (3.4-5.1); Sodium 144 mMol/L (136-145); Total Protein 5.3 gm/dL (5.7-8.2); eGFR > 60 See Note
[2025-06-16] MEDS: HEPARIN SOD INJ 5000 UNIT/ML VIAL SC (10:01)
[2025-06-16] MEDS: DILTIAZEM CD 120 MG CAPCR 360 MG PO (10:02)
[2025-06-16] MEDS: BENZONATATE 100 MG CAPSULE PO (10:02)
[2025-06-16] MEDS: FUROSEMIDE INJ 10 MG/ML 4ML VIAL 40 MG IVP (10:07)
[2025-06-16] MEDS: INSULIN LISPRO (AdmeLOG) 1 UNIT/0.01 ML UNIT SC ×2 (12:22→17:35)
--- NOTE | 2025-06-16 14:11 | PC.SS ---
Patient needs a trilogy-portable mechanical vent device for home. The patient needs a mechanical ventilator due to chronic respiratory failure due to severe COPD. The patient needs to keep tidal volume and prevent CO2 retention. Ventilator is required to improve pulmonary status. Without this respiratory support, in home could lead to serious harm or . BiPAP therapy failed.
--- NOTE | 2025-06-16 14:49 | PC.SS ---
Addendum entered by Kinga Chance 06/16/25 16:25: SS spoke to daughter at bedside and stated that PT recommended medi van transport. [facility] Patient's family will provide 02 at bedside for transport. Patient will be picked up by [facility] between 6:30-7p.m. RN updated as well. Physician will place HH for PT and OT recommended by PT. Original Note: Patient is to d/c home today. Initially, physician team wanted to order a trilogy machine for patient but physician spoke to family and they already have one. Patient receives 02 through [facility] as wel. PT to evlaluate patient prior to d/c.
--- NOTE | 2025-06-16 15:56 | ESDS_ITS ---
Planned Discharge Date 06/16/25 DS: Providers Provider Date of admission: 06/07/25 09:54 Primary care physician: Chandrakant Cardenas MD Admitting Provider: Aryan Jamison MD Attending Provider on Admission: Nigel Rebollar MD Consults: 06/07/25 13:56 Referral [place] Routine Comment: 06/07/25 18:04 Consult to Cardiology Routine Comment: PAH, afib Consulting Provider: Campos Pavno 06/08/25 13:25 Referral Speech Therapy Routine Comment: concern for aspiration 06/09/25 15:18 Consult to Gastroenterology Routine Comment: Ileocecal valve tumor/Ac's bordering carcinom Consulting Provider: Alisson Moore 06/16/25 14:03 Referral Physical Therapy Stat Comment: Physician Instructions: Attending Provider on DC: Aryan Jamison MD Discharging Provider: Aryan Jamison MD DS: Diagnosis Problem List Completed Was Problem List Reviewed/Reconciled?: Yes Hospital Course Hospital Course Hospital course: Jazmin is a 70 y/o female with PMHx of chronic asthma (on oxygen intermittently at home) severe peripheral artery disease (status post left BKA), hypertension, hyperlipidemia, rct-tlkxywo-frfpzrcem type 2 diabetes who was admitted for Acute on chronic hypoxic and hypercapnic respiratory failure and TB rule out. Patient arrived to the ED with a temperature of 98.9, heart rate 115, blood pressure 146/86, saturating 100% on 6 L nasal cannula, respiratory rate 18. Patient was worked up once found to have a sodium of 143, potassium 3.8, chloride 100, bicarb 36, BUN/creatinine of 9 and 0.7 respectively, glucose 83, white count 14, hemoglobin 11, ESR 60, pH of ABG was 7.44, pCO2 61, HCO3 41, magnesium 2.1. Urinalysis showed +2 blood, 19 RBCs. Patient was given Xopenex x 1, Benadryl x 1, magnesium 2 g, and Solu-Medrol 125 mg. Medicine was consulted and patient was admitted to the floors. While on the floors, pulmonology was curbsided, Dr. Mcqueen, who had review multiple images including CT and had recommended to rule out atypical TB as there were areas on radiographic findings of tree bud nodules that could represent chronic inflammation of the airways. This could be secondary to chronic infections, or smoking hx/second hand smoke. Pt does have second hand smoke exposure, however pt was not a smoker herself. 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 Other fungi were not tested as pt did not have impressive eosinophilic count. We continued with scheduled breathing treatments of Xopenex, and Atrovent, had her on a brief course of solu-medrol, and treated her sputum culture of Achromobacter xylos with Zosyn. Cardiology was also consulted for further management of Afib, and had recommended Eliquis upon d/c, and to continue with Cardizem 360 CD. Upon d/c, it was recommended for her to continue with Lasix 20 mg QOD, as she does not have significant heart failure history based on echo findings (the Hogshead Stripper had records of her Echo in his office). Upon further reviewing of images, a diagnosis of bronchiecetasis was made, as this patient does not have radiographic findings of COPD or ILD at this time. Nevertheless, pt would benefit from formal PFTs for official diagnosis. For treatment, pt would benefit with LABA and as needed NEGIN inhaler and nebulizations. On another note, GI was also consulted for previous records of an ileocecal tumor and Ornaldo's esophagus that could represent intramuscosal carcinoma seen on pathology, January 2025, as it seems that she was lost to follow up. GI, Dr. Moore, had recommended outpatient referral to [facility]. Pt was then discharged with the following recommendations. Discharge Instructions: Follow up with me at the [facility] on Saturday, June 21, 2025. I have made your appointment for 3 O'Clock and gave you my card. The address is [address] [place] [address] [place] [address] Follow up with your base engineer,Dr. Pavon, within one week upon D/C. [address], [place] [address]? See your steward/stewardess banquet, Dr. Moore, to follow up on esophagus and ileocecal tumor. Address: [address] [place] [address]. Take all your medicines as prescribed. I am prescribing you a new inhaler, Spiriva, use as directed, two puffs once a day Resume taking your blood thinner, Eliquis 2.5 mg BID Continue taking Diltiazem HCl 360 mg once a day (Cardizem CD) as this medicines controls your heart rate for your Afib Use Albuterol nebulizing treatments in addition to your rescue inhaler Albuterol as needed I am prescribing you a water pill, Lasix 20 mg, take this every other day You will need to follow up with me once more in one month to follow up on sputum cultures to see if they have grown anything Return to ER if your symptoms worsen or return Problem List: #Acute on chronic hypoxic and hypercapnic respiratory failure #Bronchiecetasis #Community-acquired pneumonia #Moderate pulmonary hypertension #Hx of Chronic asthma #Achromobacter xylos sputum #Chronic respiratory acidosis #Chronic Paroxysmal A-fib #Hypertension #Hyperlipidemia #Severe peripheral artery disease s/p L BKA #Insulin Dependent Type II Diabetes mellitus #Chronic microcytic hematuria #Normocytic anemia #Hx of Gastritis #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 #Hx of Hiatal Hernia Discharge summary was reviewed with my attending MD Paulino Florentino, PGY-2 Time Spent with Patient Time attestation: Total time spent providing and/or coordinating discharge services: Time spent: Greater than 30 minutes Home Health Home Health Referral Orders: 06/16/25 15:49 Home Health Referral Routine Reason For Exam: PT Home-Bound The patient must either because of illness or injury, need the aid of supportive devices such as crutches, canes, wheelchairs, and walkers; the use of special transportation; or the assistance of another person in order to leave their place of residence; OR have a condition such that leaving his or her home is medically contraindicated. In addition, the patient also meets the following criteria: patient is normally unable to leave the home and leaving home requires considerable taxing effort. Addendum to Home Health Certification Practitioner's Certification: I certify that the patient has been under my care in the hospital and the care of attending physician (see below). We had a dhjo-kd-stll encounter on (see date below). My clinical findings indicate that the patient is home bound per the above criteria and the Home Health Services noted in these orders are medically necessary. The primary reason for the emav-ke-[id number] encounter is related to the fact that the patient requires home health services. 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 Wound Care: No IV Therapy: No Discontinue PICC Line Once Treatment Complete: No RN Safety Evaluation: Yes RN to evaluate and create a plan of care that will produce positive outcomes. Palliative Treatment: No Palliative treatment and evaluate the need for hospice. Home Health Aide - Personal Care: No Home Health Aide to assist with any ADL's. Exam Vital Signs Temp Pulse Resp BP Pulse Ox O2 Del Method O2 Flow Rate 97.9 F 107 H 20 115/57 L 97 Nasal Cannula 4 06/16/25 12:00 06/16/25 14:42 06/16/25 14:42 06/16/25 12:00 06/16/25 14:42 06/16/25 12:00 06/16/25 14:42 FiO2 50 06/15/25 16:00 Narrative Exam General: AAOx3, NAD, elderly, weak, pleasant female, appears to be lethargic HEENT: Moist mucous membranes, conjunctiva clear, EOMI, PERRLA, poor dentition Cardiovascular: Pansystolic murmur heard over left lower sternal border radiates to left upper sternal border, radial pulses +2 bilat, tachycardia, no hepatojuglar reflex or JVD appreciated Pulmonary: Wheezing heard throughout all lung zepeda, on oxymask currently GI: No tenderness to light or deep palpitation, no guarding, rigidity, rebound tenderness or distension, possible abdominal hernia Extremities: L BKA, no anasarca appreciated Neuro: AAOx3, no focal motor or sensory deficits in the UE or LE bilat Psych: Cooperative Discharge Plan Plan Patient Disposition: Home w/HOME HEALTH Patient condition on transfer: Stable Care Plan Goals: Discharge Instructions: Follow up with me at the [facility] on Saturday, June 21, 2025. I have made your appointment for 3 O'Clock and gave you my card. The address is [address] [place] [address] [place] [address] Follow up with your base engineer,Dr. Pavon, within one week upon D/C. [address], [place] [address]? See your steward/stewardess banquet, Dr. Moore, to follow up on esophagus and ileocecal tumor. Address: [address], [place] [address]. Take all your medicines as prescribed. I am prescribing you a new inhaler, Spiriva, use as directed, two puffs once a day Resume taking your blood thinner, Eliquis 2.5 mg BID Continue taking Diltiazem HCl 360 mg once a day (Cardizem CD) as this medicines controls your heart rate for your Afib Use Albuterol nebulizing treatments in addition to your rescue inhaler Albuterol as needed I am prescribing you a water pill, Lasix 20 mg, take this every other day You will need to follow up with me once more in one month to follow up on sputum cultures to see if they have grown anything Return to ER if your symptoms worsen or return Prescriptions/Referrals Prescriptions/Med Rec: New Spiriva Respimat 2.5 mcg/actuation mist 2 inh inhalation QAM 30 Days Qty: 4 3RF Rx Instructions: Take two puffs by mouth as directed once a day albuterol sulfate 90 mcg/actuation HFA aerosol inhaler 1 inh inhalation QID PRN (Reason: shortness of breath or wheezing) Qty: 6.7 3RF Rx Instructions: Use as directed furosemide [Lasix] 20 mg tablet 20 mg PO Q OTHER DAY 30 Days Qty: 15 0RF Rx Instructions: Take one tablet by mouth every other day Eliquis 2.5 mg tablet 2.5 mg PO BID 30 Days Qty: 60 0RF Rx Instructions: Take one tablet by mouth twice a day diltiazem HCl [Cardizem CD] 360 mg capsule,extended release 24hr 360 mg PO QDAY 30 Days Qty: 30 2RF Rx Instructions: Take one tablet by mouth every day Continued albuterol sulfate 2.5 mg /3 mL (0.083 %) solution for nebulization 2.5 mg inhalation Q4H PRN (Reason: shortness of breath or wheezing) Qty: 90 0RF metoprolol succinate 100 mg tablet extended release 24 hr 100 mg PO QDAY Qty: 90 0RF atorvastatin 80 mg tablet 80 mg PO HS Qty: 90 0RF pantoprazole 40 mg tablet,delayed release (DR/EC) 40 mg PO QDAY Qty: 90 0RF ferrous sulfate 325 mg (65 mg iron) tablet 325 mg PO Q OTHER DAY Qty: 90 0RF loratadine 10 mg tablet 10 mg PO QDAY Patient Comments: TAKE ONE TABLET BY MOUTH EVERY DAY FOR ALLERGY metformin 500 mg tablet 500 mg PO BIDWM Patient Comments: TAKE ONE TABLET BY MOUTH TWICE DAILY WITH FOOD daib Novolin 70/30 U-100 Insulin 100 unit/mL (70-30) suspension 15 unit SUBCUT QAM Patient Comments: INJECT 15 UNITS SUBCUTANEOUSLY EVERY MORNING FOR DIABETES ascorbic acid (vitamin C) [Vitamin C] 250 mg Tablet 500 mg PO BID Qty: 60 0RF lisinopril 2.5 mg tablet 2.5 mg PO QDAY Qty: 30 0RF Discontinued albuterol sulfate [Ventolin HFA] 90 mcg/actuation HFA aerosol inhaler 1 - 2 puff INHALATION Q4H PRN (Reason: Shortness Of Breath Or Wheezing) Patient Comments: INHALE 1-2 PUFFS BY MOUTH EVERY 4 HOURS NEEDED Referrals: Chandrakant Cardenas MD [Primary Care Provider] - Patient/Caregiver Discharge Instructions Discharge Activity: activity as tolerated Other Discharge Activity Instructions:: Discharge Instructions: Follow up with me at the [facility] on Saturday, June 21, 2025. I have made your appointment for 3 O'Clock and gave you my card. The address is [address] [place] [address] [place] [address] Follow up with your base engineer,Dr. Pavon, within one week upon D/C. [address], [place] [address]? See your steward/stewardess banquet, Dr. Moore, to follow up on esophagus and ileocecal tumor. Address: [address] [place] [address]. Take all your medicines as prescribed. I am prescribing you a new inhaler, Spiriva, use as directed, two puffs once a day Resume taking your blood thinner, Eliquis 2.5 mg BID Continue taking Diltiazem HCl 360 mg once a day (Cardizem CD) as this medicines controls your heart rate for your Afib Use Albuterol nebulizing treatments in addition to your rescue inhaler Albuterol as needed I am prescribing you a water pill, Lasix 20 mg, take this every other day You will need to follow up with me once more in one month to follow up on sputum cultures to see if they have grown anything Return to ER if your symptoms worsen or return Education Materials: Bronchiectasis Dc, Chronic Lung Disease Info Families, Treatment for Bronchiectasis Print Language: Burmese Stand Alone Forms: [employer] Award Info., Patient Portal Info Letter Discharge Order Discharge Orders: Discharge (Routine); Ordered 06/16/25 Ordered By: Jimmie Landeros Quality Discharge Quality Measures VTE prophylaxis (Heparin) Attestestation Attestation Patient was seen and examined with housestaff. Discharge plan as above. Patient should follow-up with PCP. Will need nutritional support. I discussed with and supervised the resident physician who took care of this patient. I agree with the assessment and discharge plan as above.
--- NOTE | 2025-06-16 16:42 | ESPR_ITS ---
Documentation for date of: 06/16/25 Subjective Subjective Interval history: The patient was seen and examined at the bedside this morning. She reported improvement in her shortness of breath, and feels like she is back at her baseline. The patient is currently saturating 95% on 4 L of oxy mask, and she is at [address] chest revealed bilateral pneumonia, most prominent in left upper lobe and lingular segment, but as interpreted by me, it was also significant for reticular pattern. Primary team ruled out flu and miliary TB. On admission patient was given a trial of Lasix IV but patient did not have much urinary output. Patient overall appears to be euvolemic on admission and hence the Lasix was stopped. - Continue on atorvastatin 80 Mg daily and lisinopril 2.5 Mg daily. - Continue with diltiazem 360 Mg daily, and avoid beta-mihir in the setting of chronic respiratory failure. - Pt is currently stable and TB was ruled out, 3 sputum samples have been negative -Chest x-ray done on 06/14/2025 was significant for left lower pleural effusion. CXR on 06/15/2025 revealed improvement in left lower pleural effusion, including vascular congestion. BNP was less than 20. Recommended Lasix 20 Mg p.o. every other day. Recommended to follow-up with grant officer Dr. Pavon within 1 week of discharge Exam Vital Signs Temp Pulse Resp BP Pulse Ox O2 Del Method O2 Flow Rate 97.9 F 107 H 20 115/57 L 97 Nasal Cannula 4 06/16/25 12:00 06/16/25 14:42 06/16/25 14:42 06/16/25 12:00 06/16/25 14:42 06/16/25 12:00 06/16/25 14:42 FiO2 50 06/15/25 16:00 Narrative Exam General: No acute distress, Alert and Oriented x 3 HEENT: Moist mucous membranes, oropharynx clear Neck: Supple, No masses, No JVD CVS: S1S2 normal, ocassionally tachycardiac, pansystolic murmur over left lower sternal border, rubs or gallops Lungs: Decreased breath sound over left lower lung, mild crackles/crepitus present over right lower lung. Abd: Soft, NT/ND, +BS, no organomegaly Ext: Left BKA, feeble pulse on right lower extremity Skin: No rash Psych: Appropriate mood and affect Objective Labs 06/16/25 08:44 06/16/25 08:44 Labs: Laboratory Results - last 24 hr 06/11/25 06/16/25 05:47 08:44 WBC 10.6 RBC 3.02 L Hgb 8.6 L Hct 28.1 L MCV 93 MCH 28.5 MCHC 30.6 L RDW Std Deviation 52.5 H Plt Count 168 Neut % (Auto) 80 Lymph % (Auto) 6 L [place] % (Auto) 7 Eos % (Auto) 7 Baso % (Auto) 0 Neut # (Auto) 8.5 H Lymph # (Auto) 0.6 L [place] # (Auto) 0.8 Eos # (Auto) 0.7 H Baso # (Auto) 0.0 Immature Gran # (Auto) 0.10 H Absolute Nucleated RBC 0.00 Immature Gran % 1 H Nucleated RBC % 0 Sodium 144 Potassium 3.9 Chloride 101 Carbon Dioxide 37.2 H Anion Gap 6 L BUN 17 Creatinine 0.7 Estim Creat Clear Calc 53.9 L eGFR > 60 BUN/Creatinine Ratio 24 H Glucose 83 Calculated Osmolality 287 Calcium 8.0 L Corrected Calcium 8.7 Phosphorus 2.8 Magnesium 2.2 Total Bilirubin 0.5 AST 44 H ALT 35 Alkaline Phosphatase 90 Total Protein 5.3 L Albumin 3.1 L Globulin 2.2 L Albumin/Globulin Ratio 1.4 Mycobacterial Culture See Sep Rpt ABG Interpretation ABG results: 06/07/25 06/07/25 06/14/25 05:41 19:54 19:56 ABG pH 7.44 7.29 L D 7.36 ABG pCO2 61 H 70 H 69 H ABG pO2 48 L* 98 D 69 L ABG HCO3 41 H 33 H 39 H ABG O2 Saturation 71 L 97 94 ABG Base Excess 14 H 5 H 12 H Quality Measures Quality Measures VTE prophylaxis (Heparin) Advance care planning discussed with:: patient and child Assessment & Plan Assessment Current Active Medications: Generic Name Dose Route Start Last Admin Trade Name Freq PRN Reason Stop Dose Admin Acetaminophen 650 mg 06/07/25 09:54 06/15/25 21:20 Acetaminophen 325 Mg Tablet PO 07/07/25 09:53 650 mg Q6H PRN Administration PAIN SCALE 1-3 (mild Acetaminophen 650 mg 06/07/25 09:54 Acetaminophen 325 Mg Tablet PO 07/07/25 09:53 Q6H PRN Fever >100.4 Atorvastatin Calcium 80 mg 06/09/25 21:00 06/15/25 21:21 Atorvastatin Calcium 20 Mg Tablet PO 07/09/25 20:59 80 mg HS EMRE Administration Benzonatate 100 mg 06/07/25 10:15 06/16/25 10:02 Benzonatate 100 Mg Capsule PO 07/07/25 10:14 100 mg QDAY EMRE Administration Protocol Dextrose 25 ml 06/07/25 12:04 Dextrose 50%-Water Inj 50 Ml Syringe IV 07/07/25 12:03 Q15MIN PRN BG 50-70 responsive npo pt Dextrose 50 ml 06/07/25 12:04 Dextrose 50%-Water Inj 50 Ml Syringe IV 07/07/25 12:03 Q15MIN PRN BG <50 OR BG <70 & pt unresponsive Diltiazem HCl 360 mg 06/08/25 09:00 06/16/25 10:02 Diltiazem Cd 120 Mg Capcr PO 07/08/25 08:59 360 mg QDAY EMRE Administration Docusate Sodium 100 mg 06/09/25 11:39 Docusate Sod 100 Mg Capsule PO 07/09/25 11:38 BID PRN CONSTIPATION Protocol Glucagon 1 mg 06/07/25 12:04 Glucagon Inj 1 Mg Vial IM Q15MIN PRN BG <70, and no IV access Heparin Sodium (Porcine) 5,000 unit 06/07/25 21:00 06/16/25 10:01 Heparin Sod Inj 5000 Unit/Ml Vial SC 06/21/25 20:59 5,000 unit Q12H EMRE Administration Piperacillin Sod/Tazobactam 100 mls @ 25 mls/hr 06/11/25 10:22 06/16/25 14:49 Sod 4.5 gm/ Sodium Chloride IV 06/18/25 10:21 25 mls/hr Q8HR EMRE Administration Insulin Human Lispro 0 unit 06/07/25 17:00 06/16/25 12:22 Insulin Lispro (Admelog) 1 Unit/0.01 Ml Unit SC 07/07/25 16:59 1 unit AC EMRE Administration Protocol Ipratropium [place] 0.5 mg 06/14/25 09:22 06/15/25 04:29 Ipratropium Rt 0.5 Mg/ 2.5 Ml Nebu INH 07/12/25 19:59 0.5 mg Q2HR PRN Administration sob/wheezing Ipratropium [place] 0.5 mg 06/15/25 11:00 06/16/25 14:41 Ipratropium Rt 0.5 Mg/ 2.5 Ml Nebu INH 07/15/25 10:59 0.5 mg Q4HRRT EMRE Administration Levalbuterol HCl 1.25 mg 06/14/25 09:23 06/15/25 04:28 Levalbuterol Rt 1.25 Mg/0.5 Ml Nebu INH 07/12/25 19:59 1.25 mg Q2HR PRN Administration sob/wheezing Levalbuterol HCl 0.63 mg 06/15/25 11:00 06/16/25 14:41 Levalbuterol Rt 0.63 Mg/3 Ml Nebu INH 07/15/25 10:59 0.63 mg Q4HRRT EMRE Administration Lisinopril 2.5 mg 06/07/25 12:15 06/16/25 10:07 Lisinopril 2.5 Mg Tablet PO 07/07/25 12:14 2.5 mg QDAY EMRE Administration Loratadine 10 mg 06/07/25 12:15 06/16/25 10:02 Loratadine 10 Mg Tablet PO 07/07/25 12:14 10 mg QDAY EMRE Administration Ondansetron HCl 4 mg 06/07/25 09:54 Ondansetron Inj 2 Mg/Ml Inj 2 Ml IVP 07/07/25 09:53 Q6H PRN NAUSEA OR VOMITING Protocol Pantoprazole Sodium 40 mg 06/12/25 09:00 06/16/25 10:01 Pantoprazole Inj 40 Mg Vial IVP 07/10/25 16:44 40 mg DAILY EMRE Administration Simethicone 80 mg 06/10/25 16:42 06/13/25 11:40 Simethicone 80 Mg Chew PO 07/10/25 16:41 80 mg QID PRN Administration GAS Sodium Chloride 3 ml 06/07/25 12:10 Sodium Chloride Rt [place] 0.9% 3 Ml Nebu INH 07/07/25 12:09 PRN PRN SOLN Esther Wu is a 70 y/o female with PMHx of chronic asthma (on oxygen intermittently at home), paroxysmal atrial fibrillation, severe peripheral artery disease (status post left BKA), hypertension, hyperlipidemia, [id number] type 2 diabetes who is admitted for Acute on Chronic respiratory failure and community acquired pneumonia. #CHF exacerbation, ruled out- has chronic diastolic heart failure - euvolemic now Less likely to have CHF exacerbation, as BNP is 27, and the fine crackles heard on chest exam is likely secondary to interstitial lung disease. Chest x-ray and CT chest negative for vascular congestion or volume overload, but significant for reticular pattern indicating possible ILD. - Rule out interstitial lung disease - Pulmonary consultation - May consider high-dose pulse steroid therapy, if agreed by senior sql server database developer - Recent echo on April 2025 was significant for RVSP 55 mmHg, but stable LVEF. - Lasix 20 Mg p.o. every other day - Strict input output, daily weights and 2 g sodium diet. #Lt pleural effusion, improving #Acute on chronic respiratory failure #Community-acquired pneumonia, improved #COPD exacerbation, improved #Moderate pulmonary hypertension #Hx of Chronic asthma #Possible Interstitial lung disease #Tuberculosis ruled out Patient was recently discharged from the ER for similar symptoms including fever, shortness of breath Patient has never seen a senior sql server database developer or gotten PFTs On previous chest abdomen pelvis done in March 2025 shows possible miliary disease, but further reading of the films was suspicious for reticular pattern suggestive of COPD. She reported no expected or exposure to TB, and no recent visit to [place]. Previously she was tested negative for tuberculosis. 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 Despite SOB, she is saturating well on home 3 L NC. Echo previously shows RVSP 55 mmHg CXR on 06/14/25 was significant for lt pleural effusion, repeat CXR on 06/15/2025 revealed improving pleural effusion and vascular congestions. -Lasix 20 Mg p.o. every other day -DuoNeb as needed -Continue with BiPAP as needed - Pt is currently stable and TB was ruled out, 3 sputum samples have been negative -Chest x-ray done on 06/14/2025 was significant for left lower pleural effusion. CXR on 06/15/2025 revealed improvement in left lower pleural effusion, including vascular congestion. BNP was less than 20. During discharge: - Continue on atorvastatin 80 Mg daily and lisinopril 2.5 Mg daily. - Continue with diltiazem 360 Mg daily, and avoid beta-miihr in the setting of chronic respiratory failure. Recommended Lasix 20 Mg p.o. every other day. Recommended to follow-up with grant officer Dr. Pavon within 1 week of discharge #Chronic Paroxysmal A-fib [id number], HAS-BLED: 2, currently regular rate and rhythm Eliquis held due to concern for GI bleed in the past. Recent Holter records revealed patient appears to be in A-fib about 1% of the time -Continue with telemetry monitoring, -Keep magnesium and potassium above 2 and 4 respectively -Continue with diltiazem 360 Mg daily, and avoid beta-mihir in the setting of chronic respiratory failure. 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 Patient has been recommended procedures at [facility] and she is yet to follow-up with them regarding the questionable adenocarcinoma or Ac's esophagus along with possible obstructing ileocecal valve tumor. Patient is DNR at the present point of time but that he wants to continue full treatment. -Management deferred to primary team Thank you for consulting cardiology team. We appreciate the opportunity to participate in this patient care. Cardiology will continue to follow-up on this patient. The patient's management plan was discussed with my attending physician MD Angel Bal MD, PGY3 Attending Provider Attestation/Addendum I have personally seen and examined the patient separately on the above date of service and discussed the plan of care with the resident. I reviewed the resident Dr. Angel Tanner consultation progress note and agree with the resident findings and plan in the note above and have also edited the documentation to reflect my findings and plan. Campos Pavon M.D. Interventional Cardiology
--- NOTE | 2025-06-16 18:16 | PC.CC ---
HH Ref sent out, waiting for responses.
--- NOTE | 2025-06-17 10:58 | PC.CM ---
Fredi small accepted and booked, SOC 06/18/25
== END 2025-06-16 18:48 | disposition home health service (06) | DRG 193 ==
LOC: SERX 09:46 → SERHOLD 10:10 → S2NX 13:20 → S3NX 06-11 19:46 → S3SX 06-15 23:02
PROVIDERS: Emergency Medicine; Admitting Provider Internal Medicine; Emergency Provider Family Medicine; PCP Family Medicine; Visit Provider Student in an Organized Health Care Education/Training Program
DX: J15.9 Unspecified bacterial pneumonia (principal); J96.21 Acute and chronic respiratory failure with hypoxia; J96.22 Acute and chronic respiratory failure with hypercapnia; J44.0 Chronic obstructive pulmonary disease with (acute) lower respiratory infection; E10.52 Type 1 diabetes mellitus with diabetic peripheral angiopathy with gangrene; E87.4 Mixed disorder of acid-base balance; J44.1 Chronic obstructive pulmonary disease with (acute) exacerbation; E78.5 Hyperlipidemia, unspecified; J47.9 Bronchiectasis, uncomplicated; I11.0 Hypertensive heart disease with heart failure; I50.9 Heart failure, unspecified; I48.0 Paroxysmal atrial fibrillation; E10.40 Type 1 diabetes mellitus with diabetic neuropathy, unspecified; E11.9 Type 2 diabetes mellitus without complications; Z89.512 Acquired absence of left leg below knee; D64.9 Anemia, unspecified; D72.821 Monocytosis (symptomatic); I27.20 Pulmonary hypertension, unspecified; K22.719 Barrett's esophagus with dysplasia, unspecified; T38.0X5A Adverse effect of glucocorticoids and synthetic analogues, initial encounter; Z66 Do not resuscitate; Z77.22 Contact with and (suspected) exposure to environmental tobacco smoke (acute) (chronic); I70.203 Unspecified atherosclerosis of native arteries of extremities, bilateral legs; Z78.9 Other specified health status; Z79.4 Long term (current) use of insulin; Z79.84 Long term (current) use of oral hypoglycemic drugs; Z79.899 Other long term (current) drug therapy; Z90.710 Acquired absence of both cervix and uterus; Z99.81 Dependence on supplemental oxygen
CPT/HCPCS: 36415; 36600; 71045; 71250; 80048; 80053; 81001; 82248; 82270; 82550; 82728; 82803; 83036; 83540; 83550; 83605; 83735; 83880; 84100; 84145; 84439; 84443; 84484; 85025; 85046; 85379; 85610; 85652; 85730; 86038; 86140; 86331; 86480; 86635; 87015; 87040; 87077; 87081; 87116; 87186; 87205; 87206; 87400; 87634; 87811; 92610; 93005; 93225; 94640; 94660; 94664; 94667; 94762; 96365; 96366; 96367; 96375; 97162; 99285; J0456; J0696; J1200; J1644; J1815; J1938; J2470; J2543; J2765; J2919; J3475; J3490; J7050; A9270; J1836

== ENCOUNTER 2025-06-21 15:03 | Outpatient (AMB) | payer MEDICARE, MEDICAID, SELFPAY ==
[2025-06-21 15:29] VITALS: BP 110/73; PULSE 95; RESP 18; TEMP 36.4; O2SAT 86
--- NOTE | 2025-06-21 15:29 | PD.RESCLINIC ---
Vital Signs 06/21/25 15:29 Weight Measurement Method Wheelchair BP 110/73 Blood Pressure Source Automatic Cuff Blood Pressure Location Right Upper Arm Position Sitting Respiration 18 Pulse 95 Pulse Source Monitor Temp 97.5 F Temp Source Temporal Artery Scan Pulse Oximetry (%) 86 L Oxygen Delivery Method Room Air Allergies/Meds Allergies & Medications Allergies aspirin Allergy (Severe, Verified 06/21/25 15:30) Difficulty Breathing hydrocodone Allergy (Severe, Verified 06/21/25 15:30) DIFF BREATHING morphine Allergy (Severe, Verified 06/21/25 15:30) DIFF BREATHING shellfish derived Allergy (Severe, Verified 06/21/25 15:30) Hives tramadol Allergy (Severe, Verified 06/21/25 15:30) Anxiety codeine Allergy (Verified 06/21/25 15:30) Difficulty Breathing Influenza Virus Vaccines Adverse Reaction (Severe, Verified 06/21/25 15:30) Difficulty Breathing pneumococcal vaccine Adverse Reaction (Severe, Verified 06/21/25 15:30) Difficulty Breathing Medication Reconciliation insulin human U-100 NPH-regulr 70-30 mix 100 unit/mL subcutaneous susp (Novolin 70/30 U-100 Insulin) 15 unit subcut QAM 07/18/23 [History Confirmed 06/21/25] metformin 500 mg tablet 500 mg PO BIDWM 07/18/23 [History Confirmed 06/21/25] ascorbic acid (vitamin C) 250 mg tablet (Vitamin C) 500 mg (2 x 250 mg) PO BID #60 tabs 07/25/23 [Rx Confirmed 06/21/25] albuterol sulfate 2.5 mg/3 mL (0.083 %) solution for nebulization 2.5 mg (3 mL) inhalation Q4H PRN shortness of breath or wheezing #90 mL 03/20/24 [Rx Confirmed 06/21/25] atorvastatin 80 mg tablet 80 mg PO HS #90 tabs 02/19/25 [Rx Confirmed 06/21/25] ferrous sulfate 325 mg (65 mg iron) tablet 325 mg PO Q OTHER DAY #90 tabs 02/19/25 [Rx Confirmed 06/21/25] metoprolol succinate 100 mg tablet,extended release 24 hr 100 mg PO QDAY #90 tabs 02/19/25 [Rx Confirmed 06/21/25] pantoprazole 40 mg tablet,delayed release 40 mg PO QDAY #90 tabs 02/19/25 [Rx Confirmed 06/21/25] loratadine 10 mg tablet 10 mg PO QDAY 03/18/25 [History Confirmed 06/21/25] lisinopril 2.5 mg tablet 2.5 mg PO QDAY #30 tabs 06/06/25 [Rx Confirmed 06/21/25] albuterol sulfate 90 mcg/actuation aerosol inhaler 1 inh inhalation QID PRN shortness of breath or wheezing #6.7 grams 06/16/25 [Rx Confirmed 06/21/25] apixaban 2.5 mg tablet (Eliquis) 2.5 mg PO BID 1 month #60 tabs 06/16/25 [Rx Confirmed 06/21/25] diltiazem HCl 360 mg capsule,extended release 24 hr (Cardizem CD) 360 mg PO QDAY 1 month #30 caps 06/16/25 [Rx Confirmed 06/21/25] furosemide 20 mg tablet (Lasix) 20 mg PO Q OTHER DAY 1 month #15 tabs 06/16/25 [Rx Confirmed 06/21/25] tiotropium bromide 2.5 mcg/actuation mist for inhalation (Spiriva Respimat) 2 inh inhalation QAM shortness of breath 1 month #4 grams 06/16/25 [Rx Confirmed 06/21/25] ipratropium bromide 0.02 % solution for inhalation 2.5 ml inhalation QID PRN shortness of breath or wheezing #62.5 mL 06/21/25 [Rx] АННА Intake Visit Data Collection New Patient or Established: Established Patient (seen at [facility] within 3 years) Seen by Clinical Staff ONLY (RN/MA): No Pain Present Currently: No Pain scale:: 0 Pain Scale Used: Kumar-Damon/Numerical Irrigation Manager Required: No PCP or OBGYN visit in last 3 months: No Hx Now: No Do You Feel Safe at Home: Yes Authorities Contacted: N/A Smoking Status Smoking Status: Never smoker Immunization / Flu Flu Vaccine in the Last 12 Months: No Flu Vaccine Exclusion Criteria: No Exclusion Criteria Past Medical History Past Medical History NEUROLOGIC: Positive Neurological Disorders and Migraine; Negative Cerebrovascular Accident, Transient Ischemic Attacks (TIA), Dementia, Alzheimer's Disease, Parkinson's Disease, Brain Tumor, Meningitis, Seizures, Epilepsy, Multiple Sclerosis, Cerebral Palsy, Amyotrophic Lateral Sclerosis (ALS/Richelle Gehrig's), Guillain-[place] Syndrome, Spina Bifida, Paralysis, Peripheral Neuropathy, Plaza's Palsy, Subdural Hematoma, Head Trauma, Spinal Cord Injury or Traumatic Brain Injury CARDIAC: Positive Cardiac Disorders, Peripheral Vascular Disease, Cellulitis and Hypertension; Negative Myocardial Infarction, Cardiac Arrhythmia, Atrial Fibrillation, Angina, Heart Murmur, Coronary Artery Disease, Atherosclerotic Heart Disease, Hypercholesterolemia, Aneurysm, Congestive Heart Failure, Congenital Heart Disease, Valvular Heart Disease, Rheumatic Fever, Cardiomyopathy, Edema, Pericarditis, Deep Vein Thrombosis, Hypotension or Varicose Veins RESPIRATORY: Positive Chronic Obstructive Pulmonary Disease (COPD), Asthma, Bronchitis, Pneumonia, Cough, Sputum Production and Wheezing; Negative Emphysema, Pulmonary Fibrosis, Cystic Fibrosis, Tuberculosis, Pulmonary Embolism, Pulmonary Edema or Sleep Apnea GASTROINTESTINAL: Positive Gastrointestinal Disorders and Obesity; Negative Hepatitis, Cirrhosis, Pancreatitis, Celiac Disease, Gall Bladder Disease, Gastrointestinal Bleed, Esophageal Varices, Ac's Esophagus, Colitis, Ulcerative Colitis, Diverticulitis, Diverticulosis, Ulcer, Colorectal Cancer, Irritable Bowel, Crohn's Disease, Obstructive Bowel, Hiatal Hernia, Hemorrhoids or Gastroesophageal Reflux Disease GENITOURINARY: Negative Genitourinary Disorders, Renal Disease, Kidney Stones, Polycystic Kidney Disease, Neurogenic Bladder, Inguinal Hernia, Dialysis, Prostate Cancer or Benign Prostatic Hyperplasia REPRODUCTIVE: Positive Previous Pregnancies; Negative Breast Cancer, Endometriosis, Genital Herpes, Gonorrhea, Pelvic Inflammatory Disease, Syphilis, Testicular Cancer or Uterine Prolapse MUSCULOSKELETAL: Positive Arthritis; Negative Muscular Dystrophy, Myasthenia Gravis, Marfan's Syndrome, Bone Cancer, Rheumatoid Arthritis, Osteoporosis, Degenerative Disk Disease, Gout, Scoliosis, Carpal Tunnel Syndrome, Fibromyalgia, Fractures, Degenerative Joint Disease, Osteomyelitis or Poliovirus ENT: Positive Glaucoma and Ear Infection; Negative Cataracts, Blind, Retinal Detachment, Macular Degeneration, Deafness, Head Trauma or Eye Prosthesis ENDOCRINE: Positive Endocrine Disorders, 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; Negative Diabetes Mellitus Type 1, Hypoglycemia, [place]'s Disease, Hyperthyroidism, Hypothyroidism, Parathyroid Disease, Pituitary Disease, Systemic Lupus Erythematosus, Syndrome of Inappropriate Antidiuretic Hormone (SIADH), Adrenal Disease or Graves' Disease HEMATOLOGIC: Positive Anemia; Negative Blood Disorders, Leukemia, Hemophilia, Thalassemia, Sickle Cell Disease or Clotting Problems PSYCHO/SOCIAL: Positive Depression and Anxiety; Negative Psychiatric Problems, Schizophrenia, Recreational Drug Use, Bipolar Disorder, Behavior Problems, Self-Mutilation, Attention Deficit Disorder, Attention Deficit Hyperactivity Disorder, Depression, Post Traumatic Stress Disorder or Eating Disorder OTHER HISTORY: Positive Hospitalization, Falls, Blood Transfusions, Chicken Pox, Measles, Mumps and Rubella ([place] Measles); Negative Down Syndrome, Autism, Developmental Delay, Shingles, Blood Transfusion Reaction, Anesthesia Reactions, Organ Transplant, Chemotherapy, Radiation Therapy, Hyperbaric Therapy, MRSA, VRSA, Vancomycin-Resistant Enterococci, Human Immunodeficiency Virus (HIV), Pertussis, Clostridium Difficile, Cancer, Breast Cancer, Cervical Cancer, Colorectal Cancer, Lung Cancer, Ovarian Cancer, Prostate Cancer or Testicular Cancer Family History FAMILY HISTORY: Positive Family Respiratory Disorders, Family Cancer and Family Surgery; Negative Family Psychiatric Problems, Family Cardiac Disorders, Family Gastrointestinal Problems or Family Anesthesia Reaction Surgical History SURGICAL: Positive Vascular Surgery, Angiogram, Amputation, Hysterectomy and Section; Negative Cardiac Surgery, Open Heart Surgery, Coronary Artery Bypass Graft, Valve Replacement, Coronary Stent, Cardiac Catheterization, Pacemaker, Auto Implanted Cardiovert Defib, Carotid Endarterectomy, Endocrine Surgery, Thyroidectomy, Ear Surgery, Tympanostomy Tube, Eye Surgery, Nose Surgery, Oral Surgery, Tonsillectomy, Adenoidectomy, Cochlear Implant, Corneal Transplant, Throat Surgery, Abdominal Surgery, Tracheostomy, Gastric Bypass Surgery, Gastrostomy, Bowel Surgery, Nephrectomy, Transurethral Resection, Joint Replacement, Open Reduction Internal Fixation, Arthroscopy, Neurologic Surgery, Brain Shunt, Mastectomy, Lumpectomy, Tubal Ligation, Vasectomy or Organ Transplant Social History SMOKING STATUS: Smoking status: Never smoker SECOND HAND EXPOSURE: second hand exposure: No ALCOHOL: Alcohol Intake: Never ALCOHOL FREQUENCY: Alcohol Intake Frequency: holidays/special occasions only HOUSING: Housing: Apartment LIVES WITH: Lives With: Family Patient Portal Questionaires Social History Living Situation History Housing: Apartment Housing Other:: Temporarily residing with adult daughter, Angeli. Tobacco History Smoking Status: Never smoker Second Hand Smoke Exposure: No Alcohol History Alcohol Intake: Never Alcohol Intake Frequency: holidays/special occasions only Domestic Abuse History Do You Feel Safe at Home: Yes Review of Systems Report any current symptoms Only answer those that you have currently: Past Medical History Past Medical History Have you ever been diagnosed with any of the following: Neurological Problems Cerebrovascular Accident (CVA): No Transient Ischemic Attacks (TIA): No Dementia: No Alzheimer's Disease: No Parkinson's Disease: No Brain Tumor: No Meningitis: No Seizures: No Epilepsy: No Multiple Sclerosis: No Cerebral Palsy: No Amyotrophic Lateral Sclerosis (ALS/Richelle Gehrig's): No Guillain-[place] Syndrome: No Spina Bifida: No Paralysis: No Peripheral Neuropathy: No Plaza's Palsy: No Subdural Hematoma: No Migraine: Yes Head Trauma: No Spinal Cord Injury: No Traumatic Brain Injury: No Cardiology Problems Myocardial Infarction: No Cardiac Arrhythmia: No Atrial Fibrillation: No Angina: No Heart Murmur: No Coronary Artery Disease: No Atherosclerotic Heart Disease: No Peripheral Vascular Disease: Yes Hypercholesterolemia: No Aneurysm: No Congestive Heart Failure: No Congenital Heart Disease: No Valvular Heart Disease: No Rheumatic Fever: No Cardiomyopathy: No Edema: No Pericarditis: No Cellulitis: Yes Deep Vein Thrombosis: No Hypertension: Yes Hypotension: No Varicose Veins: No Respiratory Problems Chronic Obstructive Pulmonary Disease (COPD): Yes Asthma: Yes Bronchitis: Yes Emphysema: No Pneumonia: Yes Pulmonary Fibrosis: No Tuberculosis: No Pulmonary Embolism: No Pulmonary Edema: No Sleep Apnea: No Hx Cough: Yes Cough: Yes Wheezing: Yes Stomache/Intestinal Problems Hepatitis: No Cirrhosis: No Pancreatitis: No Celiac Disease: No Gall Bladder Disease: No Gastrointestinal Bleed: No Esophageal Varices: No Ac's Esophagus: No Colitis: No Ulcerative Colitis: No Diverticulitis: No Diverticulosis: No Ulcer: No Colorectal Cancer: No Irritable Bowel: No Crohn's Disease: No Obstructive Bowel: No Hiatal Hernia: No Hemorrhoids: No Gastroesophageal Reflux Disease: No Obesity: Yes Genital/Urinary Problems Renal Disease: No Kidney Stones: No Polycystic Kidney Disease: No Neurogenic Bladder: No Inguinal Hernia: No Dialysis: No Reproductive Problems Breast Cancer: No Endometriosis: No Genital Herpes: No Gonorrhea: No Pelvic Inflammatory Disease: No Previous Pregnancies: Yes Syphilis: No Uterine Prolapse: No Musculoskeletal Problems Muscular Dystrophy: No Myasthenia Gravis: No Marfan's Syndrome: No Bone Cancer: No Arthritis: Yes Rheumatoid Arthritis: No Osteoporosis: No Degenerative Disk Disease: No Gout: No Scoliosis: No Carpal Tunnel Syndrome: No Fibromyalgia: No Fractures: No Degenerative Joint Disease: No Osteomyelitis: No Poliovirus: No Head,Eye,Nose,Throat Problems Cataracts: No Glaucoma: Yes Blind: No Retinal Detachment: No Macular Degeneration: No Chronic Ear Infections: Yes Deafness: No Eye Prosthesis: No Endocrine Problems Diabetes Mellitus Type 1: No Diabetes Mellitus Type 2: Yes Hypoglycemia: No [place]'s Syndrome: Yes Jared's Disease: No Hyperthyroidism: No Hypothyroidism: No Parathyroid Disease: No Pituitary Disease: No Systemic Lupus Erythematosus: No Syndrome of Inappropriate Antidiuretic Hormone: No Adrenal Disease: No Graves' Disease: No Blood Problems Anemia: Yes Leukemia: No Hemophilia: No Thalassemia: No Sickle Cell Disease: No Clotting Problems: No Psychologic Problems Schizophrenia: No Recreational Drug Use: No Bipolar Disorder: No Depression: Yes Anxiety: Yes Behavior Problems: No Self-Mutilation: No Attention Deficit Disorder: No Attention Deficit Hyperactivity Disorder: No Depression: No Post Traumatic Stress Disorder: No Eating Disorder: No Other Problems Hospitalization: Yes Down Syndrome: No Autism: No Developmental Delay: No Shingles: No Falls: Yes Blood Transfusions: Yes Blood Transfusion Reaction: No Anesthesia Reactions: No Organ Transplant: No Chemotherapy: No Radiation Therapy: No Hyperbaric Therapy: No MRSA: No VRSA: No Vancomycin-Resistant Enterococci: No Human Immunodeficiency Virus (HIV): No Chicken Pox: Yes Measles: Yes Mumps: Yes Rubella (Croat[place] Measles): Yes Pertussis: No Clostridium Difficile: No Cancer: No Cervical Cancer: No Lung Cancer: No Ovarian Cancer: No Surgical History Carotid Endarterectomy: No Coronary Artery Bypass Graft: No Valve Replacement: No Hysterectomy: Yes Pacemaker: No Thyroidectomy: No History of Present Illness HPI Narrative Pt examined at bedside today. PT reports she has been doing well since she was discharged from the hospital. She says she was not able to get the Spiriva inhaler beacuse of a prior authrization and has been using NEGIN nebulizations to keep her afloat. She denies any recent sick contacts. She says she is going to be following up with her other doctor as well. No other complaints at this time. Review of Systems Review of Systems Narrative Review of Systems: Constitutional: No fever, chills, fatigue, weakness, weight loss HEENT: No eye pain, vision loss, ear pain, hearing loss, dysphagia, Cardiovascular: No chest pain, palpitations, edema, pain with walking Respiratory: No cough, shortness of breath, wheezing GI: No NVD, abdominal pain, constipation, blood in stool, loss of appetite, heartburn Extremities: No presence of pitting edema MSK: No back pain, joint pain, joint swelling Neuro: No dizziness, numbness, weakness, headaches, seizures, tremors Psych: No anxiety, depression Objective/Exam Narrative Physical exam: General: AAOx3, NAD, frail woman, on oxygen, in wheelchair HEENT: Moist mucous membranes, conjunctiva clear, EOMI, PERRLA, Cardiovascular: S1, S2, radial pulses +2 bilat, RRR Pulmonary: Minimal breath sounds, no wheezing, on 3L NC GI: No tenderness to light or deep palpitation, no guarding, rigidity, rebound tenderness or distension Extremities: L BKA Neuro: AAOx3, no focal motor or sensory deficits in the UE or LE bilat Psych: Good judgement, thought and behavior Assessment & Plan Diagnosis / Problem List (1) Bronchiectasis: Status: Acute Assessment & Plan: Pt has not seen audiovisual equipment operator Spiriva needs PA Will send THERESE nebulization and NEGIN nebulization as needed Plan: Atrovent Nebulization QID PRN NEGIN nebulization as needed (2) Tuberculosis exposure: Status: Acute Assessment & Plan: TB rule out negative inpatient, however pt will need to follow up on cultures within one month for further diagnosis/exclusion Plan: Follow up on AFB cultures for growth within one month, appointment given. Advanced Care Planning Advance care planning discussed with:: patient Office Procedures [facility] Level of Care Nursing/Assessment Patient Status: Established Patient Nursing Assessment/Reassessment: Medication Reconciliation, Update PMH in EMR and Vital Signs Coordination of Care: Complex Care and Chronic Disease 1-5, Consent,records obtained, informed consent, Education Simp Pt/Fam and Staff clarify orders Established Patient Charge Established Patient Point Assignment: 85 Established Patient Point Charge: Level 3 (80-115)
== END 2025-06-21 16:14 | disposition home or self-care (01) ==
LOC: HODAHC 15:03
PROVIDERS: Supervising Provider Internal Medicine
DX: J47.9 Bronchiectasis, uncomplicated (principal); Z20.1 Contact with and (suspected) exposure to tuberculosis
CPT/HCPCS: 99213; G0463

== ENCOUNTER 2025-07-21 07:08 | Emergency (ER) | payer MEDICARE, MEDICAID, SELFPAY ==
--- NOTE | 2025-07-21 07:13 | PD.EDTRAUM ---
ED Trauma RME/HPI General Chief Complaint: Fall Stated Complaint: FALL Time Seen by Provider: 07/21/25 07:11 Arrival date/time: 07/21/25 07:08 Limitations: no limitations RME / HPI RME / HPI narrative: 70 year old female with history of asthma, emphysema, hypertension, diabetes, hyperlipidemia, PAD, s/p left BKA presents to the ED BIBA from home for evaluation following a fall that occurred this morning. States she attempted transferring out of her medical bed when she slipped and fell, landing on her left side. In the ED, patient complains of pain to her left hip, left knee, and left stump. Denied head injury or LOC. Denies use of blood thinners. Related Data Home Medications ?Medication ?Instructions ?Recorded ?Confirmed insulin human U-100 NPH-regulr 15 unit subcut QAM 07/18/23 06/21/25 70-30 mix 100 unit/mL subcutaneous susp (Novolin 70/30 U-100 Insulin) metformin 500 mg tablet 500 mg PO BIDWM 07/18/23 06/21/25 loratadine 10 mg tablet 10 mg PO QDAY 03/18/25 06/21/25 Previous Rx's ?Medication ?Instructions ?Recorded ascorbic acid (vitamin C) 250 mg 500 mg (2 x 250 mg) PO BID #60 tabs 07/25/23 tablet (Vitamin C) albuterol sulfate 2.5 mg/3 mL 2.5 mg (3 mL) inhalation Q4H PRN 03/20/24 (0.083 %) solution for nebulization shortness of breath or wheezing #90 mL atorvastatin 80 mg tablet 80 mg PO HS #90 tabs 02/19/25 ferrous sulfate 325 mg (65 mg 325 mg PO Q OTHER DAY #90 tabs 02/19/25 iron) tablet metoprolol succinate 100 mg 100 mg PO QDAY #90 tabs 02/19/25 tablet,extended release 24 hr pantoprazole 40 mg tablet,delayed 40 mg PO QDAY #90 tabs 02/19/25 release lisinopril 2.5 mg tablet 2.5 mg PO QDAY #30 tabs 06/06/25 albuterol sulfate 90 mcg/actuation 1 inh inhalation QID PRN shortness 06/16/25 aerosol inhaler of breath or wheezing #6.7 grams diltiazem HCl 360 mg 360 mg PO QDAY 1 month #30 caps 06/16/25 capsule,extended release 24 hr (Cardizem CD) tiotropium bromide 2.5 2 inh inhalation QAM shortness of 06/16/25 mcg/actuation mist for inhalation breath 1 month #4 grams (Spiriva Respimat) ipratropium bromide 0.02 % 2.5 ml inhalation QID PRN 06/21/25 solution for inhalation shortness of breath or wheezing #62.5 mL Allergies Allergy/AdvReac Type Severity Reaction Status Date / Time aspirin Allergy Severe Difficulty Verified 06/21/25 15:30 Breathing hydrocodone Allergy Severe DIFF Verified 06/21/25 15:30 BREATHING morphine Allergy Severe DIFF Verified 06/21/25 15:30 BREATHING shellfish derived Allergy Severe Hives Verified 06/21/25 15:30 tramadol Allergy Severe Anxiety Verified 06/21/25 15:30 codeine Allergy Difficulty Verified 06/21/25 15:30 Breathing Influenza Virus Vaccines AdvReac Severe Difficulty Verified 06/21/25 15:30 Breathing pneumococcal vaccine AdvReac Severe Difficulty Verified 06/21/25 15:30 Breathing Review of Systems Review of Systems Systems Reviewed: All systems reviewed, normal except as documented Past Medical History Past Medical History NEUROLOGIC: Positive Neurological Disorders and Migraine CARDIAC: Positive Cardiac Disorders, Peripheral Vascular Disease, Cellulitis and Hypertension RESPIRATORY: Positive Chronic Obstructive Pulmonary Disease (COPD), Asthma, Bronchitis, Pneumonia, Cough, Sputum Production and Wheezing GASTROINTESTINAL: Positive Gastrointestinal Disorders and Obesity REPRODUCTIVE: Positive Previous Pregnancies MUSCULOSKELETAL: Positive Musculoskeletal Disorders and Arthritis ENT: Positive Glaucoma and Ear Infection ENDOCRINE: Positive Endocrine Disorders, 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 HEMATOLOGIC: Positive Anemia PSYCHO/SOCIAL: Positive Depression and Anxiety OTHER HISTORY: Positive Hospitalization, Falls, Blood Transfusions, Chicken Pox, Measles, Mumps and Rubella (British Measles) Family History FAMILY HISTORY: Positive Family Respiratory Disorders, Family Cancer and Family Surgery Surgical History SURGICAL: Positive Vascular Surgery, Angiogram, Amputation, Hysterectomy and Section Social History SMOKING STATUS: Never smoker SECOND HAND EXPOSURE: No SUBSTANCE USE: does not use ED Exam General Limitations: Present no limitations General appearance: Present alert and other (appears to be in pain) Head Head exam: Present atraumatic Eye Eye exam: Present normal appearance and EOMI ENT ENT exam: Present normal exam, normal oropharynx and mucous membranes moist Neck Neck exam: Present normal inspection, full ROM and trachea midline Chest Chest inspection: Present normal inspection and symmetric chest wall rise Respiratory Respiratory exam: Present normal lung sounds bilaterally Cardiovascular Cardiovascular exam: Present regular rate, normal rhythm and normal heart sounds Abdominal Exam Abdominal exam: Present soft and normal bowel sounds Extremities Exam Extremities exam: Present other (Left BKA, left hip tenderness to palpation ) Back Exam Back exam: Present normal inspection and full ROM Neurological Exam Neurological exam: Present alert, oriented X3 and CN II-XII intact Psychiatric Psychiatric exam: Present normal affect and normal mood Skin Skin exam: Present warm, dry, intact and normal color Course Quality Measures none Orders Category Date Time Status Transfuse,blood/blood products NOW Care 07/21/25 12:56 Active Referral - Analytical Research Chemist Stat Cons 07/21/25 13:[address] head/brain wo con Stat Exams 07/21/25 07:[address] lower leg LT wo con Stat Exams 07/21/25 09:45 Completed CXR [XR chest 1V] Stat Exams 07/21/25 13:17 Completed XR hip LT w pelvis 2-3V Stat Exams 07/21/25 07:12 Completed XR knee LT 3V Stat Exams 07/21/25 07:12 Completed BNP [B-Type Natriuretic Peptide] Stat Lab 07/21/25 13:11 Completed CBC Stat Lab 07/21/25 11:01 Completed CBC Stat Lab 07/21/25 13:11 Completed CMP [Comprehensive Metabolic Panel] Stat Lab 07/21/25 11:01 Completed INR [Prothrombin Time with INR] Stat Lab 07/21/25 11:01 Completed Path Review Blood Smear Stat Lab 07/21/25 11:01 Completed Red Blood Cells Stat Lab 07/21/25 13:11 Results Type and Screen Stat Lab 07/21/25 13:11 Results UA, C/S IF [Urinalysis, C/S if Indicated] Stat Lab 07/21/25 13:10 Ordered Acetaminophen Ivpb [Ofirmev Inj] Med 07/21/25 08:06 Discontinued 1,000 mg in 100 ml IV X1 Albuterol/Ipratr Rt Willow [Duoneb Rt Willow] Med 07/21/25 09:29 Discontinued 3 ml INH X1 ONE MethylPREDNISolone.* [SoluMEDROL Inj] Med 07/21/25 09:30 Discontinued 125 mg IVP X1 ONE Ondansetron Inj [Zofran Inj] Med 07/21/25 10:45 Discontinued 4 mg IVP X1 ONE fentaNYL INJ [Sublimaze Inj] Med 07/21/25 10:45 Discontinued 50 mcg IVP X1 ONE Vital Signs Vital signs: Vital Signs Temperature 98.3 F 07/21/25 07:16 Pulse Rate 88 07/21/25 07:16 Respiratory Rate 18 07/21/25 07:16 Blood Pressure 122/76 07/21/25 07:16 Pulse Oximetry (%) 99 07/21/25 07:16 Oxygen Delivery Method Nasal Cannula 07/21/25 07:16 Oxygen Flow Rate 3 07/21/25 07:16 Trauma MDM Narrative MDM Narrative:: Patient is a 70 yo female that is in the ED with left hip pain after a fall. Patient denies LOC or use of thinners, no prodromal symptoms prior to fall. Concer for fracture, dislocation soft tissue injury. Ordered Xrs of pelvis and LLE. Also ordered CT brain. Patient with significant arthritis in her left lower extremity, possible intertrochanteric fracture, ordered CT of the left lower extremity for further assessment but did identify an intertrochanteric fracture of the left hip. Consulted on-call orthopedic surgeon Dr. Hurley, reviewed the case, given the patient has a below-knee amputation she would require specialized equipment that we do not have access to here at our hospital. Requests that we transfer for higher level of care for orthopedic surgery with capabilities to perform this surgery. I did order preop labs, patient hemoglobin is 5.5. Patient confirmed that she is on Eliquis for atrial fibrillation. Also confirms that she has had some black stools however no hematochezia. Initiated transfer for higher level of care. Ordered 2 units of blood. Lower extremities warm and well-perfused. 3p discussed case with [facility] transfer center will present to their team. Patient has been accepted for transfer by Dr. Lux Bhat at [facility]. Patient hemodynamically stable not distressed. Patient data External records reviewed:: [facility] previous records (I reviewed admission from 06/07/25 through 06/21/2025 for bilateral pna ) and EMS form Clinical information provided by:: patient and EMS Social determinants that could affect healthcare access:: none Patient has the following chronic illnesses:: asthma, emphysema, hypertension, diabetes, hyperlipidemia, atrial fibrillation, PAD, s/p left BKA How is presenting disease/condition affected by chronic disease/condition?: exacerbated by Evaluation data The following diagnostics were reviewed and interpreted by me:: lab results and radiology exam(s) Lab and/or radiology exams considered but not ordered:: None Interpretation Summary: Ordering Physician: Angeli Sims MD Date of Service: 07/21/25 Procedure(s): CT head/brain wo con Accession Number(s): [id number] cc: Adalid Sapp MD; Angeli Sims MD; Chandrakant Cardenas MD~ Examination: CT brain head without contrast. 2-D sagittal coronal reconstructions Date and time of exam:July 21, 2025 0851 hours INDICATIONS: Patient fell this morning with injury to the head, head pain COMPARISON: February 14, 2025 CTDI: vol (mGy):51.5 DLP: (mGycm):1067 Technique: Multiple CT axial sections of the brain have been obtained, 5 mm slice thickness. Contrast has not been administered. 2-D sagittal, coronal reconstructions have been obtained Low dose protocols were performed. One or more of the following dose reduction techniques were used; automated exposure control, adjustment of the mA and/or KV according to patient size, use of iterative reconstruction technique. Findings: No significant ventricular enlargement. Intra-axial or extra-axial hemorrhage density is not seen. No mass effect or midline shift Basal cisterns are not remarkable. Fourth ventricle is midline. Cranial vault intact. Impression: Negative for acute hemorrhage, mass effect or midline shift Dictated By: Adalid Sapp MD Signed By: <Electronically signed by Adalid Sapp MD in OV> 07/21/25 0902 Ordering Physician: Angeli Sims MD Date of Service: 07/21/25 Procedure(s): XR hip LT w pelvis 2-3V Accession Number(s): [id number] cc: Adalid Sapp MD; Angeli Sims MD; Chandrakant Cardenas MD~ Examination:Left hip AP, lateral, AP pelvis 3 views Technique: Hip AP lateral, AP pelvis, 3 views Exam date and time:July 21, 2025 0826 hours INDICATIONS: Patient fell today with into the left hip, left hip pain. FINDINGS: Severe osteopenia Acute appearing nondisplaced intertrochanteric fracture left hip Right hip bones of the pelvis intact IMPRESSION: Recommend CT scan pelvis left hip follow-up to confirm intertrochanteric fracture left hip. Dictated By: Adalid Sapp MD Signed By: <Electronically signed by Adalid Sapp MD in OV> 07/21/25 0957 Ordering Physician: Angeli Sims MD Date of Service: 07/21/25 Procedure(s): XR knee LT 3V Accession Number(s): [id number] cc: Adalid Sapp MD; Angeli Sims MD; Chandrakant Cardenas MD~ Examination: Knee, left , 3 views Technique: Knee AP, lateral, oblique 3 views Date and time of exam: July 21, 2025 0826 hours INDICATIONS: Patient fell today with into the knee, knee pain. FINDINGS: Severe osteopenia Widening of the medial joint space No acute fracture Heavy vascular calcification IMPRESSION: No definite acute fracture Given the severe osteopenia, recommend short-term follow-up knee films as clinically warranted Dictated By: Adalid Sapp MD Signed By: <Electronically signed by Adalid Sapp MD in OV> 07/21/25 0934 Ordering Physician: Angeli Sims MD Date of Service: 07/21/25 Procedure(s): CT lower leg LT wo con Accession Number(s): [id number] cc: Adalid Sapp MD; Angeli Sims MD; Chandrakant Cardenas MD~ Examination: CT left lower extremity, without contrast. 2-D sagittal reconstructions. 2-D coronal reconstructions. 3-D reconstructions. Date and time of exam:July 21, 2025 10:00 AM INDICATIONS: Patient fell this morning with injury to the left hip, left hip pain CTDI: vol (mGy):10.8 DLP: (mGycm):814 Technique: Multiple 1.25 mm axial sections of the left lower extremity without intravenous contrast have been obtained. 2-D sagittal and coronal reconstructions have been obtained. 3-D reconstructions have been obtained. Low dose protocols were performed. One or more of the following dose reduction techniques were used; automated exposure control, adjustment of the mA and/or KV according to patient size, use of iterative reconstruction technique. Findings: Severe osteopenia Acute intertrochanteric fractures left hip without significant displacement Shaft of the femur intact Heavy vascular calcification No patellar dislocation Visualized proximal tibia fibula intact Below the knee amputation IMPRESSION: Acute intertrochanteric fracture is left hip Dictated By: Adalid Sapp MD Signed By: <Electronically signed by Adalid Sapp MD in OV> 07/21/25 1141 Medications / Prescriptions Medications or Prescriptions considered but not ordered:: None Medication administrations:: Medication Administration History Discontinued Medications Albuterol/Ipratropium (Albuterol/Ipratropium (Duoneb) Rt Willow 3 Ml Nebu) 3 ml INH X1 ONE Stop: 07/21/25 09:30 Last Admin: 07/21/25 09:38 Dose: 3 ml Documented By: RADHA Fentanyl Citrate (Fentanyl Cit Inj 50 Mcg/Ml Amp 2ml) 50 mcg IVP X1 ONE Stop: 07/21/25 10:46 Last Admin: 07/21/25 10:54 Dose: 50 mcg Documented By: JEAN Acetaminophen (Ofirmev Inj) 1,000 mg in 100 mls @ 250 mls/hr IV X1 ONE Stop: 07/21/25 08:29 Last Infusion: 07/21/25 10:56 Dose: Infused Documented By: Admin: 07/21/25 08:13 Dose: 250 mls/hr Documented By: JEAN Methylprednisolone Sodium Succinate (Methylprednisolone Sod Succ 62.5 Mg/Ml 2ml Vial) 125 mg IVP X1 ONE Stop: 07/21/25 09:31 Last Admin: 07/21/25 09:48 Dose: 125 mg Documented By: JEAN Ondansetron HCl (Ondansetron Inj 2 Mg/Ml Inj 2 Ml) 4 mg IVP X1 ONE; Protocol Stop: 07/21/25 10:46 Last Admin: 07/21/25 10:55 Dose: 4 mg Documented By: JEAN See above Consultations Consultation(s) initiated? (list below): Yes Consultation #1 (Physician, Specialty, Details): I spoke with ortho Dr. Hurley. Discussed patients PMHx, HPI, ED course, exam findings, labs, and radiology results. States he will review images. See above Time: 12:56 Diagnosis Trauma Differential Diagnosis: other (left hip pain, left hip fracture, left femur fracture) Most likely diagnosis given after review of the tests above:: Acute intertrochanteric fracture is left hip GI bleed Admission Indicated Admission indicated?: not indicated Explain why admission is indicated or not indicated:: Txfer for ortho Admission Request Was there a request for admission?: No Disposition Plan Disposition Plan: Transfer Critical Care Time Critical Care Time Critical Care Time: Yes Total Critical Care Time (min.): 40 Attestation: The high probability of sudden, clinically significant deterioration in the patient's condition required the highest level of my preparedness to intervene urgently. The services I provided to this patient were to treat and/or prevent clinically significant deterioration. Services included the following: chart data review, reviewing nursing notes and/or old charts, documentation time, job service consultant collaboration regarding findings and treatment options, medication orders and management, direct patient care, vital sign assessments and ordering, interpreting and reviewing diagnostic studies and lab tests. Aggregate critical care time includes only time during which I was engaged in work directly related to the patient's care, as described above, whether at bedside or elsewhere in the Emergency Department. It did not include time spent performing other reported procedures or the services of residents, students, nurses or physician assistants. Discharge Plan Plan Patient Disposition: [facility] Being Transferred to: [facility] Service Needed for Transfer: Orthopedics Prescriptions/Referrals Prescriptions/Med Rec: No Action ipratropium bromide 0.02 % solution 2.5 ml inhalation QID PRN (Reason: shortness of breath or wheezing) Qty: 62.5 4RF Rx Instructions: Use as directed albuterol sulfate 2.5 mg /3 mL (0.083 %) solution for nebulization 2.5 mg inhalation Q4H PRN (Reason: shortness of breath or wheezing) Qty: 90 0RF metoprolol succinate 100 mg tablet extended release 24 hr 100 mg PO QDAY Qty: 90 0RF atorvastatin 80 mg tablet 80 mg PO HS Qty: 90 0RF pantoprazole 40 mg tablet,delayed release (DR/EC) 40 mg PO QDAY Qty: 90 0RF ferrous sulfate 325 mg (65 mg iron) tablet 325 mg PO Q OTHER DAY Qty: 90 0RF loratadine 10 mg tablet 10 mg PO QDAY Patient Comments: TAKE ONE TABLET BY MOUTH EVERY DAY FOR ALLERGY metformin 500 mg tablet 500 mg PO BIDWM Patient Comments: TAKE ONE TABLET BY MOUTH TWICE DAILY WITH FOOD daib Novolin 70/30 U-100 Insulin 100 unit/mL (70-30) suspension 15 unit SUBCUT QAM Patient Comments: INJECT 15 UNITS SUBCUTANEOUSLY EVERY MORNING FOR DIABETES ascorbic acid (vitamin C) [Vitamin C] 250 mg Tablet 500 mg PO BID Qty: 60 0RF lisinopril 2.5 mg tablet 2.5 mg PO QDAY Qty: 30 0RF Spiriva Respimat 2.5 mcg/actuation mist 2 inh inhalation QAM 30 Days Qty: 4 3RF Rx Instructions: Take two puffs by mouth as directed once a day albuterol sulfate 90 mcg/actuation HFA aerosol inhaler 1 inh inhalation QID PRN (Reason: shortness of breath or wheezing) Qty: 6.7 3RF Rx Instructions: Use as directed diltiazem HCl [Cardizem CD] 360 mg capsule,extended release 24hr 360 mg PO QDAY 30 Days Qty: 30 2RF Rx Instructions: Take one tablet by mouth every day Referrals: Chandrakant Cardenas MD [Primary Care Provider] - In 1 week Problem List Clinical Impression: Intertrochanteric fracture of left hip, GI bleed Patient/Caregiver Discharge Instructions Print Language: Jordanian Stand Alone Forms: [facility] Award Info., Patient Portal Info Letter
[2025-07-21 07:16] VITALS: BP 122/76; PULSE 88; RESP 18; TEMP 36.8; O2SAT 99
[2025-07-21 07:17] VITALS: PULSE 85; RESP 22; O2SAT 95
[2025-07-21 07:27] VITALS: BMI 21.2
[2025-07-21] MEDS: ACETAMINOPHEN IVPB 1,000 MG/100 ML VIAL 250 MG IV (08:13)
[2025-07-21] MEDS: ALBUTEROL/IPRATROPIUM (Duoneb) RT SOL 3 ML NEBU INH (09:38)
[2025-07-21 09:40] VITALS: PULSE 99; RESP 18; O2SAT 100
--- NOTE | 2025-07-21 09:45 | XR_ITS ---
Examination: CT left lower extremity, without contrast. 2-D sagittal reconstructions. 2-D coronal reconstructions. 3-D reconstructions. Date and time of exam:July 21, 2025 10:00 AM INDICATIONS: Patient fell this morning with injury to the left hip, left hip pain CTDI: vol (mGy):10.8 DLP: (mGycm):814 Technique: Multiple 1.25 mm axial sections of the left lower extremity without intravenous contrast have been obtained. 2-D sagittal and coronal reconstructions have been obtained. 3-D reconstructions have been obtained. Low dose protocols were performed. One or more of the following dose reduction techniques were used; automated exposure control, adjustment of the mA and/or KV according to patient size, use of iterative reconstruction technique. Findings: Severe osteopenia Acute intertrochanteric fractures left hip without significant displacement Shaft of the femur intact Heavy vascular calcification No patellar dislocation Visualized proximal tibia fibula intact Below the knee amputation IMPRESSION: Acute intertrochanteric fracture is left hip
[2025-07-21] MEDS: MethylPREDNISolone SOD SUCC 62.5 MG/ML 2ML VIAL 125 MG IVP (09:48)
[2025-07-21] MEDS: fentaNYL CIT INJ 50 mCg/ML AMP 2ML IVP (10:54)
[2025-07-21] MEDS: ONDANSETRON INJ 2 MG/ML INJ 2 ML 4 MG IVP (10:55)
[2025-07-21 11:32] LABS: Basophils # (Auto) 0.1 Thou/mm3 (0.0-0.2); Basophils % (Auto) 0 % (0-2.5); Eosinophils # (Auto) 0.0 Thou/mm3 (0.0-0.5); Eosinophils % (Auto) 0 % (0-10); Immature Granulocytes Auto 0.20 Thou/mm3 (0.00-0.00); Lymphocytes # (Auto) 0.6 Thou/mm3 (1.0-4.8); Lymphocytes % (Auto) 3 % (10-50); Mean Corpuscular HGB Conc 28.5 g/dl (31.0-37.0); Mean Corpuscular Hemoglobin 24.9 pg (25.0-35.0); Mean Corpuscular Volume 87 fL (80-100); Monocytes # (Auto) 0.8 Thou/mm3 (0.0-0.8); Monocytes % (Auto) 4 % (0-12); Neutrophils # (Auto) 19.9 Thou/mm3 (1.8-7.7); Neutrophils % (Auto) 92 % (37-80); Nucleated Red Blood Cell # 0.02 Thou/mm3 (0.00-0.00); Nucleated Red Blood Cell % 0 /100 WBC (0); Platelet Count 367 Thou/mm3 (140-440); RDW Standard Deviation 50.7 fL (36.4-46.3); Red Blood Count 2.21 Miln/mm3 (4.00-5.20); White Blood Count 21.6 Thou/mm3 (3.6-11.0)
[2025-07-21 11:41] LABS: Hemoglobin 5.5 g/dL (12.0-16.0)
[2025-07-21 11:42] LABS: Hematocrit 19.3 % (36.0-46.0)
[2025-07-21 11:43] LABS: INR 1.1 (0.9-1.3); Prothrombin Time 11.9 Seconds (9.0-12.2)
[2025-07-21 11:56] LABS: Alanine Aminotransferase 8 U/L (10-49); Albumin, Serum 3.7 gm/dL (3.4-4.8); Albumin/Globulin Ratio 1.5 (1.2-2.2); Alkaline Phosphatase 87 U/L (46-116); Anion Gap 8 (7-16); Aspartate Amino Transferase 17 U/L (0-34); BUN/Creatinine Ratio 24 Ratio (12-20); Bilirubin,Total 0.3 mg/dL (0.3-1.2); Blood Urea Nitrogen 12 mg/dL (9-23); Calcium 9.0 mg/dL (8.3-10.6); Calcium (Corrected) 9.2 mg/dL (8.5-10.1); Carbon Dioxide 30.9 mMol/L (20.0-31.0); Chloride 107 mMol/L (98-107); Creatinine (Component) 0.5 mg/dL (0.6-1.3); Estimated Creatinine Clearance 86.6 mL/min (>60); Globulin 2.4 gm/dL (2.3-3.5); Glucose 121 mg/dL (74-106); Osmolality,Calculated 291 (275-295); Potassium 4.0 mMol/L (3.4-5.1); Sodium 146 mMol/L (136-145); Total Protein 6.1 gm/dL (5.7-8.2); eGFR > 60 See Note
[2025-07-21 12:38] LABS: Path Review Blood Smear Sent to Pathologist
[2025-07-21 13:09] VITALS: BP 128/56; PULSE 111; RESP 18; TEMP 36.8; O2SAT 100
--- NOTE | 2025-07-21 13:17 | XR_ITS ---
Examination: AP chest single view TECHNIQUE: Sitting AP chest single view Date and time: July 21, 2025 1342 hours Comparison June 16, 2025 INDICATIONS: History pneumonia FINDINGS: There remains mild pneumonia left base Normal heart size Prominent osteopenia IMPRESSION: There remains mild pneumonia left base No pneumothorax
[2025-07-21 13:31] LABS: Basophils # (Auto) 0.1 Thou/mm3 (0.0-0.2); Basophils % (Auto) 0 % (0-2.5); Eosinophils # (Auto) 0.0 Thou/mm3 (0.0-0.5); Eosinophils % (Auto) 0 % (0-10); Hematocrit 20.4 % (36.0-46.0); Immature Granulocytes Auto 0.24 Thou/mm3 (0.00-0.00); Lymphocytes # (Auto) 0.2 Thou/mm3 (1.0-4.8); Lymphocytes % (Auto) 1 % (10-50); Mean Corpuscular HGB Conc 28.9 g/dl (31.0-37.0); Mean Corpuscular Hemoglobin 25.3 pg (25.0-35.0); Mean Corpuscular Volume 88 fL (80-100); Monocytes # (Auto) 0.3 Thou/mm3 (0.0-0.8); Monocytes % (Auto) 1 % (0-12); Neutrophils # (Auto) 22.5 Thou/mm3 (1.8-7.7); Neutrophils % (Auto) 96 % (37-80); Nucleated Red Blood Cell # 0.02 Thou/mm3 (0.00-0.00); Nucleated Red Blood Cell % 0 /100 WBC (0); Platelet Count 361 Thou/mm3 (140-440); RDW Standard Deviation 51.5 fL (36.4-46.3); Red Blood Count 2.33 Miln/mm3 (4.00-5.20); White Blood Count 23.3 Thou/mm3 (3.6-11.0)
[2025-07-21 13:40] LABS: Hemoglobin 5.9 g/dL (12.0-16.0)
[2025-07-21 14:11] LABS: B-Type Natriuretic Peptide 199 pg/mL (0-100)
--- NOTE | 2025-07-21 14:26 | PC.CM ---
Addendum entered by Maggi Cabello RN 07/21/25 17:08: telephone order supervisor time set for 1800 with [facility]. I updated [facility] charge nurse. If [facility] has a unit available they will come sooner. Addendum entered by Maggi Cabello RN 07/21/25 16:13: Patient has been accepted to [facility] ED with Dr. Lux Bhat. The number to call and give report is [phone]. I will complete paperwork and set up transport. Addendum entered by Maggi Cabello RN 07/21/25 15:51: 1545 [facility] called back and they wanted to know who did the BKA. I spoke to Dr. Sims and she stats she spoke to patient and the BKA was done here at our hospital with Dr. Joe. 1510 Angeli with [facility] called me back and stated they only got pages 11-20 on the fax. She asked me to re fax the information. I faxed over everything again. Addendum entered by Maggi Cabello RN 07/21/25 14:57: 1450 I connected Deborah with [facility] and they discussed patient. I pushed over images. Addendum entered by Maggi Cabello RN 07/21/25 14:44: I reviewed chart and I faxed paperwork to [facility]. I will push over images. I started packet and made a CD. Original Note: 1400 I received a referral to transfer patient for ortho for intertrochanteric fx. As per Dr. Sims we cannot do the procedure here due to her BKA.
[2025-07-21 15:05] VITALS: BP 135/75; PULSE 112; RESP 18; TEMP 36.9; O2SAT 100
[2025-07-21 16:34] VITALS: BP 137/83; PULSE 113; RESP 18; TEMP 37.2; O2SAT 98
--- NOTE | 2025-07-21 18:29 | PC.NURSE ---
REPORT CALLED TO [facility] ER CHARGE NURSE ALL QUESTIONS ANSWERED
== END 2025-07-21 18:34 | disposition short-term general hospital (02) ==
PROVIDERS: Emergency Provider Emergency Medicine; PCP Family Medicine
DX: S72.142A Displaced intertrochanteric fracture of left femur, initial encounter for closed fracture (principal); W01.0XXA Fall on same level from slipping, tripping and stumbling without subsequent striking against object, initial encounter; K92.2 Gastrointestinal hemorrhage, unspecified; S09.90XA Unspecified injury of head, initial encounter; J18.9 Pneumonia, unspecified organism
CPT/HCPCS: 36415; 36430; 70450; 71045; 73502; 73562; 73700; 80053; 81001; 83880; 85025; 85610; 86850; 86900; 86901; 86923; 94640; 96365; 96366; 96375; 99284; A9270; J0131; J2405; J2919; J3010; P9016